=== PATIENT | male | born 1950 | race Caucasian/White ===

== ENCOUNTER 2020-07-03 09:40 | Outpatient (REF) | payer MEDICARE, OTHER, SELFPAY ==
--- NOTE | 2020-07-03 | US_ITS ---
EXAMINATION: COLOR-FLOW DUPLEX IMAGING OF THE BILATERAL LOWER EXTREMITY ARTERIAL SYSTEM. VELOCITY MEASUREMENTS TO THE POPLITEAL ARTERIES CATRACHO CLINICAL INFORMATION: PVD. Left superficial femoral artery stent. FINDINGS: Collateral arteries are seen throughout both lower extremities. RIGHT LOWER EXTREMITY: Brachial artery pressure is 124 mmHg with posterior tibial pressure of 98 mmHg and dorsalis pedis artery 106 mmHg for a CATRACHO of 0.76. This corresponds to moderate obstructive disease. There is calcified plaque seen throughout the vessels. There are numerous greater than 50% stenoses seen within the common femoral artery and superficial femoral artery. There appears to be segmental occlusion of the mid superficial femoral artery with collaterals reconstituting the vessel distally. The right common femoral artery has a biphasic waveform with peak systolic velocity of 180 cm/s. The right profunda femoral artery has a biphasic waveform with peak systolic velocity of 131 cm/s. The proximal superficial femoral artery has a biphasic waveform with peak systolic velocity of 47 cm/s. Mid superficial femoral artery has a monophasic waveform with peak systolic velocity 107 cm/s. There are numerous greater than 50% stenoses identified. The distal superficial femoral artery has a monophasic waveform with peak systolic velocity of 48 cm/s. Popliteal artery has a monophasic waveform with peak systolic velocity 51 cm/s. The posterior tibial artery has a monophasic waveform with peak systolic velocity of 23 cm/s. Peroneal artery has a monophasic waveform with peak systolic velocity of 23 cm/s. LEFT LOWER EXTREMITY: The left ankle CATRACHO is 0.6. This corresponds with moderate peripheral vascular disease. Left common femoral artery has a biphasic waveform with peak systolic velocity of 100 cm/s. The left profunda femoral artery has a biphasic waveform with peak systolic velocity of 167 cm/s. Proximal superficial femoral artery proximal to stent demonstrates a monophasic waveform with peak systolic velocity of 64 cm/s. Within the proximal segment of the left superficial femoral artery stent, there is a monophasic waveform with peak systolic velocity of 57 cm/s. Within the proximal and mid segment, there is a monophasic waveform with spectral broadening and peak soft velocity of 152 cm/s. Intimal hyperplasia is seen within the stent. Within the mid and in the superficial femoral artery, there is a monophasic waveform with spectral broadening and peak systolic velocity of 76 cm/s. Within the [id number] stent, there is diminished flow with monophasic waveform and spectral broadening and peak soft velocity of 58 cm/s. Patent collateral is seen adjacent to the level of the mid stent. Within the distal stent, there is a monophasic waveform with spectral broadening and peak systolic velocity of 253 cm/s. Just distal to the stent, within the distal superficial femoral artery, there is a monophasic waveform with peak systolic velocity of 109 cm/s. The left popliteal artery has a monophasic waveform with peak systolic velocity of 37 cm/s with numerous collateral vessels. Posterior tibial artery has a monophasic waveform with peak systolic velocity of 32 cm/s. The peroneal artery has a monophasic waveform with peak systolic velocity of 17 cm/s. US/US arterial duplex LE BI IMPRESSION: RIGHT CATRACHO: 0.76 moderate disease. LEFT CATRACHO: 0.60. Moderate disease. Diffuse atherosclerotic disease within the right common femoral artery and superficial femoral artery with segmental occlusion of the superficial femoral artery within the mid vessel with reconstitution via collaterals. Biphasic waveform to the level of the proximal superficial femoral artery with monophasic waveform distal to that. Diffuse atherosclerotic disease of the left lower extremity with stent in place and biphasic waveform within the common femoral artery and monophasic waveforms with spectral broadening distal to this. Large amount of intimal hyperplasia within the stent with hemodynamically significant stenoses.
== END 2020-07-03 09:41 | disposition home or self-care (01) ==
LOC: HO.US 09:40
PROVIDERS: Visit Provider Surgery Vascular Surgery
DX: I73.9 Peripheral vascular disease, unspecified (principal); Z95.820 Peripheral vascular angioplasty status with implants and grafts
CPT/HCPCS: 93923; 93925

== ENCOUNTER → 2020-08-07 12:50 | Outpatient (BNVA) | payer MEDICARE, OTHER, SELFPAY | PROVIDERS: PCP Nurse Practitioner Family; Visit Provider Surgery Vascular Surgery | DX: I73.9 Peripheral vascular disease, unspecified (principal); E11.621 Type 2 diabetes mellitus with foot ulcer; L97.529 Non-pressure chronic ulcer of other part of left foot with unspecified severity | CPT/HCPCS: 99212 ==

== ENCOUNTER 2020-08-13 07:00 | Day surgery (SDC) | payer MEDICARE, OTHER, SELFPAY ==
[2020-08-13] VITALS (7 sets, daily range): BP systolic 120–134; BP diastolic 56–67; PULSE 57–78; RESP 16–18; TEMP 36.1–36.4; O2SAT 97–99; BMI 19.8
[2020-08-13 07:48] LABS: MANUAL DIFF FLAG NO
[2020-08-13 07:58] LABS: Basophils Absolute Auto 0.1 X10*3/uL (0.0-0.2); Basophils Percent Auto 0.5 % (0-2); Eosinophils Absolute Auto 0.2 X10*3/uL (0.0-0.4); Eosinophils Percent Auto 1.4 % (0-4); Hematocrit 35.3 % (42-52); Hemoglobin 11.7 g/dl (14.0-18.0); Imm Gran Abs Auto 0.04 X10*3/uL (0.00-0.03); Imm Gran Pct Auto 0.4 % (0.0-0.4); Lymphocytes Absolute Auto 1.7 X10*3/uL (1.2-4.9); Lymphocytes Percent Auto 15.3 % (20-40); Mean Corpuscular HGB Conc 33.1 g/dl (31.0-36.0); Mean Corpuscular Hemoglobin 28.5 pg (27.0-33.0); Mean Corpuscular Volume 86.1 fL (80-98); Mean Platelet Volume 10.3 fL (9.4-12.4); Monocytes Percent Auto 8.9 % (2-11); Neutrophils Absolute Auto 8.1 X10*3/uL (2.0-8.3); Neutrophils Percent Auto 73.5 % (45-73); Platelet Count 351 X10*3/uL (160-400); Red Cell Distribution Width 11.9 % (11.0-16.0); White Blood Count 11.1 X10*3/uL (4.8-10.8)
[2020-08-13 08:00] LABS: INTERNATIONAL NORM RATIO 1.1 (0.9-1.1); Prothrombin Time 13.4 SEC (10.8-13.0)
[2020-08-13 08:02] LABS: Partial Thromboplastin Time 35.9 SEC (24.1-38.0)
[2020-08-13 08:07] LABS: Glucose, Whole Blood 158 mg/dL (60-115)
[2020-08-13 08:19] LABS: Anion Gap 12 (12-20); Blood Urea Nitrogen 18 mg/dL (9-16); Carbon Dioxide 27 mmol/L (22-29); Chloride 101 mmol/L (96-108); Creatinine Clr Calc Pharmacy 61.2; Estimated Glomerular Filt Rate > 60; Glucose Random 169 mg/dL (60-115); Potassium 4.4 mmol/L (3.3-5.1); Sodium 136 mmol/L (135-145)
[2020-08-13] MEDS: Lidocaine HCl 1 % MPF 5 ML VIAL 10 ML SUBCUT (11:19)
[2020-08-13] MEDS: iohexoL 300 MG/ML 100 ML INFUS..BTL 150 ML IV (11:19)
--- NOTE | 2020-08-13 11:47 | P.OP_ITS ---
Operative Note Operative Note Date of Service: 08/13/20 Narrative: Angiogram report from [facility] Preoperative diagnosis: Peripheral arterial disease of left lower extremity, nonhealing ulcer Postoperative diagnosis: Same Procedure: 1. Ultrasound-guided right common femoral access 2. Aortogram with left lower extremity runoff 3. Angioplasty of left SFA Surgeon:Sanford Almaguer M.D. Flexible Machining System Machinist:None Anesthesia: Local with moderate conscious sedation for a total of 63 minutes, performed by ok Specimens:none Drains:none Estimated blood loss:minimal Indications: 69-year-old gentleman with nonhealing left 5th toe ulceration. Has had prior endovascular intervention about a year ago. Surveillance testing demonstrated nonhealing 5th toe ulcer with in stent restenosis. He now presents for endovascular intervention. Risks benefits complications were discussed in detail with the patient. He understood and consented. Procedure in detail: Patient was brought to the angiography suite prior to which a time-out was called for patient identification and site verification. Bilateral groins were prepped and draped in the standard surgical fashion. Under ultrasound guidance right common femoral was punctured with micro puncture needle and wire. Subsequently a precision 4 [place] sheath was then placed. Errund wire was advanced to the level of the aorta. 4 [place] Flush catheter was brought up and parked at the level of the renal arteries. Aortogram was then undertaken. Catheter was brought down to the level of the iliac bifurcation. Iliacs were subsequently imaged. Catheter was then brought in up and over to the left side SFA. Runoff study was then undertaken. At this 0.4 1000 units of systemic heparin was administered. An up and over 6 [place] sheath was placed. We used a Glidewire Advantage to traverse the lesion throughout the SFA. Once we were able to get down to the below-knee vessels. True lumen was confirmed with catheter and contrast. We then plasty 8 and the entire length of the prior SFA stent. This was 1st done with a 6 x 150 regular balloon. Next we plasty the area out with drug coated balloons. These were deployed in sequen tial order. DCB 6 x 150, 6 x 150, and 6 x 80. These were all brought into position in under 3 minutes and then deployed for 3 minutes. Once this was accomplished completion angiogram was then undertaken. Demonstrated excellent results. StarClose closure device was deployed. At the end of the case sponge nose may counts were correct. Interpretation of films: 1. Ultrasound demonstrates appropriate femoral puncture. Image of which was saved. 2. Aortogram demonstrates appropriate caliber aorta. Minimal disease. Appropriate take-off of the renals. 3. Iliac images demonstrate no significant stenosis highly tortuous 4. Left lower extremity demonstrated normal common femoral and profunda femoral S SFA throughout its entire length had stents which demonstrated significant InStent restenoses. He had a good above knee popliteal that went below knee. He had good 3 vessel runoff anterior tibial and posterior tibial being most dominant giving a completion foot arch. Conclusion: 1. Successful plasty of left SFA with drug coated balloon. Patient will require long-term aspirin and Plavix as he has developed rapid InStent restenoses. He will be scheduled for toe amputation soon. This note is constructed using voice recognition software. While every effort has been made to ensure accuracy, line assembler errors may have been included. Thank you for allowing me to participate in the care of your patient. Yours sincerely, Sanford Almaguer MD, FACS, R.P.V.I.
== END 2020-08-13 14:45 | disposition home or self-care (01) ==
PROVIDERS: PCP Nurse Practitioner Family; Visit Provider Surgery Vascular Surgery
DX: I73.9 Peripheral vascular disease, unspecified (principal); E11.621 Type 2 diabetes mellitus with foot ulcer; Z79.4 Long term (current) use of insulin; L97.529 Non-pressure chronic ulcer of other part of left foot with unspecified severity; E78.00 Pure hypercholesterolemia, unspecified
CPT/HCPCS: 36415; 37224; 75625; 75710; 76937; 76942; 80048; 82947; 85025; 85610; 85730; 99152; 99153; C1725; C1760; C1769; C1887; J0461; J2250; J3010; Q9967

== ENCOUNTER → 2020-08-14 10:07 | Outpatient (BNVA) | payer MEDICARE, OTHER, SELFPAY | PROVIDERS: PCP Nurse Practitioner Family; Visit Provider Surgery Vascular Surgery | CPT/HCPCS: Q3014 ==

== ENCOUNTER 2020-08-17 15:36 | Emergency (ER) | payer MEDICARE, OTHER, SELFPAY ==
--- NOTE | ~2020-08-17 | CT_ITS ---
EXAMINATION: CT ABDOMEN AND PELVIS WITH CONTRAST CLINICAL INFORMATION: Pain, recent angioplasty recess or retroperitoneal bleed COMPARISON: None TECHNIQUE: Multidetector volumetric images were obtained from the superior aspect of the liver through the pubic symphysis following administration 85 mL of Omnipaque 350 intravenous contrast. Sagittal and coronal reformatted images were obtained on the technologist's workstation. Oral contrast: No Motion degradation limits assessment. This CT examination was performed using dose optimization techniques as appropriate, variously including the following: *Automated exposure control *Adjustment of mA and/or kV according to patient size (this includes techniques or standardized protocols for targeted exams where dose is matched to indication/reason for exam; i.e. extremities or head) *Use of iterative reconstruction technique DLP: 151 mGy-cm FINDINGS: LUNG BASES: The visualized lung bases are unremarkable. LIVER, GALLBLADDER, AND BILIARY TREE: The liver is normal in size, shape, and attenuation. No focal hepatic lesion or biliary ductal dilatation is present. The gallbladder is unremarkable with no evidence of radiopaque gallstones, gallbladder wall thickening, or obvious pericholecystic inflammatory changes. PANCREAS: Unremarkable. SPLEEN: Unremarkable. ADRENAL GLANDS: Unremarkable. KIDNEYS AND URETERS: There is dilatation of the left renal collecting system of moderate severity to the level the proximal ureter. 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 Relative symmetrical nephrograms noted. No obstructing source demonstrated. The right-sided abnormality. BLADDER: Unremarkable. GASTROINTESTINAL TRACT: The small and large bowel are unremarkable. The appendix is unremarkable. ABDOMINAL WALL: There is extensive infiltration of the right inguinal region extending into the right spermatic cord where there is a hematoma. Hematoma is relatively small measuring approximately 7.7 cm craniocaudal 4 cm AP and 5.5 cm transverse. Small amounts extend into the right pelvis. No retroperitoneal extension. No free fluid. LYMPH NODES: Normal. VASCULAR: No gross extravasation of contrast. PELVIC VISCERA: Moderate prostate enlargement. OSSEOUS STRUCTURES: Unremarkable. CT/CT abdomen pelvis w con IMPRESSION: No retroperitoneal hemorrhage. Findings of acute hematoma in the right inguinal region extending to the right pelvis and right spermatic cord as above. Dilatation of the left proximal urinary collecting system as above. Correlate with renal function and consider CT urogram to exclude an occult source if further assessment indicates obstruction as opposed to a congenital findings.
[2020-08-17 15:42] VITALS: BP 128/66; PULSE 70; RESP 20; TEMP 36.7; O2SAT 99
--- NOTE | 2020-08-17 18:23 | ECG_ITS ---
Test Reason : ABDOMINAL PAIN Blood Pressure : / mmHG Vent. Rate : 056 BPM Atrial Rate : 056 BPM P-R Int : 146 ms QRS Dur : 088 ms QT Int : 424 ms P-R-T Axes : 069 029 040 degrees QTc Int : 409 ms Sinus bradycardia Otherwise normal ECG When compared with ECG of 20-FEB-2003 12:28, No significant change was found Referred By: Hollie Walsh Electronically Signed By:Zachariah Waite
--- NOTE | 2020-08-17 18:24 | ED_ITS ---
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 He is followed by vascular dr alamo and had an angio at the right groin 5 days ago with successful plasty of the left SFA. He is scheduled for an amputation of the toe tomorrow. He tells me 3 days ago he had steak and since then he has had LUQ abdominal pain and nausea with constipation. Normally moves his bowels every day. Not currently on a bowel regimen. Denies narcotics. No vomiting, fevers, chills. He notes some swelling at the right groin angio site with some mild discomfort. MD elicited complaint: abdominal pain Related Data Home Medications Medication Instructions Recorded Confirmed insulin aspart U-100 100 unit/mL 0 - 10 unit SUBCUT TID 08/07/20 (3 mL) subcutaneous pen Previous Rx's Medication Instructions Recorded metformin 500 mg tablet 500 mg PO DAILY 90 Days #90 tab 04/29/20 atorvastatin 20 mg tablet 20 mg PO DAILY 90 Days #90 tab 05/05/20 lancets 28 gauge #100 ea 06/20/20 clopidogrel 75 mg tablet 75 mg PO DAILY #90 tab 07/14/20 blood sugar diagnostic See Rx Instructions .ROUTE QID 08/07/20 #100 strip cephalexin 500 mg capsule 500 mg PO BID #20 cap 08/07/20 docusate sodium [Colace] 100 mg PO BID #20 cap 08/17/20 polyethylene glycol 3350 [Miralax] 17 g PO DAILY #119 g 08/17/20 Allergies Allergy/AdvReac Type Severity Reaction Status Date / Time No Known Allergies Allergy Verified 08/14/20 10:07 [No Known Allergies*] Review of Systems Review of Systems Yes all other systems are reviewed and are negative Constitutional: Reports no additional constitutional complaints, Denies body a mayelin(s), Denies chills, Denies fever(s), Denies headache(s) and Denies weakness Eyes: Reports no additional eye complaints and Denies change in vision Reports system reviewed and no additional complaints, except as documented, Denies dizziness, Denies headache(s), Denies nasal congestion, Denies nasal discharge and Denies neck pain Cardiovascular: Reports no additional cardiovascular complaints, Denies chest pain, Denies leg edema and Denies dyspnea Respiratory: Reports no additional respiratory complaints, Denies cough and Denies dyspnea Gastrointestinal: Reports no additional gastrointestinal complaints, Reports abdominal pain, Reports constipation, Denies diarrhea, Reports nausea and Denies vomiting Genitourinary: Denies urinary incontinence Musculoskeletal: Reports no additional musculoskeletal complaints, Denies back pain, Denies arthralgias, Denies joint swelling, Denies neck pain, Denies numbness and Denies tingling Skin/Breast: Reports system reviewed and no additional complaints, except as doc u and Denies rash Reports system reviewed and no additional complaints, except as documented, Denies Abnormal speech present, Denies dizziness, Denies headache(s), Denies numbness, Denies tingling and Denies weakness Physical Exam Vital Signs: Vital Signs: Last Vital Signs Temp 98 F 08/17/20 18:26 Pulse 99 08/17/20 18:26 Resp 18 08/17/20 18:26 BP 136/63 08/17/20 18:26 Pulse Ox 99 08/17/20 18:26 Body Mass Index 20.0 Const: General: cooperative, healthy appearing, comfortable and no acute distress Orientation/consciousness: patient oriented x3 Limitations: no limitations HENMT: Head: Yes normal to inspection Ears: hearing grossly normal bilaterally General nose exam: Normal external nose present Face and sinus: Yes normal facial exam Mouth: Normal oral and palatal mucosa present Throat: Yes posterior oropharynx normal Eyes: General: appearance normal, both eyes and all related structures Pupils: Equal, round and reactive pupils present Neck: Neck: Yes normal visual inspection Chest: Chest palpation & inspection: normal inspection of the chest Resp: Effort & Inspection: normal respiratory effort Auscultation: clear to auscultation bilaterally Cardio: Rate: regular rate Rhythm: regular rhythm Peripheral pulses: Peripheral pulses 2+ throughout GI: Other: R groin site there is ecchymosis with a mod hematoma which is soft with swelling but no tenderness on exam. +femoral pulse noted. Extremity distal is warm/pink Inspection: Yes normal to inspection Palpation (GI): Soft to palpation and Tenderness to palpation present (GI) (mild LUQ pain, no rebound or guarding ) Auscultation: normal bowel sounds Back/Spine/Pelvis: Thoracic/Lumbar Spine: thoracic and lumbar spine normal to inspection Skin: General skin exam: no rashes or lesions noted Neuro: General: patient oriented x3, no focal motor deficits and normal sensation to monofilament Cranial nerves: Yes Equal, round and reactive pupils present Cognition (Neuro): normal cognition Speech: No Abnormal speech present Gait exam (Neuro): Normal gait present Motor exam (neuro): 5/5 motor strength present throughout Extrem: General: Yes normal to inspection Course Course Course Narrative: 69 yo male here with complaints of LUQ abdominal pain, nausea and constipation x 3 days. On exam has some mild tenderness to LUQ with no rebound or guarding. Has ecchymosis, swelling over the right groin angio site which is soft and non tender. Will need labs, UA, EKG, Ct A/P. 2220-hemoglobin 9.2. Hematocrit 27.5 which is a slight decrease from his CBC on August 13 (11.7/27.5) athough angio site is soft, non tender. CT shows No retroperitoneal hemorrhage. Findings of acute hematoma in the right inguinal region extending to the right pelvis and right spermatic cord as above. Dilatation of the left proximal urinary collecting system as above. Correlate with renal function and consider CT urogram to exclude an occult source if further assessment indicates obstruction as opposed to a congenital findings. No previous CT to compare to. No flank pain on exam. Pain is mild in LUQ and likely non-related. Normal lipase with no evidence of pancreatitis. ?gastritis from antibiotic use. Discussed taking with food. Normal renal function. Normal voiding. Discussed findings with Dr Rowan (attending) and patient. Patient can f/u outpatient with urology for pyelogram/urogram and possible stenting. Given a copy of CT report. Reviewed worrisome signs symptoms would return to the emergency department. Comfortable discharge home. MDM - Abdominal Pain MDM Narrative Medical decision making narrative: RP bleed, constipation, pancreatitis, gastritis, gerd, SBO Medical Records Attestation: I reviewed the patient's medical records. Lab Data Attestation: I reviewed the patient's lab results. Result diagrams: 08/17/20 18:46 08/17/20 18:46 Labs: Lab Results 03/07/21 03/07/21 03/07/21 Range/Units 18:46 18:46 18:46 WBC 12.1 H (4.8-10.8) X10*3/uL RBC 3.23 L D (4.60-5.80) X10*6/uL Hgb 9.2 L D (14.0-18.0) g/dl Hct 27.5 L D (42-52) % MCV 85.1 (80-98) fL MCH 28.5 (27.0-33.0) pg MCHC 33.5 (31.0-36.0) g/dl RDW 11.9 (11.0-16.0) % Plt Count 332 (160-400) X10*3/uL MPV 10.3 (9.4-12.4) fL Immature Gran % (Auto) 0.4 (0.0-0.4) % Neut % (Auto) 75.4 H (45-73) % Lymph % (Auto) 12.0 L (20-40) % [place] % (Auto) 10.4 (2-11) % Eos % (Auto) 1.5 (0-4) % Baso % (Auto) 0.3 (0-2) % Lymph # (Auto) 1.5 (1.2-4.9) X10*3/uL [place] # (Auto) 1.3 H (0.1-1.2) X10*3/uL Eos # (Auto) 0.2 (0.0-0.4) X10*3/uL Baso # (Auto) 0.0 (0.0-0.2) X10*3/uL Abs Immat Gran (auto) 0.05 H (0.00-0.03) X10*3/uL Absolute Neuts (auto) 9.1 H (2.0-8.3) X10*3/uL Absolute Nucleated RBC 0.000 (0.0-0.012) X10*3/uL Nucleated RBC % (auto) 0.0 (0.0-0.2) /100WBC PT 13.5 H (10.8-13.0) SEC INR 1.1 (0.9-1.1) Sodium 137 (135-145) mmol/L Potassium 5.1 (3.3-5.1) mmol/L Chloride 99 (96-108) mmol/L Carbon Dioxide 28 (22-29) mmol/L Anion Gap 15 (12-20) BUN 20 H (9-16) mg/dL Creatinine 1.22 (0.5-1.4) mg/dL Estim Creat Clear Calc 48.3 Estimated GFR 59 Random Glucose 172 H (60-115) mg/dL Calcium 8.9 (8.4-10.2) mg/dL Total Bilirubin 0.6 (0.0-1.0) mg/dL Direct Bilirubin 0.3 (0.0-0.5) mg/dL AST 10 (5-37) U/L ALT 6 (0-40) U/L Alkaline Phosphatase 71 (39-117) U/L Troponin I High Sens (<3.5-35.0) ng/L Total Protein 6.2 L (6.5-8.0) g/dL Albumin 3.4 L (3.5-5.0) g/dL Lipase 5 L (8-78) U/L Urine Color Urine Appearance Urine pH (5.0-8.0) Ur Specific [place] (1.005-1.025) Urine Protein (NEG-TRACE) MG/DL Urine Glucose (UA) (NEG) MG/DL Urine Ketones (NEG) MG/DL Urine Blood (NEG) Urine Nitrite (NEG) Ur Leukocyte Esterase (NEG) Urine RBC (0) /HPF Urine WBC (0-4) /HPF Ur Squamous Epith Cells /LPF Urine Bacteria /LPF 08/17/20 08/17/20 Range/Units 18:46 21:29 WBC (4.8-10.8) X10*3/uL RBC (4.60-5.80) X10*6/uL Hgb (14.0-18.0) g/dl Hct (42-52) % MCV (80-98) fL MCH (27.0-33.0) pg MCHC (31.0-36.0) g/dl RDW (11.0-16.0) % Plt Count (160-400) X10*3/uL MPV (9.4-12.4) fL Immature Gran % (Auto) (0.0-0.4) % Neut % (Auto) (45-73) % Lymph % (Auto) (20-40) % [place] % (Auto) (2-11) % Eos % (Auto) (0-4) % Baso % (Auto) (0-2) % Lymph # (Auto) (1.2-4.9) X10*3/uL [place] # (Auto) (0.1-1.2) X10*3/uL Eos # (Auto) (0.0-0.4) X10*3/uL Baso # (Auto) (0.0-0.2) X10*3/uL Abs Immat Gran (auto) (0.00-0.03) X10*3/uL Absolute Neuts (auto) (2.0-8.3) X10*3/uL Absolute Nucleated RBC (0.0-0.012) X10*3/uL Nucleated RBC % (auto) (0.0-0.2) /100WBC PT (10.8-13.0) SEC INR (0.9-1.1) Sodium (135-145) mmol/L Potassium (3.3-5.1) mmol/L Chloride (96-108) mmol/L Carbon Dioxide (22-29) mmol/L Anion Gap (12-20) BUN (9-16) mg/dL Creatinine (0.5-1.4) mg/dL Estim Creat Clear Calc Estimated GFR Random Glucose (60-115) mg/dL Calcium (8.4-10.2) mg/dL Total Bilirubin (0.0-1.0) mg/dL Direct Bilirubin (0.0-0.5) mg/dL AST (5-37) U/L ALT (0-40) U/L Alkaline Phosphatase (39-117) U/L Troponin I High Sens 4.3 (<3.5-35.0) ng/L Total Protein (6.5-8.0) g/dL Albumin (3.5-5.0) g/dL Lipase (8-78) U/L Urine Color YELLOW Urine Appearance CLEAR Urine pH 8.0 (5.0-8.0) Ur Specific [place] 1.010 (1.005-1.025) Urine Protein NEG (NEG-TRACE) MG/DL Urine Glucose (UA) NEG (NEG) MG/DL Urine Ketones 15 (NEG) MG/DL Urine Blood 1+ H (NEG) Urine Nitrite NEG (NEG) Ur Leukocyte Esterase NEG (NEG) Urine RBC 15-29 H (0) /HPF Urine WBC 1-4 (0-4) /HPF Ur Squamous Epith Cells 1+ /LPF Urine Bacteria 1+ /LPF Imaging Data CT scan - abdomen: Attestation: I personally reviewed and interpreted this imaging study as follows: Radiologist's impression: EXAMINATION: CT ABDOMEN AND PELVIS WITH CONTRAST CLINICAL INFORMATION: Pain, recent angioplasty recess or retroperitoneal bleed COMPARISON: None TECHNIQUE: Multidetector volumetric images were obtained from the superior aspect of the liver through the pubic symphysis following administration 85 mL of Omnipaque 350 intravenous contrast. Sagittal and coronal reformatted images were obtained on the technologist's workstation. Oral contrast: No Motion degradation limits assessment. This CT examination was performed using dose optimization techniques as appropriate, variously including the following: *Automated exposure control *Adjustment of mA and/or kV according to patient size (this includes techniques or standardized protocols for targeted exams where dose is matched to indication/reason for exam; i.e. extremities or head) *Use of iterative reconstruction technique DLP: 151 mGy-cm FINDINGS: LUNG BASES: The visualized lung bases are unremarkable. LIVER, GALLBLADDER, AND BILIARY TREE: The liver is normal in size, shape, and attenuation. No focal hepatic lesion or biliary ductal dilatation is present. The gallbladder is unremarkable with no evidence of radiopaque gallstones, gallbladder wall thickening, or obvious pericholecystic inflammatory changes. PANCREAS: Unremarkable. SPLEEN: Unremarkable. ADRENAL GLANDS: Unremarkable. KIDNEYS AND URETERS: There is dilatation of the left renal collecting system of moderate severity to the level the proximal ureter. 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 Relative symmetrical nephrograms noted. No obstructing source demonstrated. The right-sided abnormality. BLADDER: Unremarkable. GASTROINTESTINAL TRACT: The small and large bowel are unremarkable. The appendix is unremarkable. ABDOMINAL WALL: There is extensive infiltration of the right inguinal region extending into the right spermatic cord where there is a hematoma. Hematoma is relatively small measuring approximately 7.7 cm craniocaudal 4 cm AP and 5.5 cm transverse. Small amounts extend into the right pelvis. No retroperitoneal extension. No free fluid. LYMPH NODES: Normal. VASCULAR: No gross extravasation of contrast. PELVIC VISCERA: Moderate prostate enlargement. OSSEOUS STRUCTURES: Unremarkable. CT/CT abdomen pelvis w con IMPRESSION: No retroperitoneal hemorrhage. Findings of acute hematoma in the right inguinal region extending to the right pelvis and right spermatic cord as above. Dilatation of the left proximal urinary collecting system as above. Correlate with renal function and consider CT urogram to exclude an occult source if further assessment indicates obstruction as opposed to a congenital findings. Discharge Plan Discharge Clinical Impression: Abnormal CT scan, Anemia, Hematoma, Abdominal pain, Constipation Patient Disposition: Home, Self-Care Instructions: Constipation (ED), Abdominal Pain (ED), Anemia (ED), Hematoma (ED) Additional Instructions: Your CT scan shows that your left ureter is dilated and blocked. This is causing some swelling of your left kidney. Your right kidney is working good. Your kidney function is very good. You need to follow-up with a urologist to have more testing done and a possible stent placed to open this up. Call them tomorrow to make an appointment this week. You were given a copy of your report. Increase fluids and fiber in diet. We are starting you on miralax and colace to keep your bowels moving. Your CT scan also shows a hematoma which is bruise under the skin on the right groin. This will improve with time. Your blood cell counts dropped a little but they will improve with time. Prescriptions: New polyethylene glycol 3350 [Miralax] 17 gram/dose powder 17 g PO DAILY Qty: 119 RF: 0 docusate sodium [Colace] 100 mg capsule 100 mg PO BID Qty: 20 RF: 0 No Action metformin 500 mg tablet 500 mg PO DAILY 90 Days Qty: 90 RF: 1 atorvastatin 20 mg tablet 20 mg PO DAILY 90 Days Qty: 90 RF: 1 (DME) lancets [FreeStyle Lancets] 28 gauge misc See Rx Instructions .ROUTE .MEDSUPPLY Qty: 100 RF: 2 clopidogrel 75 mg tablet 75 mg PO DAILY Qty: 90 RF: 0 FreeStyle Lite Strips Strip See Rx Instructions .ROUTE QID Qty: 100 RF: 3 cephalexin 500 mg capsule 500 mg PO BID Qty: 20 RF: 0 Referrals: Reynaldo Olivas MD [Physician] - 2 days Interventions: ED Discharge Assessment Last Done: 08/17/20 22:22 Discharge Date/Time: 08/17/20 22:23 [facility] Past Medical History Attestation statement: The following information was validated with the patient. Source: old records reviewed Medical History Hypercholesteremia PVD (peripheral vascular disease) Surgical History S/P angiogram of extremity (~2019) S/P PICC central line placement Social History Social History Smoking Status: Current every day smoker Cigarettes Per Day: 7 Years Smoked: 39 Advance Directives: No Advance Directives Information Provided: Yes
[2020-08-17 18:26] VITALS: BP 136/63; PULSE 99; RESP 18; TEMP 36.6; O2SAT 99
[2020-08-17 18:55] LABS: MANUAL DIFF FLAG NO
[2020-08-17 18:57] LABS: Basophils Percent Auto 0.3 % (0-2); Eosinophils Absolute Auto 0.2 X10*3/uL (0.0-0.4); Eosinophils Percent Auto 1.5 % (0-4); Hematocrit 27.5 % (42-52); Hemoglobin 9.2 g/dl (14.0-18.0); Imm Gran Abs Auto 0.05 X10*3/uL (0.00-0.03); Imm Gran Pct Auto 0.4 % (0.0-0.4); Lymphocytes Absolute Auto 1.5 X10*3/uL (1.2-4.9); Mean Corpuscular HGB Conc 33.5 g/dl (31.0-36.0); Mean Corpuscular Hemoglobin 28.5 pg (27.0-33.0); Mean Corpuscular Volume 85.1 fL (80-98); Mean Platelet Volume 10.3 fL (9.4-12.4); Monocytes Absolute Auto 1.3 X10*3/uL (0.1-1.2); Monocytes Percent Auto 10.4 % (2-11); Neutrophils Absolute Auto 9.1 X10*3/uL (2.0-8.3); Neutrophils Percent Auto 75.4 % (45-73); Platelet Count 332 X10*3/uL (160-400); Red Blood Count 3.23 X10*6/uL (4.60-5.80); Red Cell Distribution Width 11.9 % (11.0-16.0); White Blood Count 12.1 X10*3/uL (4.8-10.8)
[2020-08-17 19:03] LABS: INTERNATIONAL NORM RATIO 1.1 (0.9-1.1); Prothrombin Time 13.5 SEC (10.8-13.0)
[2020-08-17 19:24] LABS: Alanine Aminotransferase 6 U/L (0-40); Albumin Level 3.4 g/dL (3.5-5.0); Alkaline Phosphatase 71 U/L (39-117); Anion Gap 15 (12-20); Aspartate Amino Transferase 10 U/L (5-37); Bilirubin Direct 0.3 mg/dL (0.0-0.5); Bilirubin Total 0.6 mg/dL (0.0-1.0); Blood Urea Nitrogen 20 mg/dL (9-16); Calcium 8.9 mg/dL (8.4-10.2); Carbon Dioxide 28 mmol/L (22-29); Chloride 99 mmol/L (96-108); Creatinine Clr Calc Pharmacy 48.3; Estimated Glomerular Filt Rate 59; Glucose Random 172 mg/dL (60-115); Lipase 5 U/L (8-78); Potassium 5.1 mmol/L (3.3-5.1); Sodium 137 mmol/L (135-145); Total Protein 6.2 g/dL (6.5-8.0)
[2020-08-17 19:26] LABS: Troponin-I High Sensitivity 4.3 ng/L (<3.5-35.0)
[2020-08-17] MEDS: iohexoL 350 MG/ML 75 ML INFUS..BTL IV (20:12)
--- NOTE | 2020-08-17 20:24 | PC.NURSE ---
update at this time. Pt alert, respirations easy, n/ll awaiting for pending ct.
--- NOTE | 2020-08-17 21:30 | PC.NURSE ---
pt up to restroom with steady gait for urine sample to lab.
[2020-08-17 21:37] LABS: Glucose Urine UA NEG (NEG); Leukocyte Esterase Urine NEG (NEG); Nitrite Urine NEG (NEG); Urine Blood 1+ (NEG); Urine Ketones 15 MG/DL (NEG); Urine Protein NEG (NEG-TRACE)
[2020-08-17 21:47] LABS: Appearance Urine CLEAR; Color Urine YELLOW
[2020-08-17 21:48] LABS: Bacteria Urine 1+ /LPF; Squamous Epithelial Cell Urine 1+ /LPF
== END 2020-08-17 22:23 | disposition home or self-care (01) ==
PROVIDERS: Nurse Practitioner Family; Emergency Provider Internal Medicine; PCP Nurse Practitioner Family
DX: R10.12 Left upper quadrant pain (principal); K59.00 Constipation, unspecified; D64.9 Anemia, unspecified; N50.1 Vascular disorders of male genital organs; F17.210 Nicotine dependence, cigarettes, uncomplicated; R93.5 Abnormal findings on diagnostic imaging of other abdominal regions, including retroperitoneum; N13.5 Crossing vessel and stricture of ureter without hydronephrosis
CPT/HCPCS: 36415; 74177; 80048; 80076; 81001; 83690; 84484; 85025; 85610; 93005; 99283; 99284; Q9967

== ENCOUNTER 2020-08-18 06:37 | Day surgery (SDC) | payer MEDICARE, OTHER, SELFPAY ==
[2020-08-18] VITALS (8 sets, daily range): BP systolic 114–153; BP diastolic 54–74; PULSE 56–80; RESP 7–17; TEMP 36.3–37; O2SAT 95–100; BMI 19.8
--- NOTE | 2020-08-18 08:00 | P.CONAN_ITS ---
[facility] Active Problems Active Problems: All Active Problems (Updated 08/18/20 @ 00:00 by Myra Che) Ulcer of left foot due to type 2 diabetes mellitus (Acute) Type 2 diabetes mellitus without complications (Acute) Past Medical History Medical History Hypercholesteremia PVD (peripheral vascular disease) Surgical History Surgical History S/P angiogram of extremity (~2019) S/P PICC central line placement Social History Social History Smoking Status: Current every day smoker Cigarettes Per Day: 7 Years Smoked: 39 Advance Directives: No Meds Allergies Allergy/AdvReac Type Severity Reaction Status Date / Time No Known Allergies Allergy Verified 08/14/20 10:07 [No Known Allergies*] Active Medications: Current Medications Generic Name Dose Route Start Last Admin Trade Name Janq PRN Reason Stop Dose Admin Cefazolin Sodium/Dextrose 2 gm in 50 mls @ 100 mls/hr 08/18/20 07:44 Ancef IV 08/18/20 08:13 PREOP ONE Home Medications Medication Instructions Recorded Confirmed Last Taken Type insulin aspart U-100 100 unit/mL 0 - 10 unit SUBCUT TID 08/07/20 Unknown History (3 mL) subcutaneous pen Exam Exam Date and Time: August 18, 2020 0800 Airway Mallampati Class: II TM Dist: >3cm Neck ROM: Full Denture: Upper and Lower
[2020-08-18 08:30] LABS: Glucose, Whole Blood 163 mg/dL (60-115)
[2020-08-18] MEDS: Lactated Ringers 1,000 ML 100 ML IVCONT (08:46)
--- NOTE | 2020-08-18 09:00 | MHC.SHP ---
Pre-Procedural Eval Section B Chief Complaint: Peripheral Vascular Disease Allergies: Allergies Allergy/AdvReac Type Severity Reaction Status Date / Time No Known Allergies Allergy Verified 08/14/20 10:07 [No Known Allergies*] Plan I have reviewed the history and physical and performed a pertinent physical examination on my patient. No changes have occurred unless specified.
--- NOTE | 2020-08-18 10:16 | P.OP_ITS ---
Operative Note Operative Note Date of Service: 08/18/20 Narrative: Operative note by [facility] Preoperative diagnosis: Nonhealing left foot ulcer Postoperative diagnosis: Same Procedure: Left 5th toe amputation Surgeon:Sanford Almaguer M.D. Clothing Worker: None Anesthesia: General Specimens: 1 Drains: Estimated blood loss: Minimal Indications: 69-year-old gentleman with significant peripheral vascular disease and diabetes developed left 5th toe gangrene. He had actually undergone endovascular intervention last week. We were able to revascularize the SFA. He now presents for toe amputation. The patient has signed the informed consent after reviewing risks, complications, benefits, and alternatives previously discussed with the patient in my office. The patient was given the opportunity to ask any additional questions or voice any concerns. All questions were answered to the patient's satisfaction. Procedure in detail: Patient was taken to the operating room prior to which a time-out was called for patient identification and site verification. Left foot was prepped and draped in the standard surgical fashion. A curvilinear fishmouth incision was made over the 5th toe. This was taken down to the metatarsal head. The wound was thoroughly irrigated. Adequate hemostasis was achieved with electrocautery. At this point in the base we placed a piece of AmnioFix 2 x 3. This was hydrated and placed into position. Deep layer was reapproximated using 2 0 poly sore. Superficial layer with 3-0 poly for Sorb some. Finally skin with nylon. At the end the case sponge instrument counts were correct. Patient tolerated the procedure well. Returned to recovery with stable vitals. This note is constructed using voice recognition software. While every effort has been made to ensure accuracy, benefits consulting analyst errors may have been included. Thank you for allowing me to participate in the care of your patient. Yours sincerely, Sanford Almaguer MD, FACS, R.P.V.I.
== END 2020-08-18 11:51 | disposition home or self-care (01) ==
PROVIDERS: PCP Nurse Practitioner Family; Visit Provider Surgery Vascular Surgery
PROC: (CPT 28810; principal; 2020-08-18 08:30)
DX: E11.621 Type 2 diabetes mellitus with foot ulcer (principal); E11.52 Type 2 diabetes mellitus with diabetic peripheral angiopathy with gangrene; L97.529 Non-pressure chronic ulcer of other part of left foot with unspecified severity; Z79.4 Long term (current) use of insulin
CPT/HCPCS: 28810; 82947; 88305; 88311; J0690; J1100; J2250; J2370; J2405; J3010; J3590

== ENCOUNTER → 2020-09-02 08:50 | Outpatient (BNVA) | payer MEDICARE, OTHER, SELFPAY | PROVIDERS: PCP Nurse Practitioner Family; Visit Provider Surgery Vascular Surgery | DX: I73.9 Peripheral vascular disease, unspecified (principal) | CPT/HCPCS: 99212 ==

== ENCOUNTER 2020-09-11 09:02 | Outpatient (REF) | payer MEDICARE, OTHER, SELFPAY ==
[2020-09-11 11:54] LABS: Estimated Average Glucose 166 mg/dL; Hemoglobin A1c % 7.4 %
[2020-09-11 12:08] LABS: Alanine Aminotransferase 11 U/L (0-40); Albumin Level 3.7 g/dL (3.5-5.0); Alkaline Phosphatase 74 U/L (39-117); Anion Gap 12 (12-20); Aspartate Amino Transferase 11 U/L (5-37); Bilirubin Total 0.3 mg/dL (0.0-1.0); Blood Urea Nitrogen 23 mg/dL (9-16); Calcium 8.5 mg/dL (8.4-10.2); Carbon Dioxide 23 mmol/L (22-29); Chloride 106 mmol/L (96-108); Cholesterol 135 mg/dL; Estimated Glomerular Filt Rate > 60; Glucose Fasting 164 mg/dL (60-99); HDL Cholesterol 48 mg/dL; LDL Cholesterol Calculated 75 mg/dl; Potassium 5.1 mmol/L (3.3-5.1); Sodium 136 mmol/L (135-145); Total Protein 6.6 g/dL (6.5-8.0); Triglycerides 64 mg/dL
[2020-09-11 12:14] LABS: Prostate Specific Antigen Scr 1.57 ng/mL (<0.05-4.0); TSH reflex Free T4 1.37 uIU/mL (0.32-4.0)
[2020-09-11 14:34] LABS: Creatinine Urine 74.25 mg/dL; Microalbum/Creatinine Ratio Ur 9.4 ug/mg cr
== END 2020-09-11 09:03 | disposition home or self-care (01) ==
LOC: HO.HMGCLNP 09:02
PROVIDERS: PCP Nurse Practitioner Family; Visit Provider Nurse Practitioner Family
DX: E11.9 Type 2 diabetes mellitus without complications (principal); Z12.5 Encounter for screening for malignant neoplasm of prostate
CPT/HCPCS: 80053; 80061; 82043; 83036; 84153; 84443

== ENCOUNTER → 2020-09-18 08:58 | Outpatient (BNVA) | payer MEDICARE, OTHER, SELFPAY | PROVIDERS: PCP Nurse Practitioner Family; Visit Provider Surgery Vascular Surgery | DX: I73.9 Peripheral vascular disease, unspecified (principal) | CPT/HCPCS: 99212 ==

== ENCOUNTER → 2020-10-09 08:59 | Outpatient (BNVA) | payer MEDICARE, OTHER, SELFPAY | PROVIDERS: PCP Nurse Practitioner Family; Visit Provider Surgery Vascular Surgery | DX: I73.9 Peripheral vascular disease, unspecified (principal) | CPT/HCPCS: 99212 ==

== ENCOUNTER → 2020-10-30 11:31 | Outpatient (BNVA) | payer MEDICARE, OTHER, SELFPAY | PROVIDERS: PCP Nurse Practitioner Family; Visit Provider Surgery Vascular Surgery | DX: I73.9 Peripheral vascular disease, unspecified (principal); F17.200 Nicotine dependence, unspecified, uncomplicated; Z79.899 Other long term (current) drug therapy; Z71.6 Tobacco abuse counseling | CPT/HCPCS: 99212 ==

== ENCOUNTER 2020-11-03 06:09 | Day surgery (SDC) | payer MEDICARE, OTHER, SELFPAY ==
--- NOTE | 2020-10-31 10:30 | P.CONAN_ITS ---
Documented by User: Ahslee Penn 10/31/20 10:33 HPI - Anesthesia Eval Consult details Narrative: 70yo M for Left Debridement Skin great toe s/p Toe Amp 08/2020 with GA-LMA Plavix for PVD PMFSH Active Problems Active Problems: All Active Problems (Updated 09/08/20 @ 15:44 by Clint Vivar, [facility]) Screening PSA (prostate specific antigen) (Acute) Screening for colon cancer (Acute) Irregular heart rhythm (Acute) Diabetes (Acute) PVD (peripheral vascular disease) (Acute) Ulcer of left foot due to type 2 diabetes mellitus (Acute) Type 2 diabetes mellitus without complications (Acute) Past Medical History Medical History Diabetes Hypercholesteremia PVD (peripheral vascular disease) Surgical History Surgical History Amputated toe of left foot (08/18/20) S/P angiogram of extremity (10/08/19) S/P angiogram of extremity (08/13/20) S/P PICC central line placement Social History Social History Smoking Status: Current every day smoker Cigarettes Per Day: 5 Years Smoked: 39 Use of substances other than those prescribed or required for medical reasons: No Have you been hit, kicked, punched, or otherwise hurt by someone within the past year? If so, by whom?: No Are you DNR?: No Advance Directives: No Advance Directives Information Provided: Yes Meds Allergies Allergy/AdvReac Type Severity Reaction Status Date / Time No Known Allergies Allergy Verified 10/30/20 11:37 [No Known Allergies*] Home Medications Medication Instructions Recorded Confirmed Last Taken Type insulin aspart U-100 100 unit/mL 0 - 10 unit SUBCUT TID 08/07/20 09/08/20 Unknown History (3 mL) subcutaneous pen aspirin 81 mg tablet,delayed 81 mg PO DAILY 09/02/20 09/08/20 Unknown History release pen needle, diabetic 31 gauge x #50 ea 09/02/20 09/08/20 Unknown History 08/26 insulin glargine 100 unit/mL (3 20 unit SUBCUT DAILY 10/09/20 Unknown History mL) subcutaneous pen Exam Exam Date and Time: October 31, 2020 1030 Pertinent Lab Results Pertinent Lab Results: Laboratory Tests 08/17/20 09/11/20 18:46 09:10 WBC 12.1 H Hgb 9.2 L D Hct 27.5 L D Plt Count 332 Sodium 136 Potassium 5.1 Chloride 106 Carbon Dioxide 23 BUN 23 H Creatinine 0.83 Narrative Narrative: EKG 08/2020 NSR @ 64 Assessment and Plan Assessment Anesthesia Assessment: Chart Reviewed Documented by User: Kaylee Lozano 11/03/20 07:08 [facility] Past Medical History Medical History Diabetes Hypercholesteremia PVD (peripheral vascular disease) Surgical History Surgical History Amputated toe of left foot (08/18/20) S/P angiogram of extremity (10/08/19) S/P angiogram of extremity (08/13/20) S/P PICC central line placement Social History Social History Smoking Status: Current every day smoker Cigarettes Per Day: 5 Years Smoked: 39 Use of substances other than those prescribed or required for medical reasons: No Have you been hit, kicked, punched, or otherwise hurt by someone within the past year? If so, by whom?: No Are you DNR?: No Advance Directives: No Advance Directives Information Provided: Yes Meds Allergies Allergy/AdvReac Type Severity Reaction Status Date / Time No Known Allergies Allergy Verified 10/30/20 11:37 [No Known Allergies*] Home Medications Medication Instructions Recorded Confirmed Last Taken Type insulin aspart U-100 100 unit/mL 0 - 10 unit SUBCUT TID 08/07/20 09/08/20 Unknown History (3 mL) subcutaneous pen aspirin 81 mg tablet,delayed 81 mg PO DAILY 09/02/20 09/08/20 Unknown History release pen needle, diabetic 31 gauge x #50 ea 09/02/20 09/08/20 Unknown History / insulin glargine 100 unit/mL (3 20 unit SUBCUT DAILY 10/09/20 Unknown History mL) subcutaneous pen Exam Airway Mallampati Class: II TM Dist: >3cm Neck ROM: Full Assessment and Plan Assessment Anesthesia Assessment: Anesthesia Plan Discussed and Chart Reviewed Final Anesthetic Review NPO: Yes ASA Class: III Final Preanesthetic Review: No Changes in Pt Med Stat, Meds/Allgs Chart Reviewed, Consent Obtained/Reviewed and Anes Risks/Benef Reviewed Patient Risk: Intermediate Procedure Risk: Low Assessment/Block/Sedation in SS: Assess/Block/Sedation-SS Anesthetic Plan Anesthetic Plan: MAC: Disposition: Standard PACU
[2020-11-03] VITALS (8 sets, daily range): BP systolic 105–132; BP diastolic 37–64; PULSE 52–60; RESP 16–18; TEMP 36.1–36.3; O2SAT 87–97; BMI 19.8
[2020-11-03 06:26] LABS: Glucose, Whole Blood 129 mg/dL (60-115)
[2020-11-03] MEDS: Lactated Ringers 1,000 ML 100 ML IVCONT (06:55)
--- NOTE | 2020-11-03 07:29 | MHC.SHP ---
Pre-Procedural Eval Section B Chief Complaint: peripheral vascular disease Allergies: Allergies Allergy/AdvReac Type Severity Reaction Status Date / Time No Known Allergies Allergy Verified 10/30/20 11:37 [No Known Allergies*] Plan I have reviewed the history and physical and performed a pertinent physical examination on my patient. No changes have occurred unless specified.
--- NOTE | 2020-11-03 08:47 | P.OP_ITS ---
Operative Note Operative Note Date of Service: 11/03/20 Narrative: Operative note by [facility] Preoperative diagnosis: Nonhealing left great toe ulcer Postoperative diagnosis: Same Procedure:1. Excisional debridement in to muscle 2. Placement of epi Fix Surgeon:Sanford Almaguer M.D. Storeroom Attendant: Angelina Anesthesia: Local with sedation Specimens: 1 Drains: None Estimated blood loss: Minimal Indications: 70-year-old gentleman with prior left 5th toe amputation has a nonhealing great toe ulcer. It has been conservatively managed for some time with no improvement. He now presents for operative debridement The patient has signed the informed consent after reviewing risks, complications, benefits, and alternatives previously discussed with the patient in my office. The patient was given the opportunity to ask any additional questions or voice any concerns. All questions were answered to the patient's satisfaction. Procedure in detail: Patient was brought to the operating room prior to which a time-out was called for patient identification and site verification. Left foot was prepped and draped in the standard surgical fashion. Using a 15 blade excisional debridement was taken of this great toe ulceration. We debrided into muscle. Preprocedure measurement was 1.4 x 1.2 x .1cm postprocedure measurement was 1.5 x 1.5 x 0.3 cm. Adequate hemostasis was achieved with electrocautery. This was irrigated clean an epi Fix was placed within the wound. Sterile dressing was applied. At the end the case sponge, needle, and instrument counts were correct. Patient was returned to recovery with stable vitals. This note is constructed using voice recognition software. While every effort has been made to ensure accuracy, trimmer press clippings errors may have been included. Thank you for allowing me to participate in the care of your patient. Yours sincerely, Sanford Almaguer MD, FACS, R.P.V.I.
== END 2020-11-03 10:30 | disposition home or self-care (01) ==
PROVIDERS: PCP Nurse Practitioner Family; Visit Provider Surgery Vascular Surgery
PROC: (CPT 11043; principal; 2020-11-03 07:30)
DX: E11.51 Type 2 diabetes mellitus with diabetic peripheral angiopathy without gangrene (principal); L97.529 Non-pressure chronic ulcer of other part of left foot with unspecified severity; I73.9 Peripheral vascular disease, unspecified; Z79.4 Long term (current) use of insulin; L84 Corns and callosities; Z89.422 Acquired absence of other left toe(s); E78.00 Pure hypercholesterolemia, unspecified
CPT/HCPCS: 11043; 82947; 88304; J0690; J3010; Q4186

== ENCOUNTER → 2020-11-20 09:54 | Outpatient (BNVA) | payer MEDICARE, OTHER, SELFPAY | PROVIDERS: PCP Nurse Practitioner Family; Visit Provider Surgery Vascular Surgery | DX: I73.9 Peripheral vascular disease, unspecified (principal); Z79.899 Other long term (current) drug therapy | CPT/HCPCS: 99212 ==

== ENCOUNTER → 2020-12-11 09:30 | Outpatient (BNVA) | payer MEDICARE, OTHER, SELFPAY | PROVIDERS: PCP Nurse Practitioner Family; Visit Provider Surgery Vascular Surgery | DX: I73.9 Peripheral vascular disease, unspecified (principal) | CPT/HCPCS: 99212 ==

== ENCOUNTER 2020-12-19 06:48 | Outpatient (REF) | payer MEDICARE, OTHER, SELFPAY ==
[2020-12-19 11:44] LABS: Estimated Average Glucose 163 mg/dL; Hemoglobin A1c % 7.3 %
[2020-12-19 11:45] LABS: Alanine Aminotransferase 15 U/L (0-40); Albumin Level 3.8 g/dL (3.5-5.0); Alkaline Phosphatase 84 U/L (39-117); Anion Gap 13 (12-20); Aspartate Amino Transferase 18 U/L (5-37); Bilirubin Total 0.2 mg/dL (0.0-1.0); Blood Urea Nitrogen 29 mg/dL (9-16); Carbon Dioxide 22 mmol/L (22-29); Chloride 110 mmol/L (96-108); Cholesterol 135 mg/dL; Estimated Glomerular Filt Rate > 60; Glucose Fasting 135 mg/dL (60-99); HDL Cholesterol 40 mg/dL; LDL Cholesterol Calculated 81 mg/dl; Potassium 4.9 mmol/L (3.3-5.1); Sodium 140 mmol/L (135-145); Total Protein 6.5 g/dL (6.5-8.0); Triglycerides 74 mg/dL
== END 2020-12-19 06:49 | disposition home or self-care (01) ==
LOC: HO.HMGCLDS 06:48
PROVIDERS: PCP Nurse Practitioner Family; Visit Provider Nurse Practitioner Family
DX: E11.9 Type 2 diabetes mellitus without complications (principal)
CPT/HCPCS: 36415; 80053; 80061; 83036

== ENCOUNTER → 2021-01-01 08:39 | Outpatient (BNVA) | payer MEDICARE, OTHER, SELFPAY | PROVIDERS: PCP Nurse Practitioner Family; Visit Provider Surgery Vascular Surgery | DX: I73.9 Peripheral vascular disease, unspecified (principal) | CPT/HCPCS: 99212 ==

== ENCOUNTER → 2021-01-29 11:21 | Outpatient (BNVA) | payer MEDICARE, OTHER, SELFPAY | PROVIDERS: PCP Nurse Practitioner Family; Visit Provider Surgery Vascular Surgery | DX: I73.9 Peripheral vascular disease, unspecified (principal) | CPT/HCPCS: 99212 ==

== ENCOUNTER → 2021-02-19 11:44 | Outpatient (BNVA) | payer MEDICARE, OTHER, SELFPAY | PROVIDERS: PCP Nurse Practitioner Family; Visit Provider Surgery Vascular Surgery | DX: I73.9 Peripheral vascular disease, unspecified (principal) | CPT/HCPCS: 99212 ==

== ENCOUNTER → 2021-03-12 11:19 | Outpatient (BNVA) | payer MEDICARE, OTHER, SELFPAY | PROVIDERS: PCP Nurse Practitioner Family; Visit Provider Surgery Vascular Surgery | DX: L97.529 Non-pressure chronic ulcer of other part of left foot with unspecified severity (principal); I73.9 Peripheral vascular disease, unspecified | CPT/HCPCS: 99212 ==

== ENCOUNTER → 2021-04-02 11:27 | Outpatient (BNVA) | payer MEDICARE, OTHER, SELFPAY | PROVIDERS: PCP Nurse Practitioner Family; Visit Provider Surgery Vascular Surgery | DX: I73.9 Peripheral vascular disease, unspecified (principal); L84 Corns and callosities; L97.529 Non-pressure chronic ulcer of other part of left foot with unspecified severity; Z89.422 Acquired absence of other left toe(s) | CPT/HCPCS: 99212 ==

== ENCOUNTER → 2021-04-23 11:37 | Outpatient (BNVA) | payer MEDICARE, OTHER, SELFPAY | PROVIDERS: PCP Nurse Practitioner Family; Visit Provider Surgery Vascular Surgery | DX: I73.9 Peripheral vascular disease, unspecified (principal) | CPT/HCPCS: 99212 ==

== ENCOUNTER → 2021-05-14 10:04 | Outpatient (BNVA) | payer MEDICARE, OTHER, SELFPAY | PROVIDERS: PCP Nurse Practitioner Family; Visit Provider Surgery Vascular Surgery | DX: I73.9 Peripheral vascular disease, unspecified (principal) | CPT/HCPCS: 99212 ==

== ENCOUNTER → 2021-06-08 10:25 | Outpatient (BNVA) | payer MEDICARE, OTHER, SELFPAY | PROVIDERS: PCP Nurse Practitioner Family; Visit Provider Surgery Vascular Surgery | DX: E11.621 Type 2 diabetes mellitus with foot ulcer (principal); L97.529 Non-pressure chronic ulcer of other part of left foot with unspecified severity | CPT/HCPCS: 99212 ==

== ENCOUNTER 2021-06-18 10:56 | Outpatient (REF) | payer MEDICARE, OTHER, SELFPAY ==
--- NOTE | ~2021-06-18 | XR_ITS ---
EXAMINATION: PRE-MRI ORBITS. CLINICAL INFORMATION: Rule out foreign body. COMPARISON: None TECHNIQUE: 2 views. FINDINGS: There is no radiopaque foreign body seen in the orbits. Visualized paranasal sinuses and mastoid air cells are well-aerated. No maxillofacial or nasal bone abnormality seen. XR/XR pre mri screening IMPRESSION: No radiopaque foreign body seen in the orbits.
--- NOTE | ~2021-06-18 | MR_ITS ---
EXAMINATION: MR FOOT WITHOUT AND WITH CONTRAST, LEFT CLINICAL INFORMATION: Plantar great toe ulcer. Diabetes with foot ulcer. COMPARISON: Left foot radiographs dated 10/03/2019. TECHNIQUE: Multisequence MR imaging of the left foot was obtained before and after the IV administration of 6.5 mL Gadavist contrast on a high-field strength scanner. FINDINGS: BONE: There has been interval amputation of the fourth and fifth phalanges. There is minimal peripheral increased T2 signal and decreased T1 signal along the medial plantar aspect of the first distal phalanx with mild postcontrast enhancement, concerning for very early osteomyelitis. No stress reaction or fracture. Articular cartilage thinning with small marginal osteophytes at the first metatarsophalangeal joint and hallux sesamoids. MUSCLES/TENDONS: The visualized flexor and extensor tendons are intact. Edema within the intrinsic musculature of the foot, which can be seen in diabetic patients. LIGAMENTS: The Lisfranc ligament is intact. SOFT TISSUES: Soft tissue ulceration with associated subcutaneous stranding, skin thickening, and postcontrast enhancement along the plantar/medial aspect of the first toe. This extends from the level of the interphalangeal joint distally. No organized fluid collection/abscess formation. MR/MR foot LT wo/w con IMPRESSION: Soft tissue ulceration and associated cellulitis along the plantar/medial aspect of the distal great toe. No abscess formation. Minimal underlying marrow edema and postcontrast enhancement within the first distal phalanx, consistent with very early osteomyelitis. Edema within the intrinsic musculature of the foot, which can be seen in diabetic patients.
[2021-06-18 11:37] LABS: Blood Urea Nitrogen 23 mg/dL (9-16); Estimated Glomerular Filt Rate > 60
== END 2021-06-18 10:57 | disposition home or self-care (01) ==
LOC: HO.MRI 10:56
PROVIDERS: PCP Nurse Practitioner Family; Visit Provider Surgery Vascular Surgery
DX: E11.621 Type 2 diabetes mellitus with foot ulcer (principal); L97.521 Non-pressure chronic ulcer of other part of left foot limited to breakdown of skin; M86.9 Osteomyelitis, unspecified
CPT/HCPCS: 36415; 73720; 82565; 84520; A9585

== ENCOUNTER 2021-06-26 07:21 | Outpatient (REF) | payer MEDICARE, OTHER, SELFPAY ==
[2021-06-26 11:38] LABS: Appearance Urine CLEAR; Color Urine YELLOW; Glucose Urine UA NEG (NEG); Leukocyte Esterase Urine NEG (NEG); Nitrite Urine NEG (NEG); PH 5.5 (5.0-8.0); Specific Gravity - Urine 1.025 (1.005-1.025); Urine Blood NEG (NEG); Urine Ketones NEG (NEG); Urine Protein NEG (NEG-TRACE)
[2021-06-26 12:18] LABS: Alanine Aminotransferase 20 U/L (0-40); Alkaline Phosphatase 80 U/L (39-117); Anion Gap 12 (12-20); Aspartate Amino Transferase 14 U/L (5-37); Bilirubin Total 0.3 mg/dL (0.0-1.0); Blood Urea Nitrogen 31 mg/dL (9-16); Calcium 9.8 mg/dL (8.4-10.2); Carbon Dioxide 22 mmol/L (22-29); Chloride 109 mmol/L (96-108); Cholesterol 119 mg/dL; Estimated Glomerular Filt Rate > 60; Glucose Fasting 160 mg/dL (60-99); HDL Cholesterol 45 mg/dL; LDL Cholesterol Calculated 62 mg/dl; Potassium 4.9 mmol/L (3.3-5.1); Sodium 138 mmol/L (135-145); Triglycerides 62 mg/dL
[2021-06-26 12:26] LABS: TSH reflex Free T4 1.12 uIU/mL (0.32-4.0)
== END 2021-06-26 07:22 | disposition home or self-care (01) ==
LOC: HO.HMGCLDS 07:21
PROVIDERS: PCP Nurse Practitioner Family; Visit Provider Nurse Practitioner Family
DX: E11.621 Type 2 diabetes mellitus with foot ulcer (principal); L97.509 Non-pressure chronic ulcer of other part of unspecified foot with unspecified severity
CPT/HCPCS: 36415; 80053; 80061; 81003; 84443

== ENCOUNTER → 2021-07-02 08:53 | Outpatient (BNVA) | payer MEDICARE, OTHER, SELFPAY | PROVIDERS: PCP Nurse Practitioner Family; Visit Provider Surgery Vascular Surgery | DX: E11.621 Type 2 diabetes mellitus with foot ulcer (principal); L97.529 Non-pressure chronic ulcer of other part of left foot with unspecified severity; E11.51 Type 2 diabetes mellitus with diabetic peripheral angiopathy without gangrene; Z89.422 Acquired absence of other left toe(s); L84 Corns and callosities | CPT/HCPCS: 99212 ==

== ENCOUNTER → 2021-07-10 14:18 | Outpatient (BNVA) | payer MEDICARE, OTHER, SELFPAY | PROVIDERS: Visit Provider Internal Medicine | DX: M86.9 Osteomyelitis, unspecified (principal) | CPT/HCPCS: 99202 ==

== ENCOUNTER → 2021-07-17 07:26 | Outpatient (REF) | payer MEDICARE, OTHER, SELFPAY ==
--- NOTE | 2021-07-17 07:30 | CA_ITS ---
Transthoracic Echocardiogram Patient (Last, First, Middle): Talon Manzano R Gender: Male Date of : 1950 Age: 70 Procedure Date: 07/17/2021 Procedure Type: Transthoracic Echocardiogram Location: OP Height: 172.72 cm Weight: 63.5 kg BSA: 1.76 m2 Heart Rate: bpm BP: 130 / 70 mmHg Orchestra Director: ALEJANDRO Referring MD: Clint Vivar [facility] Symptoms: R01.1 - Cardiac murmur, unspecified Study Quality: Fair ECG Rhythm: Sinus Conclusions: - The left ventricular systolic function is normal. The calculated ejection fraction is 68% by biplane method. - No obvious valvular pathology seen on this study. Findings Left Ventricle Normal left ventricular cavity size. There is mildly increased left ventricular wall thickness. The left ventricular systolic function is normal. The calculated ejection fraction is 68% by biplane method. There is no evidence of regional wall motion abnormalities. Diastolic function is normal for age. Right Ventricle Normal right ventricular cavity size and systolic function. Atria Both atria are normal in size. Aortic Valve There is a normal trileaflet aortic valve. There is no aortic valve stenosis. There is trace (trivial) aortic valve regurgitation. Mitral Valve The mitral valve appears normal. There is trace mitral valve regurgitation. There is no mitral valve stenosis. Pulmonic Valve The pulmonic valve was not well visualized. Tricuspid Valve Normal tricuspid valve structure. There is no tricuspid valve regurgitation. The right ventricular systolic pressure is 11 mmHg. There is no evidence of pulmonary hypertension. Great Vessels The asc aorta is normal in size. Venous The inferior vena cava is normal in size and collapses greater than 50% with inspiration. Pericardium/Pleural There is no evidence of pericardial effusion. Prior Study Comparison No prior study available for comparison. Recommendations, Care & Conclusions No obvious valvular pathology seen on this study. Measurements 2D Linear Measurements IVSd: 1.14 0.6-0.9/0.6-1.0 cm LVIDd: 4.16 3.9-5.3/4.2-5.9 cm LVIDd Index: 2.36 2.4-3.2/2.2-3.1 cm/m2 LVIDs: 2.71 2.0-3.6 cm LVPWd: 1.03 0.7-1.1 cm Ao Root: 3.80 2.1-3.5 cm LA Diam: 3.80 2.7-3.8/3.0-4.0 cm LAIDs Index: 2.16 1.5-2.3 cm/m2 LV Mass: 188.91 67-162/88-224 g LV Mass Index: 107.34 43-95/49-115 g/m2 LVOT Diam: 2.10 3.0+(-)1.3 cm 2D Systolic Function EF 4C: 62.50 >55% EF 2C: 71.20 >55% EF BiP: 68.30 >55% Mitral Valve MV Pk E: 0.80 MV PK A: 0.83 MV Decel Time: 197.00 E/A: 1.00 E'Lateral: 9.03 E'Medial: 6.85 E/E' Med: 11.60 E/E' Lat: 8.80 PHT: 58.00 MVA PHT: 3.79 Decel [place]: 4.04 Aortic Valve AoV Pk Saud: 1.54 AoV Mn Saud: 1.04 AoV VTI: 0.40 AoV Pk Grad: 9.00 Aov Mn Grad: 5.00 TYSON Cont.VTI: 2.47 AI Pk Saud: 3.68 AI [place]: 2.39 LVOT LVOT Pk Saud: 1.10 LVOT Mn Saud: 0.75 LVOT VTI: 0.29 LVOT Pk Grad: 5.00 LVOT Mn Grad: 3.00 LVOT Diam: 2.10 LVOT Area: 3.46 Diastolic Function MV Pk E: 0.80 MV Pk A: 0.83 E/A: 1.00 E'Medial: 6.85 E/E' Med: 11.60 E' Laterial: 9.03 E/E' Lat: 8.80 Right Ventricle TAPSE (mm): 25.40 TVS' Saud: 13.80 Tricuspid Valve TR Pk Saud: 1.39 TR Pk Grad: 8.00 RA Press: 3.00 RVSP: 11.00 Great Vessels Aorta Ao Root-2D: 3.80 2.0-3.7 cm Ao Asc: 3.30 2.1-3.4 cm Ao Arch: 3.40 Updated in Other Vendor System with Status of Final Reinaldo Vazquez MD electronically signed on 07/18/2021 12:47:10 PM with status of Final
== END ==
LOC: HO.CARD 07:26
PROVIDERS: PCP Nurse Practitioner Family; Visit Provider Nurse Practitioner Family
DX: R01.1 Cardiac murmur, unspecified (principal)
CPT/HCPCS: 93306

== ENCOUNTER → 2021-07-28 09:31 | Outpatient (BNVA) | payer MEDICARE, OTHER, SELFPAY | PROVIDERS: PCP Nurse Practitioner Family; Visit Provider Surgery Vascular Surgery | DX: I73.9 Peripheral vascular disease, unspecified (principal) | CPT/HCPCS: 99212 ==

== ENCOUNTER → 2021-08-05 14:02 | Outpatient (BNVA) | payer MEDICARE, OTHER, SELFPAY | PROVIDERS: PCP Nurse Practitioner Family; Visit Provider Internal Medicine | DX: M86.9 Osteomyelitis, unspecified (principal) | CPT/HCPCS: 99212 ==

== ENCOUNTER → 2021-09-17 08:50 | Outpatient (BNVA) | payer MEDICARE, OTHER, SELFPAY | PROVIDERS: PCP Nurse Practitioner Family; Visit Provider Surgery Vascular Surgery | DX: I73.9 Peripheral vascular disease, unspecified (principal); L97.529 Non-pressure chronic ulcer of other part of left foot with unspecified severity; E11.9 Type 2 diabetes mellitus without complications; E78.00 Pure hypercholesterolemia, unspecified; E11.69 Type 2 diabetes mellitus with other specified complication; E11.65 Type 2 diabetes mellitus with hyperglycemia; M86.9 Osteomyelitis, unspecified; F17.200 Nicotine dependence, unspecified, uncomplicated; Z89.422 Acquired absence of other left toe(s); Z09 Encounter for follow-up examination after completed treatment for conditions other than malignant neoplasm; Z79.4 Long term (current) use of insulin | CPT/HCPCS: 99212 ==

== ENCOUNTER 2021-10-07 07:49 | Outpatient (REF) | payer MEDICARE, OTHER, SELFPAY ==
--- NOTE | ~2021-10-07 | US_ITS ---
EXAMINATION: COLOR-FLOW DUPLEX IMAGING OF THE BILATERAL LOWER EXTREMITY ARTERIAL SYSTEM. VELOCITY MEASUREMENTS TO THE POPLITEAL ARTERIES CATRACHO CLINICAL INFORMATION: PVD. Left superficial femoral artery stent. COMPARISON: Comparison is made to a previous study dated 07/03/2020. FINDINGS: Collateral arteries are seen throughout both lower extremities. RIGHT LOWER EXTREMITY: Brachial artery pressure is 146 mmHg with posterior tibial pressure of 105 mmHg for a CATRACHO of 0.72. Previously, 0.76. This corresponds to moderate obstructive disease. There is calcified plaque seen throughout the vessels. The right common femoral artery has a triphasic waveform with a velocity of 154 cm/s. Previously, Biphasic waveform with peak systolic velocity of 180 cm/s. The right profunda femoral artery has a monophasic waveform with a velocity of 166 cm/s. Previously, biphasic waveform with peak systolic velocity of 131 cm/s. The proximal superficial femoral artery has a monophasic waveform with a velocity of 170 cm/s. Previously, biphasic waveform with peak systolic velocity of 47 cm/s. Mid superficial femoral artery appears occluded. Previously this vessel had a monophasic waveform with peak systolic velocity 107 cm/s. The distal superficial femoral artery monophasic waveform with a velocity of 72 cm/s. Previously, has a monophasic waveform with peak systolic velocity of 48 cm/s. Popliteal artery monophasic waveforms with a velocity of 72 cm/s. Previously, has a monophasic waveform with peak systolic velocity 51 cm/s. The posterior tibial artery monophasic with a velocity of 67 cm/s. Previously, has a monophasic waveform with peak systolic velocity of 23 cm/s. LEFT LOWER EXTREMITY: The left ankle CATRACHO is 0.98. Previously, 0.6. This corresponds with moderate peripheral vascular disease. Left common femoral artery has a biphasic waveform with peak systolic velocity of 141 cm/s. Previously, 100 cm/s. The left profunda femoral artery has a biphasic waveform with peak systolic velocity of 190 cm/s. Previously, 167 cm/s. Proximal superficial femoral artery proximal to stent demonstrates a monophasic waveform with peak systolic velocity of 162 cm/s. Previously, 64 cm/s. Within the mid superficial femoral artery, there is a biphasic waveform with a velocity of 98 cm/s. Previously, monophasic waveform with spectral broadening and peak systolic velocity of 76 cm/s. The left popliteal artery has a biphasic waveform with peak systolic velocity of 104 cm/s. Previously, 37 cm/s with numerous collateral vessels. Posterior tibial artery has a biphasic waveform with peak systolic velocity of 93 cm/s. Previously, 32 cm/s. STENT VELOCITIES FROM THE LEFT SUPERFICIAL FEMORAL ARTERY: [place] artery proximal to the stent: 1 75 cm/s and biphasic. Proximal stent: 1 58 cm/s and biphasic. Mid stent: 95 cm/s and biphasic. Distal stent: 56 cm/s and biphasic. [place] artery distal to stent: 89 cm/s and biphasic. US/US CATRACHO complete IMPRESSION: 1. RIGHT CATRACHO: 0.72. Previously, 0.76 moderate disease. There is now a suspicion for a new occlusion in the mid right superficial femoral artery. 2. LEFT CATRACHO: 0.98. Previously, 0.60. This represents an improvement. Furthermore, the waveforms and velocities appear improved in the left superficial femoral artery and popliteal artery, respectively.
--- NOTE | ~2021-10-07 | US_ITS ---
EXAMINATION: COLOR-FLOW DUPLEX IMAGING OF THE BILATERAL LOWER EXTREMITY ARTERIAL SYSTEM. VELOCITY MEASUREMENTS TO THE POPLITEAL ARTERIES CATRACHO CLINICAL INFORMATION: PVD. Left superficial femoral artery stent. COMPARISON: Comparison is made to a previous study dated 07/03/2020. FINDINGS: Collateral arteries are seen throughout both lower extremities. RIGHT LOWER EXTREMITY: Brachial artery pressure is 146 mmHg with posterior tibial pressure of 105 mmHg for a CATRACHO of 0.72. Previously, 0.76. This corresponds to moderate obstructive disease. There is calcified plaque seen throughout the vessels. The right common femoral artery has a triphasic waveform with a velocity of 154 cm/s. Previously, Biphasic waveform with peak systolic velocity of 180 cm/s. The right profunda femoral artery has a monophasic waveform with a velocity of 166 cm/s. Previously, biphasic waveform with peak systolic velocity of 131 cm/s. The proximal superficial femoral artery has a monophasic waveform with a velocity of 170 cm/s. Previously, biphasic waveform with peak systolic velocity of 47 cm/s. Mid superficial femoral artery appears occluded. Previously this vessel had a monophasic waveform with peak systolic velocity 107 cm/s. The distal superficial femoral artery monophasic waveform with a velocity of 72 cm/s. Previously, has a monophasic waveform with peak systolic velocity of 48 cm/s. Popliteal artery monophasic waveforms with a velocity of 72 cm/s. Previously, has a monophasic waveform with peak systolic velocity 51 cm/s. The posterior tibial artery monophasic with a velocity of 67 cm/s. Previously, has a monophasic waveform with peak systolic velocity of 23 cm/s. LEFT LOWER EXTREMITY: The left ankle CATRACHO is 0.98. Previously, 0.6. This corresponds with moderate peripheral vascular disease. Left common femoral artery has a biphasic waveform with peak systolic velocity of 141 cm/s. Previously, 100 cm/s. The left profunda femoral artery has a biphasic waveform with peak systolic velocity of 190 cm/s. Previously, 167 cm/s. Proximal superficial femoral artery proximal to stent demonstrates a monophasic waveform with peak systolic velocity of 162 cm/s. Previously, 64 cm/s. Within the mid superficial femoral artery, there is a biphasic waveform with a velocity of 98 cm/s. Previously, monophasic waveform with spectral broadening and peak systolic velocity of 76 cm/s. The left popliteal artery has a biphasic waveform with peak systolic velocity of 104 cm/s. Previously, 37 cm/s with numerous collateral vessels. Posterior tibial artery has a biphasic waveform with peak systolic velocity of 93 cm/s. Previously, 32 cm/s. STENT VELOCITIES FROM THE LEFT SUPERFICIAL FEMORAL ARTERY: [place] artery proximal to the stent: 1 75 cm/s and biphasic. Proximal stent: 1 58 cm/s and biphasic. Mid stent: 95 cm/s and biphasic. Distal stent: 56 cm/s and biphasic. [place] artery distal to stent: 89 cm/s and biphasic. US/US arterial duplex LE BI IMPRESSION: 1. RIGHT CATRACHO: 0.72. Previously, 0.76 moderate disease. There is now a suspicion for a new occlusion in the mid right superficial femoral artery. 2. LEFT CATRACHO: 0.98. Previously, 0.60. This represents an improvement. Furthermore, the waveforms and velocities appear improved in the left superficial femoral artery and popliteal artery, respectively.
== END 2021-10-07 07:50 | disposition home or self-care (01) ==
LOC: HO.US 07:49
PROVIDERS: Visit Provider Surgery Vascular Surgery
DX: I73.9 Peripheral vascular disease, unspecified (principal)
CPT/HCPCS: 93923; 93925

== ENCOUNTER → 2021-10-13 08:58 | Outpatient (BNVA) | payer MEDICARE, OTHER, SELFPAY | PROVIDERS: PCP Nurse Practitioner Family; Visit Provider Surgery Vascular Surgery | DX: I73.9 Peripheral vascular disease, unspecified (principal); L84 Corns and callosities | CPT/HCPCS: 99212 ==

== ENCOUNTER → 2021-11-05 14:35 | Outpatient (BNVA) | payer MEDICARE, OTHER, SELFPAY | PROVIDERS: PCP Nurse Practitioner Family; Visit Provider Surgery Vascular Surgery | DX: L03.115 Cellulitis of right lower limb (principal); I73.9 Peripheral vascular disease, unspecified; Z95.820 Peripheral vascular angioplasty status with implants and grafts; Z89.422 Acquired absence of other left toe(s) | CPT/HCPCS: 99212 ==

== ENCOUNTER → 2021-11-10 08:19 | Outpatient (BNVA) | payer MEDICARE, OTHER, SELFPAY | PROVIDERS: PCP Nurse Practitioner Family; Visit Provider Surgery Vascular Surgery | DX: I73.9 Peripheral vascular disease, unspecified (principal) | CPT/HCPCS: 99212 ==

== ENCOUNTER → 2021-11-24 08:16 | Outpatient (BNVA) | payer MEDICARE, OTHER, SELFPAY | PROVIDERS: PCP Nurse Practitioner Family; Visit Provider Surgery Vascular Surgery | DX: I73.9 Peripheral vascular disease, unspecified (principal); L97.519 Non-pressure chronic ulcer of other part of right foot with unspecified severity; L84 Corns and callosities; Z95.820 Peripheral vascular angioplasty status with implants and grafts; Z89.422 Acquired absence of other left toe(s) | CPT/HCPCS: 99212 ==

== ENCOUNTER 2021-12-07 08:04 | Outpatient (REF) | payer MEDICARE, OTHER, SELFPAY ==
[2021-12-07 11:55] LABS: Appearance Urine CLEAR; Color Urine YELLOW; Glucose Urine UA NEG (NEG); Leukocyte Esterase Urine NEG (NEG); Nitrite Urine NEG (NEG); Specific Gravity - Urine 1.025 (1.005-1.025); Urine Blood NEG (NEG); Urine Ketones NEG (NEG); Urine Protein NEG (NEG-TRACE)
[2021-12-07 12:13] LABS: Alanine Aminotransferase 14 U/L (0-40); Albumin Level 3.9 g/dL (3.5-5.0); Alkaline Phosphatase 76 U/L (39-117); Anion Gap 12 (12-20); Aspartate Amino Transferase 16 U/L (5-37); Bilirubin Total 0.3 mg/dL (0.0-1.0); Blood Urea Nitrogen 40 mg/dL (9-16); Carbon Dioxide 21 mmol/L (22-29); Chloride 109 mmol/L (96-108); Cholesterol 153 mg/dL; Estimated Glomerular Filt Rate > 60; Glucose Fasting 152 mg/dL (60-99); HDL Cholesterol 47 mg/dL; LDL Cholesterol Calculated 86 mg/dl; Potassium 4.8 mmol/L (3.3-5.1); Sodium 137 mmol/L (135-145); Triglycerides 102 mg/dL
[2021-12-07 12:17] LABS: Prostate Specific Antigen Scr 0.89 ng/mL (<0.05-4.0); TSH reflex Free T4 0.65 uIU/mL (0.32-4.0)
[2021-12-07 12:48] LABS: Creatinine Urine 119.69 mg/dL; Microalbum/Creatinine Ratio Ur 59.3 ug/mg cr
[2021-12-07 20:18] LABS: Estimated Average Glucose 160 mg/dL; Hemoglobin A1c % 7.2 %
== END 2021-12-07 08:05 | disposition home or self-care (01) ==
LOC: HO.HMGCLDS 08:04
PROVIDERS: PCP Nurse Practitioner Family; Visit Provider Nurse Practitioner Family
DX: Z12.5 Encounter for screening for malignant neoplasm of prostate (principal); E11.9 Type 2 diabetes mellitus without complications
CPT/HCPCS: 36415; 80053; 80061; 81003; 82043; 83036; 84153; 84443

== ENCOUNTER → 2021-12-31 08:32 | Outpatient (BNVA) | payer MEDICARE, OTHER, SELFPAY | PROVIDERS: PCP Nurse Practitioner Family; Visit Provider Surgery Vascular Surgery | DX: E11.621 Type 2 diabetes mellitus with foot ulcer (principal); L97.519 Non-pressure chronic ulcer of other part of right foot with unspecified severity | CPT/HCPCS: 99212 ==

== ENCOUNTER → 2022-02-04 08:55 | Outpatient (BNVA) | payer MEDICARE, OTHER, SELFPAY | PROVIDERS: PCP Nurse Practitioner Family; Visit Provider Surgery Vascular Surgery | DX: I73.9 Peripheral vascular disease, unspecified (principal); E11.9 Type 2 diabetes mellitus without complications; S90.931A Unspecified superficial injury of right great toe, initial encounter; Y93.53 Activity, golf; Y93.69 Activity, other involving other sports and athletics played as a team or group; Y92.9 Unspecified place or not applicable; Y99.8 Other external cause status; Z89.412 Acquired absence of left great toe | CPT/HCPCS: 99212 ==

== ENCOUNTER 2022-02-24 08:19 | Outpatient (REF) | payer MEDICARE, OTHER, SELFPAY ==
[2022-02-24 12:30] LABS: Influenza A PCR NEGATIVE (Negative); Influenza B PCR NEGATIVE (Negative); Resp Syncy Virus RNA Qual PCR NEGATIVE (Negative); SARS COV2 PCR INHOUSE NEGATIVE (Negative)
== END 2022-02-24 08:20 | disposition home or self-care (01) ==
LOC: HO.LNP 08:19
PROVIDERS: Visit Provider Nurse Practitioner Family
DX: Z20.822 Contact with and (suspected) exposure to COVID-19 (principal)
CPT/HCPCS: 0241U

== ENCOUNTER 2022-02-25 08:40 | Outpatient (REF) | payer MEDICARE, OTHER, SELFPAY ==
--- NOTE | ~2022-02-25 | XR_ITS ---
EXAMINATION: XR FOOT, RIGHT CLINICAL INFORMATION: Diabetes mellitus type 2 with foot ulcer COMPARISON: None TECHNIQUE: AP, lateral, and oblique views of the right foot. FINDINGS: The bones and soft tissues are normal. No fracture. Alignment is anatomic. Joint spaces are there is a mild loss of first metatarsophalangeal joint space with periarticular spurring and mild hallux deformity. There are subchondral cystic changes along the first metatarsal head. No visible acute fracture, dislocation or subluxation seen. The ankle mortise and subtalar joints are normal. The minimal soft tissue swelling PIP joint first digit but no bony erosive changes.. Small calcaneal heel enthesophyte is seen. XR/XR foot RT min 3V IMPRESSION: Degenerative arthritic changes first MTP joint. Small calcaneal heel enthesophyte. No visible acute fracture or dislocation seen. Minimal soft tissue swelling medially PIP joint first digit but no bony erosive changes or fracture.
== END 2022-02-25 08:41 | disposition home or self-care (01) ==
LOC: HO.XRAY 08:40
PROVIDERS: PCP Nurse Practitioner Family; Visit Provider Surgery Vascular Surgery
DX: E11.621 Type 2 diabetes mellitus with foot ulcer (principal); L97.529 Non-pressure chronic ulcer of other part of left foot with unspecified severity; I73.9 Peripheral vascular disease, unspecified; L97.519 Non-pressure chronic ulcer of other part of right foot with unspecified severity
CPT/HCPCS: 73630; 99212

== ENCOUNTER → 2022-03-18 12:48 | Outpatient (BNVA) | payer MEDICARE, OTHER, SELFPAY | PROVIDERS: PCP Nurse Practitioner Family; Visit Provider Surgery Vascular Surgery | DX: E11.621 Type 2 diabetes mellitus with foot ulcer (principal); L97.519 Non-pressure chronic ulcer of other part of right foot with unspecified severity | CPT/HCPCS: 99212 ==

== ENCOUNTER → 2022-04-08 09:42 | Outpatient (BNVA) | payer MEDICARE, OTHER, SELFPAY | PROVIDERS: PCP Nurse Practitioner Family; Referring Provider Nurse Practitioner Family; Visit Provider Physician Assistant | DX: Z01.818 Encounter for other preprocedural examination (principal); R63.4 Abnormal weight loss; F17.200 Nicotine dependence, unspecified, uncomplicated | CPT/HCPCS: 99202 ==

== ENCOUNTER → 2022-04-15 08:48 | Outpatient (BNVA) | payer MEDICARE, OTHER, SELFPAY | PROVIDERS: PCP Nurse Practitioner Family; Visit Provider Surgery Vascular Surgery | DX: I73.9 Peripheral vascular disease, unspecified (principal) | CPT/HCPCS: 99212 ==

== ENCOUNTER → 2022-05-20 09:31 | Outpatient (BNVA) | payer MEDICARE, OTHER, SELFPAY | PROVIDERS: PCP Nurse Practitioner Family; Visit Provider Surgery Vascular Surgery | DX: L84 Corns and callosities (principal); I73.9 Peripheral vascular disease, unspecified | CPT/HCPCS: 99212 ==

== ENCOUNTER 2022-06-10 07:40 | Outpatient (REF) | payer MEDICARE, OTHER, SELFPAY ==
[2022-06-10 11:11] LABS: MANUAL DIFF FLAG NO
[2022-06-10 11:16] LABS: Basophils Percent Auto 0.6 % (0-2); Eosinophils Absolute Auto 0.5 X10*3/uL (0.0-0.4); Eosinophils Percent Auto 7.5 % (0-4); Hematocrit 38.7 % (42.0-52.0); Hemoglobin 12.7 g/dl (14.0-18.0); Imm Gran Abs Auto 0.02 X10*3/uL (0.00-0.03); Imm Gran Pct Auto 0.3 % (0.0-0.4); Lymphocytes Percent Auto 28.3 % (20-40); Mean Corpuscular HGB Conc 32.8 g/dl (31.0-36.0); Mean Corpuscular Hemoglobin 29.5 pg (27.0-33.0); Mean Platelet Volume 11.8 fL (9.4-12.4); Monocytes Absolute Auto 0.7 X10*3/uL (0.1-1.2); Neutrophils Absolute Auto 3.8 x10*3/uL (2.0-8.3); Neutrophils Percent Auto 53.3 % (45-73); Platelet Count 190 X10*3/uL (160-400); Red Cell Distribution Width 13.5 % (11.0-16.0); White Blood Count 7.2 X10*3/uL (4.8-10.8)
[2022-06-10 11:16] LABS: Appearance Urine Clear; Color Urine Yellow; Glucose Urine UA Negative (Negative); Leukocyte Esterase Urine Negative (Negative); Nitrite Urine Negative (Negative); PH 5.5 (5.0-9.0); Specific Gravity - Urine 1.015 (1.005-1.025); UMIC TRIGGER UACC YES; Urine Blood Trace (Negative); Urine Ketones Negative (Negative); Urine Protein 100 (2+) mg/dL (Neg-Trace)
[2022-06-10 11:19] LABS: Bacteria Urine None Seen (None Seen); Hyaline Casts Urine 0-2 /LPF (0-2); Squamous Epithelial Cell Urine 0-2 /HPF (0-2); WBC Urine 0-5 /HPF (0-5)
[2022-06-10 11:50] LABS: Estimated Average Glucose 140 mg/dL; Hemoglobin A1c % 6.5 %
[2022-06-10 11:59] LABS: Alanine Aminotransferase 18 U/L (0-40); Albumin Level 3.8 g/dL (3.5-5.0); Alkaline Phosphatase 63 U/L (39-117); Anion Gap 12 (12-20); Aspartate Amino Transferase 18 U/L (5-37); Bilirubin Total 0.4 mg/dL (0.0-1.0); Blood Urea Nitrogen 25 mg/dL (9-16); Calcium 9.2 mg/dL (8.4-10.2); Carbon Dioxide 25 mmol/L (22-29); Chloride 109 mmol/L (96-108); Cholesterol 168 mg/dL; Estimated Glomerular Filt Rate > 60; Glucose Fasting 135 mg/dL (60-99); HDL Cholesterol 50 mg/dL; LDL Cholesterol Calculated 98 mg/dl; Potassium 4.8 mmol/L (3.3-5.1); Sodium 141 mmol/L (135-145); TSH reflex Free T4 1.25 uIU/mL (0.32-4.0); Total Protein 6.4 g/dL (6.5-8.0); Triglycerides 104 mg/dL
== END 2022-06-10 07:41 | disposition home or self-care (01) ==
LOC: HO.HMGCLDS 07:40
PROVIDERS: PCP Nurse Practitioner Family; Visit Provider Nurse Practitioner Family
DX: E11.9 Type 2 diabetes mellitus without complications (principal)
CPT/HCPCS: 36415; 80053; 80061; 81001; 83036; 84443; 85025

== ENCOUNTER 2022-06-16 12:41 | Outpatient (REF) | payer MEDICARE, OTHER, SELFPAY ==
[2022-06-16 16:31] LABS: Urine Cytology See Pathology rpt
[2022-06-16 16:38] LABS: Appearance Urine Clear; Color Urine Yellow; Glucose Urine UA Negative (Negative); Leukocyte Esterase Urine Negative (Negative); Nitrite Urine Negative (Negative); PH 5.5 (5.0-9.0); UMIC TRIGGER UA YES; UMIC TRIGGER UACC YES; Urine Blood Negative (Negative); Urine Ketones Negative (Negative); Urine Protein 100 (2+) mg/dL (Neg-Trace)
[2022-06-16 16:43] LABS: Bacteria Urine None Seen (None Seen); Hyaline Casts Urine 0-2 /LPF (0-2); RBC Urine 0-2 /HPF (0-2); Squamous Epithelial Cell Urine 0-2 /HPF (0-2); WBC Urine 0-5 /HPF (0-5)
== END 2022-06-16 12:42 | disposition home or self-care (01) ==
LOC: HO.HMGCLDS 12:41
PROVIDERS: PCP Nurse Practitioner Family; Visit Provider Nurse Practitioner Family
DX: R31.29 Other microscopic hematuria (principal)
CPT/HCPCS: 81001; 87086; 88112

== ENCOUNTER 2022-06-17 15:09 | Outpatient (REF) | payer MEDICARE, OTHER, SELFPAY ==
[2022-06-17 16:45] LABS: Appearance Urine Clear; Color Urine Yellow; Glucose Urine UA Negative (Negative); Leukocyte Esterase Urine Negative (Negative); Nitrite Urine Negative (Negative); PH 5.5 (5.0-9.0); Specific Gravity - Urine 1.025 (1.005-1.025); UMIC TRIGGER UACC YES; Urine Blood Negative (Negative); Urine Ketones Negative (Negative); Urine Protein 300 (3+) mg/dL (Neg-Trace)
[2022-06-17 17:15] LABS: Bacteria Urine None Seen (None Seen); Hyaline Casts Urine 0-2 /LPF (0-2); Squamous Epithelial Cell Urine 0-2 /HPF (0-2); WBC Urine 0-5 /HPF (0-5)
== END 2022-06-17 15:10 | disposition home or self-care (01) ==
LOC: HO.HMGCLDS 15:09
PROVIDERS: PCP Nurse Practitioner Family; Visit Provider Nurse Practitioner Family
DX: R31.29 Other microscopic hematuria (principal)
CPT/HCPCS: 81001; 81003

== ENCOUNTER → 2022-07-08 10:46 | Outpatient (BNVA) | payer MEDICARE, OTHER, SELFPAY | PROVIDERS: PCP Nurse Practitioner Family; Visit Provider Surgery Vascular Surgery | DX: E11.621 Type 2 diabetes mellitus with foot ulcer (principal); L97.529 Non-pressure chronic ulcer of other part of left foot with unspecified severity | CPT/HCPCS: 99212 ==

== ENCOUNTER 2022-07-23 09:34 | Outpatient (REF) | payer MEDICARE, OTHER, SELFPAY ==
[2022-07-23 16:54] LABS: Urine Cytology See Pathology rpt
== END 2022-07-23 09:35 | disposition home or self-care (01) ==
LOC: HO.LAB 09:34
PROVIDERS: PCP Nurse Practitioner Family; Visit Provider Urology
DX: Z12.5 Encounter for screening for malignant neoplasm of prostate (principal); R31.29 Other microscopic hematuria; N40.0 Benign prostatic hyperplasia without lower urinary tract symptoms; F17.200 Nicotine dependence, unspecified, uncomplicated; Z71.6 Tobacco abuse counseling
CPT/HCPCS: 51798; 87086; 88112; 99202

== ENCOUNTER 2022-07-29 06:29 | Outpatient (REF) | payer MEDICARE, OTHER, SELFPAY ==
[2022-07-29 08:34] LABS: PSA,Total (Free>4and<10) 1.08 ng/mL (0.00-4.00)
== END 2022-07-29 06:30 | disposition home or self-care (01) ==
LOC: HO.LAB 06:29
PROVIDERS: PCP Nurse Practitioner Family; Visit Provider Urology
DX: E11.621 Type 2 diabetes mellitus with foot ulcer (principal); L97.529 Non-pressure chronic ulcer of other part of left foot with unspecified severity; L97.519 Non-pressure chronic ulcer of other part of right foot with unspecified severity; L84 Corns and callosities; N40.0 Benign prostatic hyperplasia without lower urinary tract symptoms; Z12.5 Encounter for screening for malignant neoplasm of prostate
CPT/HCPCS: 36415; 84153; 99212

== ENCOUNTER 2022-08-11 08:30 | Outpatient (REF) | payer MEDICARE, OTHER, SELFPAY ==
--- NOTE | ~2022-08-11 | CT_ITS ---
EXAMINATION: CT UROGRAM - CT ABDOMEN AND PELVIS WITHOUT AND WITH CONTRAST CLINICAL INFORMATION: Hematuria COMPARISON: CT abdomen and pelvis 08/17/2020. TECHNIQUE: Multidetector volumetric imaging was performed through the abdomen prior to IV contrast. The abdomen and pelvis were then reexamined after the administration of 85 mL Omnipaque 350 intravenous contrast. Additional 2-D coronal and sagittal reformatted images and axial 3-D maximum intensity projection MIP images are generated on the CT workstation. This CT examination was performed using dose optimization techniques as appropriate, variously including the following: *Automated exposure control *Adjustment of mA and/or kV according to patient size (this includes techniques or standardized protocols for targeted exams where dose is matched to indication/reason for exam; i.e. extremities or head) *Use of iterative reconstruction technique DLP: 497 mGy-cm FINDINGS: UROGRAPHIC FINDINGS: Noncontrast imaging through the kidneys ureters and bladder show no urinary tract calculi. After the injection of contrast, there was prompt excretion bilaterally with symmetric CT nephrograms.The right kidney measures 10.6 cm and the left kidney measures 10.8 cm in maximal length. No renal masses are seen. No pelvocaliectasis. NON-UROGRAPHIC FINDINGS: Lung Bases: The visualized lung bases are unremarkable. Liver, Gallbladder and Biliary Tree: The liver is normal in size, shape, and attenuation. No focal hepatic lesion or biliary ductal dilatation is present. The gallbladder is unremarkable with no evidence of radiopaque gallstones, gallbladder wall thickening, or obvious pericholecystic inflammatory changes. Pancreas: Unremarkable. Spleen: Unremarkable. Adrenal Glands: Unremarkable. Gastrointestinal Tract: The small and large bowel are unremarkable aside from a right groin hernia described below. The appendix is unremarkable. Abdominal Wall: There is a right inguinal hernia seen containing nonobstructed small-bowel loops. There is a small left inguinal hernia seen containing only fat. Lymph Nodes: No retroperitoneal lymphadenopathy. Vascular: Moderate calcific atherosclerotic change present in the aorta and iliofemoral vessels with mildly irregular calcified and noncalcified plaque. No aneurysm or dissection. Pelvic Viscera: Moderate BPH. Seminal vesicles normal. Osseous Structures: Unremarkable. CT/CT urogram IMPRESSION: 1. A cause for the patient's hematuria has not been found. 2. Incidental note made of a right inguinal hernia containing nonobstructed small-bowel loops, small left inguinal hernia containing only fat and BPH.
[2022-08-11] MEDS: iohexoL 350 MG/ML 100 ML INFUS..BTL IV (09:20)
[2022-08-12 08:11] LABS: Creatinine POC 0.8 mg/dL (0.5-1.4); GFR POC 60
== END 2022-08-11 08:31 | disposition home or self-care (01) ==
LOC: HO.CT 08:30
PROVIDERS: PCP Nurse Practitioner Family; Visit Provider Urology
DX: R31.29 Other microscopic hematuria (principal); F17.200 Nicotine dependence, unspecified, uncomplicated
CPT/HCPCS: 74178; 82565; Q9967

== ENCOUNTER → 2022-08-16 13:46 | Outpatient (BNVA) | payer MEDICARE, OTHER, SELFPAY | PROVIDERS: PCP Nurse Practitioner Family; Visit Provider Internal Medicine | DX: E11.621 Type 2 diabetes mellitus with foot ulcer (principal); L97.519 Non-pressure chronic ulcer of other part of right foot with unspecified severity | CPT/HCPCS: 99212 ==

== ENCOUNTER → 2022-08-19 08:41 | Outpatient (BNVA) | payer MEDICARE, OTHER, SELFPAY | PROVIDERS: PCP Nurse Practitioner Family; Visit Provider Surgery Vascular Surgery | DX: I73.9 Peripheral vascular disease, unspecified (principal) | CPT/HCPCS: 99212 ==

== ENCOUNTER → 2022-08-27 10:10 | Outpatient (BNVA) | payer MEDICARE, OTHER, SELFPAY | PROVIDERS: PCP Nurse Practitioner Family; Visit Provider Urology | DX: Z12.5 Encounter for screening for malignant neoplasm of prostate (principal); N40.0 Benign prostatic hyperplasia without lower urinary tract symptoms; R31.29 Other microscopic hematuria; F17.210 Nicotine dependence, cigarettes, uncomplicated | CPT/HCPCS: 51798; 99212 ==

== ENCOUNTER → 2022-09-09 11:35 | Outpatient (BNVA) | payer MEDICARE, OTHER, SELFPAY | PROVIDERS: PCP Nurse Practitioner Family; Visit Provider Surgery Vascular Surgery | DX: E11.69 Type 2 diabetes mellitus with other specified complication (principal); M86.8X7 Other osteomyelitis, ankle and foot; I73.9 Peripheral vascular disease, unspecified; Z89.422 Acquired absence of other left toe(s) | CPT/HCPCS: 99212 ==

== ENCOUNTER 2022-09-29 13:15 | Outpatient (REF) | payer MEDICARE, OTHER, SELFPAY ==
--- NOTE | ~2022-09-29 | US_ITS ---
EXAMINATION: NONINVASIVE ASSESSMENT OF THE ARTERIES OF BOTH LOWER EXTREMITIES WITH PVR EXAM AND BILATERAL LOWER EXTREMITY DUPLEX April Padron MD CLINICAL INFORMATION: Peripheral vascular disease TECHNIQUE: Ankle pulse volume recordings, ankle pressure measurements and ankle brachial indices were obtained of the lower extremity arterial system bilaterally in addition to duplex Doppler techniques with wave form analysis and measurement of velocities in the common femoral, profunda femoral, superficial femoral, popliteal and tibial arteries. The study was performed only at rest. COMPARISON: Lower extremity arterial duplex on 10/07/2021 FINDINGS: a) AT REST: RIGHT LE. The right ankle-brachial index is: 0.77 * >0.97-1.25 = normal - no significant arterial disease * 0.75-0.96 = mild peripheral arterial disease * 0.5-0.74 = moderate peripheral arterial disease * <0.50 = severe peripheral arterial disease 2. Right ankle pressure: Abnormal 3. Right ankle PVR waveform: Abnormal 4. Right direct duplex Doppler findings: Common femoral artery: 192 cm/s, Multiphasic Profunda femoris artery: 156 cm/s, Multiphasic Superficial femoral artery (proximal): 210 cm/s, Multiphasic Superficial femoral artery (mid): Occluded Superficial femoral artery (distal): 69 cm/s, monophasic Proximal Popliteal artery: 60 cm/s, monophasic Mid posterior tibial artery: 71 cm/s, monophasic LEFT LE. The left ankle-brachial index is: 1.08 * >0.97-1.25 = normal - no significant arterial disease * 0.75-0.96 = mild peripheral arterial disease * 0.5-0.74 = moderate peripheral arterial disease * <0.50 = severe peripheral arterial disease 2. Left ankle pressure: normal. 3. Left ankle PVR waveform: normal. 4. Left direct duplex Doppler findings: Common femoral artery: 138 cm/s, Multiphasic Profunda femoris artery: 238 cm/s, Multiphasic Superficial femoral artery (proximal): 161 cm/s, Multiphasic within the stent Superficial femoral artery (mid): 117 cm/s, Multiphasic within the stent Superficial femoral artery (distal): 138 cm/s, Multiphasic within the stent Proximal Popliteal artery: 71 cm/s, Multiphasic Mid posterior tibial artery: 112 cm/s, Multiphasic US/US arterial duplex LE BI IMPRESSION: RIGHT LEG: Mild peripheral arterial disease by CATRACHO and monophasic flow. Short segment occlusion of the mid superficial femoral artery, unchanged. LEFT LEG: Patent left superficial femoral artery stent.
== END 2022-09-29 13:16 | disposition home or self-care (01) ==
LOC: HO.US 13:15
PROVIDERS: Visit Provider Surgery Vascular Surgery
DX: I70.213 Atherosclerosis of native arteries of extremities with intermittent claudication, bilateral legs (principal)
CPT/HCPCS: 93923; 93925

== ENCOUNTER → 2022-10-14 09:43 | Outpatient (BNVA) | payer MEDICARE, OTHER, SELFPAY | PROVIDERS: PCP Nurse Practitioner Family; Visit Provider Surgery Vascular Surgery | DX: I73.9 Peripheral vascular disease, unspecified (principal) | CPT/HCPCS: 99212 ==

== ENCOUNTER → 2022-10-20 10:14 | Outpatient (BNVA) | payer MEDICARE, OTHER, SELFPAY | PROVIDERS: PCP Nurse Practitioner Family; Visit Provider Internal Medicine | DX: M86.9 Osteomyelitis, unspecified (principal) | CPT/HCPCS: 99212 ==

== ENCOUNTER 2022-12-21 06:22 | Outpatient (REF) | payer MEDICARE, OTHER, SELFPAY ==
[2022-12-21 11:20] LABS: MANUAL DIFF FLAG NO
[2022-12-21 11:24] LABS: Appearance Urine Clear; Color Urine Yellow; Glucose Urine UA Negative (Negative); Leukocyte Esterase Urine Negative (Negative); Nitrite Urine Negative (Negative); PH 5.5 (5.0-9.0); UMIC TRIGGER UACC YES; Urine Blood Negative (Negative); Urine Ketones Negative (Negative); Urine Protein 100 (2+) mg/dL (Neg-Trace)
[2022-12-21 11:28] LABS: Bacteria Urine None Seen (None Seen); Hyaline Casts Urine 0-2 /LPF (0-2); RBC Urine 0-2 /HPF (0-2); Squamous Epithelial Cell Urine 0-2 /HPF (0-2); WBC Urine 0-5 /HPF (0-5)
[2022-12-21 11:30] LABS: Basophils Absolute Auto 0.1 X10*3/uL (0.0-0.2); Basophils Percent Auto 0.8 % (0-2); Eosinophils Absolute Auto 0.5 X10*3/uL (0.0-0.4); Hematocrit 36.2 % (42.0-52.0); Hemoglobin 11.7 g/dl (14.0-18.0); Imm Gran Abs Auto 0.02 X10*3/uL (0.00-0.03); Imm Gran Pct Auto 0.3 % (0.0-0.4); Lymphocytes Absolute Auto 2.2 X10*3/uL (1.2-4.9); Lymphocytes Percent Auto 30.8 % (20-40); Mean Corpuscular HGB Conc 32.3 g/dl (31.0-36.0); Mean Corpuscular Hemoglobin 29.5 pg (27.0-33.0); Mean Corpuscular Volume 91.2 fL (80.0-98.0); Mean Platelet Volume 11.6 fL (9.4-12.4); Monocytes Absolute Auto 0.8 X10*3/uL (0.1-1.2); Monocytes Percent Auto 10.6 % (2-11); Neutrophils Absolute Auto 3.7 x10*3/uL (2.0-8.3); Neutrophils Percent Auto 50.5 % (45-73); Platelet Count 203 X10*3/uL (160-400); Red Blood Count 3.97 X10*6/uL (4.60-5.80); Red Cell Distribution Width 13.1 % (11.0-16.0); White Blood Count 7.2 X10*3/uL (4.8-10.8)
[2022-12-21 11:42] LABS: Estimated Average Glucose 128 mg/dL; Hemoglobin A1c % 6.1 %
[2022-12-21 12:07] LABS: Alanine Aminotransferase 13 U/L (0-40); Albumin Level 3.5 g/dL (3.5-5.0); Alkaline Phosphatase 66 U/L (39-117); Anion Gap 12 (12-20); Aspartate Amino Transferase 15 U/L (5-37); Bilirubin Total 0.3 mg/dL (0.0-1.0); Blood Urea Nitrogen 34 mg/dL (9-16); Calcium 9.3 mg/dL (8.4-10.2); Carbon Dioxide 22 mmol/L (22-29); Chloride 109 mmol/L (96-108); Cholesterol 149 mg/dL; Estimated Glomerular Filt Rate > 60; Glucose Fasting 118 mg/dL (60-99); HDL Cholesterol 48 mg/dL; LDL Cholesterol Calculated 84 mg/dl; Potassium 4.5 mmol/L (3.3-5.1); Sodium 138 mmol/L (135-145); TSH reflex Free T4 1.28 uIU/mL (0.32-4.0); Total Protein 6.3 g/dL (6.5-8.0); Triglycerides 89 mg/dL
[2022-12-21 12:30] LABS: Creatinine Urine 77.81 mg/dL; Microalbum/Creatinine Ratio Ur 911.1 ug/mg cr
== END 2022-12-21 06:23 | disposition home or self-care (01) ==
LOC: HO.HMGCLDS 06:22
PROVIDERS: PCP Nurse Practitioner Family; Visit Provider Nurse Practitioner Family
DX: E11.621 Type 2 diabetes mellitus with foot ulcer (principal); L97.509 Non-pressure chronic ulcer of other part of unspecified foot with unspecified severity
CPT/HCPCS: 36415; 80053; 80061; 81001; 82043; 83036; 84443; 85025

== ENCOUNTER 2023-01-20 08:39 | Outpatient (AMB) | payer MEDICARE, OTHER, SELFPAY ==
--- NOTE | 2023-01-20 08:42 | A.OFFPC_ITS ---
Vital Signs 01/20/23 08:43 01/20/23 09:03 Height 5 ft 8 in Weight 140 lb 6 oz BMI 21.3 BP 140/68 H 134/82 Blood Pressure Location Rt brachial Pulse 64 Pulse Source Pulse Oximeter Pulse Oximetry (%) 96 Oxygen Delivery Method Room Air Intake Visit Reasons: Annual PE/DM Allergies No Known Allergies [No Known Allergies*] Allergy (Verified 01/20/23 08:45) Tobacco use date assessed: 01/20/23 Fall risk assessment: No Falls in past year Last assessed Fall Risk: 01/20/23 Dental Screening Dental Screen Date: 01/20/23 Did you have a dental visit in the last 12 months?: No Did you have a dental problem in the last 6 months where you did not have access to dental care?: No Was dental information given to patient?: No HPI Annual PE/DM HPI Details Pt is here for a PE. Labs were already performed. Colon screen was scheduled but pt refused, he had a bad experience with his first one. He is thinking about a cologuard. PSA is up to date, sees urology. Pt is a diabetic, on an STANLEY and a statin. Last A1c was 6.1, microalbumin is up to date. Denies polyuria, polydipsia, and neuropathy. Pt denies any signs and symptoms of hypoglycemia and does know how to correct it. Pt also follows up with vascular. Pt is considering a low-dose lung CT. He currently smokes 1-2 cigarettes a day. Pt has multiple papular lesions to his left sikhism, refuses to see derm. 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 PVD (peripheral vascular disease) Surgical History Amputated toe of left foot (08/18/20) S/P angiogram of extremity (10/08/19) S/P angiogram of extremity (08/13/20) S/P PICC central line placement Social History Housing: Apartment Alcohol intake: current Alcohol intake frequency: does not drink Patient Tobacco Use Status: Former Tobacco user Years Smoked: 39 e-Cigarette/Vaping Use: Never Used Second Hand Smoke Exposure: No service: No Current occupational status: retired Cognitive needs: No Hearing needs: No Vision needs: No Questionnaire PHQ-9 Over the last 2 weeks, how often have you been bothered by any of the following problems? 1. Little interest or pleasure in doing things: not at all 2. Feeling down, depressed, or hopeless: not at all 3. Trouble falling or staying asleep, or sleeping too much: not at all 4. Feeling tired or having little energy: not at all 5. Poor appetite or overeating: not at all 6. Feeling bad about yourself - or that you are a failure or have let yourself or your family down: not at all 7. Trouble concentrating on things, such as reading the newspaper or watching television: not at all 8. Moving or speaking so slowly that other people could have noticed. Or the opposite - being so fidgety or restless that you have been moving around a lot more than usual: not at all 9. Thoughts that you would be better off or of hurting yourself in some way: not at all Total score: 0 Source: Developed by Drs. Nasir Gilmore, Ana Laura Harley, José Miguel Garvin and colleagues, with an educational arnaud from [employer]. Thrive Questionnaire Date Thrive assessed: 01/20/23 I am a: Patient What is your living situation today?: I have a steady place to live Within the past 12 months, did the food you bought not last and you didn't have the money to get more?: Never true Within the past 12 months, did you worry whether your food would run out before you got money to buy more?: Never true Do you have trouble paying for medicines?: No Do you have trouble getting transportation to medical appointments?: Yes Do you have trouble paying your heating and electricity bill?: No Do you have trouble taking care of your child, family member or friend?: No Do you have trouble with day-to-day activities such as bathing, preparing meals, shopping, managing finances, etc.?: No Are you currently unemployed and looking for a job?: No Are you interested in more education?: No AUDIT C Alcohol Use Questionnaire (AUDIT-C) 1. How often do you have a drink containing alcohol?: Never Total Score: 0 Score Reviewed/Action Taken: Yes KIYA-7 AMB Questionnaire KIYA-7 Date KIYA - 7 assessed: 01/20/23 Feeling nervous, anxious, or on edge: 0 = Not at all Not being able to stop or control worryin = Not at all Worrying too much about different things: 0 = Not at all Trouble relaxin = Not at all Being so restless that it is hard to sit still: 0 = Not at all Becoming easily annoyed or irritable: 0 = Not at all Feeling afraid as if something awful might happen: 0 = Not at all Total KIYA-7 score (0-4 normal; 5-9 mild; 10-14 moderate; 15-21 severe): 0 Source: Developed by Drs. Nasir Gilmore, Ana Laura Harley, José Miguel Garvin and colleagues, with an educational arnaud from [employer]. KIYA-7 Assessment Billing KIYA-7 Assessment Tool: KIYA-7 Assessment 92061 Review of Systems Const Denies chills and Denies fever(s) Eyes Denies blurry vision ENT Denies vertigo, Denies dizziness and Denies sore throat Card Denies chest pain at rest, Denies chest pain with activity, Denies diaphoresis, Denies dyspnea and Denies dyspnea on exertion Resp Denies cough, Denies dyspnea, Denies dyspnea on exertion and Denies wheezing GI Denies abdominal pain, Denies melena, Denies hematochezia, Denies constipation, Denies diarrhea and Denies loose stools Denies hematuria Musc Denies numbness and Denies tingling Skin/Breast Denies lesions Neuro Denies vertigo, Denies dizziness, Denies numbness and Denies tingling Psych Denies anxiety, Denies depression, Denies homicidal ideation, Denies suicidal ideation and Denies other (substance abuse) Aller/Immun Denies wheezing Physical exam (Primary Care) Vital Signs: Last Vital Signs Pulse 64 01/20/23 08:43 BP 134/82 01/20/23 09:03 Pulse Ox 96 01/20/23 08:43 Oxygen Delivery Method Room Air 01/20/23 08:43 BMI result Body Mass Index 21.3 Tobacco/Smoking Status: Tobacco use Status Tobacco use date assessed 01/20/23 01/20/23 08:49 Patient Tobacco Use Status Former Tobacco user 01/20/23 08:49 e-Cigarette/Vaping Use Never Used 01/20/23 08:49 PHQ-9: PHQ-9 Score PHQ-9: Total score 0 01/20/23 08:58 Thrive Assessment: Date of Thrive Assessment Date Thrive assessed 01/20/23 01/20/23 08:58 Const General: cooperative Nutritional Appearance: well nourished Orientation/consciousness: patient oriented x3 HENMT Head: Yes normal to inspection, Yes normocephalic and Yes atraumatic Ears: TM's normal bilaterally Eyes General: appearance normal, both eyes and all related structures Alignment and Position: alignment normal and position normal Neck Neck: Yes normal visual inspection and Yes no lymphadenopathy Thyroid: Thyroid normal Resp Effort & Inspection: normal respiratory effort Auscultation: clear to auscultation bilaterally and diminished lung sounds Cardio Rate: regular rate Rhythm: regular rhythm Heart sounds: S1 normal heart sound present, S2 normal heart sound present and Murmur heart sound present systolic (faint) GI Palpation (GI): Soft to palpation and nontender Auscultation: normal bowel sounds Skin Other: left sikhism region with skin-colored raised papular lesions Rashes: no rashes Neuro General: patient oriented x3, moves all extremities, no focal motor deficits and deep tendon reflexes 2+ bilaterally Romberg Test: Negative Extrem Other: bilat feet: + sensation with use of monofilament, right foot plantar aspect just inferior to 4th toe with large callous, also noted to left foot lateral-plantar aspect of 1st toe, left foot 5th toe amputated Psych Appearance: grossly normal Mental Status: mental status grossly normal Speech and movement: Normal speech and movement present Affect: normal affect Attitude: cooperative Thought process: Normal thought process present Thought content: Normal thought content present Insight: Good insight present (Psych) Judgement: Good judgement present (Psych) Assessment and Plan Assessment & Plan (1) Smoker: Code(s): F17.200 - Nicotine dependence, unspecified, uncomplicated (2) Diabetes: Comment: IDDM Code(s): E11.9 - Type 2 diabetes mellitus without complications (3) Physical exam: Code(s): Z00.00 - Encounter for general adult medical examination without abnormal findings Plan The patient agreed to the use of a medical collections specialist for this encounter. Scribed for SARI Rasheed- by Michelle Ambrosio medical collections specialist, on 01/20/2023 at 08:55 EST. Coding Level of Care Code Est Pt Prev Care >65y(92949) Diagnoses Smoker F17.200 Diabetes E11.9 Physical exam Z00.00 Additional Codes KIYA-7 Assessment Billing - KIYA-7 Assessment Tool: KIYA-7 Assessment [id number] ([id number])
[2023-01-20 08:43] VITALS: BP 140/68; PULSE 64; O2SAT 96; BMI 21.3
[2023-01-20 09:03] VITALS: BP 134/82
== END 2023-01-20 09:26 | disposition home or self-care (01) ==
PROVIDERS: PCP Nurse Practitioner Family; Visit Provider Nurse Practitioner Family
DX: Z00.00 Encounter for general adult medical examination without abnormal findings (principal); F17.210 Nicotine dependence, cigarettes, uncomplicated; E11.9 Type 2 diabetes mellitus without complications
CPT/HCPCS: 99397

== ENCOUNTER 2023-02-03 12:40 | Outpatient (AMB) | payer MEDICARE, OTHER, SELFPAY ==
--- NOTE | 2023-02-03 12:49 | MHC.OFFVIS ---
Intake Vital Signs 02/03/23 12:55 Height 5 ft 8 in Weight 140 lb BMI 21.3 Intake Visit Reasons: Add-On new issues on feet Intake Note: pt states that he has bilateral callouses that are starting to become painful, they are where his wounds were before. Accompanied by: Self / Same As Patient Allergies No Known Allergies [No Known Allergies*] Allergy (Verified 02/03/23 13:04) HPI Add-On new issues on feet HPI Details Very pleasant 72-year-old gentleman presents for follow-up regarding his lower extremities. He had actually been doing extremely well with his nonhealing ulcers that have gone on to heal. He did have a significant callus on the right lower extremity on the plantar aspect. It had been a source of discomfort for him. He came back early for re-evaluation regarding this. In terms of the wounds they remain healed. He now presents for a routine leg check. [facility] Medical History Diabetes Hypercholesteremia Osteomyelitis of great toe of left foot PVD (peripheral vascular disease) Surgical History Amputated toe of left foot (08/18/20) S/P angiogram of extremity (10/08/19) S/P angiogram of extremity (08/13/20) S/P PICC central line placement Social History Housing: Apartment Alcohol intake: current Alcohol intake frequency: does not drink Patient Tobacco Use Status: Former Tobacco user Years Smoked: 39 e-Cigarette/Vaping Use: Never Used Second Hand Smoke Exposure: No service: No Current occupational status: retired Cognitive needs: No Hearing needs: No Vision needs: No Review of Systems Const All systems reviewed & are unremarkable except as noted in HPI and below Reports no additional complaints ENT Reports Normal hearing present Card Denies chest pain, Denies chest pain at rest, Denies chest pain with activity and Denies pedal edema Resp Denies cough GI Denies abdominal pain Musc Denies abnormal gait, Denies muscle cramps and Denies radiating pain into limb Skin/Breast Denies skin ulcer and Denies wounds Neuro Reports Normal hearing present and Denies abnormal gait Psych Reports no additional complaints Physical Exam Vital Signs: BMI result Body Mass Index 21.3 Const General: cooperative, healthy appearing and comfortable Orientation/consciousness: oriented to person, oriented to place and oriented to time HEENT Head: Yes normal to inspection Neck Neck: Yes normal visual inspection Carotids: no bruits Chest Chest palpation & inspection: normal inspection of the chest Resp Effort & Inspection: normal respiratory effort and able to speak in complete sentences Auscultation: clear to auscultation bilaterally, no crackles, no rales, no rhonchi and no wheezes Cardio Rate: regular rate Rhythm: regular rhythm Heart sounds: S1 normal heart sound present and S2 normal heart sound present Bruits: no carotid bruits Peripheral pulses: Peripheral pulses 2+ throughout GI Inspection: Yes normal to inspection Skin Other: Right plantar aspect approximately 3 cm dry callus Wounds: no wounds Hair: normal Neuro General: oriented to person, oriented to place and oriented to time Cranial nerves: Yes CN's II-XII intact bilaterally and Yes Normal hearing present Cognition (Neuro): normal cognition Motor exam (neuro): 5/5 motor strength present throughout Extrem Other: venous exam: No significant superficial varicosities or spider telangiectasias, minimal edema General: No clubbing, No cyanosis and No edema Psych Appearance: grossly normal Mental Status: mental status grossly normal Speech and movement: Normal speech and movement present Assessment & Plan Assessment & Plan (1) Ulcer of right foot due to type 2 diabetes mellitus: Code(s): E11.621 - Type 2 diabetes mellitus with foot ulcer; L97.519 - Non-pressure chronic ulcer of other part of right foot with unspecified severity Plan: In short patient had a dried callus which was which was checked. No intervention required. Patient was reassured regarding this. At the current time all wounds continue to stay healed. He is scheduled for routine arterial surveillance follow-up in April with us. Should there be any interval issues happy to see him back sooner. Thank you for allowing us to assist in his care. If there are any questions or concerns please do not hesitate to contact us. The patient had an opportunity to ask questions regarding the treatment plan. All questions were answered. Imaging studies, laboratory studies and physical exam results were discussed and reviewed in detail. No major barriers to understanding were identified. The patient expressed understanding and agreement with the above treatment plan. The patient is aware they should contact our office by phone for worsening of the current condition or the appearance of new symptoms. Thank you for allowing me to participate in the vascular care of this patient. If you have any questions or concerns regarding the treatment for the above condition please do not hesitate to contact me. The office telephone contact is [phone]. This note is constructed using voice recognition software. While every effort has been made to ensure accuracy, demolition engineer errors may have been included. Thank you for allowing me to participate in the care of your patient. Yours sincerely, Sanford Almaguer MD, FACS, R.P.V.I. Coding Level of Care Code Est Pt Level 3 (74425) Diagnoses Ulcer of right foot due to type 2 diabetes mellitus E11.621; L97.519
[2023-02-03 12:55] VITALS: BMI 21.3
== END 2023-02-03 13:32 | disposition home or self-care (01) ==
PROVIDERS: PCP Nurse Practitioner Family; Visit Provider Surgery Vascular Surgery
DX: E11.621 Type 2 diabetes mellitus with foot ulcer (principal); L97.519 Non-pressure chronic ulcer of other part of right foot with unspecified severity
CPT/HCPCS: 99213

== ENCOUNTER → 2023-02-03 12:40 | Outpatient (BNVA) | payer MEDICARE, OTHER, SELFPAY | PROVIDERS: PCP Nurse Practitioner Family; Visit Provider Surgery Vascular Surgery | DX: E11.621 Type 2 diabetes mellitus with foot ulcer (principal); L97.519 Non-pressure chronic ulcer of other part of right foot with unspecified severity | CPT/HCPCS: 99212 ==

== ENCOUNTER 2023-04-18 08:56 | Outpatient (REF) | payer MEDICARE, OTHER, SELFPAY ==
--- NOTE | ~2023-04-18 | US_ITS ---
EXAMINATION: NONINVASIVE ASSESSMENT OF THE ARTERIES OF BOTH LOWER EXTREMITIES INCLUDING BILATERAL LOWER EXTREMITY DUPLEX. CLINICAL INFORMATION: Peripheral vascular disease COMPARISON: Noninvasive arterial exam on 09/29/2022 TECHNIQUE: duplex Doppler techniques with wave form analysis and measurement of velocities in the common femoral, profunda femoral, superficial femoral, popliteal, tibial and peroneal arteries. The study was performed only at rest. FINDINGS: There is diffuse bilateral atherosclerotic calcification. RIGHT LEG Common femoral artery: 98 cm/s, Multiphasic Profunda femoris artery: 97 cm/s, Multiphasic Superficial femoral artery (proximal): 90 cm/s, Multiphasic, moderate atherosclerotic calcification Superficial femoral artery (mid): 130 cm/s, Multiphasic Superficial femoral artery (distal): 52 cm/s, Multiphasic Proximal Popliteal artery: 44 cm/s, monophasic Mid posterior tibial artery: 42 cm/s, monophasic LEFT LEG: Common femoral artery: 91 cm/s, Multiphasic Profunda femoris artery: 80 cm/s, Multiphasic Superficial femoral artery (proximal): 138 cm/s, Multiphasic, within stent Superficial femoral artery (mid): 80 cm/s, Multiphasic, within stent Superficial femoral artery (distal): 94 cm/s, Multiphasic, just distal to stent Proximal Popliteal artery: 77 cm/s, Multiphasic Mid posterior tibial artery: 80 cm/s, Multiphasic US/US arterial duplex LE BI IMPRESSION: 1. Diffuse atherosclerotic disease of the right lower extremity with monophasic flow in the popliteal and posterior tibial arteries. 2. Patent left superficial femoral artery stent with multiphasic flow.
== END 2023-04-18 08:57 | disposition home or self-care (01) ==
LOC: HO.US 08:56
PROVIDERS: PCP Nurse Practitioner Family; Visit Provider Surgery Vascular Surgery
DX: I73.9 Peripheral vascular disease, unspecified (principal)
CPT/HCPCS: 93925

== ENCOUNTER 2023-04-28 08:33 | Outpatient (AMB) | payer MEDICARE, OTHER, SELFPAY ==
--- NOTE | 2023-04-28 08:35 | MHC.OFFVIS ---
Intake Vital Signs 04/28/23 08:47 Height 5 ft 8 in Weight 140 lb BMI 21.3 Intake Visit Reasons: Follow up 04/16 Arterial US Intake Note: Pt here for FU arterial US on 04/16/23 Hx of bilateral callouses.Pt says that he is doing well and has no concerns today Allergies No Known Allergies [No Known Allergies*] Allergy (Verified 04/28/23 08:47) HPI Follow up 04/16 Arterial US HPI Details Very pleasant 72-year-old gentleman presents for follow-up regarding arterial surveillance. He had prior history of ulcers and a left toe amp. This is all gone on to heal. His only complaint is a right plantar surface callus. He now presents for follow-up with noninvasive testing. 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 Diabetes PVD (peripheral vascular disease) Hypercholesteremia Surgical History S/P angiogram of extremity (08/13/20) Amputated toe of left foot (08/18/20) S/P angiogram of extremity (10/08/19) S/P PICC central line placement Social History Housing: Apartment Alcohol intake: current Alcohol intake frequency: does not drink Patient Tobacco Use Status: Former Tobacco user Years Smoked: 39 e-Cigarette/Vaping Use: Never Used Second Hand Smoke Exposure: No service: No Current occupational status: retired Cognitive needs: No Hearing needs: No Vision needs: No Review of Systems Const All systems reviewed & are unremarkable except as noted in HPI and below Reports no additional complaints ENT Reports Normal hearing present Card Denies chest pain, Denies chest pain at rest, Denies chest pain with activity and Denies pedal edema Resp Denies cough GI Denies abdominal pain Musc Denies abnormal gait, Denies muscle cramps and Denies radiating pain into limb Skin/Breast Denies skin ulcer and Denies wounds Neuro Reports Normal hearing present and Denies abnormal gait Psych Reports no additional complaints Physical Exam Vital Signs: BMI result Body Mass Index 21.3 Const General: cooperative, healthy appearing and comfortable Orientation/consciousness: oriented to person, oriented to place and oriented to time HEENT Head: Yes normal to inspection Neck Neck: Yes normal visual inspection Carotids: no bruits Chest Chest palpation & inspection: normal inspection of the chest Resp Effort & Inspection: normal respiratory effort and able to speak in complete sentences Auscultation: clear to auscultation bilaterally, no crackles, no rales, no rhonchi and no wheezes Cardio Rate: regular rate Rhythm: regular rhythm Heart sounds: S1 normal heart sound present and S2 normal heart sound present Bruits: no carotid bruits Peripheral pulses: Peripheral pulses 2+ throughout GI Inspection: Yes normal to inspection Skin Other: Right plantar surface hardened callus Wounds: no wounds Hair: normal Neuro General: oriented to person, oriented to place and oriented to time Cranial nerves: Yes CN's II-XII intact bilaterally and Yes Normal hearing present Cognition (Neuro): normal cognition Motor exam (neuro): 5/5 motor strength present throughout Extrem Other: venous exam: No significant superficial varicosities or spider telangiectasias, minimal edema General: No clubbing, No cyanosis and No edema Psych Appearance: grossly normal Mental Status: mental status grossly normal Speech and movement: Normal speech and movement present Results Reviewed Results Reviewed: Arterial ultrasound dated 04/18/2023 demonstrates no significant stenosis with a patent left SFA stent. Written report and images were reviewed. Assessment & Plan Assessment & Plan (1) PVD (peripheral vascular disease): Comment: 10/08/2019 - left SFA stent and popliteal plasty with DCB 08/13/2020 - angioplasty left SFA with DCB 08/18/2020 - left 5th toe amputation Code(s): I73.9 - Peripheral vascular disease, unspecified Plan: In short patient has stable claudication. In addition right foot has a callus and may benefit from a podiatry evaluation. I did review the pathophysiology of peripheral vascular disease with the patient. In addition we did discuss routine conservative measures including a healthy diet and the importance of exercise and ambulation. We did discuss risk factor modification. The patient will continue to to follow-up with surveillance follow-up in approximately 1 year. Thank you for allowing us to participate in this patient's care. If there are any questions or concerns please do not hesitate to contact us. Orders: Orders US arterial duplex LE BI 364 Days I73.9 - Peripheral vascular disease, unspecified Coding Level of Care Code Est Pt Level 4 (84888) Diagnoses PVD (peripheral vascular disease) I73.9
[2023-04-28 08:47] VITALS: BMI 21.3
== END 2023-04-28 09:11 | disposition home or self-care (01) ==
PROVIDERS: PCP Nurse Practitioner Family; Visit Provider Surgery Vascular Surgery
DX: I73.9 Peripheral vascular disease, unspecified (principal)
CPT/HCPCS: 99213

== ENCOUNTER → 2023-04-28 08:33 | Outpatient (BNVA) | payer MEDICARE, OTHER, SELFPAY | PROVIDERS: PCP Nurse Practitioner Family; Visit Provider Surgery Vascular Surgery | DX: I73.9 Peripheral vascular disease, unspecified (principal) | CPT/HCPCS: 99212 ==

== ENCOUNTER 2023-05-23 12:45 | Outpatient (AMB) | payer MEDICARE, OTHER, SELFPAY ==
--- NOTE | 2023-05-23 13:03 | A.OFFPC_ITS ---
Vital Signs 05/23/23 13:06 Height 5 ft 8 in Weight 140 lb BMI 21.3 BP 112/70 Blood Pressure Location Rt brachial Position Sitting Pulse 58 Pulse Source Pulse Oximeter Pulse Oximetry (%) 98 Oxygen Delivery Method Room Air Intake Visit Reasons: 4 month fu Allergies No Known Allergies [No Known Allergies*] Allergy (Verified 05/23/23 13:06) Medication List - Last Reconciled 05/23/23 by FABIO Ruiz aspirin (Adult Low Dose Aspirin) 81 mg PO DAILY atorvastatin 20 mg PO DAILY 90 days blood sugar diagnostic (FreeStyle Lite Strips) use 1 strip four times a day to test blood sugar blood-glucose meter (FreeStyle Lite Meter kit) test 4 times QD clopidogrel 75 mg PO DAILY insulin aspart U-100 10 units (0.1 mL) subcut TID 30 days lancets (FreeStyle Lancets) 28 gauge topical QID lisinopril 2.5 mg PO DAILY 90 days metformin 500 mg PO DAILY 90 days pen needle, diabetic tid Tobacco use date assessed: 01/20/23 HPI 4 month fu HPI Details Pt is a diabetic, on an STANLEY and a statin. A1C in office today is 6.7. Microalbumin is up to date. Denies polyuria, polydipsia, and neuropathy. Pt denies any signs and symptoms of hypoglycemia and does know how to correct it. Pt reports that his blood sugar has been ranging from 150s-180s. Pt is following up with vascular for foot ulcerations/callouses. Refuses low-dose lung CTs. Informed pt that he can get his flu vaccine from his pharmacy. [facility] Medical History Osteomyelitis of great toe of left foot Diabetes PVD (peripheral vascular disease) Hypercholesteremia Surgical History S/P angiogram of extremity (08/13/20) Amputated toe of left foot (08/18/20) S/P angiogram of extremity (10/08/19) S/P PICC central line placement Social History Housing: Apartment Alcohol intake: current Alcohol intake frequency: does not drink Patient Tobacco Use Status: Former Tobacco user Years Smoked: 39 e-Cigarette/Vaping Use: Never Used Second Hand Smoke Exposure: No service: No Current occupational status: retired Cognitive needs: No Hearing needs: No Vision needs: No Questionnaire Thrive Questionnaire Date Thrive assessed: 01/20/23 KIYA-7 AMB Questionnaire KIYA-7 Date KIYA - 7 assessed: 01/20/23 Source: Developed by Drs. Nasir Gilmore, Ana Laura Harley, José Miguel Garvin and colleagues, with an educational arnaud from [employer]. Review of Systems Const Reports as per HPI Physical exam (Primary Care) Vital Signs: Last Vital Signs Pulse 58 05/23/23 13:06 BP 112/70 05/23/23 13:06 Pulse Ox 98 05/23/23 13:06 Oxygen Delivery Method Room Air 05/23/23 13:06 BMI result Body Mass Index 21.3 Tobacco/Smoking Status: Tobacco use Status Tobacco use date assessed 01/20/23 05/23/23 13:05 Patient Tobacco Use Status Former Tobacco user 05/23/23 13:05 e-Cigarette/Vaping Use Never Used 05/23/23 13:05 Thrive Assessment: Date of Thrive Assessment Date Thrive assessed 01/20/23 05/23/23 13:05 Const General: cooperative Orientation/consciousness: patient oriented x3 Resp Effort & Inspection: normal respiratory effort Auscultation: clear to auscultation bilaterally and diminished lung sounds Cardio Rate: regular rate Rhythm: regular rhythm Heart sounds: S1 normal heart sound present, S2 normal heart sound present and Murmur heart sound present systolic Neuro General: patient oriented x3 Extrem Other: bilat feet: + sensation with use of monofilament, left foot 5th toe amputated, large callous to lateral plantar aspect of 1st toe, right foot large callous to plantar aspect of 5th MTP joint, toes 4 and 5 are crossed Psych Appearance: grossly normal Mental Status: mental status grossly normal Speech and movement: Normal speech and movement present Affect: normal affect Attitude: cooperative Thought process: Normal thought process present Thought content: Normal thought content present Insight: Good insight present (Psych) Judgement: Good judgement present (Psych) Results AMB Hemoglobin A1c AMB Hemoglobin A1c 6.7 % Last Edit by SUREKHA Cunningham on 05/23/23 13 :20 Immunizations pneumoc 20-manohar conj-dip cr(PF) 0.5 mL IM syringe Performing Provider: FABIO Ruiz Performing Location: [facility] Administered by: SUREKHA Cunningham on 05/23/23 13:28 Dose Route Admin Location Dispensed Lot Number Expiration Date NDC Pathology Transcriptionist 0.5 mL IM Right Deltoid 0.5 mL [id number] 02/10/24 2929-2608-96 [employer] VIS Given Date VIS Provided VIS Publication Date 05/23/23 Single Vaccine 21 Eligibility Eligibility Date Funding Source Not VFC Eligible 05/23/23 Private Results Reviewed Results Reviewed: Laboratory Last Values Hgb A1c (Clinic) 6.7 % (4.0-6.0) H 05/23/23 13:19 Assessment and Plan Assessment & Plan (1) Diabetes: Comment: IDDM Code(s): E11.9 - Type 2 diabetes mellitus without complications Plan: Labs ordered (2) Screening PSA (prostate specific antigen): Code(s): Z12.5 - Encounter for screening for malignant neoplasm of prostate Plan: PSA ordered Plan The patient agreed to the use of a medical insurance claims processor for this encounter. Scribed for FABIO Rasheed by Michelle Ambrosio medical insurance claims processor, on 05/23/2023 at 13:15 EST. Orders: Orders UA CC w/rflx Micro + Cult Today E11.9 - Type 2 diabetes mellitus without complications Lipid Panel Today E11.9 - Type 2 diabetes mellitus without complications Prostate Specific Antigen Scr Today Z12.5 - Encounter for screening for malignant neoplasm of prostate AMB Hemoglobin A1c Today E11.9 - Type 2 diabetes mellitus without complications Pneumococcal 20 Immunization Today Z23 - Encounter for immunization Complete Blood Count Auto Diff Today E11.9 - Type 2 diabetes mellitus without complications Comprehensive [place]. Panel Fast Today E11.9 - Type 2 diabetes mellitus without complications TSH reflex Free T4 Today E11.9 - Type 2 diabetes mellitus without complications Coding Level of Care Code Est Pt Level 3 (78446) Diagnoses Diabetes E11.9 Screening PSA (prostate specific antigen) Z12.5
[2023-05-23 13:06] VITALS: BP 112/70; PULSE 58; O2SAT 98; BMI 21.3
== END 2023-05-23 13:35 | disposition home or self-care (01) ==
PROVIDERS: PCP Nurse Practitioner Family; Visit Provider Nurse Practitioner Family
DX: E11.9 Type 2 diabetes mellitus without complications (principal); Z12.5 Encounter for screening for malignant neoplasm of prostate; Z23 Encounter for immunization
CPT/HCPCS: 83036; 90471; 90677; 99213

== ENCOUNTER 2023-08-04 10:24 | Outpatient (AMB) | payer MEDICARE, OTHER, SELFPAY ==
[2023-08-04 10:30] VITALS: BMI 21.3
--- NOTE | 2023-08-04 10:30 | MHC.OFFVIS ---
Intake Vital Signs 08/04/23 10:30 Height 5 ft 8 in Weight 140 lb BMI 21.3 Intake Visit Reasons: follow up foot ulcer add-on Intake Note: Patient presents today for follow up foot pain and question of ulcers. Has callus on right foot. States Dr Almaguer has cleaned it up in the past but that it has returned. Minimal pain when walking. Small callus on left big toe that is not as bad and has come off . Accompanied by: Self / Same As Patient Allergies No Known Allergies [No Known Allergies*] Allergy (Verified 08/04/23 10:35) HPI follow up foot ulcer add-on HPI Details Pleasant 72-year-old gentleman presents for routine follow-up regarding his lower extremities. He has been following us after left toe amp and normal arterial status. He continuously developed this right foot callus which has been a source of pain and discomfort for him. He now presents for routine follow-up [facility] Medical History Osteomyelitis of great toe of left foot Diabetes PVD (peripheral vascular disease) Hypercholesteremia Surgical History S/P angiogram of extremity (08/13/20) Amputated toe of left foot (08/18/20) S/P angiogram of extremity (10/08/19) S/P PICC central line placement Social History Housing: Apartment Alcohol intake: current Alcohol intake frequency: does not drink Patient Tobacco Use Status: Former Tobacco user Years Smoked: 39 e-Cigarette/Vaping Use: Never Used Second Hand Smoke Exposure: No service: No Current occupational status: retired Cognitive needs: No Hearing needs: No Vision needs: No Review of Systems Const All systems reviewed & are unremarkable except as noted in HPI and below Reports no additional complaints ENT Reports Normal hearing present Card Denies chest pain, Denies chest pain at rest, Denies chest pain with activity and Denies pedal edema Resp Denies cough GI Denies abdominal pain Musc Denies abnormal gait, Denies muscle cramps and Denies radiating pain into limb Skin/Breast Denies skin ulcer and Denies wounds Neuro Reports Normal hearing present and Denies abnormal gait Psych Reports no additional complaints Physical Exam Vital Signs: BMI result Body Mass Index 21.3 Const General: cooperative, healthy appearing and comfortable Orientation/consciousness: oriented to person, oriented to place and oriented to time HEENT Head: Yes normal to inspection Neck Neck: Yes normal visual inspection Carotids: no bruits Chest Chest palpation & inspection: normal inspection of the chest Resp Effort & Inspection: normal respiratory effort and able to speak in complete sentences Auscultation: clear to auscultation bilaterally, no crackles, no rales, no rhonchi and no wheezes Cardio Rate: regular rate Rhythm: regular rhythm Heart sounds: S1 normal heart sound present and S2 normal heart sound present Bruits: no carotid bruits Peripheral pulses: Peripheral pulses 2+ throughout GI Inspection: Yes normal to inspection Skin Other: Right foot callus on plantar aspect Hair: normal Neuro General: oriented to person, oriented to place and oriented to time Cranial nerves: Yes CN's II-XII intact bilaterally and Yes Normal hearing present Cognition (Neuro): normal cognition Motor exam (neuro): 5/5 motor strength present throughout Extrem Other: venous exam: No significant superficial varicosities or spider telangiectasias, minimal edema General: No clubbing, No cyanosis and No edema Psych Appearance: grossly normal Mental Status: mental status grossly normal Speech and movement: Normal speech and movement present Assessment & Plan Assessment & Plan (1) PVD (peripheral vascular disease): Comment: 10/08/2019 - left SFA stent and popliteal plasty with DCB 08/13/2020 - angioplasty left SFA with DCB 08/18/2020 - left 5th toe amputation Code(s): I73.9 - Peripheral vascular disease, unspecified Plan: In short doing relatively well. I did explain it was just a callus needs to be attended to. Will keep his routine scheduled arterial appointment. Thank you for allowing us to assist in his care. If there are any questions or concerns please do not hesitate to contact us Coding Level of Care Code Est Pt Level 3 (38199) Diagnoses PVD (peripheral vascular disease) I73.9
== END 2023-08-04 10:52 | disposition home or self-care (01) ==
LOC: HO.HVS 10:24
PROVIDERS: PCP Nurse Practitioner Family; Visit Provider Surgery Vascular Surgery
DX: I73.9 Peripheral vascular disease, unspecified (principal)
CPT/HCPCS: 99213

== ENCOUNTER → 2023-08-04 10:24 | Outpatient (BNVA) | payer MEDICARE, OTHER, SELFPAY | PROVIDERS: PCP Nurse Practitioner Family; Visit Provider Surgery Vascular Surgery | DX: I73.9 Peripheral vascular disease, unspecified (principal); L84 Corns and callosities | CPT/HCPCS: 99212 ==

== ENCOUNTER 2023-09-20 06:34 | Outpatient (REF) | payer MEDICARE, OTHER, SELFPAY ==
[2023-09-20 10:20] LABS: MANUAL DIFF FLAG NO
[2023-09-20 10:28] LABS: Appearance Urine Clear; Color Urine Yellow; Glucose Urine UA Negative (Negative); Leukocyte Esterase Urine Negative (Negative); Nitrite Urine Negative (Negative); PH 5.5 (5.0-9.0); UMIC TRIGGER UACC YES; Urine Blood Negative (Negative); Urine Ketones Negative (Negative); Urine Protein 300 (3+) mg/dL (Neg-Trace)
[2023-09-20 10:38] LABS: Basophils Absolute Auto 0.1 X10*3/uL (0.0-0.2); Basophils Percent Auto 0.7 % (0-2); Eosinophils Absolute Auto 0.5 X10*3/uL (0.0-0.4); Eosinophils Percent Auto 6.2 % (0-4); Hematocrit 34.5 % (42.0-52.0); Hemoglobin 11.4 g/dl (14.0-18.0); Imm Gran Abs Auto 0.03 X10*3/uL (0.00-0.03); Imm Gran Pct Auto 0.3 % (0.0-0.4); Lymphocytes Absolute Auto 2.1 X10*3/uL (1.2-4.9); Lymphocytes Percent Auto 24.3 % (20-40); Mean Corpuscular Hemoglobin 30.6 pg (27.0-33.0); Mean Corpuscular Volume 92.7 fL (80.0-98.0); Mean Platelet Volume 11.6 fL (9.4-12.4); Monocytes Absolute Auto 0.9 X10*3/uL (0.1-1.2); Monocytes Percent Auto 10.2 % (2-11); Neutrophils Absolute Auto 5.1 x10*3/uL (2.0-8.3); Neutrophils Percent Auto 58.3 % (45-73); Platelet Count 207 X10*3/uL (160-400); Red Blood Count 3.72 X10*6/uL (4.60-5.80); Red Cell Distribution Width 13.2 % (11.0-16.0); White Blood Count 8.7 X10*3/uL (4.8-10.8)
[2023-09-20 11:26] LABS: Alanine Aminotransferase 15 U/L (0-40); Albumin Level 3.4 g/dL (3.5-5.0); Alkaline Phosphatase 73 U/L (39-117); Anion Gap 11 (12-20); Aspartate Amino Transferase 19 U/L (5-37); Bilirubin Total 0.3 mg/dL (0.0-1.0); Blood Urea Nitrogen 41 mg/dL (9-16); Calcium 8.9 mg/dL (8.4-10.2); Carbon Dioxide 24 mmol/L (22-29); Chloride 111 mmol/L (96-108); Cholesterol 148 mg/dL (<200); Estimated Glomerular Filt Rate 55; Glucose Fasting 106 mg/dL (60-99); HDL Cholesterol 49 mg/dL (>40); LDL Cholesterol Calculated 84 mg/dL (<100); Potassium 4.8 mmol/L (3.3-5.1); Sodium 141 mmol/L (135-145); TSH reflex Free T4 1.02 uIU/mL (0.32-4.0); Total Protein 6.2 g/dL (6.5-8.0); Triglycerides 78 mg/dL (<150)
[2023-09-20 11:31] LABS: Prostate Specific Antigen Scr 1.08 ng/mL (<0.05-4.0)
[2023-09-20 12:41] LABS: Bacteria Urine None Seen (None Seen); Hyaline Casts Urine 0-2 /LPF (0-2); RBC Urine 0-2 /HPF (0-2); Squamous Epithelial Cell Urine 0-2 /HPF (0-2); WBC Urine 0-5 /HPF (0-5)
== END 2023-09-20 06:35 | disposition home or self-care (01) ==
LOC: HO.HMGCLDS 06:34
PROVIDERS: PCP Nurse Practitioner Family; Visit Provider Nurse Practitioner Family
DX: E11.9 Type 2 diabetes mellitus without complications (principal); Z12.5 Encounter for screening for malignant neoplasm of prostate
CPT/HCPCS: 36415; 80053; 80061; 81001; 84153; 84443; 85025

== ENCOUNTER 2023-09-28 08:17 | Outpatient (AMB) | payer MEDICARE, OTHER, SELFPAY ==
--- NOTE | 2023-09-28 08:20 | A.OFFPC_ITS ---
Vital Signs 09/28/23 08:24 Weight 142 lb BP 120/80 Blood Pressure Location Lt brachial Position Sitting Pulse 74 Pulse Source Pulse Oximeter Pulse Oximetry (%) 97 Oxygen Delivery Method Room Air Intake Visit Reasons: 4 month fu Intake Note: Patient here for diabetes f/u Allergies No Known Allergies [No Known Allergies*] Allergy (Verified 09/28/23 10:28) Medication List - Last Reconciled 09/28/23 by FABIO Ruiz aspirin (Adult Low Dose Aspirin) 81 mg PO DAILY atorvastatin 20 mg PO DAILY 90 days blood sugar diagnostic (FreeStyle Lite Strips) use 1 strip four times a day to test blood sugar blood-glucose meter (FreeStyle Lite Meter kit) test 4 times QD clopidogrel 75 mg PO DAILY insulin aspart U-100 10 units (0.1 mL) subcut TID 30 days lancets (FreeStyle Lancets) 28 gauge topical QID lisinopril 2.5 mg PO DAILY 90 days metformin 500 mg PO DAILY 90 days pen needle, diabetic tid Tobacco use date assessed: 09/28/23 Fall risk assessment: No Falls in past year Last assessed Fall Risk: 09/28/23 Dental Screening Dental Screen Date: 09/28/23 Did you have a dental visit in the last 12 months?: Yes Did you have a dental problem in the last 6 months where you did not have access to dental care?: No Was dental information given to patient?: Patient has dentist HPI 4 month fu HPI Details Pt is a diabetic, on an STANLEY and a statin. A1C in office today is 6.5. Microalbumin is up to date. Denies polyuria, polydipsia, and neuropathy. Pt is seeing vascular. Pt has a hx of proteinuria. Will refer to nephrology (was referred last year, do not know what happended). [facility] Medical History Osteomyelitis of great toe of left foot Diabetes PVD (peripheral vascular disease) Hypercholesteremia Surgical History S/P angiogram of extremity (08/13/20) Amputated toe of left foot (08/18/20) S/P angiogram of extremity (10/08/19) S/P PICC central line placement Social History Housing: Apartment Alcohol intake: current Alcohol intake frequency: does not drink Patient Tobacco Use Status: Former Tobacco user Years Smoked: 39 e-Cigarette/Vaping Use: Never Used Second Hand Smoke Exposure: No service: No Current occupational status: retired Cognitive needs: No Hearing needs: No Vision needs: No Questionnaire Thrive Questionnaire Date Thrive assessed: 01/20/23 AUDIT C Alcohol Use Questionnaire (AUDIT-C) 1. How often do you have a drink containing alcohol?: Never 3. How often do you have six or more drinks on one occasion?: Never Total Score: 0 Score Reviewed/Action Taken: No KIYA-7 AMB Questionnaire KIYA-7 Date KIYA - 7 assessed: 01/20/23 Source: Developed by Drs. Nasir Gilmore, Ana Laura Harley, José Miguel Garvin and colleagues, with an educational arnaud from [email or web address]. Review of Systems Const Reports as per HPI Physical exam (Primary Care) Vital Signs: Last Vital Signs Pulse 74 09/28/23 08:24 BP 120/80 09/28/23 08:24 Pulse Ox 97 09/28/23 08:24 Oxygen Delivery Method Room Air 09/28/23 08:24 Tobacco/Smoking Status: Tobacco use Status Tobacco use date assessed 09/28/23 09/28/23 08:31 Patient Tobacco Use Status Former Tobacco user 09/28/23 08:21 e-Cigarette/Vaping Use Never Used 09/28/23 08:21 Thrive Assessment: Date of Thrive Assessment Date Thrive assessed 01/20/23 09/28/23 08:21 Const General: cooperative Orientation/consciousness: patient oriented x3 Resp Other: coarse wheezes bilat, scattered rhonchi Effort & Inspection: normal respiratory effort Cardio Rate: regular rate Rhythm: regular rhythm Heart sounds: S1 normal heart sound present, S2 normal heart sound present and Murmur heart sound present systolic (faint) Neuro General: patient oriented x3 Extrem Other: bilat feet: + sensation with use of monofilamentlarge raised callus formation to right foot plantat aspect just inferior to toes 4 and 5 along MTP joint, callus to left plantar lateral aspect of 1st toe, missing toe 5 Psych Appearance: grossly normal Mental Status: mental status grossly normal Speech and movement: Normal speech and movement present Affect: normal affect Attitude: cooperative Thought process: Normal thought process present Thought content: Normal thought content present Insight: Good insight present (Psych) Judgement: Good judgement present (Psych) Results AMB Hemoglobin A1c AMB Hemoglobin A1c 6.5 % Last Edit by SUREKHA Cunningham on 09/28/23 08 :56 Results Reviewed Results Reviewed: Laboratory Last Values Hgb A1c (Clinic) 6.5 % (4.0-6.0) H 09/28/23 08:54 Assessment and Plan Assessment & Plan (1) Diabetes: Comment: IDDM Code(s): E11.9 - Type 2 diabetes mellitus without complications Plan: Continue current meds (2) Proteinuria: Code(s): R80.9 - Proteinuria, unspecified Plan: referred to nephro (3) Abnormal lung sounds: Code(s): R09.89 - Other specified symptoms and signs involving the circulatory and respiratory systems Plan: Chest XR ordered Plan The patient agreed to the use of a medical officer for this encounter. Scribed for PEREZ Rasheed by Michelle Ambrosio medical officer, on 09/28/2023 at 08:40 EST. Orders: Orders XR chest 2V Today R09.89 - Other specified symptoms and signs involving the circulatory and respiratory systems AMB Hemoglobin A1c Today E11.9 - Type 2 diabetes mellitus without complications Referrals Nephrology Referral E11.9 - Type 2 diabetes mellitus without complications, R80.9 - Proteinuria, unspecified Coding Level of Care Code Est Pt Level 3 (96928) Diagnoses Diabetes E11.9 Proteinuria R80.9 Abnormal lung sounds R09.89
[2023-09-28 08:24] VITALS: BP 120/80; PULSE 74; O2SAT 97
== END 2023-09-28 08:51 | disposition home or self-care (01) ==
PROVIDERS: PCP Nurse Practitioner Family; Visit Provider Nurse Practitioner Family
DX: E11.9 Type 2 diabetes mellitus without complications (principal); R80.9 Proteinuria, unspecified; R09.89 Other specified symptoms and signs involving the circulatory and respiratory systems
CPT/HCPCS: 83036; 99213

== ENCOUNTER 2023-09-28 08:58 | Outpatient (REF) | payer MEDICARE, OTHER, SELFPAY ==
--- NOTE | ~2023-09-28 | XR_ITS ---
EXAMINATION: XR CHEST CLINICAL INFORMATION: Other specified symptoms and signs involving the circulatory system. COMPARISON: None available. TECHNIQUE: 2 views of the chest were obtained. FINDINGS: Lungs are hyper aerated with mild biapical pleural thickening. No vascular congestion, consolidations or effusions. Heart and mediastinum within normal limits. Mild kyphosis. XR/XR chest 2V IMPRESSION: Hyperinflated lungs. No acute cardiopulmonary disease.
== END 2023-09-28 08:59 | disposition home or self-care (01) ==
LOC: HO.HMGCX 08:58
PROVIDERS: PCP Nurse Practitioner Family; Visit Provider Nurse Practitioner Family
DX: R09.89 Other specified symptoms and signs involving the circulatory and respiratory systems (principal)
CPT/HCPCS: 71046

== ENCOUNTER 2023-10-03 09:09 | Outpatient (AMB) | payer MEDICARE, OTHER, SELFPAY ==
[2023-10-03 09:17] VITALS: BP 146/64; PULSE 62; O2SAT 96; BMI 22.0
--- NOTE | 2023-10-03 09:17 | HO.NEPHOV ---
Vital Signs 10/03/23 09:17 Height 5 ft 8 in Weight 145 lb BMI 22.0 BP 146/64 H Blood Pressure Location Lt brachial Position Sitting Pulse 62 Pulse Source Pulse Oximeter Pulse Oximetry (%) 96 Oxygen Delivery Method Room Air Intake Visit Reasons: Proteinuria/ LVM Manager Credit Required: No Accompanied by: Self / Same As Patient Allergies No Known Allergies [No Known Allergies*] Allergy (Verified 10/03/23 09:18) HPI Comments Details: Talon is a pleasant 72-year-old man with a history of diabetes mellitus which was diagnosed in 2019. We are not sure how long he had diabetes prior to this. He had a foot infection and underwent amputation of the toe. He was also found to have significant peripheral disease and stents has been inserted by Dr. Almaguer. He had mild fullness on the renal collecting system back in 2021. However repeat CT scan in 2022 did not reveal any evidence of obstruction. He had microhematuria. He was seen by urologist. Was supposed to have a cystoscopy but he had refused. Recently the repeat urinalysis did not reveal any hematuria. He did have proteinuria in the recent urine protein creatinine ratio was 911 and hence this referral. He is currently on lisinopril 2.5 mg a day. Overall blood sugar seems to be well controlled with a recent hemoglobin A1c of 6.5%. Recent creatinine was 1.28 mg with EGFR of 55 mL/minute He is history of smoking. Currently smokes about 5 cigarettes a day. 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 Diabetes PVD (peripheral vascular disease) Hypercholesteremia Surgical History S/P angiogram of extremity (08/13/20) Amputated toe of left foot (08/18/20) S/P angiogram of extremity (10/08/19) S/P PICC central line placement Social History Housing: Apartment Alcohol intake: current Alcohol intake frequency: does not drink Patient Tobacco Use Status: Former Tobacco user Years Smoked: 39 e-Cigarette/Vaping Use: Never Used Second Hand Smoke Exposure: No service: No Current occupational status: retired Cognitive needs: No Hearing needs: No Vision needs: No Physical Exam Vital Signs: Last Vital Signs Pulse 62 10/03/23 09:17 BP 146/64 H 10/03/23 09:17 Pulse Ox 96 10/03/23 09:17 Oxygen Delivery Method Room Air 10/03/23 09:17 BMI result Body Mass Index 22.0 Const General: comfortable Nutritional Appearance: well nourished Orientation/consciousness: patient oriented x3 HEENT Head: No normal to inspection Mouth: moist mucous membranes Neck Neck: Yes supple and Yes no JVD Resp Auscultation: clear to auscultation bilaterally, no rales and rub present Cardio Jugular venous distension: no JVD Palpation: no palpable S3 and no palpable S4 Heart sounds: no rubs GI Palpation (GI): Soft to palpation and nontender Percussion: No Fluid wave present General: Yes no CVA tenderness Back/Spine/Pelvis Back: no CVA tenderness Skin General skin exam: no rashes or lesions noted Neuro General: patient oriented x3 Extrem General: Yes no pedal edema and No clubbing Results Reviewed Nephrology Results: Hgb 11.4 g/dl (14.0-18.0) L 09/20/23 WBC 8.7 X10*3/uL (4.8-10.8) 09/20/23 Plt Count 207 X10*3/uL (160-400) 09/20/23 Sodium 141 mmol/L (135-145) 09/20/23 Potassium 4.8 mmol/L (3.3-5.1) 09/20/23 Chloride 111 mmol/L (96-108) H 09/20/23 Carbon Dioxide 24 mmol/L (22-29) 09/20/23 BUN 41 mg/dL (9-16) H 09/20/23 Creatinine 1.28 mg/dL (0.5-1.4) 09/20/23 Calcium 8.9 mg/dL (8.4-10.2) 09/20/23 Urine Protein 300 (3+) mg/dL (Neg-Trace) H 09/20/23 Assessment & Plan Assessment & Plan (1) Diabetes: Comment: IDDM Code(s): E11.9 - Type 2 diabetes mellitus without complications Category: Medical (2) Microalbuminuria: Code(s): R80.9 - Proteinuria, unspecified Category: Medical (3) CKD (chronic kidney disease) stage 3, GFR 30-59 ml/min: Code(s): N18.30 - Chronic kidney disease, stage 3 unspecified Category: Medical Plan . 72-year-old man with diabetes mellitus and peripheral artery disease with mild CKD and proteinuria. Proteinuria is most likely due to underlying diabetic kidney disease. Nondiabetic causes seem less likely at this point. Goal is to slow the portion disease. He is currently on lisinopril 2.5 mg. Recommendation Maximize STANLEY inhibitors as tolerated for renal protection. I have increased lisinopril to 5 mg a day. We will monitor the serum creatinine potassium periodically. He would benefit from SGLT2 inhibitor. Continue to avoid nephrotoxic agents including NSAIDs and Hdz 2 inhibitors. Maintain blood pressure less than 130/80. Needs to stay on low-sodium diet. Discussed smoking cessation Orders: Orders Basic Metabolic Panel 4 Weeks E11.9 - Type 2 diabetes mellitus without complications, R80.9 - Proteinuria, unspecified Creatinine Urine 4 Weeks E11.9 - Type 2 diabetes mellitus without complications, N05.9 - Unspecified nephritic syndrome with unspecified morphologic changes, R80.9 - Proteinuria, unspecified UA and rflx microscopic 4 Weeks E11.9 - Type 2 diabetes mellitus without complications, R80.9 - Proteinuria, unspecified Total Protein Urine Random 4 Weeks E11.9 - Type 2 diabetes mellitus without complications, R80.9 - Proteinuria, unspecified Protein Electrophoresis, Serum 4 Weeks E11.9 - Type 2 diabetes mellitus without complications, R80.9 - Proteinuria, unspecified Medications: Changed From lisinopril 2.5 mg PO DAILY 90 days 90 tabs 1RF To lisinopril 5 mg PO DAILY 90 days 90 tabs 1RF
== END 2023-10-03 09:46 | disposition home or self-care (01) ==
PROVIDERS: PCP Nurse Practitioner Family; Visit Provider Internal Medicine Hypertension Specialist
DX: E11.9 Type 2 diabetes mellitus without complications (principal); R80.9 Proteinuria, unspecified; N18.30 Chronic kidney disease, stage 3 unspecified
CPT/HCPCS: 99204

== ENCOUNTER → 2023-10-03 09:09 | Outpatient (BNVA) | payer MEDICARE, OTHER, SELFPAY | PROVIDERS: PCP Nurse Practitioner Family; Visit Provider Internal Medicine Hypertension Specialist | DX: E11.9 Type 2 diabetes mellitus without complications (principal); N18.30 Chronic kidney disease, stage 3 unspecified; R80.9 Proteinuria, unspecified; N05.9 Unspecified nephritic syndrome with unspecified morphologic changes; I73.9 Peripheral vascular disease, unspecified | CPT/HCPCS: 99202 ==

== ENCOUNTER 2023-11-03 06:40 | Outpatient (REF) | payer MEDICARE, OTHER, SELFPAY ==
[2023-11-03 10:29] LABS: Appearance Urine Clear; Color Urine Yellow; Glucose Urine UA Negative (Negative); Leukocyte Esterase Urine Negative (Negative); Nitrite Urine Negative (Negative); PH 5.5 (5.0-9.0); Specific Gravity - Urine 1.015 (1.005-1.025); UMIC TRIGGER UA YES; Urine Blood Trace (Negative); Urine Ketones Negative (Negative); Urine Protein 100 (2+) mg/dL (Neg-Trace)
[2023-11-03 10:32] LABS: Bacteria Urine None Seen (None Seen); Hyaline Casts Urine 0-2 /LPF (0-2); Squamous Epithelial Cell Urine 0-2 /HPF (0-2); WBC Urine 0-5 /HPF (0-5)
[2023-11-03 10:52] LABS: Creatinine Urine 60.16 mg/dL; Total Protein Urine Random 159 mg/dL (<12)
[2023-11-03 11:08] LABS: Anion Gap 12 (12-20); Blood Urea Nitrogen 32 mg/dL (9-16); Calcium 9.2 mg/dL (8.4-10.2); Carbon Dioxide 21 mmol/L (22-29); Chloride 113 mmol/L (96-108); Estimated Glomerular Filt Rate > 60; Glucose Random 102 mg/dL (60-115); Potassium 4.8 mmol/L (3.3-5.1); Sodium 141 mmol/L (135-145)
[2023-11-04 22:28] LABS: Prot Elec - Albumin 3.1 g/dL (3.8-4.8); Prot Elec - Alpha1 0.3 g/dL (0.2-0.3); Prot Elec - Alpha2 0.7 g/dL (0.5-0.9); Prot Elec - Beta 1 0.5 g/dL (0.4-0.6); Prot Elec - Beta 2 0.4 g/dL (0.2-0.5); Prot Elec - Gamma 0.7 g/dL (0.8-1.7); Prot Elec - Total Protein 5.7 g/dL (6.1-8.1)
== END 2023-11-03 06:41 | disposition home or self-care (01) ==
LOC: HO.HMGCLDS 06:40
PROVIDERS: PCP Nurse Practitioner Family; Visit Provider Internal Medicine Hypertension Specialist
DX: N05.9 Unspecified nephritic syndrome with unspecified morphologic changes (principal); E11.9 Type 2 diabetes mellitus without complications; R80.9 Proteinuria, unspecified
CPT/HCPCS: 36415; 80048; 81001; 82570; 84156; 84165

== ENCOUNTER 2023-11-10 09:46 | Outpatient (AMB) | payer MEDICARE, OTHER, SELFPAY ==
--- NOTE | 2023-11-10 09:50 | HO.NEPHOV ---
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 Required: No Accompanied by: Self / Same As Patient Allergies No Known Allergies [No Known Allergies*] Allergy (Verified 11/10/23 09:52) Medication List - Last Reconciled 11/10/23 by Shane Garcia MD aspirin (Adult Low Dose Aspirin) 81 mg PO DAILY blood sugar diagnostic (FreeStyle Lite Strips) use 1 strip four times a day to test blood sugar blood-glucose meter (FreeStyle Lite Meter kit) test 4 times QD clopidogrel 75 mg PO DAILY insulin aspart U-100 10 units (0.1 mL) subcut TID 30 days lancets (FreeStyle Lancets) 28 gauge topical QID lisinopril 10 mg PO DAILY 90 days metformin 500 mg PO DAILY 90 days pen needle, diabetic tid HPI Comments Details: Talon is a pleasant 72-year-old man with a history of diabetes mellitus which was diagnosed in 2019. We are not sure how long he had diabetes prior to this. He had a foot infection and underwent amputation of the toe. He was also found to have significant peripheral disease and stents has been inserted by Dr. Almaguer. He had mild fullness on the renal collecting system back in 2021. However repeat CT scan in 2022 did not reveal any evidence of obstruction. He had microhematuria. He was seen by urologist. Was supposed to have a cystoscopy but he had refused. Recently the repeat urinalysis did not reveal any hematuria. He did have proteinuria in the recent urine protein creatinine ratio was 911 and hence this referral. He was on lisinopril 2.5 mg a day. Increased to 5 mg QD in October 2023 Overall blood sugar seems to be well controlled with a recent hemoglobin A1c of 6.5%. Recent creatinine was 1.28 mg with EGFR of 55 mL/minute He is history of smoking. Currently smokes about 5 cigarettes a day. [facility] Medical History Osteomyelitis of great toe of left foot Diabetes PVD (peripheral vascular disease) Hypercholesteremia Surgical History S/P angiogram of extremity (08/13/20) Amputated toe of left foot (08/18/20) S/P angiogram of extremity (10/08/19) S/P PICC central line placement Social History Housing: Apartment Alcohol intake: current Alcohol intake frequency: does not drink Patient Tobacco Use Status: Former Tobacco user Years Smoked: 39 e-Cigarette/Vaping Use: Never Used Second Hand Smoke Exposure: No service: No Current occupational status: retired Cognitive needs: No Hearing needs: No Vision needs: No Physical Exam Vital Signs: Last Vital Signs Pulse 63 11/10/23 09:51 BP 180/68 H 11/10/23 09:51 Pulse Ox 98 11/10/23 09:51 Oxygen Delivery Method Room Air 11/10/23 09:51 BMI result Body Mass Index 21.4 Const General: comfortable Nutritional Appearance: well nourished Orientation/consciousness: patient oriented x3 HEENT Head: No normal to inspection Mouth: moist mucous membranes Neck Neck: Yes supple and Yes no JVD Resp Auscultation: clear to auscultation bilaterally, no rales and rub present Cardio Jugular venous distension: no JVD Palpation: no palpable S3 and no palpable S4 Heart sounds: no rubs GI Palpation (GI): Soft to palpation and nontender Percussion: No Fluid wave present General: Yes no CVA tenderness Back/Spine/Pelvis Back: no CVA tenderness Skin General skin exam: no rashes or lesions noted Neuro General: patient oriented x3 Extrem General: Yes no pedal edema and No clubbing Results Reviewed Nephrology Results: Hgb 11.4 g/dl (14.0-18.0) L 09/20/23 WBC 8.7 X10*3/uL (4.8-10.8) 09/20/23 Plt Count 207 X10*3/uL (160-400) 09/20/23 Sodium 141 mmol/L (135-145) 11/03/23 Potassium 4.8 mmol/L (3.3-5.1) 11/03/23 Chloride 113 mmol/L (96-108) H 11/03/23 Carbon Dioxide 21 mmol/L (22-29) L 11/03/23 BUN 32 mg/dL (9-16) H 11/03/23 Creatinine 1.12 mg/dL (0.5-1.4) 11/03/23 Calcium 9.2 mg/dL (8.4-10.2) 11/03/23 Urine Protein 100 (2+) mg/dL (Neg-Trace) H 11/03/23 Urine Creatinine 60.16 mg/dL 11/03/23 Assessment & Plan Assessment & Plan (1) Diabetes: Comment: IDDM Code(s): E11.9 - Type 2 diabetes mellitus without complications Category: Medical (2) Microalbuminuria: Code(s): R80.9 - Proteinuria, unspecified Category: Medical (3) CKD (chronic kidney disease) stage 3, GFR 30-59 ml/min: Code(s): N18.30 - Chronic kidney disease, stage 3 unspecified Category: Medical (4) Proteinuria: Code(s): R80.9 - Proteinuria, unspecified Category: Medical Plan . 72-year-old man with diabetes mellitus and peripheral artery disease with mild CKD and proteinuria. Proteinuria is most likely due to underlying diabetic kidney disease. Urine Pro: Cr is 2.66! Nondiabetic causes should be considered likely at this point. Serum creatinine is marginally better Goal is to slow the portion disease. He is currently on lisinopril 5 mg. HTN_ BP is suboptimal. Initial blood pressure was 180/80. Repeat blood pressure was 150/60 mm Hg. Recommendation Serologies ordered for non diabetic causes Based on this, would consider a kidney biopsy. Maximize STANLEY inhibitors as tolerated for renal protection. I have increased lisinopril to 10 mg a day. We will monitor the serum creatinine potassium periodically. He would benefit from SGLT2 inhibitor. Continue to avoid nephrotoxic agents including NSAIDs and Hdz 2 inhibitors. Maintain blood pressure less than 130/80. Needs to stay on low-sodium diet. Discussed smoking cessation Orders: Orders Proteinase 3 PR3 Antibodies 6 Weeks N18.30 - Chronic kidney disease, stage 3 unspecified, R80.9 - Proteinuria, unspecified Protein Electrophoresis, Serum 6 Weeks N18.30 - Chronic kidney disease, stage 3 unspecified, R80.9 - Proteinuria, unspecified Complement C4 6 Weeks N18.30 - Chronic kidney disease, stage 3 unspecified, R80.9 - Proteinuria, unspecified Creatinine Urine 6 Weeks N18.30 - Chronic kidney disease, stage 3 unspecified, R80.9 - Proteinuria, unspecified Basic Metabolic Panel 6 Weeks N18.30 - Chronic kidney disease, stage 3 unspecified, R80.9 - Proteinuria, unspecified TOPHER Reflex Titer and Pattern 6 Weeks N18.30 - Chronic kidney disease, stage 3 unspecified, R80.9 - Proteinuria, unspecified Neutrophil Cytoplasma Ab 6 Weeks N18.30 - Chronic kidney disease, stage 3 unspecified, R80.9 - Proteinuria, unspecified Myeloperoxidase Antibody 6 Weeks N18.30 - Chronic kidney disease, stage 3 unspecified, R80.9 - Proteinuria, unspecified Anti Glomerular Basement Memb 6 Weeks N18.30 - Chronic kidney disease, stage 3 unspecified, R80.9 - Proteinuria, unspecified Complement C3 6 Weeks N18.30 - Chronic kidney disease, stage 3 unspecified, R80.9 - Proteinuria, unspecified Phospholipase A2 Receptor Pnl 6 Weeks N18.30 - Chronic kidney disease, stage 3 unspecified, R80.9 - Proteinuria, unspecified Total Protein Urine Random 6 Weeks N18.30 - Chronic kidney disease, stage 3 unspecified, R80.9 - Proteinuria, unspecified UA and rflx microscopic 6 Weeks N18.30 - Chronic kidney disease, stage 3 unspecified, R80.9 - Proteinuria, unspecified Prothrombin Time INR 6 Weeks N18.30 - Chronic kidney disease, stage 3 unspecified, R80.9 - Proteinuria, unspecified Medications: Changed From lisinopril 5 mg PO DAILY 90 days 90 tabs 1RF To lisinopril 10 mg PO DAILY 90 tabs 1RF 90 days Coding Level of Care Code Est Pt Level 4 (40233) Diagnoses Diabetes E11.9 Microalbuminuria R80.9 CKD (chronic kidney disease) stage 3, GFR 30-59 ml/min N18.30 Proteinuria R80.9
[2023-11-10 09:51] VITALS: BP 180/68; PULSE 63; O2SAT 98; BMI 21.4
[2023-11-10 10:16] VITALS: BP 150/60
== END 2023-11-10 10:17 | disposition home or self-care (01) ==
PROVIDERS: PCP Nurse Practitioner Family; Visit Provider Internal Medicine Hypertension Specialist
DX: E11.9 Type 2 diabetes mellitus without complications (principal); R80.9 Proteinuria, unspecified; N18.30 Chronic kidney disease, stage 3 unspecified
CPT/HCPCS: 99214

== ENCOUNTER → 2023-11-10 09:46 | Outpatient (BNVA) | payer MEDICARE, OTHER, SELFPAY | PROVIDERS: PCP Nurse Practitioner Family; Visit Provider Internal Medicine Hypertension Specialist | DX: E11.22 Type 2 diabetes mellitus with diabetic chronic kidney disease (principal); N18.30 Chronic kidney disease, stage 3 unspecified; R80.9 Proteinuria, unspecified | CPT/HCPCS: 99212 ==

== ENCOUNTER 2023-12-21 06:24 | Outpatient (REF) | payer MEDICARE, OTHER, SELFPAY ==
[2023-12-21 10:09] LABS: Appearance Urine Clear; Color Urine Yellow; Glucose Urine UA Negative (Negative); Leukocyte Esterase Urine Negative (Negative); Nitrite Urine Negative (Negative); PH 5.5 (5.0-9.0); UMIC TRIGGER UA YES; Urine Blood Negative (Negative); Urine Ketones Negative (Negative); Urine Protein 100 (2+) mg/dL (Neg-Trace)
[2023-12-21 10:20] LABS: INTERNATIONAL NORM RATIO 0.9 (0.9-1.1); Prothrombin Time 10.5 SEC (11.1-13.3)
[2023-12-21 10:34] LABS: Anion Gap 10 (12-20); Blood Urea Nitrogen 49 mg/dL (9-16); Calcium 8.8 mg/dL (8.4-10.2); Carbon Dioxide 21 mmol/L (22-29); Chloride 114 mmol/L (96-108); Estimated Glomerular Filt Rate 48; Glucose Random 123 mg/dL (60-115); Potassium 4.6 mmol/L (3.3-5.1); Sodium 140 mmol/L (135-145)
[2023-12-21 10:42] LABS: Bacteria Urine None Seen (None Seen); Hyaline Casts Urine 0-2 /LPF (0-2); RBC Urine 0-2 /HPF (0-2); Squamous Epithelial Cell Urine 0-2 /HPF (0-2); WBC Urine 0-5 /HPF (0-5)
[2023-12-21 11:21] LABS: Creatinine Urine 103.48 mg/dL; Total Protein Urine Random 90 mg/dL (<12)
[2023-12-22 11:38] LABS: Complement C3 69 mg/dL (82-185)
[2023-12-22 21:38] LABS: Anti Glomerular Basement Memb <1.0 AI; Myeloperoxidase Antibody <1.0 AI; Proteinase 3 PR3 Antibodies <1.0 AI
[2023-12-26 10:09] LABS: Neutrophil Cyto Ab Screen NEGATIVE (NEGATIVE)
[2023-12-26 23:34] LABS: Prot Elec - Albumin 3.1 g/dL (3.8-4.8); Prot Elec - Alpha1 0.3 g/dL (0.2-0.3); Prot Elec - Alpha2 0.7 g/dL (0.5-0.9); Prot Elec - Beta 1 0.4 g/dL (0.4-0.6); Prot Elec - Beta 2 0.4 g/dL (0.2-0.5); Prot Elec - Gamma 0.6 g/dL (0.8-1.7); Prot Elec - Total Protein 5.6 g/dL (6.1-8.1)
[2023-12-29 14:33] LABS: Anti Nuclear Antibody Screen NEGATIVE (NEGATIVE)
[2023-12-29 17:18] LABS: Phospholipase A2 IgG ELISA <4 RU/mL; Phospholipase A2 IgG IFA NEGATIVE (NEGATIVE)
== END 2023-12-21 06:25 | disposition home or self-care (01) ==
LOC: HO.HMGCLDS 06:24
PROVIDERS: PCP Nurse Practitioner Family; Visit Provider Internal Medicine Hypertension Specialist
DX: N18.30 Chronic kidney disease, stage 3 unspecified (principal); R80.9 Proteinuria, unspecified
CPT/HCPCS: 36415; 80048; 81001; 82570; 83520; 84156; 84165; 85610; 86021; 86036; 86038; 86160; 86255

== ENCOUNTER 2024-01-02 09:32 | Outpatient (AMB) | payer MEDICARE, OTHER, SELFPAY ==
[2024-01-02 09:39] VITALS: BP 144/62; PULSE 69; O2SAT 95; BMI 20.8
--- NOTE | 2024-01-02 09:39 | HO.NEPHOV ---
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 We are not sure how long he had diabetes prior to this. He had a foot infection and underwent amputation of the toe. He was also found to have significant peripheral disease and stents has been inserted by Dr. Almaguer. He had mild fullness on the renal collecting system back in 2021. However repeat CT scan in 2022 did not reveal any evidence of obstruction. He had microhematuria. He was seen by urologist. Was supposed to have a cystoscopy but he had refused. Recently the repeat urinalysis did not reveal any hematuria. He did have proteinuria in the recent urine protein creatinine ratio was 911 and hence this referral. He was on lisinopril 2.5 mg a day. Increased to 5 mg QD in October 2023 Overall blood sugar seems to be well controlled with a recent hemoglobin A1c of 6.5%. Recent creatinine was 1.28 mg with EGFR of 55 mL/minute He is history of smoking. Currently smokes about 5 cigarettes a day. 01/02/24 Feels better BP better Cr has bumped up [facility] Medical History Osteomyelitis of great toe of left foot Diabetes PVD (peripheral vascular disease) Hypercholesteremia Surgical History S/P angiogram of extremity (08/13/20) Amputated toe of left foot (08/18/20) S/P angiogram of extremity (10/08/19) S/P PICC central line placement Social History Housing: Apartment Alcohol intake: current Alcohol intake frequency: does not drink Patient Tobacco Use Status: Former Tobacco user Years Smoked: 39 e-Cigarette/Vaping Use: Never Used Second Hand Smoke Exposure: No service: No Current occupational status: retired Cognitive needs: No Hearing needs: No Vision needs: No Physical Exam Vital Signs: Last Vital Signs Pulse 69 01/02/24 09:39 BP 144/62 H 01/02/24 09:39 Pulse Ox 95 01/02/24 09:39 Oxygen Delivery Method Room Air 01/02/24 09:39 BMI result Body Mass Index 20.8 Const General: comfortable; No acute distress Orientation/consciousness: patient oriented x3 Eyes General: appearance normal, both eyes and all related structures Visual Sandoval: normal visual sandoval by confrontation Neck Neck: Yes supple and Yes no JVD Resp Effort & Inspection: normal respiratory effort and respiratory effort not decreased Auscultation: rhonchi Cardio Palpation: no palpable S3 and no palpable S4 Heart sounds: no rubs GI Inspection: Yes normal to inspection Palpation (GI): Soft to palpation Percussion: Yes normal to percussion Auscultation: normal bowel sounds General: Yes no CVA tenderness Back/Spine/Pelvis Back: no CVA tenderness Skin General skin exam: no petechiae and no purpura Neuro General: patient oriented x3 and no focal motor deficits Extrem General: No clubbing and No edema Results Reviewed Nephrology Results: Hgb 11.4 g/dl (14.0-18.0) L 09/20/23 WBC 8.7 X10*3/uL (4.8-10.8) 09/20/23 Plt Count 207 X10*3/uL (160-400) 09/20/23 Sodium 140 mmol/L (135-145) 12/21/23 Potassium 4.6 mmol/L (3.3-5.1) 12/21/23 Chloride 114 mmol/L (96-108) H 12/21/23 Carbon Dioxide 21 mmol/L (22-29) L 12/21/23 BUN 49 mg/dL (9-16) H 12/21/23 Creatinine 1.45 mg/dL (0.5-1.4) H 12/21/23 Calcium 8.8 mg/dL (8.4-10.2) 12/21/23 Urine Protein 100 (2+) mg/dL (Neg-Trace) H 12/21/23 Urine Creatinine 103.48 mg/dL 12/21/23 Assessment & Plan Assessment & Plan (1) Diabetes: Comment: IDDM Code(s): E11.9 - Type 2 diabetes mellitus without complications Category: Medical (2) Microalbuminuria: Code(s): R80.9 - Proteinuria, unspecified Category: Medical (3) CKD (chronic kidney disease) stage 3, GFR 30-59 ml/min: Code(s): N18.30 - Chronic kidney disease, stage 3 unspecified Category: Medical (4) Proteinuria: Code(s): R80.9 - Proteinuria, unspecified Category: Medical Plan . 73-year-old man with diabetes mellitus and peripheral artery disease with mild CKD and proteinuria. Proteinuria is most likely due to underlying diabetic kidney disease. Urine Pro: Cr is 2.66! Currently down to 870 ! Nondiabetic causes should be considered but unlikely at this point. Serum creatinine - mild bump to 1.4 Goal is to slow the portion disease. He is currently on lisinopril 10 mg. HTN_ BP is better controlled Serologies ordered for non diabetic causes - essentially normal Hold off on kidney biopsy. Maximize STANLEY inhibitors as tolerated for renal protection. Keep lisinopril to 10 mg a day. We will monitor the serum creatinine potassium periodically. He would benefit from SGLT2 inhibitor. Continue to avoid nephrotoxic agents including NSAIDs and Hdz 2 inhibitors. Maintain blood pressure less than 130/80. stay on low-sodium diet. Discussed smoking cessation Follow creatinine iver the next 4 - 6 weeks Orders: Orders Basic Metabolic Panel 5 Weeks N18.30 - Chronic kidney disease, stage 3 unspecified Coding Level of Care Code Est Pt Level 4 (85253) Diagnoses Diabetes E11.9 Microalbuminuria R80.9 CKD (chronic kidney disease) stage 3, GFR 30-59 ml/min N18.30 Proteinuria R80.9
== END 2024-01-02 09:57 | disposition home or self-care (01) ==
PROVIDERS: PCP Nurse Practitioner Family; Visit Provider Internal Medicine Hypertension Specialist
DX: E11.9 Type 2 diabetes mellitus without complications (principal); R80.9 Proteinuria, unspecified; N18.30 Chronic kidney disease, stage 3 unspecified
CPT/HCPCS: 99214

== ENCOUNTER → 2024-01-02 09:32 | Outpatient (BNVA) | payer MEDICARE, OTHER, SELFPAY | PROVIDERS: PCP Nurse Practitioner Family; Visit Provider Internal Medicine Hypertension Specialist | DX: E11.22 Type 2 diabetes mellitus with diabetic chronic kidney disease (principal); N18.30 Chronic kidney disease, stage 3 unspecified; R80.9 Proteinuria, unspecified | CPT/HCPCS: 99212 ==

== ENCOUNTER 2024-01-30 10:35 | Outpatient (AMB) | payer MEDICARE, OTHER, SELFPAY ==
[2024-01-30 10:50] VITALS: BP 140/66; PULSE 68; O2SAT 97; BMI 21.1
--- NOTE | 2024-01-30 10:50 | MHC.PC.OV ---
Vital Signs 01/30/24 10:50 01/30/24 11:31 Height 5 ft 8 in Weight 139 lb BMI 21.1 BP 140/66 H 138/85 Blood Pressure Location Rt brachial Position Sitting Pulse 68 Pulse Source Pulse Oximeter Pulse Oximetry (%) 97 Oxygen Delivery Method Room Air Intake Visit Reasons: PE Intake Note: pt is here for physical exam, A1c done in office today Consumer Banker Required: No Accompanied by: Self / Same As Patient Allergies No Known Allergies [No Known Allergies*] Allergy (Verified 01/30/24 10:51) Tobacco use date assessed: 09/28/23 Fall risk assessment: No Falls in past year Last assessed Fall Risk: 01/30/24 Dental Screening Dental Screen Date: 09/28/23 HPI PE HPI Details Pt is here for a PE. Will order labs. Refuses colon screen/cologuard. PSA is up to date. Denies dribbling with urination, weak stream, and frequent nocturia. Pt is a diabetic, on an STANLEY. A1C in office today is 6.6. Due for microalbumin. Denies polyuria, polydipsia, and neuropathy. Pt denies any signs and symptoms of hypoglycemia and does know how to correct it. Pt follows up with vascular and nephrology. refuses low dose CT scans for lung screening currently. Large right inguinal hernia, pt has had for years, has seen [facility] previously [facility] Medical History Osteomyelitis of great toe of left foot Diabetes PVD (peripheral vascular disease) Hypercholesteremia Surgical History S/P angiogram of extremity (08/13/20) Amputated toe of left foot (08/18/20) S/P angiogram of extremity (10/08/19) S/P PICC central line placement Social History Housing: Apartment Alcohol intake: current Alcohol intake frequency: does not drink Patient Tobacco Use Status: Former Tobacco user Years Smoked: 39 e-Cigarette/Vaping Use: Never Used Second Hand Smoke Exposure: No service: No Current occupational status: retired Cognitive needs: No Hearing needs: No Vision needs: No Questionnaire PHQ-9 Over the last 2 weeks, how often have you been bothered by any of the following problems? 1. Little interest or pleasure in doing things: not at all 2. Feeling down, depressed, or hopeless: not at all 3. Trouble falling or staying asleep, or sleeping too much: not at all 4. Feeling tired or having little energy: not at all 5. Poor appetite or overeating: not at all 6. Feeling bad about yourself - or that you are a failure or have let yourself or your family down: not at all 7. Trouble concentrating on things, such as reading the newspaper or watching television: not at all 8. Moving or speaking so slowly that other people could have noticed. Or the opposite - being so fidgety or restless that you have been moving around a lot more than usual: not at all 9. Thoughts that you would be better off or of hurting yourself in some way: not at all Total score: 0 Depression Screening Interpretation: Negative Depression Screening Done: Yes 36449 - PHQ-9 Billing: Yes Source: Developed by Drs. Nasir Gilmore, Ana Laura Harley, José Miguel Garvin and colleagues, with an educational arnaud from [employer]. Thrive Questionnaire Date Thrive assessed: 01/30/24 I am a: Patient What is your living situation today?: I have a steady place to live Within the past 12 months, did the food you bought not last and you didn't have the money to get more?: Never true Within the past 12 months, did you worry whether your food would run out before you got money to buy more?: Never true Do you have trouble paying for medicines?: No Do you have trouble getting transportation to medical appointments?: Yes Do you have trouble paying your heating and electricity bill?: No Do you have trouble taking care of your child, family member or friend?: No Do you have trouble with day-to-day activities such as bathing, preparing meals, shopping, managing finances, etc.?: No Are you currently unemployed and looking for a job?: No Are you interested in more education?: No Please select the resources that you would like help with: None Currently or been in a relationship where the following occur: No concerns reported THRIVE Score: 1 AUDIT C Alcohol Use Questionnaire (AUDIT-C) 1. How often do you have a drink containing alcohol?: Never 3. How often do you have six or more drinks on one occasion?: Never Total Score: 0 Score Reviewed/Action Taken: Yes KIYA-7 AMB Questionnaire KIYA-7 Date KIYA - 7 assessed: 01/30/24 Feeling nervous, anxious, or on edge: 0 = Not at all Not being able to stop or control worryin = Not at all Worrying too much about different things: 0 = Not at all Trouble relaxin = Not at all Being so restless that it is hard to sit still: 0 = Not at all Becoming easily annoyed or irritable: 0 = Not at all Feeling afraid as if something awful might happen: 0 = Not at all Total KIYA-7 score (0-4 normal; 5-9 mild; 10-14 moderate; 15-21 severe): 0 Source: Developed by Drs. Nasir Gilmore, Ana Laura Harley, José Miguel Garvin and colleagues, with an educational arnaud from [employer]. KIYA-7 Assessment Billing KIYA-7 Assessment Tool: KIYA-7 Assessment 02035 Review of Systems Const Denies chills and Denies fever(s) Eyes Denies blurry vision ENT Denies vertigo, Denies dizziness and Denies sore throat Card Denies chest pain at rest, Denies chest pain with activity, Denies diaphoresis, Denies dyspnea and Denies dyspnea on exertion Resp Denies cough, Denies dyspnea, Denies dyspnea on exertion and Denies wheezing GI Denies abdominal pain, Denies melena, Denies hematochezia, Denies constipation, Denies diarrhea and Denies loose stools Denies hematuria Musc Denies numbness and Denies tingling Skin/Breast Denies lesions Neuro Denies vertigo, Denies dizziness, Denies numbness and Denies tingling Psych Denies anxiety, Denies depression, Denies homicidal ideation, Denies suicidal ideation and Denies other (substance abuse) Aller/Immun Denies wheezing Physical exam (Primary Care) Vital Signs: Last Vital Signs Pulse 68 01/30/24 10:50 BP 140/66 H 01/30/24 10:50 Pulse Ox 97 01/30/24 10:50 Oxygen Delivery Method Room Air 01/30/24 10:50 BMI result Body Mass Index 21.1 Tobacco/Smoking Status: Tobacco use Status Tobacco use date assessed 09/28/23 01/30/24 10:52 Patient Tobacco Use Status Former Tobacco user 01/30/24 10:52 e-Cigarette/Vaping Use Never Used 01/30/24 10:52 PHQ-9: PHQ-9 Score PHQ-9: Total score 0 01/30/24 11:22 Depression Screening Interpretation: Negative Thrive Assessment: Date of Thrive Assessment Date Thrive assessed 01/30/24 01/30/24 10:52 Currently or been in a relationship where the following occur: No concerns reported Const General: cooperative Nutritional Appearance: well nourished Orientation/consciousness: patient oriented x3 HENMT Head: Yes normal to inspection, Yes normocephalic and Yes atraumatic Ears: TM's normal bilaterally Eyes General: appearance normal, both eyes and all related structures Alignment and Position: alignment normal and position normal Neck Neck: Yes normal visual inspection and Yes no lymphadenopathy Thyroid: Thyroid normal Resp Other: faint crackles to bases Effort & Inspection: normal respiratory effort Cardio Rate: regular rate Rhythm: regular rhythm Heart sounds: S1 normal heart sound present, S2 normal heart sound present and Murmur heart sound present systolic GI Palpation (GI): Soft to palpation and nontender Auscultation: normal bowel sounds Male General Exam: Yes normal external exam Penis: normal penis Scrotum: scrotum normal, testes descended bilaterally and inguinal hernia (large) on the right Testes: no testicular mass Skin Rashes: no rashes Neuro General: patient oriented x3, moves all extremities, no focal motor deficits and deep tendon reflexes 2+ bilaterally Romberg Test: Negative Extrem Other: bilat feet: no sensation with use of monofilament to toes, otherwise + sensation, large callus formation to left foot plantar aspect of 1st toe, right foot plantar aspect just inferior to toes 4 and 5 with large callus, some eschar, no signs of infection Psych Appearance: grossly normal Mental Status: mental status grossly normal Speech and movement: Normal speech and movement present Affect: normal affect Attitude: cooperative Thought process: Normal thought process present Thought content: Normal thought content present Insight: Good insight present (Psych) Judgement: Good judgement present (Psych) Assessment and Plan Assessment & Plan (1) Physical exam: Code(s): Z00.00 - Encounter for general adult medical examination without abnormal findings Plan: Labs ordered (2) Diabetes: Comment: IDDM Code(s): E11.9 - Type 2 diabetes mellitus without complications Plan: Labs ordered Plan The patient agreed to the use of a medical case manager for this encounter. Scribed for FABIO Rasheed by Michelle Ambrosio medical case manager, on 01/30/2024 at 11:30 EST. Orders: Orders UA CC w/rflx Micro + Cult Today E11.9 - Type 2 diabetes mellitus without complications, Z00.00 - Encounter for general adult medical examination without abnormal findings Lipid Panel Today E11.9 - Type 2 diabetes mellitus without complications, Z00.00 - Encounter for general adult medical examination without abnormal findings Complete Blood Count Auto Diff Today E11.9 - Type 2 diabetes mellitus without complications, Z00.00 - Encounter for general adult medical examination without abnormal findings Comprehensive Lotus. Panel Fast Today E11.9 - Type 2 diabetes mellitus without complications, Z00.00 - Encounter for general adult medical examination without abnormal findings TSH reflex Free T4 Today E11.9 - Type 2 diabetes mellitus without complications, Z00.00 - Encounter for general adult medical examination without abnormal findings Microalbumin, Random (w Creat) Today E11.9 - Type 2 diabetes mellitus without complications, Z00.00 - Encounter for general adult medical examination without abnormal findings Coding Level of Care Code Est Pt Prev Care >65y(33545) Diagnoses Physical exam Z00.00 Diabetes E11.9 Additional Codes KIYA-7 Assessment Billing - KIYA-7 Assessment Tool: KIYA-7 Assessment [id number] ([id number])
[2024-01-30 11:31] VITALS: BP 138/85
== END 2024-01-30 11:39 | disposition home or self-care (01) ==
PROVIDERS: PCP Nurse Practitioner Family; Visit Provider Nurse Practitioner Family
DX: Z00.00 Encounter for general adult medical examination without abnormal findings (principal); E11.9 Type 2 diabetes mellitus without complications
CPT/HCPCS: 83036; 99397

== ENCOUNTER 2024-02-02 13:39 | Outpatient (AMB) | payer MEDICARE, OTHER, SELFPAY ==
--- NOTE | 2024-02-02 13:39 | A.OFFVIS_ITS ---
Vital Signs 02/02/24 13:52 Height 5 ft 8 in Weight 140 lb BMI 21.3 Intake Visit Reasons: Follow up wound Intake Note: PRN follow up for bilateral LE wounds/callouses, just wanted to check it out. Accompanied by: Self / Same As Patient Allergies No Known Allergies [No Known Allergies*] Allergy (Verified 02/02/24 13:56) HPI HPI Follow up wound: Details: Very pleasant 73-year-old gentleman presents for routine follow-up regarding right foot callus. This has been a persistent problem for him. He has been stable from a peripheral vascular standpoint. He had actually seen us back in July. Appears to be doing relatively well otherwise. Left toe amp appears to be healed [facility] Medical History Osteomyelitis of great toe of left foot Diabetes PVD (peripheral vascular disease) Hypercholesteremia Surgical History S/P angiogram of extremity (08/13/20) Amputated toe of left foot (08/18/20) S/P angiogram of extremity (10/08/19) S/P PICC central line placement Social History Housing: Apartment Alcohol intake: current Alcohol intake frequency: does not drink Patient Tobacco Use Status: Former Tobacco user Years Smoked: 39 e-Cigarette/Vaping Use: Never Used Second Hand Smoke Exposure: No service: No Current occupational status: retired Cognitive needs: No Hearing needs: No Vision needs: No Review of Systems Const All systems reviewed & are unremarkable except as noted in HPI and below Reports no additional complaints ENT Reports Normal hearing present Card Denies chest pain, Denies chest pain at rest, Denies chest pain with activity and Denies pedal edema Resp Denies cough GI Denies abdominal pain Musc Denies abnormal gait, Denies muscle cramps and Denies radiating pain into limb Skin/Breast Denies skin ulcer and Denies wounds Neuro Reports Normal hearing present and Denies abnormal gait Psych Reports no additional complaints Physical Exam Vital Signs: BMI result Body Mass Index 21.3 Const General: cooperative, healthy appearing and comfortable Orientation/consciousness: oriented to person, oriented to place and oriented to time HEENT Head: Yes normal to inspection Neck Neck: Yes normal visual inspection Carotids: no bruits Chest Chest palpation & inspection: normal inspection of the chest Resp Effort & Inspection: normal respiratory effort and able to speak in complete sentences Auscultation: clear to auscultation bilaterally, no crackles, no rales, no rhonchi and no wheezes Cardio Rate: regular rate Rhythm: regular rhythm Heart sounds: S1 normal heart sound present and S2 normal heart sound present Bruits: no carotid bruits Peripheral pulses: Peripheral pulses 2+ throughout GI Inspection: Yes normal to inspection Skin Other: Right plantar ulcer dry callus Wounds: no wounds Hair: normal Neuro General: oriented to person, oriented to place and oriented to time Cranial nerves: Yes CN's II-XII intact bilaterally and Yes Normal hearing present Cognition (Neuro): normal cognition Motor exam (neuro): 5/5 motor strength present throughout Extrem Other: venous exam: No significant superficial varicosities or spider telangiectasias, minimal edema General: No clubbing, No cyanosis and No edema Psych Appearance: grossly normal Mental Status: mental status grossly normal Speech and movement: Normal speech and movement present Assessment & Plan Assessment & Plan (1) PVD (peripheral vascular disease): Comment: 10/08/2019 - left SFA stent and popliteal plasty with DCB 08/13/2020 - angioplasty left SFA with DCB 08/18/2020 - left 5th toe amputation Code(s): I73.9 - Peripheral vascular disease, unspecified Category: Medical Plan: In short patient appears to be doing relatively well. I do believe that the callus is nearly healed but it was relatively cleaned and a fresh dressing was placed. We did have an extensive discussion about Podiatry and getting appropriate shoe inserts that may prevent this in the future. Is scheduled for routine arterial surveillance follow-up with us. Thank you for allowing us to assist in his care. If there are any questions or concerns please do not hesitate to contact us. Please note a longitudinal relationship has been created with the patient and we have been following and surveillance this chronic condition. Coding Level of Care Code Est Pt Level 4 (34668) Complex EM visit Add On G2211 Diagnoses PVD (peripheral vascular disease) I73.9
[2024-02-02 13:52] VITALS: BMI 21.3
== END 2024-02-02 14:39 | disposition home or self-care (01) ==
PROVIDERS: PCP Nurse Practitioner Family; Visit Provider Surgery Vascular Surgery
DX: I73.9 Peripheral vascular disease, unspecified (principal)
CPT/HCPCS: 99214; G2211

== ENCOUNTER → 2024-02-02 13:39 | Outpatient (BNVA) | payer MEDICARE, OTHER, SELFPAY | PROVIDERS: PCP Nurse Practitioner Family; Visit Provider Surgery Vascular Surgery | DX: I73.9 Peripheral vascular disease, unspecified (principal); L84 Corns and callosities; Z89.422 Acquired absence of other left toe(s) | CPT/HCPCS: 99212 ==

== ENCOUNTER 2024-02-21 06:10 | Outpatient (REF) | payer MEDICARE, OTHER, SELFPAY ==
[2024-02-21 10:12] LABS: MANUAL DIFF FLAG NO
[2024-02-21 10:15] LABS: Basophils Absolute Auto 0.1 X10*3/uL (0.0-0.2); Basophils Percent Auto 0.7 % (0-2); Eosinophils Absolute Auto 0.6 X10*3/uL (0.0-0.4); Eosinophils Percent Auto 8.9 % (0-4); Hematocrit 32.2 % (42.0-52.0); Hemoglobin 10.3 g/dl (14.0-18.0); Imm Gran Abs Auto 0.02 X10*3/uL (0.00-0.03); Imm Gran Pct Auto 0.3 % (0.0-0.4); Lymphocytes Absolute Auto 1.8 X10*3/uL (1.2-4.9); Lymphocytes Percent Auto 26.3 % (20-40); Mean Corpuscular Hemoglobin 30.5 pg (27.0-33.0); Mean Corpuscular Volume 95.3 fL (80.0-98.0); Mean Platelet Volume 11.5 fL (9.4-12.4); Monocytes Absolute Auto 0.7 X10*3/uL (0.1-1.2); Neutrophils Absolute Auto 3.8 x10*3/uL (2.0-8.3); Neutrophils Percent Auto 53.8 % (45-73); Platelet Count 206 X10*3/uL (160-400); Red Blood Count 3.38 X10*6/uL (4.60-5.80); Red Cell Distribution Width 13.9 % (11.0-16.0)
[2024-02-21 10:53] LABS: TSH reflex Free T4 1.27 uIU/mL (0.32-4.0)
[2024-02-21 10:58] LABS: Appearance Urine Clear; Color Urine Yellow; Glucose Urine UA Negative (Negative); Leukocyte Esterase Urine Negative (Negative); Nitrite Urine Negative (Negative); PH 5.5 (5.0-9.0); Specific Gravity - Urine 1.015 (1.005-1.025); UMIC TRIGGER UACC YES; Urine Blood Negative (Negative); Urine Ketones Negative (Negative); Urine Protein 300 (3+) mg/dL (Neg-Trace)
[2024-02-21 11:12] LABS: Bacteria Urine None Seen (None Seen); Hyaline Casts Urine 0-2 /LPF (0-2); RBC Urine 0-2 /HPF (0-2); Squamous Epithelial Cell Urine 0-2 /HPF (0-2); WBC Urine 0-5 /HPF (0-5)
[2024-02-21 11:14] LABS: Alanine Aminotransferase 22 U/L (0-40); Albumin Level 3.3 g/dL (3.5-5.0); Alkaline Phosphatase 67 U/L (39-117); Anion Gap 11 (12-20); Aspartate Amino Transferase 20 U/L (5-37); Bilirubin Total 0.2 mg/dL (0.0-1.0); Blood Urea Nitrogen 42 mg/dL (9-16); Carbon Dioxide 23 mmol/L (22-29); Chloride 114 mmol/L (96-108); Cholesterol 139 mg/dL (<200); Estimated Glomerular Filt Rate > 60; Glucose Random 107 mg/dL (60-115); HDL Cholesterol 56 mg/dL (>40); LDL Cholesterol Calculated 75 mg/dL (<100); Potassium 5.3 mmol/L (3.3-5.1); Sodium 143 mmol/L (135-145); Total Protein 5.9 g/dL (6.5-8.0); Triglycerides 40 mg/dL (<150)
== END 2024-02-21 06:11 | disposition home or self-care (01) ==
LOC: HO.HMGCLDS 06:10
PROVIDERS: Internal Medicine Hypertension Specialist; PCP Nurse Practitioner Family; Visit Provider Nurse Practitioner Family
DX: Z00.00 Encounter for general adult medical examination without abnormal findings (principal); E11.9 Type 2 diabetes mellitus without complications
CPT/HCPCS: 36415; 80053; 80061; 81001; 82043; 82570; 84443; 85025

== ENCOUNTER 2024-03-01 09:10 | Outpatient (AMB) | payer MEDICARE, OTHER, SELFPAY ==
[2024-03-01 09:17] VITALS: BP 140/54; PULSE 70; O2SAT 93; BMI 20.7
--- NOTE | 2024-03-01 09:17 | HO.NEPHOV_ITS ---
Vital Signs 03/01/24 09:17 Height 5 ft 8 in Weight 136 lb BMI 20.7 BP 140/54 H Blood Pressure Location Lt brachial Position Sitting Pulse 70 Pulse Source Pulse Oximeter Pulse Oximetry (%) 93 Oxygen Delivery Method Room Air Intake Visit Reasons: CKD/ LVM Clicker Operator Required: No Accompanied by: Self / Same As Patient Allergies No Known Allergies [No Known Allergies*] Allergy (Verified 03/01/24 09:18) Medication List - Last Reconciled 03/01/24 by Shane Garcia MD aspirin (Adult Low Dose Aspirin) 81 mg PO DAILY blood sugar diagnostic (FreeStyle Lite Strips) use 1 strip four times a day to test blood sugar blood-glucose meter (FreeStyle Lite Meter kit) test 4 times QD clopidogrel 75 mg PO DAILY insulin aspart U-100 10 units (0.1 mL) subcut TID 30 days lancets (FreeStyle Lancets) 28 gauge topical QID lisinopril 10 mg PO DAILY metformin 500 mg PO DAILY 90 days pen needle, diabetic tid HPI Comments Details: Talon is a pleasant 72-year-old man with a history of diabetes mellitus which was diagnosed in 2019. We are not sure how long he had diabetes prior to this. He had a foot infection and underwent amputation of the toe. He was also found to have significant peripheral disease and stents has been inserted by Dr. Almaguer. He had mild fullness on the renal collecting system back in 2021. However repeat CT scan in 2022 did not reveal any evidence of obstruction. He had microhematuria. He was seen by urologist. Was supposed to have a cystoscopy but he had refused. Recently the repeat urinalysis did not reveal any hematuria. He did have proteinuria in the recent urine protein creatinine ratio was 911 and hence this referral. He was on lisinopril 2.5 mg a day. Increased to 5 mg QD in October 2023 Overall blood sugar seems to be well controlled with a recent hemoglobin A1c of 6.5%. Recent creatinine was 1.28 mg with EGFR of 55 mL/minute He is history of smoking. Currently smokes about 5 cigarettes a day. 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 Diabetes PVD (peripheral vascular disease) Hypercholesteremia Surgical History S/P angiogram of extremity (08/13/20) Amputated toe of left foot (08/18/20) S/P angiogram of extremity (10/08/19) S/P PICC central line placement Social History Housing: Apartment Alcohol intake: current Alcohol intake frequency: does not drink Patient Tobacco Use Status: Former Tobacco user Years Smoked: 39 e-Cigarette/Vaping Use: Never Used Second Hand Smoke Exposure: No service: No Current occupational status: retired Cognitive needs: No Hearing needs: No Vision needs: No Physical Exam Vital Signs: Last Vital Signs Pulse 70 03/01/24 09:17 BP 140/54 H 03/01/24 09:17 Pulse Ox 93 03/01/24 09:17 Oxygen Delivery Method Room Air 03/01/24 09:17 BMI result Body Mass Index 20.7 Const General: comfortable; No acute distress Orientation/consciousness: patient oriented x3 Eyes General: appearance normal, both eyes and all related structures Visual Sandoval: normal visual sandoval by confrontation Neck Neck: Yes supple and Yes no JVD Resp Effort & Inspection: normal respiratory effort and respiratory effort not decreased Auscultation: rhonchi Cardio Palpation: no palpable S3 and no palpable S4 Heart sounds: no rubs GI Inspection: Yes normal to inspection Palpation (GI): Soft to palpation Percussion: Yes normal to percussion Auscultation: normal bowel sounds General: Yes no CVA tenderness Back/Spine/Pelvis Back: no CVA tenderness Skin General skin exam: no petechiae and no purpura Neuro General: patient oriented x3 and no focal motor deficits Extrem General: No clubbing and No edema Results Reviewed Nephrology Results: Hgb 10.3 g/dl (14.0-18.0) L 02/21/24 WBC 7.0 X10*3/uL (4.8-10.8) 02/21/24 Plt Count 206 X10*3/uL (160-400) 02/21/24 Sodium 143 mmol/L (135-145) 02/21/24 Potassium 5.3 mmol/L (3.3-5.1) H 02/21/24 Chloride 114 mmol/L (96-108) H 02/21/24 Carbon Dioxide 23 mmol/L (22-29) 02/21/24 BUN 42 mg/dL (9-16) H 02/21/24 Creatinine 1.17 mg/dL (0.5-1.4) 02/21/24 Calcium 9.0 mg/dL (8.4-10.2) 02/21/24 Urine Protein 300 (3+) mg/dL (Neg-Trace) H 02/21/24 Urine Creatinine 61.00 mg/dL 02/21/24 Assessment & Plan Assessment & Plan (1) Diabetes: Comment: IDDM Code(s): E11.9 - Type 2 diabetes mellitus without complications Category: Medical (2) Microalbuminuria: Code(s): R80.9 - Proteinuria, unspecified Category: Medical (3) CKD (chronic kidney disease) stage 3, GFR 30-59 ml/min: Code(s): N18.30 - Chronic kidney disease, stage 3 unspecified Category: Medical (4) Proteinuria: Code(s): R80.9 - Proteinuria, unspecified Category: Medical Plan . 73-year-old man with diabetes mellitus and peripheral artery disease with mild CKD and proteinuria. Proteinuria is most likely due to underlying diabetic kidney disease. Urine Pro: Cr is 2.66! Currently down to 1176! Nondiabetic causes should be considered but unlikely at this point. Serum creatinine - mild bump to 1.4 and down to 1.17 Goal is to slow the portion disease. He is currently on lisinopril 10 mg. HTN_ BP is better controlled Serologies ordered for non diabetic causes - essentially normal Hold off on kidney biopsy. Maximize STANLEY inhibitors as tolerated for renal protection. Keep lisinopril to 10 mg a day. We will monitor the serum creatinine potassium periodically. He would benefit from SGLT2 inhibitor. Continue to avoid nephrotoxic agents including NSAIDs and Hdz 2 inhibitors. Maintain blood pressure less than 130/80. stay on low-sodium diet. Discussed smoking cessation Mild hyperkalemia Discussed low K diet Recheck in 1 week If elevated, will add lokelma vs lower Lisinopril Orders: Orders Basic Metabolic Panel 1 Week N18.30 - Chronic kidney disease, stage 3 unspecified Basic Metabolic Panel 3 Months N18.30 - Chronic kidney disease, stage 3 unspecified UA and rflx microscopic 3 Months N18.30 - Chronic kidney disease, stage 3 unspecified Total Protein Urine Random 3 Months N18.30 - Chronic kidney disease, stage 3 unspecified Creatinine Urine 3 Months N18.30 - Chronic kidney disease, stage 3 unspecified Coding Level of Care Code Est Pt Level 4 (54542) Diagnoses Diabetes E11.9 Microalbuminuria R80.9 CKD (chronic kidney disease) stage 3, GFR 30-59 ml/min N18.30 Proteinuria R80.9
== END 2024-03-01 09:30 | disposition home or self-care (01) ==
PROVIDERS: PCP Nurse Practitioner Family; Visit Provider Internal Medicine Hypertension Specialist
DX: E11.22 Type 2 diabetes mellitus with diabetic chronic kidney disease (principal); N18.30 Chronic kidney disease, stage 3 unspecified; R80.9 Proteinuria, unspecified
CPT/HCPCS: 99214

== ENCOUNTER → 2024-03-01 09:10 | Outpatient (BNVA) | payer MEDICARE, OTHER, SELFPAY | PROVIDERS: PCP Nurse Practitioner Family; Visit Provider Internal Medicine Hypertension Specialist | DX: E11.22 Type 2 diabetes mellitus with diabetic chronic kidney disease (principal); N18.30 Chronic kidney disease, stage 3 unspecified; R80.9 Proteinuria, unspecified | CPT/HCPCS: 99212 ==

== ENCOUNTER 2024-04-26 07:56 | Outpatient (REF) | payer MEDICARE, OTHER, SELFPAY ==
--- NOTE | ~2024-04-26 | US_ITS ---
EXAMINATION: Noninvasive assessment of the bilateral lower extremities with ARTERIAL DUPLEX, ANKLE BRACHIAL INDICES (ABIs), and PULSE VOLUME RECORDINGS (PVRs). CLINICAL INFORMATION: Status post left superficial femoral artery stent placed 10/01/2023 and toes on 09/01/2023 TECHNIQUE: Duplex Doppler techniques with waveform analysis and measurement of velocities in the bilateral common femoral, profunda femoris, superficial femoral, popliteal and tibial arteries were performed. Additionally, ankle pulse volume recordings, ankle pressure measurements and ankle brachial indices were obtained of the lower extremity arterial system bilaterally. The study was performed only at rest. COMPARISON: Arterial duplex of the bilateral lower extremities dated 04/18/2023 FINDINGS: DIRECT DUPLEX DOPPLER FINDINGS: RIGHT LEG: Common femoral artery: 173 cm/s, phasicity: Biphasic Profunda femoris artery: 165 cm/s, phasicity: Biphasic Superficial femoral artery (proximal): 77 cm/s, phasicity: Biphasic Superficial femoral artery (mid): Occluded. Multiple collateral vessels seen at the level of the occlusion, with reconstitution of the distal right superficial femoral artery via collaterals. Superficial femoral artery (distal): 55 cm/s, phasicity: Biphasic Popliteal artery: 35 cm/s, phasicity: Biphasic Posterior tibial artery: 60 cm/s, phasicity: Monophasic Peroneal artery: 44 cm/s, phasicity: Monophasic Anterior tibial artery: 18 cm/s, phasicity: Monophasic Dorsalis pedis artery: 49 cm/s, phasicity:Monophasic LEFT LEG: Common femoral artery: 136 cm/s, phasicity: Biphasic Profunda femoris artery: 249 cm/s, phasicity: Biphasic There is a stent that extends from the proximal to distal left superficial femoral artery, which is patent. [place] superficial femoral artery, proximal to stent: 147 cm/s, phasicity: Biphasic Proximal stent: 167 cm/s, phasicity: Biphasic Mid stent: 144 cm/s, phasicity: Biphasic Distal stent: 1 64 cm/s, phasicity: Biphasic [place] artery distal to stent: 92 cm/s, phasicity: Biphasic Popliteal artery: 101 cm/s, phasicity: Biphasic Posterior tibial artery: 114 cm/s, phasicity: Biphasic Peroneal artery: 66 cm/s, phasicity: Biphasic Anterior tibial artery: 15 cm/s, phasicity: Biphasic Dorsalis pedis artery: 2.8 cm/s, phasicity: Monophasic BRACHIAL PRESSURES: Right: 206 Left: 198 ANKLE PRESSURES: Right: PT 149, DP 141 Left: PT 204, DP 205 ANKLE-BRACHIAL INDEX: Right: 0.72 Left: 1.0 ANKLE PVR WAVEFORMS: Right: Abnormal Left: Abnormal US/US arterial duplex BI w/ CATRACHO IMPRESSION: Right leg: Occlusion of the mid right superficial femoral artery with reconstitution of the distal right superficial femoral artery via collaterals. Monophasic waveforms of the below-knee arteries of the right lower extremity. Abnormal ankle-brachial index of 0.72 on the right, suggestive of moderate arterial insufficiency. Left leg: Patent stent extending from the proximal to distal left superficial femoral artery. Elevated peak systolic velocity in the left profunda femoris artery, suggestive of a hemodynamically significant moderate stenosis by velocity criteria. Normal ankle-brachial index on the left. CATRACHO Reference: - >1.4 = calcified vessels - 0.9 - 1.4 = normal - no significant arterial disease - 0.7 - 0.89 = mild peripheral arterial disease - 0.51 - 0.69 = moderate peripheral arterial disease - d 0.50 = severe peripheral arterial disease - < .30 = critical arterial disease Electronically signed by: Gabriela Stout MD 05/24/2024 02:56 PM [facility] [place]
== END 2024-04-26 07:57 | disposition home or self-care (01) ==
LOC: HO.US 07:56
PROVIDERS: PCP Nurse Practitioner Family; Visit Provider Surgery Vascular Surgery
DX: I73.9 Peripheral vascular disease, unspecified (principal)
CPT/HCPCS: 93922; 93925

== ENCOUNTER 2024-05-21 07:16 | Outpatient (REF) | payer MEDICARE, OTHER, SELFPAY ==
[2024-05-21 10:08] LABS: Appearance Urine Clear; Color Urine Yellow; Glucose Urine UA Negative (Negative); Leukocyte Esterase Urine Negative (Negative); Nitrite Urine Negative (Negative); PH 5.5 (5.0-9.0); Specific Gravity - Urine 1.015 (1.005-1.025); UMIC TRIGGER UA YES; Urine Blood Trace (Negative); Urine Ketones Negative (Negative); Urine Protein 300 (3+) mg/dL (Neg-Trace)
[2024-05-21 10:12] LABS: Bacteria Urine None Seen (None Seen); Hyaline Casts Urine 0-2 /LPF (0-2); RBC Urine 0-2 /HPF (0-2); Squamous Epithelial Cell Urine 0-2 /HPF (0-2); WBC Urine 0-5 /HPF (0-5)
[2024-05-21 10:44] LABS: Anion Gap 10 (12-20); Blood Urea Nitrogen 37 mg/dL (9-16); Carbon Dioxide 23 mmol/L (22-29); Chloride 112 mmol/L (96-108); Estimated Glomerular Filt Rate 52; Glucose Random 116 mg/dL (60-115); Potassium 5.3 mmol/L (3.3-5.1); Sodium 140 mmol/L (135-145)
[2024-05-21 10:49] LABS: Creatinine Urine 71.56 mg/dL; Total Protein Urine Random 165 mg/dL (<12)
== END 2024-05-21 07:17 | disposition home or self-care (01) ==
LOC: HO.HMGCLDS 07:16
PROVIDERS: PCP Nurse Practitioner Family; Visit Provider Internal Medicine Hypertension Specialist
DX: N18.30 Chronic kidney disease, stage 3 unspecified (principal)
CPT/HCPCS: 36415; 80048; 81001; 82570; 84156

== ENCOUNTER 2024-05-28 11:02 | Outpatient (AMB) | payer MEDICARE, OTHER, SELFPAY ==
--- NOTE | 2024-05-28 11:35 | HO.NEPHOV ---
Vital Signs 05/28/24 11:36 Height 5 ft 8 in Weight 138 lb BMI 21.0 BP 160/62 H Blood Pressure Location Rt brachial Position Sitting Pulse 67 Pulse Source Pulse Oximeter Pulse Oximetry (%) 96 Oxygen Delivery Method Room Air Intake Visit Reasons: CKD/ Conf Conservation Planner Required: No Accompanied by: Self / Same As Patient Allergies No Known Allergies [No Known Allergies*] Allergy (Verified 05/28/24 11:38) Medication List - Last Reconciled 05/28/24 by Shane Garcia MD aspirin (Adult Low Dose Aspirin) 81 mg PO DAILY blood sugar diagnostic (FreeStyle Lite Strips) use 1 strip four times a day to test blood sugar blood-glucose meter (FreeStyle Lite Meter kit) test 4 times QD clopidogrel 75 mg PO DAILY Fiasp FlexTouch U-100 Insulin 100 unit/mL (3 mL) (insulin aspart (niacinamide)) 10 units subcut TID NS insulin aspart U-100 10 units (0.1 mL) subcut TID 30 days lancets (FreeStyle Lancets) 28 gauge topical QID lisinopril 10 mg PO DAILY metformin 500 mg PO DAILY 90 days pen needle, diabetic tid HPI Comments Details: Talon is a pleasant 72-year-old man with a history of diabetes mellitus which was diagnosed in 2019. We are not sure how long he had diabetes prior to this. He had a foot infection and underwent amputation of the toe. He was also found to have significant peripheral disease and stents has been inserted by Dr. Almaguer. He had mild fullness on the renal collecting system back in 2021. However repeat CT scan in 2022 did not reveal any evidence of obstruction. He had microhematuria. He was seen by urologist. Was supposed to have a cystoscopy but he had refused. Recently the repeat urinalysis did not reveal any hematuria. He did have proteinuria in the recent urine protein creatinine ratio was 911 and hence this referral. He was on lisinopril 2.5 mg a day. Increased to 5 mg QD in October 2023 Overall blood sugar seems to be well controlled with a recent hemoglobin A1c of 6.5%. Recent creatinine was 1.28 mg with EGFR of 55 mL/minute He is history of smoking. Currently smokes about 5 cigarettes a day. 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 Diabetes PVD (peripheral vascular disease) Hypercholesteremia Surgical History S/P angiogram of extremity (08/13/20) Amputated toe of left foot (08/18/20) S/P angiogram of extremity (10/08/19) S/P PICC central line placement Social History Housing: Apartment Alcohol intake: current Alcohol intake frequency: does not drink Patient Tobacco Use Status: Former Tobacco user Years Smoked: 39 e-Cigarette/Vaping Use: Never Used Second Hand Smoke Exposure: No service: No Current occupational status: retired Cognitive needs: No Hearing needs: No Vision needs: No Physical Exam Vital Signs: Last Vital Signs Pulse 67 05/28/24 11:36 BP 160/62 H 05/28/24 11:36 Pulse Ox 96 05/28/24 11:36 Oxygen Delivery Method Room Air 05/28/24 11:36 BMI result Body Mass Index 21.0 Comfortable Neck supple no JVD. Lungs entry equal no rales. Heart S1-S2 heard no gallop or rub. Abdomen soft nontender. Neuro alert awake oriented. No asterixis. Extremities no edema. Results Reviewed Nephrology Results: Hgb 10.3 g/dl (14.0-18.0) L 02/21/24 WBC 7.0 X10*3/uL (4.8-10.8) 02/21/24 Plt Count 206 X10*3/uL (160-400) 02/21/24 Sodium 140 mmol/L (135-145) 05/21/24 Potassium 5.3 mmol/L (3.3-5.1) H 05/21/24 Chloride 112 mmol/L (96-108) H 05/21/24 Carbon Dioxide 23 mmol/L (22-29) 05/21/24 BUN 37 mg/dL (9-16) H 05/21/24 Creatinine 1.35 mg/dL (0.5-1.4) 05/21/24 Calcium 9.0 mg/dL (8.4-10.2) 05/21/24 Urine Protein 300 (3+) mg/dL (Neg-Trace) H 05/21/24 Urine Creatinine 71.56 mg/dL 05/21/24 Assessment & Plan Assessment & Plan (1) Diabetes: Comment: IDDM Code(s): E11.9 - Type 2 diabetes mellitus without complications Category: Medical (2) Microalbuminuria: Code(s): R80.9 - Proteinuria, unspecified Category: Medical (3) CKD (chronic kidney disease) stage 3, GFR 30-59 ml/min: Code(s): N18.30 - Chronic kidney disease, stage 3 unspecified Category: Medical (4) Proteinuria: Code(s): R80.9 - Proteinuria, unspecified Category: Medical Plan . 73-year-old man with diabetes mellitus and peripheral artery disease with mild CKD and proteinuria. Proteinuria is most likely due to underlying diabetic kidney disease. Urine Pro: Cr is 2.66! Currently down to 1176! Nondiabetic causes should be considered but unlikely at this point. Serum creatinine - mild bump to 1.4 and down to 1.17 Goal is to slow the portion disease. He is currently on lisinopril 10 mg. HTN_ BP is better controlled Serologies ordered for non diabetic causes - essentially normal Hold off on kidney biopsy. Maximize STANLEY inhibitors as tolerated for renal protection. Keep lisinopril to 10 mg a day. We will monitor the serum creatinine potassium periodically. He would benefit from SGLT2 inhibitor. Continue to avoid nephrotoxic agents including NSAIDs and Hdz 2 inhibitors. Maintain blood pressure less than 130/80. stay on low-sodium diet. Discussed smoking cessation Mild hyperkalemia Discussed low K diet Add Lasix 20 mg QD to optimize BP and for kaliuresis Orders: Orders Basic Metabolic Panel 2 Months N18.30 - Chronic kidney disease, stage 3 unspecified Medications: New furosemide (Lasix) 20 mg PO DAILY 30 tabs 2RF Coding Level of Care Code Est Pt Level 4 (61298) Diagnoses Diabetes E11.9 Microalbuminuria R80.9 CKD (chronic kidney disease) stage 3, GFR 30-59 ml/min N18.30 Proteinuria R80.9
[2024-05-28 11:36] VITALS: BP 160/62; PULSE 67; O2SAT 96; BMI 21.0
== END 2024-05-28 11:51 | disposition home or self-care (01) ==
PROVIDERS: PCP Nurse Practitioner Family; Visit Provider Internal Medicine Hypertension Specialist
DX: E11.22 Type 2 diabetes mellitus with diabetic chronic kidney disease (principal); N18.30 Chronic kidney disease, stage 3 unspecified; R80.9 Proteinuria, unspecified
CPT/HCPCS: 99214

== ENCOUNTER → 2024-05-28 11:02 | Outpatient (BNVA) | payer MEDICARE, OTHER, SELFPAY | PROVIDERS: PCP Nurse Practitioner Family; Visit Provider Internal Medicine Hypertension Specialist | DX: E11.22 Type 2 diabetes mellitus with diabetic chronic kidney disease (principal); N18.30 Chronic kidney disease, stage 3 unspecified; R80.9 Proteinuria, unspecified | CPT/HCPCS: 99212 ==

== ENCOUNTER 2024-05-29 10:26 | Outpatient (AMB) | payer MEDICARE, OTHER, SELFPAY ==
--- NOTE | 2024-05-29 10:36 | A.OFFVIS_ITS ---
Intake Visit Reasons: follow up s/p Arterial US 04/26/24 Intake Note: Patient presents for arterial us follow up. No complaints. Accompanied by: Self / Same As Patient Allergies No Known Allergies [No Known Allergies*] Allergy (Verified 05/29/24 10:38) [facility] HPI follow up s/p Arterial US 04/26/24: Details: Very pleasant 73-year-old gentleman presents for routine arterial surveillance follow-up. He had originally undergone procedures with us back in 2020 and has been doing fairly well. The concern is his right lower extremity. He has occasional cramping and discomfort upon ambulation of significant distances. Left leg remains healed. [facility] Medical History Osteomyelitis of great toe of left foot Diabetes PVD (peripheral vascular disease) Hypercholesteremia Surgical History S/P angiogram of extremity (08/13/20) Amputated toe of left foot (08/18/20) S/P angiogram of extremity (10/08/19) S/P PICC central line placement Social History Housing: Apartment Alcohol intake: current Alcohol intake frequency: does not drink Patient Tobacco Use Status: Former Tobacco user Years Smoked: 39 e-Cigarette/Vaping Use: Never Used Second Hand Smoke Exposure: No service: No Current occupational status: retired Cognitive needs: No Hearing needs: No Vision needs: No Review of Systems Const All systems reviewed & are unremarkable except as noted in HPI and below Reports no additional complaints ENT Reports Normal hearing present Card Denies chest pain, Denies chest pain at rest, Denies chest pain with activity and Denies pedal edema Resp Denies cough GI Denies abdominal pain Musc Denies abnormal gait, Denies muscle cramps and Denies radiating pain into limb Skin/Breast Denies skin ulcer and Denies wounds Neuro Reports Normal hearing present and Denies abnormal gait Psych Reports no additional complaints Physical Exam Const General: cooperative, healthy appearing and comfortable Orientation/consciousness: oriented to person, oriented to place and oriented to time HEENT Head: Yes normal to inspection Neck Neck: Yes normal visual inspection Carotids: no bruits Chest Chest palpation & inspection: normal inspection of the chest Resp Effort & Inspection: normal respiratory effort and able to speak in complete sentences Auscultation: clear to auscultation bilaterally, no crackles, no rales, no rhonchi and no wheezes Cardio Other: Right DP signals Rate: regular rate Rhythm: regular rhythm Heart sounds: S1 normal heart sound present and S2 normal heart sound present Bruits: no carotid bruits Peripheral pulses: Peripheral pulses 2+ throughout GI Inspection: Yes normal to inspection Skin Wounds: no wounds Hair: normal Neuro General: oriented to person, oriented to place and oriented to time Cranial nerves: Yes CN's II-XII intact bilaterally and Yes Normal hearing present Cognition (Neuro): normal cognition Motor exam (neuro): 5/5 motor strength present throughout Extrem Other: venous exam: No significant superficial varicosities or spider telangiectasias, minimal edema General: No clubbing, No cyanosis and No edema Psych Appearance: grossly normal Mental Status: mental status grossly normal Speech and movement: Normal speech and movement present Results Reviewed Results Reviewed: Noninvasive arterial testing dated 04/23/2024 demonstrates right SFA occlusion with multiple collaterals. Left-sided stent is patent. Written report and images were reviewed. Assessment & Plan Assessment & Plan (1) PVD (peripheral vascular disease): Comment: 10/08/2019 - left SFA stent and popliteal plasty with DCB 08/13/2020 - angioplasty left SFA with DCB 08/18/2020 - left 5th toe amputation Code(s): I73.9 - Peripheral vascular disease, unspecified Category: Medical Plan: Patient notes leg pain when walking distances. I have discussed the pathophysiology of peripheral vascular disease with the patient. I have also discussed risk factor modification. I have reviewed the patient's arterial testing which reveals right SFA occlusion. the patient would benefit from a right leg endovascular peripheral angiogram with possible angioplasty, stent, and/or atherectomy. This has been discussed in detail with the patient along with risks, benefits, and complications. This includes but is not limited to bleeding, infection, heart attack, need for emergent surgical repair, limb ischemia, blood vessel damage, bleeding, puncture, kidney injury, bruising, allergic reaction, and skin reaction. The patient demonstrates a clear understanding. We will schedule for the next appropriate time. Thank you for allowing us to assist in this patient's care. Coding Level of Care Code Est Pt Level 4 (54850) Diagnoses PVD (peripheral vascular disease) I73.9
== END 2024-05-29 11:16 | disposition home or self-care (01) ==
PROVIDERS: PCP Nurse Practitioner Family; Visit Provider Surgery Vascular Surgery
DX: I73.9 Peripheral vascular disease, unspecified (principal)
CPT/HCPCS: 99214

== ENCOUNTER → 2024-05-29 10:26 | Outpatient (BNVA) | payer MEDICARE, OTHER, SELFPAY | PROVIDERS: PCP Nurse Practitioner Family; Visit Provider Surgery Vascular Surgery | DX: I73.9 Peripheral vascular disease, unspecified (principal) | CPT/HCPCS: 99212 ==

== ENCOUNTER 2024-05-30 05:34 | Day surgery (SDC) | payer MEDICARE, OTHER, SELFPAY ==
[2024-05-30] VITALS (34 sets, daily range): BP systolic 105–202; BP diastolic 50–82; PULSE 54–70; RESP 11–27; TEMP 36.3–36.7; O2SAT 97–100; BMI 20.7
[2024-05-30] MEDS: 0.9 % Sodium Chloride 1,000 ML 100 ML IVCONT (06:41)
[2024-05-30 06:55] LABS: Glucose, Whole Blood 116 mg/dL (60-115)
[2024-05-30 07:08] LABS: MANUAL DIFF FLAG NO
[2024-05-30 07:19] LABS: Basophils Percent Auto 0.6 % (0-2); Eosinophils Absolute Auto 0.5 X10*3/uL (0.0-0.4); Eosinophils Percent Auto 7.8 % (0-4); Hematocrit 29.9 % (42.0-52.0); Hemoglobin 9.7 g/dl (14.0-18.0); Imm Gran Abs Auto 0.03 X10*3/uL (0.00-0.03); Imm Gran Pct Auto 0.5 % (0.0-0.4); Lymphocytes Absolute Auto 1.3 X10*3/uL (1.2-4.9); Lymphocytes Percent Auto 20.2 % (20-40); Mean Corpuscular HGB Conc 32.4 g/dl (31.0-36.0); Mean Corpuscular Hemoglobin 30.1 pg (27.0-33.0); Mean Corpuscular Volume 92.9 fL (80.0-98.0); Mean Platelet Volume 11.1 fL (9.4-12.4); Monocytes Absolute Auto 0.6 X10*3/uL (0.1-1.2); Monocytes Percent Auto 9.2 % (2-11); Neutrophils Absolute Auto 4.1 x10*3/uL (2.0-8.3); Neutrophils Percent Auto 61.7 % (45-73); Platelet Count 206 X10*3/uL (160-400); Red Blood Count 3.22 X10*6/uL (4.60-5.80); Red Cell Distribution Width 14.2 % (11.0-16.0); White Blood Count 6.6 X10*3/uL (4.8-10.8)
[2024-05-30 07:23] LABS: Blood Urea Nitrogen 40 mg/dL (9-16); Estimated Glomerular Filt Rate 50
[2024-05-30] MEDS: Midazolam HCl/PF 2 MG/2 ML VIAL 0.5 MG IVPUSH (08:18)
[2024-05-30] MEDS: fentaNYL citrate/PF 100 MCG/2 ML VIAL 25 MCG EPIDURAL (08:19)
[2024-05-30] MEDS: hydrALAZINE HCl 20 MG/ML VIAL 10 MG IM (08:22)
[2024-05-30] MEDS: Heparin Sodium,Porcine 10,000 UNIT/10 ML VIAL 5000 UNIT IVPUSH ×2 (08:54→09:03)
--- NOTE | 2024-05-30 08:57 | PC.NURSE ---
fentanyl 25MCG that was documented as given via epidural was given IVP.
--- NOTE | 2024-05-30 10:37 | W.PM.OPN ---
Operative Note Operative Note Date of Service: 05/30/24 Narrative: Angiogram report from [facility] Preoperative diagnosis: Atherosclerosis of right lower extremity with activity limiting claudication Postoperative diagnosis: Same Procedure: 1. Ultrasound-guided left common femoral access 2. Aortogram with bilateral lower extremity runoff Surgeon:Sanford Almaguer M.D., FACS, RPVI [employer]oles[employer] Broker:None Anesthesia: Local with moderate conscious sedation. Total intraservice moderate sedation time was 105 minutes. I monitored the patient's level of consciousness and physiologic status continuously throughout the procedure. Specimens:none Drains:none Estimated blood loss: Less than 10 ml Implant: None Indications: Very pleasant 73-year-old gentleman who presents for routine arterial surveillance. He actually had endovascular intervention by me in 2020 for his left lower extremity. He had a subsequent toe amp which went on to heal. Upon routine surveillance he was noted to right-sided stenosis. He now presents for endovascular intervention The patient has signed the informed consent after reviewing risks, complications, benefits, and alternatives previously discussed with the patient. The patient was given the opportunity to ask any additional questions or voice any concerns. All questions were answered to the patient's satisfaction. Procedure in detail: Patient was brought to the angiography suite prior to which a time-out was called for patient identification and site verification. Bilateral groins were prepped and draped in the standard surgical fashion. Under ultrasound guidance left common femoral was punctured with micro puncture needle and wire. Subsequently a precision 5 [place] sheath was then placed. Bentson wire was advanced to the level of the aorta. 5 [place] Flush catheter was brought up and parked at the level of the renal arteries. Aortogram was then undertaken. Catheter was brought down to the level of the iliac bifurcation. Iliacs were subsequently imaged. Catheter was then brought in up and over to the right side SFA. Runoff study was then undertaken. We noticed that there was a near total occlusion at the [place]vin[place] canal. At this time 5000 units of heparin and a subsequent 2000 units of heparin bolus was given. After 5 minutes of circulation time up and over 5 [place] sheath was then placed. We used an 035 glidewire Advantage to try to traverse this lesion. We used Navicross catheters. Once we were into the occluded area we tried multiple wires including a stiff angled glide any when went down to an 014 advantage. We also brought in multiple catheters. Multiple orthogonal views were undertaken. We were unable to get through into the true lumen. We even encountered a subintimal plane and there was some extravasation of contrast. At this time we withdrew we did completion angiogram in the lower extremity did appear to be stable and had good runoff at that point. We then turned our attention to the left side. We placed a short 5 [place] sheath. Through this a runoff study was then undertaken. A CELT closure device was then placed. Patient tolerated the procedure well. Returned to recovery with stable vitals. Interpretation of films: 1. Ultrasound demonstrates appropriate femoral access site. Vessel was patent with minimal stenosis. Needle entry was visualized. Image of ultrasound was saved. 2. Aortogram demonstrates appropriate caliber aorta. Minimal disease. Appropriate take-off of the renals. 3. Iliac images demonstrate no significant disease 4. Right Leg Common femoral artery: No significant disease Profundus Femoris: No significant disease Superficial femoral artery: Patent all the way through areas a small stenosis mild mild to moderate throughout the proximal total occlusion at Melvin's canal. Reconstitutes at the above knee popliteal Popliteal artery (p1,p2,p3): P1 2 3 segments were all patent Anterior tibial artery: Patent more dominant runoff Peroneal artery: Patent but diminutive Posterior tibial artery: Patent and did have reasonable runoff Dorsalis pedis/plantar arch: Incomplete 5. Left Leg Common femoral artery: No significant disease Profundus Femoris: No significant disease Superficial femoral artery: Patent but with stents all the way through the SFA there was mild to moderate stenosis throughout the entire length of the stents. Popliteal artery (p1,p2,p3): P1 2 3 segments were all patent Anterior tibial artery: Patent more dominant runoff Peroneal artery: Patent but diminutive Posterior tibial artery: Patent and did have reasonable runoff Dorsalis pedis/plantar arch: Incomplete Conclusion: 1. Successful diagnostic angiogram. If clinically indicated right side would require right femoral to above knee popliteal bypass. Left side does require reintervention to ensure that the stents remain patent. This was discussed with the patient. 2. Anticoagulation status: No change This note is constructed using voice recognition software. While every effort has been made to ensure accuracy, director of residence life errors may have been included. Thank you for allowing me to participate in the care of your patient. Yours sincerely, Sanford Almaguer MD, FACS, R.P.V.I.
[2024-05-30 15:00] LABS: ACT 164 Celite s (79-173)
[2024-05-30 15:00] LABS: ACT 170 Celite s (79-173)
== END 2024-05-30 12:50 | disposition home or self-care (01) ==
PROVIDERS: PCP Nurse Practitioner Family; Visit Provider Surgery Vascular Surgery
DX: E11.51 Type 2 diabetes mellitus with diabetic peripheral angiopathy without gangrene (principal); I70.211 Atherosclerosis of native arteries of extremities with intermittent claudication, right leg; R25.2 Cramp and spasm; M86.8X7 Other osteomyelitis, ankle and foot; Z95.820 Peripheral vascular angioplasty status with implants and grafts; Z89.422 Acquired absence of other left toe(s); E78.00 Pure hypercholesterolemia, unspecified; Z79.4 Long term (current) use of insulin; Z79.84 Long term (current) use of oral hypoglycemic drugs; Z87.891 Personal history of nicotine dependence
CPT/HCPCS: 36247; 36415; 75630; 76937; 82565; 82947; 84520; 85025; 85347; 99152; 99153; C1769; C1887; C1894; J0360; J1644; J1920; J2250; J2310; J3010; Q9967

== ENCOUNTER → 2024-05-30 05:34 | Outpatient (BNV) | payer MEDICARE, OTHER, SELFPAY | PROVIDERS: PCP Nurse Practitioner Family; Visit Provider Surgery Vascular Surgery | DX: I70.211 Atherosclerosis of native arteries of extremities with intermittent claudication, right leg (principal) | CPT/HCPCS: 36247; 75625; 75716; 76937; 99152 ==

== ENCOUNTER 2024-06-14 08:35 | Outpatient (AMB) | payer MEDICARE, OTHER, SELFPAY ==
--- NOTE | 2024-06-14 08:54 | MHC.OFFVIS ---
Intake Visit Reasons: 2 week follow up s/p R leg Angiogram- 05/30/24 Intake Note: Patient presents for angio follow up. No complaints. Accompanied by: Self / Same As Patient Allergies No Known Allergies [No Known Allergies*] Allergy (Verified 06/14/24 08:55) [facility] 2 week follow up s/p R leg Angiogram- 05/30/24: Details: Very pleasant 73-year-old gentleman presents for follow-up regarding right lower extremity angiogram. He has had no postprocedure issues. Reports that he is doing fairly well. Now presents for routine follow-up. Patient has developed continued callusing of the left lower extremity along with a new blister. He now presents for routine follow-up. [facility] Medical History Osteomyelitis of great toe of left foot Diabetes PVD (peripheral vascular disease) Hypercholesteremia Surgical History S/P angiogram of extremity (08/13/20) Amputated toe of left foot (08/18/20) S/P angiogram of extremity (10/08/19) S/P PICC central line placement Social History Household Members Other:: lives alone Housing: Apartment Alcohol intake: current Alcohol intake frequency: does not drink Patient Tobacco Use Status: Former Tobacco user Years Smoked: 39 e-Cigarette/Vaping Use: Never Used Second Hand Smoke Exposure: No service: No Current occupational status: retired Cognitive needs: No Hearing needs: No Vision needs: No Review of Systems Const All systems reviewed & are unremarkable except as noted in HPI and below Reports no additional complaints ENT Reports Normal hearing present Card Denies chest pain, Denies chest pain at rest, Denies chest pain with activity and Denies pedal edema Resp Denies cough GI Denies abdominal pain Musc Denies abnormal gait, Denies muscle cramps and Denies radiating pain into limb Skin/Breast Denies skin ulcer and Denies wounds Neuro Reports Normal hearing present and Denies abnormal gait Psych Reports no additional complaints Physical Exam Const General: cooperative, healthy appearing and comfortable Orientation/consciousness: oriented to person, oriented to place and oriented to time HEENT Head: Yes normal to inspection Neck Neck: Yes normal visual inspection Carotids: no bruits Chest Chest palpation & inspection: normal inspection of the chest Resp Effort & Inspection: normal respiratory effort and able to speak in complete sentences Auscultation: clear to auscultation bilaterally, no crackles, no rales, no rhonchi and no wheezes Cardio Other: Bilateral DP signals Rate: regular rate Rhythm: regular rhythm Heart sounds: S1 normal heart sound present and S2 normal heart sound present Bruits: no carotid bruits Peripheral pulses: Peripheral pulses 2+ throughout GI Inspection: Yes normal to inspection Skin Wounds: no wounds Hair: normal Neuro General: oriented to person, oriented to place and oriented to time Cranial nerves: Yes CN's II-XII intact bilaterally and Yes Normal hearing present Cognition (Neuro): normal cognition Motor exam (neuro): 5/5 motor strength present throughout Extrem Other: venous exam: No significant superficial varicosities or spider telangiectasias, minimal edema General: No clubbing, No cyanosis and No edema Psych Appearance: grossly normal Mental Status: mental status grossly normal Speech and movement: Normal speech and movement present Results Reviewed Results Reviewed: 05/30/2024- diagnostic angiogram demonstrates right-sided occlusion left side InStent restenosis. Assessment & Plan Assessment & Plan (1) PVD (peripheral vascular disease): Comment: 10/08/2019 - left SFA stent and popliteal plasty with DCB 08/13/2020 - angioplasty left SFA with DCB 08/18/2020 - left 5th toe amputation 05/30/2024 - diagnostic angiogram Code(s): I73.9 - Peripheral vascular disease, unspecified Category: Medical Plan: Patient notes leg pain when walking distances. I have discussed the pathophysiology of peripheral vascular disease with the patient. I have also discussed risk factor modification. I have reviewed the patient's prior arterial angiogram which demonstrates right-sided SFA occlusion and left side in stent stenosis. the patient would benefit from a left leg endovascular peripheral angiogram with possible angioplasty, stent, and/or atherectomy. This has been discussed in detail with the patient along with risks, benefits, and complications. This includes but is not limited to bleeding, infection, heart attack, need for emergent surgical repair, limb ischemia, blood vessel damage, bleeding, puncture, kidney injury, bruising, allergic reaction, and skin reaction. The patient demonstrates a clear understanding. We will schedule for the next appropriate time. Thank you for allowing us to assist in this patient's care. Coding Level of Care Code Est Pt Level 4 (61309) Complex EM visit Add On G2211 Diagnoses PVD (peripheral vascular disease) I73.9
== END 2024-06-14 09:33 | disposition home or self-care (01) ==
PROVIDERS: PCP Nurse Practitioner Family; Visit Provider Surgery Vascular Surgery
DX: I73.9 Peripheral vascular disease, unspecified (principal)
CPT/HCPCS: 99214; G2211

== ENCOUNTER → 2024-06-14 08:35 | Outpatient (BNVA) | payer MEDICARE, OTHER, SELFPAY | PROVIDERS: PCP Nurse Practitioner Family; Visit Provider Surgery Vascular Surgery | DX: I73.9 Peripheral vascular disease, unspecified (principal) | CPT/HCPCS: 99212 ==

== ENCOUNTER 2024-06-27 05:57 | Day surgery (SDC) | payer MEDICARE, OTHER, SELFPAY ==
[2024-06-27] VITALS (25 sets, daily range): BP systolic 135–169; BP diastolic 38–68; PULSE 50–60; RESP 11–24; TEMP 36.1–36.7; O2SAT 96–100; BMI 21.1
[2024-06-27 06:41] LABS: MANUAL DIFF FLAG NO
[2024-06-27 06:51] LABS: Basophils Absolute Auto 0.1 X10*3/uL (0.0-0.2); Basophils Percent Auto 0.7 % (0-2); Eosinophils Absolute Auto 0.7 X10*3/uL (0.0-0.4); Hemoglobin 9.8 g/dl (14.0-18.0); Imm Gran Abs Auto 0.04 X10*3/uL (0.00-0.03); Imm Gran Pct Auto 0.5 % (0.0-0.4); Lymphocytes Absolute Auto 1.5 X10*3/uL (1.2-4.9); Lymphocytes Percent Auto 18.7 % (20-40); Mean Corpuscular HGB Conc 33.8 g/dl (31.0-36.0); Mean Corpuscular Hemoglobin 31.1 pg (27.0-33.0); Mean Corpuscular Volume 92.1 fL (80.0-98.0); Mean Platelet Volume 11.1 fL (9.4-12.4); Monocytes Absolute Auto 0.8 X10*3/uL (0.1-1.2); Monocytes Percent Auto 9.2 % (2-11); Neutrophils Absolute Auto 5.1 x10*3/uL (2.0-8.3); Neutrophils Percent Auto 61.9 % (45-73); Platelet Count 180 X10*3/uL (160-400); Red Blood Count 3.15 X10*6/uL (4.60-5.80); Red Cell Distribution Width 14.4 % (11.0-16.0); White Blood Count 8.2 X10*3/uL (4.8-10.8)
[2024-06-27 06:59] LABS: Blood Urea Nitrogen 49 mg/dL (9-16); Creatinine Clr Calc Pharmacy 41.4; Estimated Glomerular Filt Rate 49
[2024-06-27] MEDS: 0.9 % Sodium Chloride 1,000 ML 100 ML IVCONT (07:10)
[2024-06-27 07:24] LABS: Glucose, Whole Blood 130 mg/dL (60-115)
[2024-06-27] MEDS: fentaNYL citrate/PF 100 MCG/2 ML VIAL 25 MCG IVPUSH (08:03)
[2024-06-27] MEDS: Midazolam HCl 2 MG/2 ML VIAL 0.5 MG IVPUSH (08:04)
[2024-06-27] MEDS: Heparin Sodium,Porcine 10,000 UNIT/10 ML VIAL 5000 UNIT IVPUSH ×2 (08:23→08:40)
--- NOTE | 2024-06-27 09:29 | W.PM.OPN ---
Operative Note Operative Note Date of Service: 06/27/24 Narrative: Angiogram report from [facility] Preoperative diagnosis: Atherosclerosis of left lower extremity with activity limiting claudication Postoperative diagnosis: Same Procedure: 1. Ultrasound-guided right common femoral access 2. Aortogram with left lower extremity runoff 3. Left SFA plasty Surgeon:Sanford Almaguer M.D., FACS, RPVI Valve And Regulator Repairer:None Anesthesia: Local with moderate conscious sedation. Total intraservice moderate sedation time was 60 minutes. I monitored the patient's level of consciousness and physiologic status continuously throughout the procedure. Specimens:none Drains:none Estimated blood loss: Less than 10 ml Implant: [employer]tronic Impact DCB 6 x 200, 6 x 200 Indications: Very pleasant 73-year-old gentleman with a prior history of peripheral vascular disease and toe amputations of the left lower extremity. He had prior left SFA stenting. Upon surveillance ultrasound noted to have InStent restenosis. Now presents for endovascular intervention. The patient has signed the informed consent after reviewing risks, complications, benefits, and alternatives previously discussed with the patient. The patient was given the opportunity to ask any additional questions or voice any concerns. All questions were answered to the patient's satisfaction. Procedure in detail: Patient was brought to the angiography suite prior to which a time-out was called for patient identification and site verification. Bilateral groins were prepped and draped in the standard surgical fashion. Under ultrasound guidance right common femoral was punctured with micro puncture needle and wire. Subsequently a precision 5 Andorran sheath was then placed. Bentson wire was advanced to the level of the aorta. 5 Andorran Flush catheter was brought up and parked at the level of the renal arteries. Aortogram was then undertaken. Catheter was brought down to the level of the iliac bifurcation. Iliacs were subsequently imaged. Catheter was then brought in up and over to the left side SFA. Runoff study was then undertaken. At this time InStent restenosis was noted. 5000 units of systemic heparin was administered and a subtherapeutic ACT was noted. An additional 1000 units of heparin was then administered. We exchanged out for a Glidewire advantage and a 6 Andorran up and over sheath. Once in appropriate position we did a more focused runoff study. We then noted in stent restenosis. We 1st plasty this entire length with a 6 x 200 regular balloon. We then focused a now on the more distal stent and we plasty this with a 6 x 200 drug coated balloon. This was brought into position in under 3 minutes and insufflated for a total of 3 minutes in duration. We then followed this up in a similar fashion more proximally and a 2nd drug coated balloon was brought into position in a similar fashion it was brought in under 3 minutes and insufflated for a total of 3 minutes in duration. Completion angiogram demonstrated excellent result. Catheter wire sheath was brought back to the ipsilateral side. We exchanged out for short 6 Andorran sheath. And a CELT closure device was deployed. Adequate hemostasis was achieved. Patient returned to recovery with stable vitals. Interpretation of films: 1. Ultrasound demonstrates appropriate femoral access site. Vessel was patent with minimal stenosis. Needle entry was visualized. Image of ultrasound was saved. 2. Aortogram demonstrates appropriate caliber aorta. Minimal disease. Appropriate take-off of the renals. 3. Iliac images demonstrate no significant disease 4. Left Leg Common femoral artery: No significant disease Profundus Femoris: No significant disease Superficial femoral artery: InStent restenosis throughout its entire length Popliteal artery (p1,p2,p3): Mild stenosis at the P1 segment but no flow-limiting disease. Anterior tibial artery: Has a takeoff but occludes immediately Peroneal artery: Runoff all the way down to the level of the ankle Posterior tibial artery: Dominant runoff and supplies the arch Dorsalis pedis/plantar arch: Partial fill through the posterior tibial artery. Conclusion: 1. Successful plasty of left SFA. 2. Anticoagulation status: 6 months of aspirin and Plavix This note is constructed using voice recognition software. While every effort has been made to ensure accuracy, carpenters supervisor errors may have been included. Thank you for allowing me to participate in the care of your patient. Yours sincerely, Sanford Almaguer MD, FACS, R.P.V.I.
[2024-06-28 09:26] LABS: ACT 184 Celite s (79-173)
== END 2024-06-27 14:08 | disposition home or self-care (01) ==
PROVIDERS: PCP Nurse Practitioner Family; Visit Provider Surgery Vascular Surgery
DX: T82.856A Stenosis of peripheral vascular stent, initial encounter (principal); Y82.8 Other medical devices associated with adverse incidents; Y92.9 Unspecified place or not applicable; E11.51 Type 2 diabetes mellitus with diabetic peripheral angiopathy without gangrene; I70.212 Atherosclerosis of native arteries of extremities with intermittent claudication, left leg; Z89.422 Acquired absence of other left toe(s); M86.672 Other chronic osteomyelitis, left ankle and foot; Z79.84 Long term (current) use of oral hypoglycemic drugs; Z79.4 Long term (current) use of insulin; Z87.891 Personal history of nicotine dependence
CPT/HCPCS: 36415; 37224; 76937; 82565; 82947; 84520; 85025; 85347; 99152; 99153; C1725; C1760; C1769; C1887; C1894; C2623; J1100; J1644; J2003; J2250; J2310; J2405; J2704; J3010; Q9967

== ENCOUNTER → 2024-06-27 05:57 | Outpatient (BNV) | payer MEDICARE, OTHER, SELFPAY | PROVIDERS: PCP Nurse Practitioner Family; Visit Provider Surgery Vascular Surgery | DX: I70.202 Unspecified atherosclerosis of native arteries of extremities, left leg (principal) | CPT/HCPCS: 37224; 75625; 75710; 76937; 99152 ==

== ENCOUNTER 2024-07-12 08:56 | Outpatient (AMB) | payer MEDICARE, OTHER, SELFPAY ==
--- NOTE | 2024-07-12 09:00 | MHC.OFFVIS ---
Intake Visit Reasons: 2 week follow up s/p L leg angio 06/27/24 Intake Note: Patient presents for 2 week follow up angio. States his right foot was swollen and throbbing but it is not anymore. Accompanied by: Self / Same As Patient Allergies No Known Allergies [No Known Allergies*] Allergy (Verified 07/12/24 09:01) HPI HPI 2 week follow up s/p L leg angio 06/27/24: Details: Very pleasant 73-year-old gentleman presents for follow-up status post left lower extremity angiogram. He underwent left SFA plasty. Reports he is doing fairly well. Lower extremity foot wounds are healed. He does continue to have calluses. Now for routine follow-up. He is being maintained on aspirin and Plavix. 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 Diabetes PVD (peripheral vascular disease) Hypercholesteremia Surgical History S/P angiogram of extremity (08/13/20) Amputated toe of left foot (08/18/20) S/P angiogram of extremity (10/08/19) S/P PICC central line placement Social History Household Members Other:: lives alone Housing: Apartment Alcohol intake: current Alcohol intake frequency: does not drink Patient Tobacco Use Status: Current someday Tobacco user Years Smoked: 39 e-Cigarette/Vaping Use: Never Used Second Hand Smoke Exposure: No service: No Current occupational status: retired Cognitive needs: No Hearing needs: No Vision needs: No Review of Systems Const All systems reviewed & are unremarkable except as noted in HPI and below Reports no additional complaints ENT Reports Normal hearing present Card Denies chest pain, Denies chest pain at rest, Denies chest pain with activity and Denies pedal edema Resp Denies cough GI Denies abdominal pain Musc Denies abnormal gait, Denies muscle cramps and Denies radiating pain into limb Skin/Breast Denies skin ulcer and Denies wounds Neuro Reports Normal hearing present and Denies abnormal gait Psych Reports no additional complaints Physical Exam Const General: cooperative, healthy appearing and comfortable Orientation/consciousness: oriented to person, oriented to place and oriented to time HEENT Head: Yes normal to inspection Neck Neck: Yes normal visual inspection Carotids: no bruits Chest Chest palpation & inspection: normal inspection of the chest Resp Effort & Inspection: normal respiratory effort and able to speak in complete sentences Auscultation: clear to auscultation bilaterally, no crackles, no rales, no rhonchi and no wheezes Cardio Other: Bilateral DP signals Rate: regular rate Rhythm: regular rhythm Heart sounds: S1 normal heart sound present and S2 normal heart sound present Bruits: no carotid bruits Peripheral pulses: Peripheral pulses 2+ throughout GI Inspection: Yes normal to inspection Skin Wounds: no wounds Hair: normal Neuro General: oriented to person, oriented to place and oriented to time Cranial nerves: Yes CN's II-XII intact bilaterally and Yes Normal hearing present Cognition (Neuro): normal cognition Motor exam (neuro): 5/5 motor strength present throughout Extrem Other: venous exam: No significant superficial varicosities or spider telangiectasias, minimal edema General: No clubbing, No cyanosis and No edema Psych Appearance: grossly normal Mental Status: mental status grossly normal Speech and movement: Normal speech and movement present Assessment & Plan Assessment & Plan (1) PVD (peripheral vascular disease): Comment: 10/08/2019 - left SFA stent and popliteal plasty with DCB 08/13/2020 - angioplasty left SFA with DCB 08/18/2020 - left 5th toe amputation 05/30/2024 - diagnostic angiogram 06/27/2024 - left SFA plasty Code(s): I73.9 - Peripheral vascular disease, unspecified Category: Medical Plan: In short patient has stable claudication. I did review the pathophysiology of peripheral vascular disease with the patient. In addition we did discuss routine conservative measures including a healthy diet and the importance of exercise and ambulation. We did discuss risk factor modification. The patient will continue to to follow-up with surveillance follow-up in approximately 3 months. Thank you for allowing us to participate in this patient's care. If there are any questions or concerns please do not hesitate to contact us. Orders: Orders US arterial duplex LE BI 3 Months I73.9 - Peripheral vascular disease, unspecified Coding Level of Care Code Est Pt Level 4 (07736) Complex EM visit Add On G2211 Diagnoses PVD (peripheral vascular disease) I73.9
== END 2024-07-12 09:13 | disposition home or self-care (01) ==
LOC: HO.HVS 08:56
PROVIDERS: PCP Nurse Practitioner Family; Visit Provider Surgery Vascular Surgery
DX: I73.9 Peripheral vascular disease, unspecified (principal)
CPT/HCPCS: 99214; G2211

== ENCOUNTER → 2024-07-12 08:56 | Outpatient (BNVA) | payer MEDICARE, OTHER, SELFPAY | PROVIDERS: PCP Nurse Practitioner Family; Visit Provider Surgery Vascular Surgery | DX: I73.9 Peripheral vascular disease, unspecified (principal) | CPT/HCPCS: 99212 ==

== ENCOUNTER 2024-07-23 06:46 | Outpatient (REF) | payer MEDICARE, OTHER, SELFPAY ==
--- OUTSIDE RECORDS SUMMARY | 2024-07-23 06:48 | XMS_ITS | Clinical Summary ---
Author Organization [facility] Facility Address [address] [place] [address] Care Team Providers Care Shredder Picker Name Role Phone Clint Vivra NP Primary Care Provider Social History Tobacco Use Types Packs/Day Years Used Date Smoking Tobacco: Never Assessed Sex and Gender Information Value Date Recorded Sex Assigned at Not on file Legal Sex Male 12:26 PM EST Gender Identity Not on file Sexual Orientation Not on file Plan of Treatment Health Maintenance Due Date Last Done Comments Colorectal Cancer Screening: Annual FOBT 10/04/1999 Colorectal Cancer Screening: Colonoscopy 10/04/1999 Colorectal Cancer Screening: Sigmoidoscopy 10/04/1999 Pneumococcal Vaccine: 65+ Ye ars (1 of 1 - PCV) 10/04/2015 Influenza Vaccine (#1) 2024 Hepatitis B Vaccine Aged Out No longe r eligible based on patient's age to complete [place] [id number] MEDICARE [facility] MEDICARE [facility] Care Teams Shredder Picker Relationship Specialty Start Date End Date Clint Vivar NP 1961 [facility] [place] [address] PCP - General Nurse Practitioner 07/21/22
[2024-07-23 10:18] LABS: Anion Gap 8 (12-20); Blood Urea Nitrogen 44 mg/dL (9-16); Calcium 8.8 mg/dL (8.4-10.2); Carbon Dioxide 24 mmol/L (22-29); Chloride 114 mmol/L (96-108); Estimated Glomerular Filt Rate 54; Glucose Random 115 mg/dL (60-115); Potassium 4.3 mmol/L (3.3-5.1); Sodium 142 mmol/L (135-145)
== END 2024-07-23 06:47 | disposition home or self-care (01) ==
LOC: HO.HMGCLDS 06:46
PROVIDERS: PCP Nurse Practitioner Family; Visit Provider Internal Medicine Hypertension Specialist
DX: N18.30 Chronic kidney disease, stage 3 unspecified (principal)
CPT/HCPCS: 36415; 80048

== ENCOUNTER 2024-07-30 09:02 | Outpatient (AMB) | payer MEDICARE, OTHER, SELFPAY ==
--- OUTSIDE RECORDS SUMMARY | 2024-07-30 09:05 | XMS_ITS | Clinical Summary ---
Author Organization [facility] Facility Address [address] [address] Care Team Providers Care Drop Wire Aliner Name Role Phone Clint Vivar NP Primary Care Provider [phone] Social History Tobacco Use Types Packs/Day Years [...] complete [place] [id number] MEDICARE [facility] MEDICARE [facility] Care Teams Drop Wire Aliner Relationship Specialty Start Date End Date Clint Vivar NP 1961 [facility] [place] [address] PCP - General Nurse Practitioner 07/21/22
[2024-07-30 09:10] VITALS: BP 132/66; PULSE 56; TEMP 36.5; O2SAT 97; BMI 21.4
--- NOTE | 2024-07-30 09:10 | MHC.PC.OV ---
Vital Signs 07/30/24 09:10 Height 5 ft 8 in Weight 141 lb BMI 21.4 BP 132/66 Blood Pressure Location Rt brachial Position Sitting Pulse 56 Pulse Source Pulse Oximeter Temp 97.7 F Temp Source Oral Pulse Oximetry (%) 97 Intake Visit Reasons: 6 MONTH Intake Note: pt is here for 6 mon f/up Chick Grader Required: No Accompanied by: Self / Same As Patient Allergies No Known Allergies [No Known Allergies*] Allergy (Verified 07/30/24 09:10) Medication List - Last Reconciled 07/30/24 by Clint Vivar CUTTER AND PRESSER- aspirin (Adult Low Dose Aspirin) 81 mg PO DAILY blood sugar diagnostic (FreeStyle Lite Strips) use 1 strip four times a day to test blood sugar blood-glucose meter (FreeStyle Lite Meter kit) test 4 times QD clopidogrel 75 mg PO DAILY empagliflozin (Jardiance) 10 mg PO DAILY Fiasp FlexTouch U-100 Insulin 100 unit/mL (3 mL) (insulin aspart (niacinamide)) 10 units subcut TID NS furosemide (Lasix) 20 mg PO DAILY insulin aspart U-100 10 units (0.1 mL) subcut TID 30 days lancets (FreeStyle Lancets) 28 gauge topical QID lisinopril 10 mg PO DAILY metformin 500 mg PO DAILY 90 days pen needle, diabetic tid Tobacco use date assessed: 07/30/24 Fall risk assessment: No Falls in past year Last assessed Fall Risk: 07/30/24 Dental Screening Dental Screen Date: 07/30/24 Did you have a dental visit in the last 12 months?: Yes Did you have a dental problem in the last 6 months where you did not have access to dental care?: No Was dental information given to patient?: Patient has dentist HPI 6 MONTH HPI Details Chief Complaint Follow-up evaluation for diabetes management. History of Present Illness The patient is a 73-year-old male presenting with a follow-up for diabetes management. His most recent Hemoglobin A1c level was at 6.6%, although this may not be accurate due to noted anemia. The history of diabetes management includes ongoing treatment, with nephrology follow-ups. The patient requires close monitoring due to concomitant medical issues including PAD and PVD, which are managed by a vascular specialist. The patient has a history of a healing plantar ulceration on the left big toe, noted on prior evaluations. This is of particular concern given his peripheral vascular issues. He also has a history of amputation of the left fifth toe. There is no report of recent complications or changes in sensation, though ongoing management of his vascular condition is essential. Social History Health Maintenance - Screening measures such as colonoscopy and low-dose CAT scan are not performed as they were declined by the patient. Review of Systems - Cardiovascular: Reports peripheral arterial and vascular disease. - Gastrointestinal: Denies colonoscopy. - Respiratory: Denies completion of low-dose CAT scan. Physical Exam General: Cooperative, healthy appearing, comfortable, no acute distress and well developed Orientation: Patient oriented x3 Limitations: No limitations Head: Normal to inspection Ears: Hearing grossly normal bilaterally Nose: Normal external nose present Face and sinus: Normal facial exam Eyes: Appearance normal, both eyes and all related structures Neck: Normal visual inspection and Yes full ROM Respiratory: Lungs were clear, faintly diminished. Normal respiratory effort and able to speak in complete sentences. Clear to auscultation bilaterally Cardiovascular: Regular rate and rhythm. Normal S1 and S2, faint systolic murmur GI: Normal to inspection. Soft to palpation and nontender Skin: No rashes or lesions noted Neuro: Patient oriented x3 Extremities: Normal to inspection, except for the left foot where there is a healing ulceration on the big toe plantar aspect and the left fifth toe is amputated. No edema. Good sensation noted. Results - Labs: Hemoglobin A1c level noted at 6.6%. Plan - Add SGLT2 inhibitor, specifically Jardiance, to diabetes treatment regimen. - Monitor and address anemia, considering its potential impact on glucose management. - Continue follow-up with nephrology for renal function and diabetes management integration. - Continue consulting with vascular specialist for management of PAD and PVD. - Close monitoring of the healing plantar ulceration on the left great toe. - No addition of colonoscopy or low-dose CAT scan at this time, respecting patient?s current preferences. Patient was informed and verbally consented to the use of an ambient scribe for clinic note documentation during this visit. Discussion Notes I discussed with the patient the plan to enhance diabetes management through the addition of the SGLT2 inhibitor, Jardiance, which may improve glycemic control. I highlighted the importance of regular monitoring due to the associated anemia, which may affect A1c accuracy. We discussed ongoing management with nephrology and straightening machine operator to ensure comprehensive care coordination for diabetes and peripheral vascular conditions. The option for future colonoscopy or low-dose CAT scan was declined and noted for later discussions if necessary. Patient Instructions - Begin taking Jardiance as prescribed for diabetes management. - Continue regular follow-ups with nephrology and straightening machine operator. - Monitor the healing ulceration on the left great toe and report any changes. - Maintain glycemic control and be attentive to any symptoms suggesting worsening anemia. - Alert us to any new symptoms or concerns related to diabetes or vascular issues. [facility] Medical History Osteomyelitis of great toe of left foot Diabetes PVD (peripheral vascular disease) Hypercholesteremia Surgical History S/P angiogram of extremity (08/13/20) Amputated toe of left foot (08/18/20) S/P angiogram of extremity (10/08/19) S/P PICC central line placement Social History Household Members Other:: lives alone Housing: Apartment Alcohol intake: current Alcohol intake frequency: does not drink Patient Tobacco Use Status: Current someday Tobacco user Years Smoked: 39 e-Cigarette/Vaping Use: Never Used Second Hand Smoke Exposure: No service: No Current occupational status: retired Cognitive needs: No Hearing needs: No Vision needs: No Questionnaire PHQ-9 Over the last 2 weeks, how often have you been bothered by any of the following problems? 1. Little interest or pleasure in doing things: not at all 2. Feeling down, depressed, or hopeless: not at all 3. Trouble falling or staying asleep, or sleeping too much: not at all 4. Feeling tired or having little energy: not at all 5. Poor appetite or overeating: not at all 6. Feeling bad about yourself - or that you are a failure or have let yourself or your family down: not at all 7. Trouble concentrating on things, such as reading the newspaper or watching television: not at all 8. Moving or speaking so slowly that other people could have noticed. Or the opposite - being so fidgety or restless that you have been moving around a lot more than usual: not at all 9. Thoughts that you would be better off or of hurting yourself in some way: not at all Total score: 0 Depression Screening Interpretation: Negative Depression Screening Done: Yes 91037 - PHQ-9 Billing: Yes Source: Developed by Drs. Nasir Gilmore, Ana Laura Harley, José Miguel Garvin and colleagues, with an educational arnaud from [employer]. Thrive Questionnaire Date Thrive assessed: 07/30/24 I am a: Patient What is your living situation today?: I have a steady place to live Within the past 12 months, did the food you bought not last and you didn't have the money to get more?: Never true Within the past 12 months, did you worry whether your food would run out before you got money to buy more?: Never true Do you have trouble paying for medicines?: No Do you have trouble getting transportation to medical appointments?: Yes Do you have trouble paying your heating and electricity bill?: No Do you have trouble taking care of your child, family member or friend?: No Do you have trouble with day-to-day activities such as bathing, preparing meals, shopping, managing finances, etc.?: No Are you currently unemployed and looking for a job?: No Are you interested in more education?: No Please select the resources that you would like help with: None Currently or been in a relationship where the following occur: No concerns reported THRIVE Score: 1 AUDIT C Alcohol Use Questionnaire (AUDIT-C) 1. How often do you have a drink containing alcohol?: Never 3. How often do you have six or more drinks on one occasion?: Never Total Score: 0 Score Reviewed/Action Taken: Yes KIYA-7 AMB Questionnaire KIYA-7 Date KIYA - 7 assessed: 07/30/24 Feeling nervous, anxious, or on edge: 0 = Not at all Not being able to stop or control worryin = Not at all Worrying too much about different things: 0 = Not at all Trouble relaxin = Not at all Being so restless that it is hard to sit still: 0 = Not at all Becoming easily annoyed or irritable: 0 = Not at all Feeling afraid as if something awful might happen: 0 = Not at all Total KIYA-7 score (0-4 normal; 5-9 mild; 10-14 moderate; 15-21 severe): 0 Source: Developed by Drs. Nasir Gilmore, Ana Laura Harley, José Miguel Garvin and colleagues, with an educational arnaud from [employer]. KIYA-7 Assessment Billing KIYA-7 Assessment Tool: KIYA-7 Assessment 08253 Physical exam (Primary Care) Vital Signs: Last Vital Signs Temp 97.7 F 07/30/24 09:10 Pulse 56 07/30/24 09:10 BP 132/66 07/30/24 09:10 Pulse Ox 97 07/30/24 09:10 BMI result Body Mass Index 21.4 Tobacco/Smoking Status: Tobacco use Status Tobacco use date assessed 07/30/24 07/30/24 09:11 Patient Tobacco Use Status Current someday Tobacco 07/30/24 09:11 e-Cigarette/Vaping Use Never Used 07/30/24 09:11 PHQ-9: PHQ-9 Score PHQ-9: Total score 0 07/30/24 09:13 Depression Screening Interpretation: Negative Thrive Assessment: Date of Thrive Assessment Date Thrive assessed 07/30/24 07/30/24 09:11 Currently or been in a relationship where the following occur: No concerns reported Results AMB Hemoglobin A1c AMB Hemoglobin A1c 6.6 % Last Edit by Joshua Capps CMA on 07/30/24 09:42 Results Reviewed Results Reviewed: Laboratory Last Values Hgb A1c (Clinic) 6.6 % (4.0-6.0) H 07/30/24 09:41 Coding Level of Care Code Est Pt Level 3 (47827) Diagnoses Diabetes E11.9 Additional Codes KIYA-7 Assessment Billing - KIYA-7 Assessment Tool: KIYA-7 Assessment 29108 ([id number]) PHQ-9 - 58605 - PHQ-9 Billing: Yes ([id number]) Assessment & Plan Assessment & Plan (1) Diabetes: Comment: IDDM Code(s): E11.9 - Type 2 diabetes mellitus without complications Category: Medical Plan . Orders: Orders AMB Hemoglobin A1c Today Z13.9 - Encounter for screening, unspecified Complete Blood Count Auto Diff Today E11.9 - Type 2 diabetes mellitus without complications Comprehensive Met. Panel Today E11.9 - Type 2 diabetes mellitus without complications Comprehensive [place]. Panel Fast Today E11.9 - Type 2 diabetes mellitus without complications UA CC w/rflx Micro + Cult Today E11.9 - Type 2 diabetes mellitus without complications Lipid Panel Today E11.9 - Type 2 diabetes mellitus without complications TSH reflex Free T4 Today E11.9 - Type 2 diabetes mellitus without complications Medications: New empagliflozin (Jardiance) 10 mg PO DAILY 30 tabs 4RF
== END 2024-07-30 10:06 | disposition home or self-care (01) ==
PROVIDERS: PCP Nurse Practitioner Family; Visit Provider Nurse Practitioner Family
DX: E11.9 Type 2 diabetes mellitus without complications (principal); Z13.9 Encounter for screening, unspecified

== ENCOUNTER → 2024-07-30 09:02 | Outpatient (BNVA) | payer MEDICARE, OTHER, SELFPAY | PROVIDERS: PCP Nurse Practitioner Family; Visit Provider Nurse Practitioner Family | DX: E11.9 Type 2 diabetes mellitus without complications (principal) | CPT/HCPCS: 83036; 96127; 99212 ==

== ENCOUNTER 2024-08-02 11:31 | Outpatient (AMB) | payer MEDICARE, OTHER, SELFPAY ==
[2024-08-02 11:40] VITALS: BP 150/58; PULSE 66; O2SAT 96; BMI 21.1
--- NOTE | 2024-08-02 11:40 | HO.NEPHOV ---
Vital Signs 08/02/24 11:40 Height 5 ft 8 in Weight 139 lb BMI 21.1 BP 150/58 H Blood Pressure Location Rt brachial Position Sitting Pulse 66 Pulse Source Pulse Oximeter Pulse Oximetry (%) 96 Oxygen Delivery Method Room Air Intake Visit Reasons: CKD/LVM Obiee Consultant Required: No Accompanied by: Self / Same As Patient Allergies No Known Allergies [No Known Allergies*] Allergy (Verified 08/02/24 11:42) Medication List - Last Reconciled 08/02/24 by Shane Garcia MD aspirin (Adult Low Dose Aspirin) 81 mg PO DAILY blood sugar diagnostic (FreeStyle Lite Strips) use 1 strip four times a day to test blood sugar blood-glucose meter (FreeStyle Lite Meter kit) test 4 times QD clopidogrel 75 mg PO DAILY empagliflozin (Jardiance) 10 mg PO DAILY Fiasp FlexTouch U-100 Insulin 100 unit/mL (3 mL) (insulin aspart (niacinamide)) 10 units subcut TID NS furosemide (Lasix) 20 mg PO DAILY insulin aspart U-100 10 units (0.1 mL) subcut TID 30 days lancets (FreeStyle Lancets) 28 gauge topical QID lisinopril 10 mg PO DAILY metformin 500 mg PO DAILY 90 days pen needle, diabetic tid HPI Comments Details: Talon is a pleasant 72-year-old man with a history of diabetes mellitus which was diagnosed in 2019. We are not sure how long he had diabetes prior to this. He had a foot infection and underwent amputation of the toe. He was also found to have significant peripheral disease and stents has been inserted by Dr. Almaguer. He had mild fullness on the renal collecting system back in 2021. However repeat CT scan in 2022 did not reveal any evidence of obstruction. He had microhematuria. He was seen by urologist. Was supposed to have a cystoscopy but he had refused. Recently the repeat urinalysis did not reveal any hematuria. He did have proteinuria in the recent urine protein creatinine ratio was 911 and hence this referral. He was on lisinopril 2.5 mg a day. Increased to 5 mg QD in October 2023 Overall blood sugar seems to be well controlled with a recent hemoglobin A1c of 6.5%. Recent creatinine was 1.28 mg with EGFR of 55 mL/minute He is history of smoking. Currently smokes about 5 cigarettes a day. 01/02/24 Feels better;BP better;Cr has bumped up 03/01/24 No new complinats ; Tolerating Lisinopril ; No urinary symptoms 08/02/24 Overall doing OK Jardiance has been added since 07/30/24 Tolerating well so far [facility] Medical History Osteomyelitis of great toe of left foot Diabetes PVD (peripheral vascular disease) Hypercholesteremia Surgical History S/P angiogram of extremity (08/13/20) Amputated toe of left foot (08/18/20) S/P angiogram of extremity (10/08/19) S/P PICC central line placement Social History Household Members Other:: lives alone Housing: Apartment Alcohol intake: current Alcohol intake frequency: does not drink Patient Tobacco Use Status: Current someday Tobacco user Years Smoked: 39 e-Cigarette/Vaping Use: Never Used Second Hand Smoke Exposure: No service: No Current occupational status: retired Cognitive needs: No Hearing needs: No Vision needs: No Physical Exam Vital Signs: Last Vital Signs Pulse 66 08/02/24 11:40 BP 150/58 H 08/02/24 11:40 Pulse Ox 96 08/02/24 11:40 Oxygen Delivery Method Room Air 08/02/24 11:40 BMI result Body Mass Index 21.1 Comfortable Neck supple no JVD. Lungs entry equal no rales. Heart S1-S2 heard no gallop or rub. Abdomen soft nontender. Neuro alert awake oriented. No asterixis. Extremities no edema. Results Reviewed Nephrology Results: Hgb 9.8 g/dl (14.0-18.0) L 06/27/24 WBC 8.2 X10*3/uL (4.8-10.8) 06/27/24 Plt Count 180 X10*3/uL (160-400) 06/27/24 Sodium 142 mmol/L (135-145) 07/23/24 Potassium 4.3 mmol/L (3.3-5.1) 07/23/24 Chloride 114 mmol/L (96-108) H 07/23/24 Carbon Dioxide 24 mmol/L (22-29) 07/23/24 BUN 44 mg/dL (9-16) H 07/23/24 Creatinine 1.30 mg/dL (0.5-1.4) 07/23/24 Calcium 8.8 mg/dL (8.4-10.2) 07/23/24 Assessment & Plan Assessment & Plan (1) Diabetes: Comment: IDDM Code(s): E11.9 - Type 2 diabetes mellitus without complications Category: Medical (2) Microalbuminuria: Code(s): R80.9 - Proteinuria, unspecified Category: Medical (3) CKD (chronic kidney disease) stage 3, GFR 30-59 ml/min: Code(s): N18.30 - Chronic kidney disease, stage 3 unspecified Category: Medical (4) Proteinuria: Code(s): R80.9 - Proteinuria, unspecified Category: Medical Plan . 73-year-old man with diabetes mellitus and peripheral artery disease with mild CKD and proteinuria. Proteinuria is most likely due to underlying diabetic kidney disease. Urine Pro: Cr is 2.66! Currently down to 1176! Nondiabetic causes should be considered but unlikely at this point. Serum creatinine - mild bump to 1.4 and down to 1.17 Currently stable at 1.3 Goal is to slow the progression of kidney disease. He is currently on lisinopril 10 mg. HTN_ BP is better controlled Serologies ordered for non diabetic causes - essentially normal Hold off on kidney biopsy. Maximize STANLEY inhibitors as tolerated for renal protection. Keep lisinopril to 10 mg a day. We will monitor the serum creatinine potassium periodically. He would benefit from SGLT2 inhibitor. - started on 07/30/24 !! Continue to avoid nephrotoxic agents including NSAIDs and Hdz 2 inhibitors. Maintain blood pressure less than 130/80. stay on low-sodium diet. Discussed smoking cessation h/o Mild hyperkalemia Discussed low K diet Added Lasix 20 mg QD to optimize BP and for kaliuresis and current K is normal at 4.3 Orders: Orders UA and rflx microscopic 3 Months N18.30 - Chronic kidney disease, stage 3 unspecified Basic Metabolic Panel 3 Months N18.30 - Chronic kidney disease, stage 3 unspecified Creatinine Urine 3 Months N18.30 - Chronic kidney disease, stage 3 unspecified Total Protein Urine Random 3 Months N18.30 - Chronic kidney disease, stage 3 unspecified Coding Level of Care Code Est Pt Level 4 (59928) Diagnoses Diabetes E11.9 Microalbuminuria R80.9 CKD (chronic kidney disease) stage 3, GFR 30-59 ml/min N18.30 Proteinuria R80.9
--- OUTSIDE RECORDS SUMMARY | 2024-08-02 12:52 | XMS_ITS | Clinical Summary ---
Author Organization [facility] Facility Address [address] [place] [id number] Care Team Providers Care Gypsum Block Setter Name Role Phone Clint Vivar NP Primary Care Provider [phone] Social History Tobacco Use Types Packs/Day Years [...] complete [place] [id number] MEDICARE [facility] MEDICARE [facility] Care Teams Gypsum Block Setter Relationship Specialty Start Date End Date Clint Vivar NP [address] [place] [address] PCP - General Nurse Practitioner 07/21/22
== END 2024-08-02 11:54 | disposition home or self-care (01) ==
PROVIDERS: PCP Nurse Practitioner Family; Visit Provider Internal Medicine Hypertension Specialist
DX: E11.9 Type 2 diabetes mellitus without complications (principal); R80.9 Proteinuria, unspecified; N18.30 Chronic kidney disease, stage 3 unspecified
CPT/HCPCS: 99214

== ENCOUNTER → 2024-08-02 11:31 | Outpatient (BNVA) | payer MEDICARE, OTHER, SELFPAY | PROVIDERS: PCP Nurse Practitioner Family; Visit Provider Internal Medicine Hypertension Specialist | DX: E11.22 Type 2 diabetes mellitus with diabetic chronic kidney disease (principal); N18.30 Chronic kidney disease, stage 3 unspecified; R80.9 Proteinuria, unspecified | CPT/HCPCS: 99212 ==

== ENCOUNTER 2024-09-14 08:30 | Outpatient (AMB) | payer MEDICARE, OTHER, SELFPAY ==
[2024-09-14 08:38] VITALS: BP 118/60; PULSE 68; TEMP 37; O2SAT 98
--- NOTE | 2024-09-14 08:38 | MHC.OFFWIV ---
Intake Vital Signs 09/14/24 08:38 Height 5 ft 8 in BP 118/60 Blood Pressure Location Lt brachial Position Sitting Pulse 68 Pulse Source Pulse Oximeter Temp 98.6 F Temp Source Oral Pulse Oximetry (%) 98 Intake Visit Reasons: EP-rt foot pain & swollen Patient Tobacco Use Status: Current someday Tobacco user Allergies No Known Allergies [No Known Allergies*] Allergy (Verified 09/14/24 08:38) Do you need a note to return to daycare/school/sports/work: No HPI EP-rt foot pain & swollen HPI Details This is a 73 year old male patient who presents to the [place] clinic today with report of a 4 day history of red, warm, and tender right foot. Denies any injury to area. Has DM and callus on the bottom of his right foot which has been followed up on with Dr. Almaguer ([facility]). Patient denies any recent illnesses. Denies fever or chills. [facility] Medical History Osteomyelitis of great toe of left foot Diabetes PVD (peripheral vascular disease) Hypercholesteremia Surgical History S/P angiogram of extremity (08/13/20) Amputated toe of left foot (08/18/20) S/P angiogram of extremity (10/08/19) S/P PICC central line placement Social History Household Members Other:: lives alone Housing: Apartment Alcohol intake: current Alcohol intake frequency: does not drink Patient Tobacco Use Status: Current someday Tobacco user Years Smoked: 39 e-Cigarette/Vaping Use: Never Used Second Hand Smoke Exposure: No service: No Current occupational status: retired Cognitive needs: No Hearing needs: No Vision needs: No Review of Systems Const All systems reviewed & are unremarkable except as noted in HPI and below Physical Exam Vital Signs: Last Vital Signs Temp 98.6 F 09/14/24 08:38 Pulse 68 09/14/24 08:38 BP 118/60 09/14/24 08:38 Pulse Ox 98 09/14/24 08:38 Const General: cooperative, healthy appearing, comfortable and no acute distress HEENT Head: Yes normal to inspection Resp Effort & Inspection: normal respiratory effort Auscultation: clear to auscultation bilaterally Cardio Rate: regular rate Rhythm: regular rhythm Skin General skin exam: no rashes or lesions noted Extrem Other: dorsal aspect of distal right foot - Erythematous, tender and warm to touch. No open areas. Large callus on plantar aspect of foot noted - patient states this is baseline. General: Yes capillary refill normal and Yes normal exam except as noted Right lower extremity: full ROM, normal capillary refill and no joint enlargement Ankle/foot/toe images: 1. gout Psych Appearance: grossly normal Mental Status: mental status grossly normal Speech and movement: Normal speech and movement present Assessment & Plan Assessment & Plan (1) Gout of right foot: Code(s): M10.9 - Gout, unspecified Qualifiers: Gout etiology: unspecified cause Chronicity: acute Qualified Code(s): M10.9 - Gout, unspecified Plan: Presentation consistent with gout of right foot. Started on prednisone taper. We reviewed indications, use, possible side effects of this medication. I encouraged icing area as tolerated and elevation of extremity. Patient will return to the clinic if he does not improve with treatment, or if symptoms worsen/new symptoms develop. All questions were answered and patient verbalizes understanding and agrees to plan. Medications: New prednisone Take 4 tabs for two days, then take 3 tabs for two days, then take 2 tabs for two days, then take 1 tab for 2 days. 10 mg PO DAILY 20 tabs 0RF M10.9 - Gout, unspecified Coding Level of Care Code Est Pt Level 4 (94353) Diagnoses Acute gout of right foot, unspecified cause M10.9 Gout etiology: unspecified cause Chronicity: acute
--- OUTSIDE RECORDS SUMMARY | 2024-09-14 08:55 | XMS_ITS | Clinical Summary ---
Author Organization [facility] Facility Address [address] [place] [id number] Care Team Providers Care Surgical Asst Name Role Phone Clint Vivar NP Primary Care Provider [phone] Social History Tobacco Use Types Packs/Day Years [...] Pneumococcal Vaccine: 65+ Ye ars (1 of - PCV) 10/04/2015 Influenza Vaccine (Season Ended) 2025 Hepatitis B Vaccine Aged Out No longe r eligible based on patient's age to complete [place] [id number] MEDICARE [facility] MEDICARE [facility] Care Teams Surgical Asst Relationship Specialty Start Date End Date Clint Vivar NP [address] [facility] [place] [address] PCP - General Nurse Practitioner 07/21/22
== END 2024-09-14 08:55 | disposition home or self-care (01) ==
PROVIDERS: PCP Nurse Practitioner Family; Visit Provider Nurse Practitioner Family
DX: M10.9 Gout, unspecified (principal)

== ENCOUNTER → 2024-09-14 08:30 | Outpatient (BNVA) | payer MEDICARE, OTHER, SELFPAY | PROVIDERS: PCP Nurse Practitioner Family; Visit Provider Nurse Practitioner Family | DX: M10.9 Gout, unspecified (principal) | CPT/HCPCS: 99212 ==

== ENCOUNTER 2024-09-18 12:26 | Outpatient (AMB) | payer MEDICARE, OTHER, SELFPAY ==
[2024-09-18 12:38] VITALS: BP 122/80; PULSE 62; O2SAT 96
--- NOTE | 2024-09-18 12:38 | MHC.OFFWIV ---
Intake Vital Signs 09/18/24 12:38 Weight 138 lb BP 122/80 Blood Pressure Location Rt brachial Position Sitting Pulse 62 Pulse Source Pulse Oximeter Pulse Oximetry (%) 96 Oxygen Delivery Method Room Air Intake Visit Reasons: EP-rt foot swollen & pain Intake Note: Patient here for right foot pain and swelling. pt has not been able to finish prednisone due to it elevated sugars into almost 400's Patient Tobacco Use Status: Current someday Tobacco user Allergies No Known Allergies [No Known Allergies*] Allergy (Verified 09/18/24 12:39) Do you need a note to return to daycare/school/sports/work: No HPI HPI Comments History of Present Illness Details This is a 73-year-old male with past medical history of insulin-dependent diabetes, peripheral vascular disease, hyperlipidemia and left foot osteomyelitis presenting for evaluation of increased pain and increased redness on the top of his right foot that 1st started approximately 1 week ago. Patient was seen on September 14 and prescribed a tapering dose of prednisone which unfortunately did not resolve the patient's pain and caused him to have blood glucose values over 400 mg/dL. Patient reports subjective fevers, chills an increased pain on the top of his right foot. Patient states he has had a chronic callus on the bottom of his right foot that has become more painful as well. Patient does not currently have a ointment mill tender of record. [facility] Medical History Osteomyelitis of great toe of left foot Diabetes PVD (peripheral vascular disease) Hypercholesteremia Surgical History S/P angiogram of extremity (08/13/20) Amputated toe of left foot (08/18/20) S/P angiogram of extremity (10/08/19) S/P PICC central line placement Social History Household Members Other:: lives alone Housing: Apartment Alcohol intake: current Alcohol intake frequency: does not drink Patient Tobacco Use Status: Current someday Tobacco user Years Smoked: 39 e-Cigarette/Vaping Use: Never Used Second Hand Smoke Exposure: No service: No Current occupational status: retired Cognitive needs: No Hearing needs: No Vision needs: No Review of Systems Const All systems reviewed & are unremarkable except as noted in HPI and below Reports chills, Reports fever(s) (subjective) and Reports other (hyperglycemia >400mg/dL) Eyes Reports no additional complaints ENT Reports no additional complaints Card Reports no additional complaints Resp Reports no additional complaints GI Reports no additional complaints Reports no additional complaints Musc Details: pain right foot Skin/Breast Reports system reviewed and no additional complaints, except as documented, Reports change in pigmentation, Denies new lesions, Reports erythema, Denies skin ulcer and Denies sores Neuro Reports no additional complaints Psych Reports no additional complaints Endo Reports no additional complaints Sergo/Lymph Reports no additional complaints Aller/Immun Reports no additional complaints Physical Exam Vital Signs: Last Vital Signs Pulse 62 09/18/24 12:38 BP 122/80 09/18/24 12:38 Pulse Ox 96 09/18/24 12:38 Oxygen Delivery Method Room Air 09/18/24 12:38 Const General: cooperative, healthy appearing, comfortable, no acute distress, well developed, alert, awake and Physically active Nutritional Appearance: average body habitus Orientation/consciousness: patient oriented x3 Limitations: no limitations Skin Other: Bright macular erythema extending on the dorsal surface of the right foot from the toes to approximately 2 cm distal of the right ankle extending more laterally than medially; no open sores, fissures, discharge noted right foot, there is a 2 cm x 0.75 cm callus that is tender to touch on the plantar surface of the right foot that is additionally tender to touch, no erythema surrounding the lesion. Neuro General: patient oriented x3 Extrem Other: pain and warmth to palpation of the dorsal surface of the right foot, mild discomfort overlying the callus that is present on the plantar surface of the right foot overlying the distal 2nd metatarsal Psych Appearance: grossly normal Mental Status: mental status grossly normal Insight: Good insight present (Psych) Judgement: Good judgement present (Psych) Assessment & Plan Assessment & Plan (1) Cellulitis of right foot: Comment: Patient's history coupled with his examination is consistent with a cellulitis of the right foot. Erythema is marked with a surgical marker and the patient will be discharged home with antibiotic therapy as well as indomethacin. Patient is instructed to discontinue taking prednisone. Code(s): L03.115 - Cellulitis of right lower limb Plan: Doxycycline b.i.d. times 10 days, indomethacin t.i.d. p.r.n. severe pain with food only. Medications: New doxycycline hyclate 100 mg PO BID 20 tabs 0RF indomethacin administer with food or milk 50 mg PO TID PRN 10 caps 0RF severe pain, take ALWAYS with food Coding Level of Care Code Est Pt Level 4 (73358) Diagnoses Cellulitis of right foot L03.115 Time Spent (min) 25
--- OUTSIDE RECORDS SUMMARY | 2024-09-18 15:02 | XMS_ITS | Clinical Summary ---
Author Organization [facility] Facility Address [address] [place] [address] Care Team Providers Care Metal Crafts Teacher Name Role Phone Clint Vivar NP Primary Care Provider [phone] Social History Tobacco Use Types Packs/Day Years [...] complete [place] [id number] MEDICARE [facility] MEDICARE [facility] Care Teams Metal Crafts Teacher Relationship Specialty Start Date End Date Clint Vivar NP 1961 [facility] [place] [address] PCP - General Nurse Practitioner 07/21/22
== END 2024-09-18 13:01 | disposition home or self-care (01) ==
PROVIDERS: PCP Nurse Practitioner Family; Visit Provider Physician Assistant
DX: L03.115 Cellulitis of right lower limb (principal)

== ENCOUNTER → 2024-09-18 12:26 | Outpatient (BNVA) | payer MEDICARE, OTHER, SELFPAY | PROVIDERS: PCP Nurse Practitioner Family; Visit Provider Physician Assistant | DX: L03.115 Cellulitis of right lower limb (principal) | CPT/HCPCS: 99212 ==

== ENCOUNTER 2024-09-20 10:51 | Inpatient (IN) | payer MEDICARE, OTHER, SELFPAY ==
[2024-09-20] VITALS (9 sets, daily range): BP systolic 106–176; BP diastolic 48–67; PULSE 52–89; RESP 16–19; TEMP 36.5–36.7; O2SAT 96–100; BMI 20.7
--- NOTE | ~2024-09-20 | XR_ITS ---
EXAMINATION: XR FOOT, RIGHT CLINICAL INFORMATION: diabetic wound, leaking, concern for osteo COMPARISON: 02/25/2022 TECHNIQUE: AP, lateral, and oblique views of the right foot. FINDINGS: Soft tissue swelling with gas seen overlying the dorsal fourth digit and MCP region. Resorptive changes seen involving the fourth metatarsal head and proximal aspect of the proximal phalanx consistent with chronic osteomyelitis. Mild hallux valgus. Arthritic changes at the first MTP joint with characteristic erosions of gouty arthropathy. Normal plantar arch. The midfoot and hindfoot appear normal aside from a small plantar calcaneal spur. XR/XR foot RT min 3V IMPRESSION: 1.Resorptive changes seen involving the fourth metatarsal head and proximal aspect of the proximal phalanx consistent with chronic osteomyelitis. 2. Soft tissue swelling with gas seen overlying the dorsal fourth digit and MCP. 3. Mild hallux valgus. Arthritic changes at the first MTP joint with characteristic erosions of gouty arthropathy. Electronically signed by: Marino Carrillo MD 09/20/2024 12:55 PM EDT
--- NOTE | ~2024-09-20 | US_ITS ---
EXAMINATION: Noninvasive assessment of the bilateral lower extremities with ARTERIAL DUPLEX, ANKLE BRACHIAL INDICES (ABIs), and PULSE VOLUME RECORDINGS (PVRs). CLINICAL INFORMATION: Nonhealing, right lower extremity. TECHNIQUE: Duplex Doppler techniques with waveform analysis and measurement of velocities in the bilateral common femoral, profunda femoris, superficial femoral, popliteal and tibial arteries were performed. Additionally, ankle pulse volume recordings, ankle pressure measurements and ankle brachial indices were obtained of the lower extremity arterial system bilaterally. The study was performed only at rest. COMPARISON: None FINDINGS: DIRECT DUPLEX DOPPLER FINDINGS: RIGHT LEG: Common femoral artery: 173 cm/s, phasicity: Biphasic. Profunda femoris artery: 189 cm/s, phasicity: Biphasic. Superficial femoral artery (proximal): 44 cm/s, phasicity: Monophasic. Superficial femoral artery (mid): No flow. Collateral vessels. Superficial femoral artery (distal): 153 cm/s, phasicity: Monophasic. Popliteal artery: 52 cm/s, phasicity: Monophasic. Posterior tibial artery: 57 cm/s, phasicity: Monophasic. Peroneal artery: 23 cm/s, phasicity: Monophasic. Anterior tibial artery: 41 cm/s, phasicity: Monophasic. Dorsalis pedis artery: 56 cm/s, phasicity:Monophasic. LEFT LEG: Common femoral artery: 137 cm/s, phasicity: Triphasic. Spectral broadening. Profunda femoris artery: 195 cm/s, phasicity: Monophasic. Superficial femoral artery (proximal): 148 cm/s, phasicity: Biphasic. Stent, patent. Superficial femoral artery (mid): 109 cm/s, phasicity: Biphasic. Stent. Superficial femoral artery (distal): 78 cm/s, phasicity: Biphasic. Stent. Popliteal artery: 87 cm/s, phasicity: Biphasic. Posterior tibial artery: 84 cm/s, phasicity: Biphasic. Peroneal artery: 68 cm/s, phasicity: Biphasic. Anterior tibial artery: 45 cm/s, phasicity: Biphasic. Dorsalis pedis artery: 18 cm/s, phasicity: Monophasic. Reversal. BRACHIAL PRESSURES: Right: 152 Left: 131 ANKLE PRESSURES: Right: PT 111, DP 95 Left: PT 150, DP 153 ANKLE-BRACHIAL INDEX: Right: 0.7 Left: 1.01. US/US arterial duplex BI w/ CATRACHO IMPRESSION: Right leg: Occluded mid segment of the superficial femoral artery. Severe inflow disease in the interrogated arteries from the distal superficial femoral artery to the dorsal pedis artery. Left leg: Moderate to severe inflow disease involving mostly the left dorsalis pedis artery and the profunda femoral artery. CATRACHO Reference: - >1.4 = calcified vessels - 0.9 - 1.4 = normal - no significant arterial disease - 0.7 - 0.89 = mild peripheral arterial disease - 0.51 - 0.69 = moderate peripheral arterial disease - d 0.50 = severe peripheral arterial disease - < .30 = critical arterial disease Electronically signed by: Cordell Butler MD 09/25/2024 11:06 AM EDT
--- NOTE | 2024-09-20 11:36 | ED_ITS ---
HPI - General Adult General Chief complaint: Wound/Laceration Stated complaint: foot infected Time Seen by Provider: 09/20/24 11:35 Source: patient Mode of arrival: ambulatory Limitations: no limitations History of Present Illness ED Provider: Thais Nielsen PA-C HPI narrative: Patient is a 73 year old assigned male at with a history of diabetes, CKD stage 3, and PVD presenting to the emergency department today with a right foot infection. Patient states that he has had this lesion on his right foot over the last 2 weeks. Patient states that he was initially told it was gout and started on steroids but it didn't get better. Patient states that he was then seen and started on antibiotics but it continues to get worse and is now leaking. Patient denies any dizziness, lightheadedness, abdominal pain, nausea, vomiting, fever, chills, blurry vision, double vision, loss of vision, chest pain, difficulty breathing, shortness of breath, back pain, night sweats, pain with urination, increased urinary frequency, increased urinary urgency, blood in his urine or stool, syncope or a near syncopal episode, recent trauma or falls, bowel incontinence, bladder incontinence, or any other complaints at this time. Onset (ago): week(s) (2) Location: right and lower extremity Relieving factors: none Exacerbating factors: none Associated symptoms: denies other symptoms Treatments prior to arrival: other (oral steroids and antibiotics) Related Data Home Medications ?Medication ?Instructions ?Recorded ?Confirmed aspirin 81 mg tablet,delayed 81 mg PO DAILY 09/02/20 09/20/24 release (Adult Low Dose Aspirin) insulin aspart See Protocol subcut TID PRN high 09/20/24 09/20/24 (niacinamide)(U-100) 100 unit/mL(3 sugar mL) subcutaneous pen (Fiasp FlexTouch U-100 Insulin) Previous Rx's ?Medication ?Instructions ?Recorded blood-glucose meter (FreeStyle #1 ea 02/17/21 Lite Meter kit) pen needle, diabetic 31 gauge x #50 ea 11/03/2308/26 lisinopril 10 mg tablet 10 mg PO DAILY #90 tabs 01/30/24 clopidogrel 75 mg tablet 75 mg PO DAILY #90 tabs 04/06/24 metformin 500 mg tablet 500 mg PO DAILY 90 days #90 tabs 05/13/24 empagliflozin 10 mg tablet 10 mg PO DAILY #30 tabs 07/30/24 (Jardiance) furosemide 20 mg tablet 20 mg PO DAILY #30 tabs 08/26/24 Allergies Allergy/AdvReac Type Severity Reaction Status Date / Time No Known Allergies Allergy Verified 09/20/24 11:03 [No Known Allergies*] Review of Systems 2 Constitutional: Constitutional: Reports no additional constitutional complaints, Denies chills, Denies fever(s) and Denies night sweats Eyes: Eyes: Reports no additional eye complaints, Denies blurry vision, Denies change in vision, Denies diplopia, Denies eye discharge, Denies loss of vision and Denies eye pain ENT: Denies dizziness Cardiovascular: Cardiovascular: Reports no additional cardiovascular complaints, Denies chest pain, Denies lightheadedness, Denies Loss of Consciousness and Denies dyspnea Respiratory: Respiratory: Reports no additional respiratory complaints and Denies dyspnea Gastrointestinal: Gastrointestinal: Reports no additional gastrointestinal complaints, Denies abdominal pain, Denies melena, Denies hematochezia, Denies change in bowel habits and Denies change in stool character Genitourinary: Genitourinary: Reports no additional male genitourinary complaints, Denies hematuria, Denies oliguria, Denies difficulty urinating, Denies dysuria, Denies urinary frequency, Denies urinary hesitancy, Denies urinary incontinence and Denies urinary urgency Musculoskeletal: Musculoskeletal: Reports no additional musculoskeletal complaints, Denies numbness and Denies tingling Integumentary/Breasts: Comments: right foot wound Neurologic: Denies dizziness, Denies loss of vision, Denies numbness and Denies tingling Psychiatric: Psychiatric: Reports no additional psychiatric complaints Endocrine: Endocrine: Reports no additional endocrine complaints Hematologic/Lymphatic: Hematologic/Lymphatic: Reports no additional hematologic/lymphatic complaints Allergic/Immunologic: Allergic/Immunologic: Reports no additional allergic/immunologic complaints [facility] Past Medical History Attestation statement: The following information was validated with the patient. Source: old records reviewed and nursing notes reviewed Medical History Osteomyelitis of great toe of left foot Diabetes PVD (peripheral vascular disease) Hypercholesteremia Surgical History S/P angiogram of extremity (08/13/20) Amputated toe of left foot (08/18/20) S/P angiogram of extremity (10/08/19) S/P PICC central line placement Social History Social History Household Members Other:: lives alone Housing: Apartment Alcohol intake: current Alcohol intake frequency: does not drink Patient Tobacco Use Status: Current someday Tobacco user Years Smoked: 39 Smoked in Last 30 Days: Yes e-Cigarette/Vaping Use: Never Used Second Hand Smoke Exposure: No Use of substances other than those prescribed or required for medical reasons: No Advance Directives: No Advance Directives Information Provided: No service: No Current occupational status: retired Cognitive needs: No Hearing needs: No Vision needs: No Physical Exam ED Vital Signs: Vital Signs - 24 hr 09/20/24 10:59 09/20/24 12:04 09/20/24 12:52 Temperature 98.1 F 97.9 F 97.8 F Pulse Rate 77 68 89 Respiratory Rate 18 18 17 Blood Pressure 134/51 L 125/59 L 106/48 L Pulse Oximetry 99 99 99 Oxygen Delivery Method Room Air Room Air Room Air 09/20/24 13:51 09/20/24 14:46 Temperature 97.7 F Pulse Rate 57 52 Respiratory Rate 17 17 Blood Pressure 124/56 L 130/54 L Pulse Oximetry 99 100 Oxygen Delivery Method Room Air Room Air BMI result Body Mass Index 20.7 Const General: cooperative, no acute distress, alert and awake Nutritional Appearance: well nourished Orientation/consciousness: patient oriented x3 Limitations: no limitations [facility] Head: Yes normal to inspection and Yes atraumatic Ears: hearing grossly normal bilaterally and external ears normal General nose exam: Normal external nose present, no nasal discharge noted and no epistaxis Face and sinus: Yes normal facial exam, No abrasion and No laceration Mouth: Normal oral and palatal mucosa present, no drooling and no muffled voice Eyes General: appearance normal, both eyes and all related structures Periorbital: periorbital findings normal Eyelids: Yes eyelids normal Conjunctivae: conjunctivae normal Pupils: Equal, round and reactive pupils present EOM: EOMs intact bilaterally Neck Neck: Yes normal visual inspection, Yes full ROM and Yes no lymphadenopathy Chest Chest palpation & inspection: normal inspection of the chest Resp Effort & Inspection: normal respiratory effort and able to speak in complete sentences GI Inspection: Yes normal to inspection Neuro General: patient oriented x3, moves all extremities and CN's II-XI intact bilaterally Cranial nerves: Yes Equal, round and reactive pupils present Cognition (Neuro): normal cognition Extrem Other: General: Yes full ROM and Yes capillary refill normal Psych Appearance: grossly normal Mental Status: mental status grossly normal Affect: normal affect Attitude: cooperative Thought process: Normal thought process present Thought content: Normal thought content present Insight: Good insight present (Psych) Medications Administered Generic Name Dose Route Start Last Admin Trade Name Freq PRN Reason Stop Dose Admin Lactated Ringer's 1,000 mls @ 150 mls/hr 09/20/24 12:15 09/20/24 12:49 Lr IV 09/20/24 18:54 150 mls/hr .[id number] AMAIRANI Administration Discontinued Medications Generic Name Dose Route Start Last Admin Trade Name Freq PRN Reason Stop Dose Admin Piperacillin Sod/Tazobactam 50 mls @ 100 mls/hr 09/20/24 11:54 09/20/24 12:46 Sod 3.375 gm/ Sodium Chloride IV 09/20/24 12:23 Infused ONCE ONE Infusion Vancomycin HCl 1,500 mg/ 500 mls @ 333.333 mls/hr 09/20/24 12:00 09/20/24 14:17 Sodium Chloride IV 09/20/24 13:29 Infused ONCE ONE Infusion Medical Decision Making Medical Decision Making MDM Narrative: Patient is a 73 year old assigned male at with a history of diabetes, CKD stage 3, and PVD presenting to the emergency department today with a right foot infection. Patient's physical exam was as noted in the physical exam portion of this note. Patient's blood work showed a WBC count of 18.8, CRP of 16.06, ESR of 90. Patient's CR was 2.2 with a BUN of 96 consistent with an acute kidney injury in the setting of chronic kidney disease. Patient's right foot x-ray showed evidence of osteomyelitis and soft tissue gas. Patient's clinical presentation is most consistent with a right foot cellulitis, right foot osteomyelitis, and an ROSHNI in the settling of chronic kidney disease. Patient's clinical presentation is not consistent with sepsis (@1430). I spoke to the hospitalist team who agreed to admission. I explained my physical exam findings as well as all test results to the patient. I answered all questions asked by the patient. Patient verbalized agreement and understanding with this treatment plan and admission. Differential Diagnosis Differential Diagnoses: The differential diagnosis associated with the presentation includes Osteomyelitis Cellulitis ROSHNI Admission/Observation Consideration of admission/observation: Escalation of care including admission/observation considered Patient admitted as noted in the MDM Rationale portion of this note. Consult Healthcare Provider Management of the patient was discussed with: Hospitalist (agreed to admission as noted in the MDM Rationale portion of this note. ) Lab Data [facility] Lab Attestation statement: I reviewed the patient's lab results. My interpretation of these results are in the MDM Rationale portion of this note. 09/20/24 11:32 09/20/24 07:31 Labs: Lab Results 09/20/24 09/20/24 09/20/24 Range/Units 07:31 11:32 12:13 WBC 18.8 H (4.8-10.8) X10*3/uL RBC 3.41 L (4.60-5.80) X10*6/uL Hgb 10.2 L (14.0-18.0) g/dl Hct 30.4 L (42.0-52.0) % MCV 89.1 (80.0-98.0) fL MCH 29.9 (27.0-33.0) pg MCHC 33.6 (31.0-36.0) g/dl RDW 12.5 (11.0-16.0) % Plt Count 268 D (160-400) X10*3/uL MPV 11.1 (9.4-12.4) fL Immature Gran % (Auto) 0.7 H (0.0-0.4) % Neut % (Auto) 86.2 H (45-73) % Lymph % (Auto) 4.7 L (20-40) % Rosebud % (Auto) 6.0 (2-11) % Eos % (Auto) 2.1 (0-4) % Baso % (Auto) 0.3 (0-2) % Lymph # (Auto) 0.9 L (1.2-4.9) X10*3/uL Rosebud # (Auto) 1.1 (0.1-1.2) X10*3/uL Eos # (Auto) 0.4 (0.0-0.4) X10*3/uL Baso # (Auto) 0.1 (0.0-0.2) X10*3/uL Abs Immat Gran (auto) 0.14 H (0.00-0.03) X10*3/uL Absolute Neuts (auto) 16.2 H (2.0-8.3) x10*3/uL Absolute Nucleated RBC 0.000 (0.0-0.012) X10*3/uL Nucleated RBC % (auto) 0.0 (0.0-0.2) /100WBC ESR 90 H (0-15) MM/HR PT 12.0 (10.9-12.4) SEC INR 1.0 (0.9-1.1) APTT 29.3 (26.0-36.8) SEC Sodium 142 (135-145) mmol/L Potassium 4.7 (3.3-5.1) mmol/L Chloride 112 H (96-108) mmol/L Carbon Dioxide 18 L (22-29) mmol/L Anion Gap 17 (12-20) BUN 96 H (9-16) mg/dL Creatinine 2.20 H (0.5-1.4) mg/dL Estim Creat Clear Calc 26.0 Estimated GFR 29 Random Glucose 302 H (60-115) mg/dL Lactic Acid 1.1 (0.5-2.0) mmol/L Calcium 9.3 (8.4-10.2) mg/dL Total Bilirubin 0.2 (0.0-1.0) mg/dL C-Reactive Protein 16.06 H (< or = 0.50) mg/dL Independent Interpretation I performed an independent interpretation of an: Plain X-Ray Interpretation: My interpretation is in agreement with the radiologist's impression of this imaging study. L EXAMINATION: XR FOOT, RIGHT CLINICAL INFORMATION: diabetic wound, leaking, concern for osteo COMPARISON: 02/25/2022 TECHNIQUE: AP, lateral, and oblique views of the right foot. FINDINGS: Soft tissue swelling with gas seen overlying the dorsal fourth digit and MCP region. Resorptive changes seen involving the fourth metatarsal head and proximal aspect of the proximal phalanx consistent with chronic osteomyelitis. Mild hallux valgus. Arthritic changes at the first MTP joint with characteristic erosions of gouty arthropathy. Normal plantar arch. The midfoot and hindfoot appear normal aside from a small plantar calcaneal spur. XR/XR foot RT min 3V IMPRESSION: 1.Resorptive changes seen involving the fourth metatarsal head and proximal aspect of the proximal phalanx consistent with chronic osteomyelitis. 2. Soft tissue swelling with gas seen overlying the dorsal fourth digit and MCP. 3. Mild hallux valgus. Arthritic changes at the first MTP joint with characteristic erosions of gouty arthropathy. Electronically signed by: Marino Carrillo MD 09/20/2024 12:55 PM EDT RP Dictated By: Marino Carrillo MD Signed By: Electronically signed by Marino Carrillo MD 09/20/24 1253 Radiology Impression Discussion of test interpretation with radiology: I have reviewed the radiologist's reading. Chronic Conditions Patient?s care impacted by: Diabetes Critical Care Time Critical Care Time Critical Care Time: Yes Total Critical Care Time: 47 Attestation: I spent 47 minutes of Critical Care Time with this patient. This does not include time spent on separately reported billable procedures. Discharge Plan Discharge Clinical Impression: Osteomyelitis, Cellulitis, Acute kidney injury Patient Disposition: Admitted As Inpatient Prescriptions: No Action (DME) blood-glucose meter [FreeStyle Lite Meter] Kit See Rx Instructions .Route Qty: 1 0RF Rx Instructions: test 4 times QD (DME) pen needle, diabetic 31 gauge x 3/16 needle See Rx Instructions subcut TID Qty: 50 1RF Rx Instructions: tid lisinopril 10 mg tablet 10 mg PO DAILY Qty: 90 1RF clopidogrel 75 mg tablet 75 mg PO DAILY Qty: 90 1RF metformin 500 mg tablet 500 mg PO DAILY 90 Days Qty: 90 1RF furosemide 20 mg tablet 20 mg PO DAILY Qty: 30 0RF Fiasp FlexTouch U-100 Insulin 100 unit/mL (3 mL) insulin pen See Protocol subcut TID PRN (Reason: high sugar ) Protocol: Insulin Correction Scale Less than or equal to 110 ---- Give (units): 0 111 to 150 Give (units): 0 151 to 200 Give (units): 2 201 to 250 Give (units): 4 251 to 300 Give (units): 6 301 to 350 Give (units): 8 Greater than 350 Give (units): 10 Call MD if Blood Glucose > : 350 aspirin [Adult Low Dose Aspirin] 81 mg tablet,delayed release (DR/EC) 81 mg PO DAILY Jardiance 10 mg tablet 10 mg PO DAILY Qty: 30 4RF Print Language: Hungarian
[2024-09-20 11:45] LABS: Basophils Absolute Auto 0.1 X10*3/uL (0.0-0.2); Basophils Percent Auto 0.3 % (0-2); Eosinophils Absolute Auto 0.4 X10*3/uL (0.0-0.4); Eosinophils Percent Auto 2.1 % (0-4); Hematocrit 30.4 % (42.0-52.0); Hemoglobin 10.2 g/dl (14.0-18.0); Imm Gran Abs Auto 0.14 X10*3/uL (0.00-0.03); Imm Gran Pct Auto 0.7 % (0.0-0.4); Lymphocytes Absolute Auto 0.9 X10*3/uL (1.2-4.9); Lymphocytes Percent Auto 4.7 % (20-40); MANUAL DIFF FLAG NO; Mean Corpuscular HGB Conc 33.6 g/dl (31.0-36.0); Mean Corpuscular Hemoglobin 29.9 pg (27.0-33.0); Mean Corpuscular Volume 89.1 fL (80.0-98.0); Mean Platelet Volume 11.1 fL (9.4-12.4); Monocytes Absolute Auto 1.1 X10*3/uL (0.1-1.2); Neutrophils Absolute Auto 16.2 x10*3/uL (2.0-8.3); Neutrophils Percent Auto 86.2 % (45-73); Platelet Count 268 X10*3/uL (160-400); Red Blood Count 3.41 X10*6/uL (4.60-5.80); Red Cell Distribution Width 12.5 % (11.0-16.0); White Blood Count 18.8 X10*3/uL (4.8-10.8)
[2024-09-20 11:55] LABS: Partial Thromboplastin Time 29.3 SEC (26.0-36.8)
[2024-09-20 11:59] LABS: Anion Gap 17 (12-20); Bilirubin Total 0.2 mg/dL (0.0-1.0); Blood Urea Nitrogen 96 mg/dL (9-16); Calcium 9.3 mg/dL (8.4-10.2); Carbon Dioxide 18 mmol/L (22-29); Chloride 112 mmol/L (96-108); Estimated Glomerular Filt Rate 29; Glucose Random 302 mg/dL (60-115); Potassium 4.7 mmol/L (3.3-5.1); Sodium 142 mmol/L (135-145)
[2024-09-20 12:01] LABS: Lactic Acid 1.1 mmol/L (0.5-2.0)
[2024-09-20] MEDS: Piperacillin Sodium/Tazobactam 3.375 GM in 0.9 % Sodium Chloride 50 ML IV (12:16)
[2024-09-20 12:34] LABS: C Reactive Protein 16.06 mg/dL (< or = 0.50)
[2024-09-20] MEDS: vancomycin HCL 1,500 MG in 0.9 % Sodium Chloride 500 ML 333.33 MG IV (12:46)
[2024-09-20] MEDS: Lactated Ringers 1,000 ML 150 ML IV (12:49)
--- OUTSIDE RECORDS SUMMARY | 2024-09-20 14:18 | XMS_ITS | Clinical Summary ---
Author Organization [facility] Facility Address [address] [place] [address] Care Team Providers Care Willower Name Role Phone Clint Vivar NP Primary Care Provider [phone] Social History Tobacco Use Types Packs/Day Years [...] Colorectal Cancer Screening: Sigmoidoscopy 10/04/1999 Pneumococcal Vaccine: 50+ Ye ars (1 of - PCV) 10/04/2015 Influenza Vaccine (Season Ended) 2025 Hepatitis B Vaccine Aged Out No longe r eligible based on patient's age to complete [place] [id number] Medicare [facility] Medicare [facility] Care Teams Willower Relationship Specialty Start Date End Date Clint Vivar NP 1961 [place] [address] PCP - General Nurse Practitioner 07/21/22
[2024-09-20 14:19] LABS: Erythrocyte Sedimentation Rate 90 MM/HR (0-15)
--- NOTE | 2024-09-20 14:29 | P.HPHOSP_ITS ---
History of Present Illness Date of Service: 09/20/24 Attending physician on admission: [facility] Chief Complaint: Right foot wound Pt is a 73-year-old female with a PMH significant for?insulin-dependent type 2 diabetes, PVD, HTN, and hx of osteo s/p left fifth toe amputation who presents to the ED with?worsening right foot wound. Pt reports symptoms began 2 weeks ago when the area of a chronic callus on the bottom of his right foot became sore and then turned red. Pt initially went to walk-in clinic and was diagnosed with gout and prescribed prednisone. Over the next week pt's symptoms did not resolve and erythema began to spread. Four days later went back to walk-in clinic where he was diagnosed with cellulitis and started on doxycycline 100 mg b.i.d. times 10 days. Symptoms again did not improve, and earlier this morning bottom of patient's foot opened up and had purulent, foul-smelling discharge. Reports some subjective fever and chills earlier in the week, but none recently. No nausea, vomiting, diarrhea. Has been eating and drinking normally. Denies abdominal pain. No chest pain/pressure, palpitations. Denies shortness or breath or difficulty breathing. Of note, pt reports recently started on furosemide 20 mg p.o. by Nephrology around to 2024. In the ED pt was soft BP as low as 134/51, vitals otherwise stable and WNL. Labs were significant for leukocytosis 18.8, ESR 90, creatinine 2.20 (elevated from 1.30 on 07/23/2024), and CRP 16.06. Stable normocytic anemia. No significant electrolyte abnormalities. Right foot x-ray found soft tissue swelling with gas over dorsal 4th digit and MCP, as well as changes consistent with chronic osteomyelitis. Also found mild hallux valgus with characteristic erosions of gouty arthropathy. Pt was treated with IVF, vancomycin, and Zosyn. Pt will be admitted to the hospital for treatment and further evaluation of right foot cellulitis concerning for acute osteomyelitis. Review of Systems 2 Review of Systems: Negative except for that which is stated in the HPI. [facility] Medical History Osteomyelitis of great toe of left foot Diabetes PVD (peripheral vascular disease) Hypercholesteremia Surgical History S/P angiogram of extremity (08/13/20) Amputated toe of left foot (08/18/20) S/P angiogram of extremity (10/08/19) S/P PICC central line placement Social History Household Members Other:: lives alone Housing: Apartment Alcohol intake: current Alcohol intake frequency: does not drink Patient Tobacco Use Status: Never used Tobacco Years Smoked: 39 Smoked in Last 30 Days: Yes e-Cigarette/Vaping Use: Never Used Second Hand Smoke Exposure: No Use of substances other than those prescribed or required for medical reasons: No Advance Directives: No Advance Directives Information Provided: No Nutrition Risks: No Nutritional Risk service: No Current occupational status: retired Cognitive needs: No Hearing needs: No Vision needs: No Meds Allergies Allergy/AdvReac Type Severity Reaction Status Date / Time No Known Allergies Allergy Verified 09/20/24 11:03 [No Known Allergies*] Active Medications: Current Medications Lactated Ringer's (Lr) 1,000 mls @ 150 mls/hr IV .Q6H40M AMAIRANI Stop: 09/20/24 18:54 Last Admin: 09/20/24 12:49 Dose: 150 mls/hr Home Medications ?Medication ?Instructions ?Recorded ?Confirmed ?Last Taken ?Type aspirin 81 mg tablet,delayed 81 mg PO DAILY 09/02/20 09/20/24 09/20/24 History release (Adult Low Dose Aspirin) insulin aspart See Protocol subcut TID PRN high 09/20/24 09/20/24 Unknown History (niacinamide)(U-100) 100 unit/mL(3 sugar mL) subcutaneous pen (Fiasp FlexTouch U-100 Insulin) Physical Exam 2 Vital Signs and Narrative: Vital Signs: Last Vital Signs Temp 97.7 F 09/20/24 13:51 Pulse 57 09/20/24 13:51 Resp 17 09/20/24 13:51 BP 124/56 L 09/20/24 13:51 Pulse Ox 99 09/20/24 13:51 O2 Del Method Room Air 09/20/24 13:51 BMI result Body Mass Index 20.7 General: AOx3, no acute distress Resp: CTA bilaterally CVS: S1, S2, RRR GI: +BS, NT, no distention Skin: Warm, dry Neuro: Cranial nerves II-XII grossly intact bilaterally. Motor grossly intact bilaterally Extremities: Left foot s/p fifth digit amputation. Right foot with erythema and warmth on dorsal aspect, as well as wound with foul-smelling discharge on plantar surface at 4th digit MCP. As pictured below. Psych: Appropriate affect Results Labs 09/20/24 11:32 09/20/24 07:31 Labs: Laboratory Results - last 24 hr 09/20/24 09/20/24 09/20/24 07:31 11:32 12:13 MCV 89.1 MCH 29.9 MCHC 33.6 RDW 12.5 Plt Count 268 D MPV 11.1 Immature Gran % (Auto) 0.7 H Neut % (Auto) 86.2 H Lymph % (Auto) 4.7 L [place] % (Auto) 6.0 Eos % (Auto) 2.1 Baso % (Auto) 0.3 Lymph # (Auto) 0.9 L [place] # (Auto) 1.1 Eos # (Auto) 0.4 Baso # (Auto) 0.1 Abs Immat Gran (auto) 0.14 H Absolute Neuts (auto) 16.2 H Absolute Nucleated RBC 0.000 Nucleated RBC % (auto) 0.0 ESR 90 H PT 12.0 INR 1.0 APTT 29.3 Anion Gap 17 Estim Creat Clear Calc 26.0 Estimated GFR 29 Random Glucose 302 H Lactic Acid 1.1 Calcium 9.3 Total Bilirubin 0.2 C-Reactive Protein 16.06 H Imaging Radiologist's Impressions: Impressions Foot X-Ray 09/20/24 12:30 IMPRESSION: 1.Resorptive changes seen involving the fourth metatarsal head and proximal aspect of the proximal phalanx consistent with chronic osteomyelitis. 2. Soft tissue swelling with gas seen overlying the dorsal fourth digit and MCP. 3. Mild hallux valgus. Arthritic changes at the first MTP joint with characteristic erosions of gouty arthropathy. Electronically signed by: Marino Carrillo MD 09/20/2024 12:55 PM EDT Assessment and Plan (1) Cellulitis of right foot: Status: Acute Plan Pt is a 73-year-old female with a PMH significant for?insulin-dependent type 2 diabetes, PVD, HTN, and hx of osteo s/p left fifth toe amputation who presents to the ED with?worsening right foot wound. Pt will be admitted to the hospital for treatment and further evaluation of right foot cellulitis concerning for acute osteomyelitis. Right foot cellulitis Worsening x2 weeks CXR showing likely chronic osteomyelitis, ESR and CRP significantly elevated Concerning for acute osteomyelitis in the setting of DM and PVD No sepsis: Leukocytosis, but no fever, tachycardia, or tachypnea; lactic acid WNL Will treat with vanc and Zosyn, started 09/20/2024 Vascular surgery consult Infectious disease consult Will defer MRI for now pending specialist consultation ROSHNI on CKD Denies N/V/D or reduced p.o. intake Likely iatrogenic: pt recently started on furosemide 20mg in July Pt received IVF in the ED Hold lisinopirl, metformin, and furosemide Low-salt diet Likely D/C Lasix on discharge Follow up outpatient with Nephrology Follow creatinine PVD S/P SFA plasty bilaterally Continue aspirin and Plavix Insulin-dependent type 2 diabetes Has been hyperglycemic since being on prednisone taper [address] on sliding scale insulin Hold metformin Diabetic diet Full Code Attending:?Dr. Reese DVT Prophylaxis: Heparin Pt will require a hospitalization of at least two nights for treatment of?right foot cellulitis concerning for acute osteomyelitis in the setting of DM2 and PVD. pt will require hospital level care for administration of IV antibiotics and specialist consultation with vascular surgery and Infectious Disease. Quality Stroke Does the patient have a stroke diagnosis?: No VTE Prior VTE?: No VTE Risk Level:: Medical - moderate - high VTE Device Contraindication: Treatment Not Indicated VTE Drug Contraindication: N/A - Med Ordered
--- NOTE | 2024-09-20 14:54 | PC.NURSE ---
patient a&ox3, pt had labs drawn in triage, upon pt arriving to the room a sepsis protocol was initiated [id number] as pts white count was18.8, pt difficult stick- only able to get 1 IV site, zosyn was administered which is not compatible with the LR, upon its completion the LR was hung with the Vanco. There was no bolus given to the patient as his lactic came back as 1.1- he has LR running continuing at 150ml/hr- his vitals have been stable throughout. pt denies pain/discomfort, rt foot wound currently open to air and draining blood tinged fluid. call knutson within reach, plan of careongoing
--- NOTE | 2024-09-20 15:08 | PHA.MEDREC ---
Addendum entered by Christopher Gardner 09/20/24 15:13: reviewed Original Note: Pharmacy Consult ? Medication Reconciliation Pharmacy has completed the medication reconciliation. Spoke to patient to confirm med list. Patient had his Rx Bottles with him. Patient confirmed Fiasp Flex Touch U-100 is per sliding scale only PRN. Patient states he stopped taking Doxycycline Hyc 100 mg, Indomethacin 50 mg, and Prednisone 10 mg. Patient last took his medications was this morning.
--- NOTE | 2024-09-20 16:10 | PHA.PROG ---
Admission Date/Time: September 20, 2024 15:46 Indication: SSSI Weight in k.7 kg Serum Creatinine - Last 168 Hours 09/20/24 07:31 Creatinine 2.20 H Estimated CrCl and GFR - Last 168 Hours 09/20/24 07:31 Estim Creat Clear Calc 26.0 Estimated GFR 29 Vancomycin Loading Dose: 1500 MG Current Vancomycin Dosing Regimen: 750 q24h Vancomycin Monitoring using AUC goal of 400 - 600 range with trough as surrogate marker: 548, predicted trough 18.6 Date and Time for next Vancomycin Level to be drawn: 09/22 @ 1100 Pharmacist Comments on Vancomycin Plan: Vancomycin dosing will take advantage of [employer] as a clinical decision support tool that uses Bayesian modeling to calculate individual patient's pharmacokinetic parameters and forecast the patient's drug concentration time course with the target goal AUC 24 range of 400 - 600 mg/L/hr.
[2024-09-20] MEDS: Insulin Lispro 100 UNIT/ML 3 ML VIAL SUBCUT (18:05)
[2024-09-20] MEDS: Piperacillin Sodium/Tazobactam 2.25 GM in 0.9 % Sodium Chloride 50 ML IV ×2 (18:05→22:42)
[2024-09-20] MEDS: Heparin Sodium,Porcine 5,000 UNIT/ML VIAL 5000 UNIT SUBCUT (18:05)
--- NOTE | 2024-09-20 18:12 | PC.NURSE ---
patient a&ox3, vss, pt medicated per order, eating dinner, call knutson within reach, plan of care ongoing
[2024-09-20 18:28] LABS: Glucose, Whole Blood 159 mg/dL (60-115)
[2024-09-20 21:02] LABS: Glucose, Whole Blood 140 mg/dL (60-115)
[2024-09-20] MEDS: 0.9 % Sodium Chloride Flush 3 ML SYRINGE IVFLUSH (22:42)
[2024-09-21 03:56] VITALS: BP 129/62; PULSE 51; RESP 19; TEMP 37.1; O2SAT 95
[2024-09-21] MEDS: Piperacillin Sodium/Tazobactam 2.25 GM in 0.9 % Sodium Chloride 50 ML IV ×4 (06:08→23:56)
[2024-09-21] MEDS: Heparin Sodium,Porcine 5,000 UNIT/ML VIAL 5000 UNIT SUBCUT ×2 (06:09→16:34)
[2024-09-21 06:51] VITALS: BP 129/62; PULSE 54; RESP 18; TEMP 36.7; O2SAT 97
[2024-09-21 07:08] LABS: Glucose, Whole Blood 145 mg/dL (60-115)
--- NOTE | 2024-09-21 07:11 | P.PNIM_ITS ---
Subjective Subjective Date of Service: 09/21/24 Interval History: f/u on diabetic foot ulcer, cellulitis, oseomylitis and Rsohni Physical Exam 2 Vital Signs: Vital Signs: Last Vital Signs Temp 98.1 F 09/21/24 06:51 Pulse 54 09/21/24 06:51 Resp 18 09/21/24 06:51 BP 129/62 09/21/24 06:51 Pulse Ox 97 09/21/24 06:51 O2 Del Method Room Air 09/21/24 06:51 BMI result Body Mass Index 20.7 Const: Other: General: AO X 3, no acute distress Resp: CTA bilateral CVS: S1,S2,RRR GI: +BS, NT, no distention Skin: see pic in h and p from 09/20 Neuro: motor grossly intact Psych: appropriate affect Objective Data Active Medications Acetaminophen (Acetaminophen 325 Mg Tablet) 650 mg PO Q6H PRN PRN Reason: Pain, Mild 1-3,fever,headache Aspirin (Aspirin Enteric Coated 81 Mg Tablet.Dr) 81 mg PO DAILY [facility] Calcium Carbonate (Calcium Carbonate 750 Mg Tab.Chew) 750 mg PO Q4H PRN PRN Reason: Heartburn Clopidogrel Bisulfate (Clopidogrel Bisulfate 75 Mg Tablet) 75 mg PO DAILY [facility] Dextrose (Dextrose 50 % 25 Gm/50 Ml Syringe) 25 gm IVPUSH Q15M PRN; Protocol PRN Reason: per Hypoglycemia Standing Ord. Empagliflozin (Empagliflozin 10 Mg Tablet) 10 mg PO DAILY [facility] Glucose (Glucose Gel 15 Gm Gel..Gram.) 15 gm PO Q15M PRN; Protocol PRN Reason: per Hypoglycemia Standing Ord. Heparin Sodium (Porcine) (Heparin Sodium,Porcine 5,000 Unit/Ml Vial) 5,000 unit SUBCUT Q12H [facility] Last Admin: 09/21/24 06:09 Dose: 5,000 unit Documented By: LEWIS Piperacillin Sod/Tazobactam (Sod 2.25 gm/ Sodium Chloride) 50 mls @ 100 mls/hr IV Q6H [facility] Last Admin: 09/21/24 06:08 Dose: 100 mls/hr Documented By: LEWIS Vancomycin HCl 750 mg/ Sodium (Chloride) 265 mls @ 265 mls/hr IV Q24H [facility] Insulin Human Lispro (Insulin Lispro 100 Unit/Ml 3 Ml Vial) 0 unit SUBCUT QIDACHS [facility]; Protocol Last Admin: 09/20/24 21:11 Dose: Not Given Documented By: LEWIS Non-Admin Reason: No Insulin Coverage Magnesium Hydroxide (Milk Of Magnesia 30 Ml Oral.Susp) 30 ml PO DAILY PRN PRN Reason: Constipation Melatonin (Melatonin 3 Mg Tablet) 6 mg PO BEDTIME PRN PRN Reason: Insomnia Ondansetron HCl (Ondansetron Hcl 4 Mg/2 Ml Vial) 4 mg IVPUSH Q8H PRN PRN Reason: Nausea and Vomiting Pharmacy Consult (Consult Rx Vancomycin Dosing) 1 each MISCELLANE DAILY PRN PRN Reason: Consult order Sodium Chloride (0.9 % Sodium Chloride Flush 3 Ml Syringe) 3 ml IVFLUSH [facility] Last Admin: 09/20/24 22:42 Dose: 3 ml Documented By: LEWIS Labs 09/21/24 07:09 09/21/24 07:09 Labs: Laboratory Results - last 24 hr 09/20/24 09/20/24 09/20/24 07:31 11:32 12:13 MCV 89.1 MCH 29.9 MCHC 33.6 RDW 12.5 Plt Count 268 D MPV 11.1 Immature Gran % (Auto) 0.7 H Neut % (Auto) 86.2 H Lymph % (Auto) 4.7 L [place] % (Auto) 6.0 Eos % (Auto) 2.1 Baso % (Auto) 0.3 Lymph # (Auto) 0.9 L [place] # (Auto) 1.1 Eos # (Auto) 0.4 Baso # (Auto) 0.1 Abs Immat Gran (auto) 0.14 H Absolute Neuts (auto) 16.2 H Absolute Nucleated RBC 0.000 Nucleated RBC % (auto) 0.0 ESR 90 H PT 12.0 INR 1.0 APTT 29.3 Anion Gap 17 Estim Creat Clear Calc 26.0 Estimated GFR 29 POC Glucose Random Glucose 302 H Lactic Acid 1.1 Calcium 9.3 Total Bilirubin 0.2 C-Reactive Protein 16.06 H 09/20/24 09/20/24 09/21/24 17:50 20:55 06:51 MCV MCH MCHC RDW Plt Count MPV Immature Gran % (Auto) Neut % (Auto) Lymph % (Auto) [place] % (Auto) Eos % (Auto) Baso % (Auto) Lymph # (Auto) [place] # (Auto) Eos # (Auto) Baso # (Auto) Abs Immat Gran (auto) Absolute Neuts (auto) Absolute Nucleated RBC Nucleated RBC % (auto) ESR PT INR APTT Anion Gap Estim Creat Clear Calc Estimated GFR POC Glucose 159 H 140 H 145 H Random Glucose Lactic Acid Calcium Total Bilirubin C-Reactive Protein Assessment and Plan (1) Diabetes: Status: Acute (2) Osteomyelitis of great toe of left foot: Status: Acute (3) Type 2 diabetes mellitus without complications: Status: Acute Plan Pt is a 73-year-old female with a PMH significant for?insulin-dependent type 2 diabetes, PVD, HTN, and hx of osteo s/p left fifth toe amputation who presents to the ED with?worsening right foot wound. Admitted for further evaluation of right foot cellulitis and suspected acute osteomyelitis. Right foot cellulitis, and acute osteomylitis (OM) as evident on xray, elevate ESR and CRP vanc and Zosyn, started 09/20/2024 Vascular surgery consult Infectious disease consult Will defer MRI for now pending specialist consultation ROSHNI on CKD, liekly from lasix started recent, lisinopril and metformin hold lasix and lisinopril ivf Nephrology consult if not improving matabolic acidosis from renal failure, ivf and monitor, stop jardiance PVD S/P SFA plasty bilaterally Continue aspirin and Plavix Insulin-dependent type 2 diabetes Has been hyperglycemic since being on prednisone taper 1 week ago for gout Will place on sliding scale insulin lantus if BS high Hold metformin and jardiacce Diabetic diet Full Code DVT Prophylaxis: Heparin hospitalization for iv Abx for acute osteomylitis Quality Stroke Does the patient have a stroke diagnosis?: No VTE Prior VTE?: No VTE Risk Level:: Medical - moderate - high VTE Device Contraindication: Treatment Not Indicated VTE Drug Contraindication: N/A - Med Ordered
[2024-09-21 07:58] LABS: Hematocrit 26.8 % (42.0-52.0); Mean Corpuscular HGB Conc 33.6 g/dl (31.0-36.0); Mean Corpuscular Hemoglobin 30.3 pg (27.0-33.0); Mean Corpuscular Volume 90.2 fL (80.0-98.0); Mean Platelet Volume 10.9 fL (9.4-12.4); Platelet Count 259 X10*3/uL (160-400); Red Blood Count 2.97 X10*6/uL (4.60-5.80); Red Cell Distribution Width 12.7 % (11.0-16.0)
[2024-09-21 08:06] LABS: Anion Gap 14 (12-20); Blood Urea Nitrogen 92 mg/dL (9-16); Calcium 8.7 mg/dL (8.4-10.2); Carbon Dioxide 16 mmol/L (22-29); Chloride 118 mmol/L (96-108); Creatinine Clr Calc Pharmacy 25.5; Estimated Glomerular Filt Rate 29; Glucose Random 138 mg/dL (60-115); Potassium 5.2 mmol/L (3.3-5.1); Sodium 143 mmol/L (135-145)
[2024-09-21] MEDS: Aspirin Enteric Coated 81 MG TABLET.DR PO (09:12)
[2024-09-21] MEDS: Clopidogrel Bisulfate 75 MG TABLET PO (09:12)
[2024-09-21] MEDS: 0.9 % Sodium Chloride Flush 3 ML SYRINGE IVFLUSH ×2 (09:12→20:56)
--- NOTE | 2024-09-21 10:43 | MHC.CM.PN ---
CM met with Patient at bedside and addressed IMM with him, providing Patient with the original and a copy has been placed on the chart. Patient lives alone in an apartment, is functionally independent and had no services [employer]. Patient's goal is home (? new VNA & [place] R/T Osteo); CM has initiated and will follow for dc planning. PCP is Dr. Clint Vivar and HCP is Ex-/She. Patient's car is here for transport to home at time of dc.
[2024-09-21] MEDS: Lactated Ringers 1,000 ML 125 ML IVCONT ×3 (10:50→23:56)
[2024-09-21 11:29] VITALS: BP 137/50; PULSE 51; RESP 16; TEMP 36.5; O2SAT 99
[2024-09-21 11:32] LABS: Glucose, Whole Blood 185 mg/dL (60-115)
[2024-09-21] MEDS: Insulin Lispro 100 UNIT/ML 3 ML VIAL SUBCUT ×3 (11:45→20:55)
--- NOTE | 2024-09-21 12:46 | P.CONGS_ITS ---
<Statement entered by Sanford Almaguer MD - 09/24/24 09:29> Patient notes leg pain when walking distances. I have discussed the pathophysiology of peripheral vascular disease with the patient. I have also discussed risk factor modification. I have reviewed the patient's arterial testing which reveals right SFA occlusion. the patient would benefit from a right leg endovascular peripheral angiogram with possible angioplasty, stent, and/or atherectomy. This has been discussed in detail with the patient along with risks, benefits, and complications. This includes but is not limited to bleeding, infection, heart attack, need for emergent surgical repair, limb ischemia, blood vessel damage, bleeding, puncture, kidney injury, bruising, allergic reaction, and skin reaction. The patient demonstrates a clear understanding. We will schedule for the next appropriate time. Thank you for allowing us to assist in this patient's care. History of Present Illness Consult details Consult date: 09/21/24 Narrative: We were consulted for Talon, for concerns of right foot infection/wound. He presented to the ER yesterday with a diabetic foot ulcer/foot infection. He stated that the wound started appx 2w prior and he has been seen twice for it, one time given steroids for possible gout and the next time abx due to surrounding erythema. He states neither tx worked/helped. He has a medical hx pertinent for DM, CKD III, PVD, and hypercholesteremia. He is known to our office and underwent a left angio on 06/27/24 and had a successful plasty of the left SFA. He was admitted for IV abx and further workup. He was noted to have an ROSHNI on CKD. He was found on foot XR to have chronic osteo of the 4th metatarsal head and soft tissue swelling with gas overlying the dorsal 4th digit and MTP. He denies any injuries or wounds to the foot. He denies any pain in the foot. Review of Systems 2 Constitutional: Constitutional: Reports as per HPI and Denies weakness ENT: Reports Normal hearing present and Denies dizziness Cardiovascular: Cardiovascular: Reports as per HPI, Denies chest pain, Denies chest pain at rest, Denies chest pain with activity, Denies dyspnea and Denies dyspnea on exertion Respiratory: Respiratory: Reports as per HPI, Denies cough, Denies dyspnea and Denies dyspnea on exertion Gastrointestinal: Gastrointestinal: Reports as per HPI, Denies abdominal pain, Denies nausea and Denies vomiting Musculoskeletal: Musculoskeletal: Denies numbness Integumentary/Breasts: Skin/Breast: Reports as per HPI, Denies erythema and Denies wounds Neurologic: Reports Normal hearing present, Denies dizziness, Denies numbness, Denies Sensory deficit (Neuro) and Denies weakness Psychiatric: Psychiatric: Reports no additional psychiatric complaints Endocrine: Endocrine: Reports no additional endocrine complaints [facility] Past Medical History Medical History Osteomyelitis of great toe of left foot Diabetes PVD (peripheral vascular disease) Hypercholesteremia Surgical History Surgical History S/P angiogram of extremity (08/13/20) Amputated toe of left foot (08/18/20) S/P angiogram of extremity (10/08/19) S/P PICC central line placement Social History Social History Household Members Other:: lives alone Housing: Apartment Alcohol intake: current Alcohol intake frequency: does not drink Patient Tobacco Use Status: Never used Tobacco Years Smoked: 39 Smoked in Last 30 Days: Yes e-Cigarette/Vaping Use: Never Used Second Hand Smoke Exposure: No Use of substances other than those prescribed or required for medical reasons: No Advance Directives: No Advance Directives Information Provided: No Nutrition Risks: No Nutritional Risk service: No Current occupational status: retired Cognitive needs: No Hearing needs: No Vision needs: No Meds Allergies Allergy/AdvReac Type Severity Reaction Status Date / Time No Known Allergies Allergy Verified 09/20/24 11:03 [No Known Allergies*] Active Medications: Current Medications Acetaminophen (Acetaminophen 325 Mg Tablet) 650 mg PO Q6H PRN PRN Reason: Pain, Mild 1-3,fever,headache Aspirin (Aspirin Enteric Coated 81 Mg Tablet.Dr) 81 mg PO DAILY [facility] Last Admin: 09/21/24 09:12 Dose: 81 mg Calcium Carbonate (Calcium Carbonate 750 Mg Tab.Chew) 750 mg PO Q4H PRN PRN Reason: Heartburn Clopidogrel Bisulfate (Clopidogrel Bisulfate 75 Mg Tablet) 75 mg PO DAILY [facility] Last Admin: 09/21/24 09:12 Dose: 75 mg Dextrose (Dextrose 50 % 25 Gm/50 Ml Syringe) 25 gm IVPUSH Q15M PRN; Protocol PRN Reason: per Hypoglycemia Standing Ord. Glucose (Glucose Gel 15 Gm Gel..Gram.) 15 gm PO Q15M PRN; Protocol PRN Reason: per Hypoglycemia Standing Ord. Heparin Sodium (Porcine) (Heparin Sodium,Porcine 5,000 Unit/Ml Vial) 5,000 unit SUBCUT Q12H [facility] Last Admin: 09/21/24 06:09 Dose: 5,000 unit Piperacillin Sod/Tazobactam (Sod 2.25 gm/ Sodium Chloride) 50 mls @ 100 mls/hr IV Q6H [facility] Last Infusion: 09/21/24 12:29 Dose: Infused Vancomycin HCl 750 mg/ Sodium (Chloride) 265 mls @ 265 mls/hr IV Q24H [facility] Lactated Ringer's (Lr) 1,000 mls @ 125 mls/hr IVCONT .Q8H [facility] Last Admin: 09/21/24 10:50 Dose: 125 mls/hr Insulin Human Lispro (Insulin Lispro 100 Unit/Ml 3 Ml Vial) 0 unit SUBCUT QIDACHS [facility]; Protocol Last Admin: 09/21/24 11:45 Dose: 2 unit Magnesium Hydroxide (Milk Of Magnesia 30 Ml Oral.Susp) 30 ml PO DAILY PRN PRN Reason: Constipation Melatonin (Melatonin 3 Mg Tablet) 6 mg PO BEDTIME PRN PRN Reason: Insomnia Ondansetron HCl (Ondansetron Hcl 4 Mg/2 Ml Vial) 4 mg IVPUSH Q8H PRN PRN Reason: Nausea and Vomiting Pharmacy Consult (Consult Rx Vancomycin Dosing) 1 each MISCELLANE DAILY PRN PRN Reason: Consult order Sodium Chloride (0.9 % Sodium Chloride Flush 3 Ml Syringe) 3 ml IVFLUSH QSHIFT [facility] Last Admin: 09/21/24 09:12 Dose: 3 ml Home Medications ?Medication ?Instructions ?Recorded ?Confirmed ?Last Taken ?Type aspirin 81 mg tablet,delayed 81 mg PO DAILY 09/02/20 09/20/24 09/20/24 History release (Adult Low Dose Aspirin) insulin aspart See Protocol subcut TID PRN high 09/20/24 09/20/24 Unknown History (niacinamide)(U-100) 100 unit/mL(3 sugar mL) subcutaneous pen (Fiasp FlexTouch U-100 Insulin) Physical Exam 2 Vital Signs: Vital Signs: Last Vital Signs Temp 97.7 F 09/21/24 11:29 Pulse 51 09/21/24 11:29 Resp 16 09/21/24 11:29 BP 137/50 L 09/21/24 11:29 Pulse Ox 99 09/21/24 11:29 O2 Del Method Room Air 09/21/24 11:29 BMI result Body Mass Index 20.7 Const: General: comfortable and no acute distress O rientation/consciousness: patient oriented x3 HEENT: Ears: hearing grossly normal bilaterally Resp: Effort & Inspection: normal respiratory effort and able to speak in complete sentences Auscultation: clear to auscultation bilaterally Cardio: Rate: regular rate Rhythm: regular rhythm Heart sounds: S1 normal heart sound present and S2 normal heart sound present Bruits: no abdominal aortic bruits, no carotid bruits, no femoral bruits and no renal bruits GI: Palpation (GI): No Abdominal aortic bruit present Neuro: General: patient oriented x3 Cranial nerves: Yes Normal hearing present Sensory Exam: No Sensory deficit (Neuro) Extrem: Other: Right plantar foot below the 4th and 5th toes: serosanginous drainage noted. Yellow slough, easily removed with scissors and forceps. Tunneling noted on the most proximal aspect of the wound laterally to the 5th toe, appx 1.8cm long. Slight erythema noted around the wound bed but not warm to the touch. Results Labs 09/21/24 07:09 09/21/24 07:09 Labs: Abnormal lab results 09/20/24 09/20/24 09/20/24 Range/Units 12:13 17:50 20:55 WBC (4.8-10.8) X10*3/uL RBC (4.60-5.80) X10*6/uL Hgb (14.0-18.0) g/dl Hct (42.0-52.0) % ESR 90 H (0-15) MM/HR Potassium (3.3-5.1) mmol/L Chloride (96-108) mmol/L Carbon Dioxide (22-29) mmol/L BUN (9-16) mg/dL Creatinine (0.5-1.4) mg/dL POC Glucose 159 H 140 H (60-115) mg/dL Random Glucose (60-115) mg/dL 09/21/24 09/21/24 09/21/24 Range/Units 06:51 07:09 11:28 WBC 15.0 H (4.8-10.8) X10*3/uL RBC 2.97 L (4.60-5.80) X10*6/uL Hgb 9.0 L (14.0-18.0) g/dl Hct 26.8 L (42.0-52.0) % ESR (0-15) MM/HR Potassium 5.2 H (3.3-5.1) mmol/L Chloride 118 H (96-108) mmol/L Carbon Dioxide 16 L (22-29) mmol/L BUN 92 H (9-16) mg/dL Creatinine 2.25 H (0.5-1.4) mg/dL POC Glucose 145 H 185 H (60-115) mg/dL Random Glucose 138 H (60-115) mg/dL Short CBC 09/21/24 Range/Units 07:09 WBC 15.0 H (4.8-10.8) X10*3/uL Hgb 9.0 L (14.0-18.0) g/dl Hct 26.8 L (42.0-52.0) % Plt Count 259 (160-400) X10*3/uL BMP 09/21/24 07:09 Sodium 143 Potassium 5.2 H Chloride 118 H Carbon Dioxide 16 L BUN 92 H Creatinine 2.25 H Calcium 8.7 D All other labs normal. Imaging Additional studies: Reviewed arterial duplex US. Right mid SFA occluded, not new. Assessment and Plan (1) Ulcer of right foot due to type 2 diabetes mellitus: Status: Acute Plan We were consulted on Talon, for concerns of a diabetic foot ulcer. He states that he noticed it appx 2w ago. He denies any injuries/wounds to the area. The wound care nurse will dress the wound; we recommend Iodoform for the packing but can use Alginate if there is no Iodoform; then 4x4 and Kerlix wrap, to be changed daily. We recommend continuing on IV Abx. We have reviewed the Arterial duplex US, which revealed an occlusion in the right mid SFA, which is known. We will be performing an angio on Tuesday. We will continue to follow. If there are any questions or concerns, please do not hesitate to reach out to us. Procedures Date of Service Date of Service: 09/21/24
[2024-09-21] MEDS: vancomycin HCL 750 MG in 0.9 % Sodium Chloride 250 ML 265 MG IV (12:53)
[2024-09-21 15:03] VITALS: BP 133/56; PULSE 52; RESP 16; TEMP 36.8; O2SAT 96
--- NOTE | 2024-09-21 15:42 | HO.WOUND ---
Wound Consult: Initial 73yr old Male admitted to [facility] on 09/21/24- See progress notes and H&P for detailed history.? Wound consult placed for right Foot wound.? Patient agreeable to assessment and photo documentation.? Patient seen by Vascular Surgery team - recommending topical dressing of Durafiber AG and angio on Tuesday. Wounds not assessed by this proposal manager writer will defer to vascular surgery at this time. Right Foot Etiology: ?Diabetic Wound ?Present on Admission Wound Bed: Probes to bone per Vascular PA Goals of Treatment: ? Packing with durafiber and follow up for angio on Tuesday with vascular surgery team. Recommendations: Provide adequate and supplemental nutrition.? When applicable maintain blood glucose levels per Providers order. Right Foot - Cleanse and Irrigate with NS, pat dry. Apply skin prep to periwound, lightly pack wound bed with Durafiber AG be sure to leave wick for easy removal. Cover with dry gauze, ABD pad and wrap. Change daily. Re-consult wound care Nurse for wound deterioration or wound changes.
--- NOTE | 2024-09-21 15:48 | HO.WOUND ---
Wound Consult: Initial 73yr old Male admitted to [facility] [place] on 09/21/24- See progress notes and H&P for detailed history.? Wound consult placed for right Foot wound.? Patient agreeable to assessment and photo documentation.? Patient seen by Vascular Surgery team - recommending topical dressing of Packing Strip and angio on Tuesday. Right Foot Etiology: ?Diabetic Wound ?Present on Admission Wound Bed: Probes to bone circumferential undermining noted max depth of 3cm noted , +pp noted Goals of Treatment: ? Packing with Packing strip and follow up for angio on Tuesday with vascular surgery team. Recommendations: Provide adequate and supplemental nutrition.? When applicable maintain blood glucose levels per Providers order. Right Foot - Elevate lower Leg - Limit walking and standing on right foot. Cleanse and Irrigate with NS, pat dry. Apply skin prep to periwound, lightly pack wound bed with Plain packing strip be sure to leave wick for easy removal. Cover with dry gauze, ABD pad and wrap. Change daily.
[2024-09-21 16:17] LABS: Glucose, Whole Blood 153 mg/dL (60-115)
[2024-09-21 19:11] VITALS: BP 114/53; PULSE 62; RESP 18; TEMP 36.4; O2SAT 97
--- NOTE | 2024-09-21 19:21 | PM.CNNEP ---
History of Present Illness Reason for Consult Consult date: 09/21/24 Reason for consult: ROSHNI Chief Complaint Chief complaint: Right foot osteo History of Present Illness Narrative: 73-year-old female with insulin-dependent type 2 diabetes, PVD, HTN, and hx of osteo s/p left fifth toe amputation who presented to the ED with?worsening right foot wound. Pt reports symptoms began 2 weeks ago when the area of a chronic callus on the bottom of his right foot became sore and then turned red. Pt initially went to walk-in clinic and was diagnosed with gout and prescribed prednisone. Over the next week pt's symptoms did not resolve and erythema began to spread. Four days later went back to walk-in clinic where he was diagnosed with cellulitis and started on doxycycline 100 mg b.i.d. times 10 days. Symptoms again did not improve, and earlier this morning bottom of patient's foot opened up and had purulent, foul-smelling discharge. Reports some subjective fever and chills earlier in the week, but none recently. No nausea, vomiting, diarrhea. Has been eating and drinking normally. Denies abdominal pain. No chest pain/pressure, palpitations. Denies shortness or breath or difficulty breathing. In the ED pt was soft BP as low as 134/51, vitals otherwise stable and WNL. Labs were significant for leukocytosis 18.8, ESR 90, creatinine 2.20 (elevated from 1.30 on 07/23/2024), and CRP 16.06. Stable normocytic anemia. No significant electrolyte abnormalities. Right foot x-ray found soft tissue swelling with gas over dorsal 4th digit and MCP, as well as changes consistent with chronic osteomyelitis. Pt was treated with IVF, vancomycin, and Zosyn. Pt was admitted to the hospital for treatment and further evaluation of right foot cellulitis concerning for acute osteomyelitis. Nephrology has been consulted to assist in his clinical management during his current hospital stay Review of Systems Review of Systems Yes all other systems are reviewed and are negative PMFSH Past Medical History Medical History Osteomyelitis of great toe of left foot Diabetes PVD (peripheral vascular disease) Hypercholesteremia Surgical History Surgical History S/P angiogram of extremity (08/13/20) Amputated toe of left foot (08/18/20) S/P angiogram of extremity (10/08/19) S/P PICC central line placement Social History Social History Household Members Other:: lives alone Housing: Apartment Alcohol intake: current Alcohol intake frequency: does not drink Patient Tobacco Use Status: Never used Tobacco Years Smoked: 39 Smoked in Last 30 Days: Yes e-Cigarette/Vaping Use: Never Used Second Hand Smoke Exposure: No Use of substances other than those prescribed or required for medical reasons: No Currently Displaying Signs/Symptoms of Drug Intoxication Withdrawal: No Advance Directives: No Advance Directives Information Provided: No Nutrition Risks: No Nutritional Risk service: No Current occupational status: retired Cognitive needs: No Hearing needs: No Vision needs: No Meds Allergies Allergy/AdvReac Type Severity Reaction Status Date / Time No Known Allergies Allergy Verified 09/20/24 11:03 [No Known Allergies*] Active Medications: Current Medications Acetaminophen (Acetaminophen 325 Mg Tablet) 650 mg PO Q6H PRN PRN Reason: Pain, Mild 1-3,fever,headache Aspirin (Aspirin Enteric Coated 81 Mg Tablet.Dr) 81 mg PO DAILY [facility] Last Admin: 09/21/24 09:12 Dose: 81 mg Calcium Carbonate (Calcium Carbonate 750 Mg Tab.Chew) 750 mg PO Q4H PRN PRN Reason: Heartburn Clopidogrel Bisulfate (Clopidogrel Bisulfate 75 Mg Tablet) 75 mg PO DAILY [facility] Last Admin: 09/21/24 09:12 Dose: 75 mg Dextrose (Dextrose 50 % 25 Gm/50 Ml Syringe) 25 gm IVPUSH Q15M PRN; Protocol PRN Reason: per Hypoglycemia Standing Ord. Glucose (Glucose Gel 15 Gm Gel..Gram.) 15 gm PO Q15M PRN; Protocol PRN Reason: per Hypoglycemia Standing Ord. Heparin Sodium (Porcine) (Heparin Sodium,Porcine 5,000 Unit/Ml Vial) 5,000 unit SUBCUT Q12H [facility] Last Admin: 09/21/24 16:34 Dose: 5,000 unit Piperacillin Sod/Tazobactam (Sod 2.25 gm/ Sodium Chloride) 50 mls @ 100 mls/hr IV Q6H [facility] Last Infusion: 09/21/24 18:09 Dose: Infused Vancomycin HCl 750 mg/ Sodium (Chloride) 265 mls @ 265 mls/hr IV Q24H [facility] Last Infusion: 09/21/24 14:08 Dose: Infused Lactated Ringer's (Lr) 1,000 mls @ 125 mls/hr IVCONT .Q8H [facility] Last Admin: 09/21/24 18:19 Dose: 125 mls/hr Insulin Human Lispro (Insulin Lispro 100 Unit/Ml 3 Ml Vial) 0 unit SUBCUT QIDACHS [facility]; Protocol Last Admin: 09/21/24 16:33 Dose: 2 unit Magnesium Hydroxide (Milk Of Magnesia 30 Ml Oral.Susp) 30 ml PO DAILY PRN PRN Reason: Constipation Melatonin (Melatonin 3 Mg Tablet) 6 mg PO BEDTIME PRN PRN Reason: Insomnia Ondansetron HCl (Ondansetron Hcl 4 Mg/2 Ml Vial) 4 mg IVPUSH Q8H PRN PRN Reason: Nausea and Vomiting Pharmacy Consult (Consult Rx Vancomycin Dosing) 1 each MISCELLANE DAILY PRN PRN Reason: Consult order Sodium Chloride (0.9 % Sodium Chloride Flush 3 Ml Syringe) 3 ml IVFLUSH QSHIFT [facility] Last Admin: 09/21/24 16:10 Dose: Not Given Home Medications ?Medication ?Instructions ?Recorded ?Confirmed ?Last Taken ?Type aspirin 81 mg tablet,delayed 81 mg PO DAILY 09/02/20 09/20/24 09/20/24 History release (Adult Low Dose Aspirin) insulin aspart See Protocol subcut TID PRN high 09/20/24 09/20/24 Unknown History (niacinamide)(U-100) 100 unit/mL(3 sugar mL) subcutaneous pen (Fiasp FlexTouch U-100 Insulin) Physical Exam Vital Signs: Last Vital Signs Temp 97.6 F 09/21/24 19:11 Pulse 62 09/21/24 19:11 Resp 18 09/21/24 19:11 BP 114/53 L 09/21/24 19:11 Pulse Ox 97 09/21/24 19:11 O2 Del Method Room Air 09/21/24 19:11 BMI result Body Mass Index 20.7 Const General: no acute distress Orientation/consciousness: patient oriented x3 Neck Neck: Yes supple Resp Auscultation: diminished lung sounds Cardio Rate: regular rate GI Palpation (GI): Soft to palpation Neuro General: patient oriented x3 Results Lab Results 09/21/24 07:09 09/21/24 07:09 Lab results: Chemistry 09/20/24 09/21/24 07:31 07:09 Sodium 142 143 Potassium 4.7 5.2 H Carbon Dioxide 18 L 16 L BUN 96 H 92 H Creatinine 2.20 H 2.25 H Calcium 9.3 8.7 D Hematology 09/20/24 09/21/24 11:32 07:09 WBC 18.8 H 15.0 H Hgb 10.2 L 9.0 L Plt Count 268 D 259 Assessment and Plan (1) Acute kidney injury: Status: Acute Plan ROSHNI due to compromise in renal perfusion with resultant tubular injury UO OK. No reason to suspect GN/AIN; ACEI/Diuretics on hold No indication for renal replacement; C/W rest of current supp care Labs AM, Shall closely follow up Procedures Date of Service Date of Service: 09/21/24
[2024-09-21 20:47] LABS: Glucose, Whole Blood 173 mg/dL (60-115)
[2024-09-21 23:31] VITALS: BP 129/59; PULSE 58; RESP 19; O2SAT 96
[2024-09-22 03:04] VITALS: BP 136/50; PULSE 50; RESP 19; TEMP 36.3; O2SAT 98
[2024-09-22] MEDS: Piperacillin Sodium/Tazobactam 2.25 GM in 0.9 % Sodium Chloride 50 ML IV ×3 (05:50→17:19)
[2024-09-22] MEDS: Heparin Sodium,Porcine 5,000 UNIT/ML VIAL 5000 UNIT SUBCUT ×2 (05:50→17:14)
[2024-09-22 07:59] LABS: Anion Gap 10 (12-20); Blood Urea Nitrogen 58 mg/dL (9-16); Calcium 8.5 mg/dL (8.4-10.2); Carbon Dioxide 17 mmol/L (22-29); Chloride 121 mmol/L (96-108); Creatinine Clr Calc Pharmacy 36.5; Estimated Glomerular Filt Rate 44; Glucose Random 121 mg/dL (60-115); Potassium 4.7 mmol/L (3.3-5.1); Sodium 143 mmol/L (135-145)
[2024-09-22 08:00] VITALS: BP 158/67; PULSE 58; RESP 18; TEMP 36.2; O2SAT 97
[2024-09-22 08:23] LABS: Glucose, Whole Blood 109 mg/dL (60-115)
[2024-09-22] MEDS: Clopidogrel Bisulfate 75 MG TABLET PO (09:08)
[2024-09-22] MEDS: Aspirin Enteric Coated 81 MG TABLET.DR PO (09:08)
[2024-09-22] MEDS: Lactated Ringers 1,000 ML 125 ML IVCONT ×2 (09:12→21:43)
--- NOTE | 2024-09-22 10:46 | P.CDIM_ITS ---
PROVIDER RESPONSE TEXT: To clarify, the appropriate diagnosis supported by the clinical indicators: Yes the cellulitis is related to / associated with / due to Insulin-dependent Diabetes Type 2 QUERY TEXT: PHYSICIAN'S DOCUMENTATION REQUEST Date of Query: 09/21/2024 11:28 AM EDT Patient Name: Talon Manzano Admit Date: 09/20/2024 Dear Luis Carlos Reese MD, A review of the medical record indicates additional documentation may be needed. Please review below and update the documentation accordingly. Documentation includes the conditions of cellulitis and Diabetes: Clinical Indicators: Progress note 09/21/24 - Admitted for further evaluation of right foot cellulitis and suspected acute osteomyelitis. Insulin-dependent type 2 Diabetes. Symptoms began 2 weeks ago when the area of chronic callus on bottom of foot became sore and turned r ed. Erythema began to spread. Vanco and Zosyn, Insulin Please clarify the relationship between these conditions, if any: Yes the cellulitis is related to / associated with / due to Insulin-dependent Diabetes Type 2 No the cellulitis is not related to / associated with / due to the Insulin-dependent Diabetes Type 2 Other (explain) Clinically unable to determine (explain) Thank you, Ann Gandhi, CCS, CDIS Use of terms such as suspected, likely, concern for, or probable (associated with a specific diagnosi s that is being evaluated, monitored, or treated as if it exists) are acceptable and can be coded in the inpatient se tting, when documented at the time of discharge. Please use your independent medical judgment in providing your response. THIS QUERY IS PART OF THE PERMANENT MEDICAL RECORD
--- NOTE | 2024-09-22 10:46 | P.CDIM_ITS ---
PROVIDER RESPONSE TEXT: To clarify, the appropriate diagnosis supported by the clinical indicators: Acute QUERY TEXT: PHYSICIAN'S DOCUMENTATION REQUEST Date of Query: 09/21/2024 11:34 AM EDT Patient Name: Talon Manzano Admit Date: 09/20/2024 Dear Luis Carlos Reese MD, A review of the medical record indicates additional documentation may be needed. Please review below and update the documentation accordingly. Clinical Indicators: Progress note dated 09/21/24 - Metabolic acidosis from renal failure. IVF and monitor, stop Jardiance. Clarify which of the following accurately represents the acuity of the metabolic acidosis: Possible options might include: Acute Chronic Other specified Other (explain) Clinically unable to determine (explain) Thank you, Ann Gandhi, CCS, CDIS Use of terms such as suspected, likely, concern for, or probable (associated with a specific diagnosi s that is being evaluated, monitored, or treated as if it exists) are acceptable and can be coded in the inpatient se tting, when documented at the time of discharge. Please use your independent medical judgment in providing your response. THIS QUERY IS PART OF THE PERMANENT MEDICAL RECORD
--- NOTE | 2024-09-22 10:51 | HO.SKINPHOTO ---
Location: Category: Stage: Length: Width: Depth: cm Location: Category: Stage: Length: Width: Depth: cm Location: Category: Stage: Length: Width: Depth: cm Location: Category: Stage: Length: Width: Depth: cm Location: Category: Stage: Length: Width: Depth: cm Location: Category: Stage: Length: Width: Depth: cm
[2024-09-22 10:52] VITALS: PULSE 74; RESP 18; TEMP 36.4; O2SAT 98
[2024-09-22 11:39] LABS: Glucose, Whole Blood 203 mg/dL (60-115)
[2024-09-22] MEDS: Insulin Lispro 100 UNIT/ML 3 ML VIAL SUBCUT ×2 (11:54→22:01)
[2024-09-22 12:01] LABS: Vancomycin Random 15.9 mcg/mL (15-20)
[2024-09-22] MEDS: vancomycin HCL 750 MG in 0.9 % Sodium Chloride 250 ML 265 MG IV (13:11)
[2024-09-22 15:48] VITALS: BP 187/77; PULSE 52; RESP 16; TEMP 36.2; O2SAT 98
[2024-09-22 16:12] LABS: Glucose, Whole Blood 149 mg/dL (60-115)
[2024-09-22 19:32] VITALS: BP 184/77; PULSE 50; RESP 18; TEMP 36.6; O2SAT 98
[2024-09-22 19:50] VITALS: BP 140/62
[2024-09-22 20:29] LABS: Glucose, Whole Blood 170 mg/dL (60-115)
[2024-09-23] MEDS: Piperacillin Sodium/Tazobactam 2.25 GM in 0.9 % Sodium Chloride 50 ML IV ×2 (00:21→06:05)
--- NOTE | 2024-09-23 00:27 | W.PM.IDCN ---
History of Present Illness Data of Consult Service Date: 09/22/24 Requesting physician: Luis Carlos Reese Primary Care Provider: SARI Jaffe- HPI Reason for consult: exacerbation of chronic OM right foot He presents with two week right foot plantar lateral serosanguinous drainage and discomfort. I had seen him 06/2021 with OM left great toe and had six weeks IV. 08/2022 he had right farideh infection and received Doxycycline and had received linezolid in past. He has no fever or chills. XR shows OM chronic, 4th proximal phalanx an MT head. CRP is 16. Review of Systems Review of Systems: Yes all other systems are reviewed and are negative PMFSH Past Medical History Medical History Osteomyelitis of great toe of left foot Diabetes PVD (peripheral vascular disease) Hypercholesteremia Family History Family history: reviewed and not pertinent Surgical History Surgical History S/P angiogram of extremity (08/13/20) Amputated toe of left foot (08/18/20) S/P angiogram of extremity (10/08/19) S/P PICC central line placement Social History Social History Household Members Other:: lives alone Housing: Apartment Alcohol intake: current Alcohol intake frequency: does not drink Patient Tobacco Use Status: Never used Tobacco Years Smoked: 39 Smoked in Last 30 Days: Yes e-Cigarette/Vaping Use: Never Used Second Hand Smoke Exposure: No Use of substances other than those prescribed or required for medical reasons: No Currently Displaying Signs/Symptoms of Drug Intoxication Withdrawal: No Advance Directives: No Advance Directives Information Provided: No Nutrition Risks: No Nutritional Risk service: No Current occupational status: retired Cognitive needs: No Hearing needs: No Vision needs: No Meds Allergies Allergy/AdvReac Type Severity Reaction Status Date / Time No Known Allergies Allergy Verified 09/20/24 11:03 [No Known Allergies*] Active Medications: Current Medications Acetaminophen (Acetaminophen 325 Mg Tablet) 650 mg PO Q6H PRN PRN Reason: Pain, Mild 1-3,fever,headache Aspirin (Aspirin Enteric Coated 81 Mg Tablet.) 81 mg PO DAILY [facility] Last Admin: 09/22/24 09:08 Dose: 81 mg Calcium Carbonate (Calcium Carbonate 750 Mg Tab.Chew) 750 mg PO Q4H PRN PRN Reason: Heartburn Clopidogrel Bisulfate (Clopidogrel Bisulfate 75 Mg Tablet) 75 mg PO DAILY [facility] Last Admin: 09/22/24 09:08 Dose: 75 mg Dextrose (Dextrose 50 % 25 Gm/50 Ml Syringe) 25 gm IVPUSH Q15M PRN; Protocol PRN Reason: per Hypoglycemia Standing Ord. Glucose (Glucose Gel 15 Gm Gel..Gram.) 15 gm PO Q15M PRN; Protocol PRN Reason: per Hypoglycemia Standing Ord. Heparin Sodium (Porcine) (Heparin Sodium,Porcine 5,000 Unit/Ml Vial) 5,000 unit SUBCUT Q12H [facility] Last Admin: 09/22/24 17:14 Dose: 5,000 unit Piperacillin Sod/Tazobactam (Sod 2.25 gm/ Sodium Chloride) 50 mls @ 100 mls/hr IV Q6H [facility] Last Admin: 09/23/24 00:21 Dose: 100 mls/hr Vancomycin HCl 750 mg/ Sodium (Chloride) 265 mls @ 265 mls/hr IV Q24H [facility] Last Infusion: 09/22/24 14:14 Dose: Infused Lactated Ringer's (Lr) 1,000 mls @ 125 mls/hr IVCONT .Q8H [facility] Last Infusion: 09/23/24 00:14 Dose: 0 mls/hr Insulin Human Lispro (Insulin Lispro 100 Unit/Ml 3 Ml Vial) 0 unit SUBCUT QIDACHS [facility]; Protocol Last Admin: 09/22/24 22:01 Dose: 2 unit Magnesium Hydroxide (Milk Of Magnesia 30 Ml Oral.Susp) 30 ml PO DAILY PRN PRN Reason: Constipation Melatonin (Melatonin 3 Mg Tablet) 6 mg PO BEDTIME PRN PRN Reason: Insomnia Ondansetron HCl (Ondansetron Hcl 4 Mg/2 Ml Vial) 4 mg IVPUSH Q8H PRN PRN Reason: Nausea and Vomiting Pharmacy Consult (Consult Rx Vancomycin Dosing) 1 each MISCELLANE DAILY PRN PRN Reason: Consult order Sodium Chloride (0.9 % Sodium Chloride Flush 3 Ml Syringe) 3 ml IVFLUSH QSHIFT [facility] Last Admin: 09/23/24 00:22 Dose: Not Given Home Medications ?Medication ?Instructions ?Recorded ?Confirmed ?Last Taken ?Type aspirin 81 mg tablet,delayed 81 mg PO DAILY 09/02/20 09/20/24 09/20/24 History release (Adult Low Dose Aspirin) insulin aspart See Protocol subcut TID PRN high 09/20/24 09/20/24 Unknown History (niacinamide)(U-100) 100 unit/mL(3 sugar mL) subcutaneous pen (Fiasp FlexTouch U-100 Insulin) Physical Exam Vital Signs: Vital Signs: Last Vital Signs Temp 97.8 F 09/22/24 19:32 Pulse 50 09/22/24 19:32 Resp 18 09/22/24 19:32 BP 140/62 H 09/22/24 19:50 Pulse Ox 98 09/22/24 19:32 O2 Del Method Room Air 09/22/24 19:32 BMI result Body Mass Index 20.7 Const: General: cooperative HEENT: Head: Yes normal to inspection Face and sinus: Yes normal facial exam Mouth: Normal oral and palatal mucosa present Teeth and gingiva: dentition normal Eyes: General: appearance normal, both eyes and all related structures Pupils: Equal, round and reactive pupils present Resp: Effort & Inspection: normal respiratory effort Cardio: Rate: regular rate Rhythm: regular rhythm GI: Palpation (GI): Soft to palpation and nontender : General: Yes no CVA tenderness Back/Spine/Pelvis: Back: no CVA tenderness Skin: General skin exam: no rashes or lesions noted Neuro: General: moves all extremities Cranial nerves: Yes Equal, round and reactive pupils present Extrem: Other: right ulcer serosanguinous drainage plantar area. General: Yes normal to inspection Psych: Appearance: grossly normal Results Labs 09/21/24 07:09 09/22/24 06:41 Labs: BMP 09/22/24 06:41 Sodium 143 Potassium 4.7 Chloride 121 H Carbon Dioxide 17 L BUN 58 H Creatinine 1.57 H Calcium 8.5 Microbiology Microbiology Results: Microbiology 09/20/24 11:32 Blood - Venous Blood Culture - Preliminary No growth after 48 hours. 09/20/24 11:32 Blood - Venous Blood Culture - Preliminary No growth after 48 hours. Assessment and Plan (1) Osteomyelitis: Status: Acute (2) Cellulitis of right foot: Status: Acute (3) CKD (chronic kidney disease) stage 3, GFR 30-59 ml/min: Status: Acute Plan He has exacerbation chronic OM right foot. He wants to avoid long term IV antibiotics and did well in 2022 with linezolid 600 mg bid for six weeks. Would switch to this tomorrow if doing wll and discharge on po He also will see Dr Almaguer outpatient.
[2024-09-23 03:18] VITALS: BP 158/72; PULSE 50; RESP 18; TEMP 36.7; O2SAT 95
[2024-09-23] MEDS: Heparin Sodium,Porcine 5,000 UNIT/ML VIAL 5000 UNIT SUBCUT ×2 (06:05→17:06)
[2024-09-23] MEDS: Lactated Ringers 1,000 ML 125 ML IVCONT ×3 (06:36→22:11)
[2024-09-23 06:49] VITALS: BP 142/74; PULSE 50; RESP 16; TEMP 36.6; O2SAT 96
[2024-09-23 07:13] LABS: Glucose, Whole Blood 128 mg/dL (60-115)
[2024-09-23 07:31] LABS: MANUAL DIFF FLAG NO
[2024-09-23 07:37] LABS: Anion Gap 13 (12-20); Blood Urea Nitrogen 35 mg/dL (9-16); Calcium 8.3 mg/dL (8.4-10.2); Carbon Dioxide 17 mmol/L (22-29); Chloride 120 mmol/L (96-108); Creatinine Clr Calc Pharmacy 42.2; Estimated Glomerular Filt Rate 51; Glucose Random 149 mg/dL (60-115); Potassium 4.5 mmol/L (3.3-5.1); Sodium 145 mmol/L (135-145)
[2024-09-23] MEDS: Aspirin Enteric Coated 81 MG TABLET.DR PO (08:09)
[2024-09-23] MEDS: Clopidogrel Bisulfate 75 MG TABLET PO (08:10)
--- NOTE | 2024-09-23 08:11 | HO.PM.IMPN ---
Subjective Subjective Date of Service: 09/23/24 Interval History: f/u on diabetic foot ulcer, cellulitis, oseomylitis and Roshni no new isues Physical Exam Vital Signs: Vital Signs: Last Vital Signs Temp 97.9 F 09/23/24 06:49 Pulse 50 09/23/24 06:49 Resp 16 09/23/24 06:49 BP 142/74 H 09/23/24 06:49 Pulse Ox 96 09/23/24 06:49 O2 Del Method Room Air 09/23/24 06:49 BMI result Body Mass Index 20.7 Const: Other: General: AO X 3, no acute distress Resp: CTA bilateral CVS: S1,S2,RRR GI: +BS, NT, no distention Skin: see pic in h and p from 09/20 Neuro: motor grossly intact Psych: appropriate affect Objective Data Active Medications Acetaminophen (Acetaminophen 325 Mg Tablet) 650 mg PO Q6H PRN PRN Reason: Pain, Mild 1-3,fever,headache Aspirin (Aspirin Enteric Coated 81 Mg Tablet.) 81 mg PO DAILY [facility] Last Admin: 09/23/24 08:09 Dose: 81 mg Documented By: PHILL Calcium Carbonate (Calcium Carbonate 750 Mg Tab.Chew) 750 mg PO Q4H PRN PRN Reason: Heartburn Clopidogrel Bisulfate (Clopidogrel Bisulfate 75 Mg Tablet) 75 mg PO DAILY [facility] Last Admin: 09/23/24 08:10 Dose: 75 mg Documented By: PHILL Dextrose (Dextrose 50 % 25 Gm/50 Ml Syringe) 25 gm IVPUSH Q15M PRN; Protocol PRN Reason: per Hypoglycemia Standing Ord. Glucose (Glucose Gel 15 Gm Gel..Gram.) 15 gm PO Q15M PRN; Protocol PRN Reason: per Hypoglycemia Standing Ord. Heparin Sodium (Porcine) (Heparin Sodium,Porcine 5,000 Unit/Ml Vial) 5,000 unit SUBCUT Q12H [facility] Last Admin: 09/23/24 06:05 Dose: 5,000 unit Documented By: JENN Piperacillin Sod/Tazobactam (Sod 2.25 gm/ Sodium Chloride) 50 mls @ 100 mls/hr IV Q6H [facility] Last Infusion: 09/23/24 06:35 Dose: Infused Documented By: JENN Vancomycin HCl 750 mg/ Sodium (Chloride) 265 mls @ 265 mls/hr IV Q24H [facility] Last Infusion: 09/22/24 14:14 Dose: Infused Documented By: PHILL Lactated Ringer's (Lr) 1,000 mls @ 125 mls/hr IVCONT .Q8H [facility] Last Admin: 09/23/24 06:36 Dose: 125 mls/hr Documented By: JENN Insulin Human Lispro (Insulin Lispro 100 Unit/Ml 3 Ml Vial) 0 unit SUBCUT QIDACHS [facility]; Protocol Last Admin: 09/23/24 07:15 Dose: Not Given Documented By: PHILL Non-Admin Reason: No Insulin Coverage Magnesium Hydroxide (Milk Of Magnesia 30 Ml Oral.Susp) 30 ml PO DAILY PRN PRN Reason: Constipation Melatonin (Melatonin 3 Mg Tablet) 6 mg PO BEDTIME PRN PRN Reason: Insomnia Ondansetron HCl (Ondansetron Hcl 4 Mg/2 Ml Vial) 4 mg IVPUSH Q8H PRN PRN Reason: Nausea and Vomiting Pharmacy Consult (Consult Rx Vancomycin Dosing) 1 each MISCELLANE DAILY PRN PRN Reason: Consult order Sodium Chloride (0.9 % Sodium Chloride Flush 3 Ml Syringe) 3 ml IVFLUSH QSHIFT [facility] Last Admin: 09/23/24 07:15 Dose: Not Given Documented By: PHILL Non-Admin Reason: IV Running Labs 09/21/24 07:09 09/23/24 06:40 Labs: Laboratory Results - last 24 hr 09/22/24 09/22/24 09/22/24 08:04 10:57 11:36 Hold Purple Top Anion Gap Estim Creat Clear Calc Estimated GFR POC Glucose 109 203 H Random Glucose Calcium Random Vancomycin 15.9 09/22/24 09/22/24 09/23/24 16:09 20:26 06:40 Hold Purple Top SEE NOTE Anion Gap 13 Estim Creat Clear Calc 42.2 Estimated GFR 51 POC Glucose 149 H 170 H Random Glucose 149 H Calcium 8.3 L Random Vancomycin 09/23/24 07:09 Hold Purple Top Anion Gap Estim Creat Clear Calc Estimated GFR POC Glucose 128 H Random Glucose Calcium Random Vancomycin Microbiology Microbiology Results: Microbiology 09/20/24 11:32 Blood Culture - Preliminary Blood - Venous No growth after 48 hours. 09/20/24 11:32 Blood Culture - Preliminary Blood - Venous No growth after 48 hours. Assessment and Plan (1) Diabetes: Status: Acute (2) Osteomyelitis of great toe of left foot: Status: Acute (3) Type 2 diabetes mellitus without complications: Status: Acute Plan Pt is a 73-year-old female with a PMH significant for?insulin-dependent type 2 diabetes, PVD, HTN, and hx of osteo s/p left fifth toe amputation who presents to the ED with?worsening right foot wound. Admitted for further evaluation of right foot cellulitis and suspected acute osteomyelitis. Right foot cellulitis, and acute on chronnic osteomylitis (OM) as evident on xray, elevate ESR and CRP vanc and Zosyn, started 09/20/2024, Vascular surgery to perform angiogram tomorrow 09/24 Infectious disease recommends [place] Zyvox at [place], patient has previously done well with this in past, recommends Zyvox 600 mg twice daily x 6 weeks ROSHNI on CKD, liekly from lasix started recent, lisinopril and metformin, resolved Cr is 1.3 continue holding Lasix and lisinopril, add norvasc for BP matabolic acidosis from renal failure, ivf and monitor, stopped jardiance PVD S/P SFA plasty bilaterally Continue aspirin and Plavix angiogram tomorrow 09/24 Insulin-dependent type 2 diabetes Has been hyperglycemic since being on prednisone taper 1 week ago for gout sliding scale insulin, hold jardiance and metformin, if needed low dose glipizide Full Code DVT Prophylaxis: Heparin hospitalization for iv Abx for acute osteomylitis Quality Stroke Does the patient have a stroke diagnosis?: No VTE Prior VTE?: No VTE Risk Level:: Medical - moderate - high VTE Device Contraindication: Treatment Not Indicated VTE Drug Contraindication: N/A - Med Ordered
[2024-09-23] MEDS: Linezolid 600 MG TABLET PO ×2 (08:47→20:13)
[2024-09-23 09:05] LABS: Basophils Absolute Auto 0.1 X10*3/uL (0.0-0.2); Basophils Percent Auto 0.6 % (0-2); Eosinophils Absolute Auto 0.8 X10*3/uL (0.0-0.4); Eosinophils Percent Auto 8.7 % (0-4); Hematocrit 26.1 % (42.0-52.0); Hemoglobin 8.5 g/dl (14.0-18.0); Imm Gran Abs Auto 0.22 X10*3/uL (0.00-0.03); Imm Gran Pct Auto 2.4 % (0.0-0.4); Lymphocytes Absolute Auto 1.8 X10*3/uL (1.2-4.9); Lymphocytes Percent Auto 19.6 % (20-40); Mean Corpuscular HGB Conc 32.6 g/dl (31.0-36.0); Mean Corpuscular Hemoglobin 30.4 pg (27.0-33.0); Mean Corpuscular Volume 93.2 fL (80.0-98.0); Mean Platelet Volume 10.8 fL (9.4-12.4); Monocytes Absolute Auto 0.8 X10*3/uL (0.1-1.2); Neutrophils Absolute Auto 5.4 x10*3/uL (2.0-8.3); Neutrophils Percent Auto 59.7 % (45-73); Platelet Count 269 X10*3/uL (160-400); Red Cell Distribution Width 12.8 % (11.0-16.0)
[2024-09-23 11:11] LABS: Glucose, Whole Blood 163 mg/dL (60-115)
[2024-09-23] MEDS: Insulin Lispro 100 UNIT/ML 3 ML VIAL SUBCUT (11:39)
[2024-09-23 11:57] LABS: Vancomycin Random 13.6 mcg/mL (15-20)
[2024-09-23 15:28] VITALS: BP 148/76; PULSE 51; RESP 18; TEMP 36.7; O2SAT 97
[2024-09-23 16:04] LABS: Glucose, Whole Blood 133 mg/dL (60-115)
[2024-09-23 19:18] VITALS: BP 148/70; PULSE 52; RESP 18; TEMP 36.8; O2SAT 96
[2024-09-23 19:32] LABS: Glucose, Whole Blood 149 mg/dL (60-115)
[2024-09-24] VITALS (14 sets, daily range): BP systolic 138–196; BP diastolic 60–77; PULSE 47–91; RESP 12–20; TEMP 36.1–36.6; O2SAT 94–100
[2024-09-24] MEDS: Lactated Ringers 1,000 ML 125 ML IVCONT ×2 (05:32→19:33)
[2024-09-24] MEDS: Heparin Sodium,Porcine 5,000 UNIT/ML VIAL 5000 UNIT SUBCUT ×2 (05:33→16:59)
[2024-09-24 06:26] LABS: Creatinine Clr Calc Pharmacy 43.4; Estimated Glomerular Filt Rate 53
[2024-09-24 07:28] LABS: Glucose, Whole Blood 101 mg/dL (60-115)
[2024-09-24] MEDS: Aspirin Enteric Coated 81 MG TABLET.DR PO (08:18)
[2024-09-24] MEDS: Linezolid 600 MG TABLET PO ×2 (08:18→20:54)
[2024-09-24] MEDS: Clopidogrel Bisulfate 75 MG TABLET PO (08:19)
--- NOTE | 2024-09-24 09:17 | HO.PM.IMPN ---
Subjective Subjective Date of Service: 09/24/24 Interval History: f/u on diabetic foot ulcer, cellulitis, oseomylitis and Roshni no new isues, awaiting angiogram today Physical Exam Vital Signs: Vital Signs: Last Vital Signs Temp 97.0 F 09/24/24 07:45 Pulse 50 09/24/24 07:45 Resp 18 09/24/24 07:45 BP 160/75 H 09/24/24 07:45 Pulse Ox 95 09/24/24 07:45 O2 Del Method Room Air 09/24/24 07:45 BMI result Body Mass Index 20.7 Objective Data Active Medications Acetaminophen (Acetaminophen 325 Mg Tablet) 650 mg PO Q6H PRN PRN Reason: Pain, Mild 1-3,fever,headache Aspirin (Aspirin Enteric Coated 81 Mg Tablet.Dr) 81 mg PO DAILY [facility] Last Admin: 09/24/24 08:18 Dose: 81 mg Documented By: PHILL Calcium Carbonate (Calcium Carbonate 750 Mg Tab.Chew) 750 mg PO Q4H PRN PRN Reason: Heartburn Clopidogrel Bisulfate (Clopidogrel Bisulfate 75 Mg Tablet) 75 mg PO DAILY [facility] Last Admin: 09/24/24 08:19 Dose: 75 mg Documented By: PHILL Dextrose (Dextrose 50 % 25 Gm/50 Ml Syringe) 25 gm IVPUSH Q15M PRN; Protocol PRN Reason: per Hypoglycemia Standing Ord. Glucose (Glucose Gel 15 Gm Gel..Gram.) 15 gm PO Q15M PRN; Protocol PRN Reason: per Hypoglycemia Standing Ord. Heparin Sodium (Porcine) (Heparin Sodium,Porcine 5,000 Unit/Ml Vial) 5,000 unit SUBCUT Q12H [facility] Last Admin: 09/24/24 05:33 Dose: 5,000 unit Documented By: JENN Lactated Ringer's (Lr) 1,000 mls @ 125 mls/hr IVCONT .Q8H [facility] Last Admin: 09/24/24 05:32 Dose: 125 mls/hr Documented By: JENN Sodium Chloride (Ns) 1,000 mls @ 100 mls/hr IVCONT .Q10H [facility] Insulin Human Lispro (Insulin Lispro 100 Unit/Ml 3 Ml Vial) 0 unit SUBCUT QIDACHS [facility]; Protocol Last Admin: 09/24/24 07:29 Dose: Not Given Documented By: PHILL Non-Admin Reason: No Insulin Coverage Linezolid (Linezolid 600 Mg Tablet) 600 mg PO Q12H [facility] Last Admin: 09/24/24 08:18 Dose: 600 mg Documented By: PHILL Magnesium Hydroxide (Milk Of Magnesia 30 Ml Oral.Susp) 30 ml PO DAILY PRN PRN Reason: Constipation Melatonin (Melatonin 3 Mg Tablet) 6 mg PO BEDTIME PRN PRN Reason: Insomnia Ondansetron HCl (Ondansetron Hcl 4 Mg/2 Ml Vial) 4 mg IVPUSH Q8H PRN PRN Reason: Nausea and Vomiting Pharmacy Consult (Consult Rx Vancomycin Dosing) 1 each MISCELLANE DAILY PRN PRN Reason: Consult order Sodium Chloride (0.9 % Sodium Chloride Flush 3 Ml Syringe) 3 ml IVFLUSH QSHIFT [facility] Last Admin: 09/24/24 07:29 Dose: Not Given Documented By: PHILL Non-Admin Reason: IV Running Labs 09/23/24 06:40 09/24/24 05:40 Labs: Laboratory Results - last 24 hr 09/23/24 09/23/24 09/23/24 11:07 11:30 16:00 Estim Creat Clear Calc Estimated GFR POC Glucose 163 H 133 H Random Vancomycin 13.6 L 09/23/24 09/24/24 09/24/24 19:26 05:40 07:21 Estim Creat Clear Calc 43.4 Estimated GFR 53 POC Glucose 149 H 101 Random Vancomycin Assessment and Plan (1) Diabetes: Status: Acute (2) Osteomyelitis of great toe of left foot: Status: Acute (3) Type 2 diabetes mellitus without complications: Status: Acute Plan Pt is a 73-year-old female with a PMH significant for?insulin-dependent type 2 diabetes, PVD, HTN, and hx of osteo s/p left fifth toe amputation who presents to the ED with?worsening right foot wound. Admitted for further evaluation of right foot cellulitis and suspected acute osteomyelitis. Right foot cellulitis, and acute on chronnic osteomylitis (OM) as evident on xray, elevate ESR and CRP. He was initiated on Vanco and Zosyn from 09/20/2024 to 09/23. He was seen by Infectious disease and recommends PO Zyvox at [place], patient has previously done well with this in past, recommends Zyvox 600 mg twice daily x 6 weeks. Patient has also been evaluated by Vascular surgery and is having Vascular surgery to perform angiogram today 09/24 ROSHNI on CKD, liekly from lasix started recent, lisinopril and metformin, resolved Cr is 1.3, down from 2.25 on 09/21 continue holding Lasix and lisinopril, add norvasc for BP matabolic acidosis from renal failure, ivf and monitor, stopped jardiance PVD S/P SFA plasty bilaterally Continue aspirin and Plavix angiogram today 09/24 Insulin-dependent type 2 diabetes Has been hyperglycemic since being on prednisone taper 1 week ago for gout sliding scale insulin, hold jardiance and metformin, if needed low dose glipizide Full Code DVT Prophylaxis: Heparin hospitalization for iv Abx for acute osteomylitis Quality Stroke Does the patient have a stroke diagnosis?: No VTE Prior VTE?: No VTE Risk Level:: Medical - moderate - high VTE Device Contraindication: Treatment Not Indicated VTE Drug Contraindication: N/A - Med Ordered
[2024-09-24 11:28] LABS: Glucose, Whole Blood 104 mg/dL (60-115)
[2024-09-24] MEDS: 0.9 % Sodium Chloride 1,000 ML 100 ML IVCONT (12:30)
--- NOTE | 2024-09-24 13:02 | MHC.CM.PN ---
EMR REVIEWED AND PER MD ROUNDS, PT IS NOT MEDICALLY CLEARED FOR DC (WILL HAVE ANGIOGRAM TODAY) DP REMAINS HOME ON P.O. ABT. CM WILL CONTINUE TO FOLLOW FOR ANY CHANGE TO DC PLAN/NEEDS.
[2024-09-24] MEDS: Midazolam HCl 2 MG/2 ML VIAL 0.5 MG IVPUSH (15:17)
[2024-09-24] MEDS: fentaNYL citrate/PF 100 MCG/2 ML VIAL 25 MCG IVPUSH (15:17)
--- NOTE | 2024-09-24 15:44 | P.OP_ITS ---
Operative Note Operative Note Date of Service: 09/24/24 Narrative: Angiogram report from [facility] Preoperative diagnosis: Atherosclerosis of lower extremity with Postoperative diagnosis: Same Procedure: 1. Ultrasound-guided left common femoral access 2. Aortogram with right lower extremity runoff Surgeon:Sanford Almaguer M.D., FACS, RPVI Word Processing Machine Operator:None Anesthesia: Local with moderate conscious sedation. Total intraservice moderate sedation time was 23 minutes. I monitored the patient's level of consciousness and physiologic status continuously throughout the procedure. Specimens:none Drains:none Estimated blood loss: Less than 10 ml Radiation Dose: 186 mGy Implant: None Indications: 73-year-old gentleman who is a known diabetic has a nonhealing right plantar ulcer. He now presents for right lower extremity endovascular intervention. On noninvasive testing concern was for SFA occlusion. The patient has signed the informed consent after reviewing risks, complications, benefits, and alternatives previously discussed with the patient. The patient was given the opportunity to ask any additional questions or voice any concerns. All questions were answered to the patient's satisfaction. Procedure in detail: Patient was brought to the angiography suite prior to which a time-out was called for patient identification and site verification. Bilateral groins were prepped and draped in the standard surgical fashion. Under ultrasound guidance left common femoral was punctured with micro puncture needle and wire. Subsequently a precision 5 [place]i sheath was then placed. Bentson wire was advanced to the level of the aorta bifurcation. 5 [place] Flush catheter was brought up and parked at iliac bifurcation. Iliacs were subsequently imaged. Catheter was then brought in up and over to the right side SFA. Runoff study was then undertaken. Multiple orthogonal views were then undertaken. We were able to get into the origin of the SFA. We then exchanged out for a Navicross catheter and a stiff angled Glidewire. We did try to traverse this occlusion. We did get into dissection plane. Navicross was brought around and we tried to confirmed true lumen multiple attempts were made to try to traverse this lesion but it was occluded and we were in a clear dissection plane. Once this was accomplished we brought back catheter back to the common femoral. Through this we did a repeat runoff demonstrated appropriate runoff with reconstitution at the above knee popliteal there was three-vessel runoff. At this point it was decided to terminate the procedure. Catheter wire sheath was brought back to the ipsilateral side. A 5 [place]i CELT closure device was then placed. Patient tolerated the procedure well. Returned to recovery with stable vitals. Interpretation of films: 1. Ultrasound demonstrates appropriate femoral access site. Vessel was patent with minimal stenosis. Needle entry was visualized. Image of ultrasound was saved. 2. Aortogram demonstrates appropriate caliber aorta. This was at the level of the iliacs. 3. Iliac images demonstrate no significant disease 4. Right Leg Common femoral artery: No significant disease Profundus Femoris: No significant disease Superficial femoral artery: Occluded mid 2/3 down to Melvin's canal reconstitutes at the above knee popliteal Popliteal artery (p1,p2,p3): Normal flow Anterior tibial artery: No significant disease Peroneal artery: No significant disease Posterior tibial artery: No significant disease Dorsalis pedis/plantar arch: Incomplete but the foot is supplied Conclusion: 1. Successful diagnostic angiogram. If wound persists will need fem to above knee popliteal bypass. Would continue with antibiotics for now. He can follow up with us as an outpatient. 2. Anticoagulation status: No change This note is constructed using voice recognition software. While every effort has been made to ensure accuracy, spray machine operator errors may have been included. Thank you for allowing me to participate in the care of your patient. Yours sincerely, Sanford Almaguer MD, FACS, R.P.V.I.
[2024-09-24 16:40] LABS: Glucose, Whole Blood 81 mg/dL (60-115)
[2024-09-24 20:43] LABS: Glucose, Whole Blood 140 mg/dL (60-115)
[2024-09-25] MEDS: Lactated Ringers 1,000 ML 125 ML IVCONT (03:43)
[2024-09-25] MEDS: Heparin Sodium,Porcine 5,000 UNIT/ML VIAL 5000 UNIT SUBCUT (05:02)
[2024-09-25 07:16] LABS: Anion Gap 11 (12-20); Blood Urea Nitrogen 26 mg/dL (9-16); Calcium 8.2 mg/dL (8.4-10.2); Carbon Dioxide 18 mmol/L (22-29); Chloride 116 mmol/L (96-108); Creatinine Clr Calc Pharmacy 47.8; Estimated Glomerular Filt Rate 59; Glucose Random 107 mg/dL (60-115); Potassium 4.3 mmol/L (3.3-5.1); Sodium 141 mmol/L (135-145)
[2024-09-25 07:28] LABS: Glucose, Whole Blood 98 mg/dL (60-115)
[2024-09-25] MEDS: Clopidogrel Bisulfate 75 MG TABLET PO (07:33)
[2024-09-25] MEDS: Linezolid 600 MG TABLET PO (07:33)
[2024-09-25] MEDS: Aspirin Enteric Coated 81 MG TABLET.DR PO (07:33)
[2024-09-25] MEDS: amLODIPine Besylate 2.5 MG TABLET PO (07:33)
[2024-09-25 07:43] VITALS: BP 170/60; PULSE 58; RESP 18; TEMP 36.9; O2SAT 93
--- NOTE | 2024-09-25 08:22 | P.PNNP_ITS ---
Subjective Subjective Date of Service: 09/25/24 Interval history: f/u on diabetic foot ulcer, cellulitis, oseomylitis and Michael no new isues, awaiting angiogram today Physical Exam 2 Vital Signs: Vital Signs: Last Vital Signs Temp 98.5 F 09/25/24 07:43 Pulse 58 09/25/24 07:43 Resp 18 09/25/24 07:43 BP 170/60 H 09/25/24 07:43 Pulse Ox 93 09/25/24 07:43 O2 Del Method Room Air 09/25/24 07:43 O2 Flow Rate 2 09/24/24 15:41 BMI result Body Mass Index 20.7 Const: General: no acute distress Orientation/consciousness: patient oriented x3 Neck: Neck: Yes supple Resp: Auscultation: diminished lung sounds Cardio: Rate: regular rate GI: Palpation (GI): Soft to palpation Neuro: General: patient oriented x3 Objective Data Labs 09/23/24 06:40 09/25/24 06:30 Labs: Laboratory Results - last 24 hr 09/24/24 09/24/24 09/24/24 11:24 16:34 20:39 Hold Purple Top Sodium Potassium Chloride Carbon Dioxide Anion Gap BUN Creatinine Estim Creat Clear Calc Estimated GFR POC Glucose 104 81 140 H Random Glucose Calcium 09/25/24 09/25/24 06:30 07:18 Hold Purple Top SEE NOTE Sodium 141 Potassium 4.3 Chloride 116 H Carbon Dioxide 18 L Anion Gap 11 L BUN 26 H Creatinine 1.20 Estim Creat Clear Calc 47.8 Estimated GFR 59 POC Glucose 98 Random Glucose 107 Calcium 8.2 L Microbiology Microbiology Results: Microbiology 09/20/24 11:32 Blood - Venous Blood Culture - Preliminary No growth after 48 hours. 09/20/24 11:32 Blood - Venous Blood Culture - Preliminary No growth after 48 hours. Procedures Date of Service Date of Service: 09/25/24 Assessment & Plan Assessment and plan (1) Acute kidney injury: Status: Acute Plan MICHAEL due to compromise in renal perfusion with resultant tubular injury UO OK. Cr is much better No reason to suspect GN/AIN; ACEI/Diuretics on hold until michael resolves No indication for renal replacement; C/W rest of current supp care Has follow up with me as out patient in the next few weeks L Time Spent With Patient Time: Total time managing care of this patient today ____ minutes. Progress Note: Quality Stroke Does the patient have a stroke diagnosis?: No
--- NOTE | 2024-09-25 08:41 | PM.DS ---
DS: Providers Provider Date of Service: 09/25/24 <Jamar Ludwig MD - Last Filed: 09/25/24 11:43> Date of admission: 09/20/24 15:46 <Luis Carlos Reese MD - Last Filed: 09/25/24 08:48> Date of discharge: 09/25/24 <Jamar Ludwig MD - Last Filed: 09/25/24 11:43> Primary care physician: PEREZ Jaffe <Luis Carlos Reese MD - Last Filed: 09/25/24 08:48> Consults: 09/20/24 15:32 Consult to Infectious Diseases Routine Consulting Provider: [facility] [place] [facility] Reason for consultation: ?Right foot osteo Consult to Vascular Surgery Routine Consulting Provider: [facility] [place] [facility] Reason for consultation: ?Right foot osteo. Hx of PVD s/p bilateral angiograms 09/21/24 09:00 Consult to Wound Care Routine Reason for consultation: right foot wound 09/21/24 09:32 Consult to Nephrology Routine Consulting Provider: [facility] [place] Reason for consultation: roshni, acidosis <Luis Carlos Reese MD - Last Filed: 09/25/24 08:48> Attending physician on discharge: Jamar Ludwig <Jamar Ludwig MD - Last Filed: 09/25/24 11:43> Discharging clinician: Jamar Ludwig <Jamar Ludwig MD - Last Filed: 09/25/24 11:43> DS: Diagnosis Discharge Diagnosis (1) Acute kidney injury: Status: Acute <Luis Carlos Reese MD - Last Filed: 09/25/24 08:48> DS: Summary Hospital Course Hospital Course: admission hpi Chief Complaint: Right foot wound Pt is a 73-year-old female with a PMH significant for?insulin-dependent type 2 diabetes, PVD, HTN, and hx of osteo s/p left fifth toe amputation who presents to the ED with?worsening right foot wound. Pt reports symptoms began 2 weeks ago when the area of a chronic callus on the bottom of his right foot became sore and then turned red. Pt initially went to walk-in clinic and was diagnosed with gout and prescribed prednisone. Over the next week pt's symptoms did not resolve and erythema began to spread. Four days later went back to walk-in clinic where he was diagnosed with cellulitis and started on doxycycline 100 mg b.i.d. times 10 days. Symptoms again did not improve, and earlier this morning bottom of patient's foot opened up and had purulent, foul-smelling discharge. Reports some subjective fever and chills earlier in the week, but none recently. No nausea, vomiting, diarrhea. Has been eating and drinking normally. Denies abdominal pain. No chest pain/pressure, palpitations. Denies shortness or breath or difficulty breathing. Of note, pt reports recently started on furosemide 20 mg p.o. by Nephrology around to 2024. In the ED pt was soft BP as low as 134/51, vitals otherwise stable and WNL. Labs were significant for leukocytosis 18.8, ESR 90, creatinine 2.20 (elevated from 1.30 on 07/23/2024), and CRP 16.06. Stable normocytic anemia. No significant electrolyte abnormalities. Right foot x-ray found soft tissue swelling with gas over dorsal 4th digit and MCP, as well as changes consistent with chronic osteomyelitis. Also found mild hallux valgus with characteristic erosions of gouty arthropathy. Pt was treated with IVF, vancomycin, and Zosyn. Pt will be admitted to the hospital for treatment and further evaluation of right foot cellulitis concerning for acute osteomyelitis. hospital course Pt is a 73-year-old female with a PMH significant for?insulin-dependent type 2 diabetes, PVD, HTN, and hx of osteo s/p left fifth toe amputation who presents to the ED with?worsening right foot wound. Admitted for further evaluation of right foot cellulitis and suspected acute osteomyelitis. Right foot cellulitis, and acute on chronnic osteomylitis (OM) as evident on xray, elevate ESR and CRP. He was initiated on Vanco and Zosyn from 09/20/2024 to 09/23. He was seen by Infectious disease and recommends PO Zyvox at [place], patient has previously done well with this in past, recommends Zyvox 600 mg twice daily x 6 weeks. Patient has also been evaluated by Vascular surgery and is having Vascular surgery to perform angiogram 09/24: s/p angiogram yesterday, which revealed a right SFA occlusion which reconstitutes above the knee at the popliteal, which is not new. vascular recommend continuing with daily dressing changes (can be switched to 3-4/week if home with VNA services) to include Iodoform packing, 4x4 or abd pad, and Kerlix wrap. ROSHNI on CKD, liekly from lasix started recent, lisinopril and metformin, resolved Cr is 1.2, down from 2.25 on 09/21 continue holding Lasix and lisinopril, added norvasc for BP matabolic acidosis from renal failure. given IVF and jardiance stopped: improving ,moniter bmp outpatient. PVD S/P SFA plasty bilaterally Continue aspirin and Plavix angiogram on 09/24(as above )> Insulin-dependent type 2 diabetes on sliding scale at home stopped Jardiance due to metabolic acidosis metformin can be restarted sinc renal function is better. plan: take Zyvox 600 mg twice daily for 6 weeks follow up with your PCP and Dr. Yoder. follow bmp closely , hold lisinopril/lasix until seen by pcp and Dr Garcia nephrology. added amlodipine 2.5 mg po daily for htn-amlodipine can be adjusted as needed for blood pressure outpatient. Above management discussed with the patient detail length he understand and in agreement with the plan, time spent 40 minute. <Luis Carlos Reese MD - Last Filed: 09/25/24 08:48> Time Attestation Discharge Coordination Time (in mins): 40 <Luis Carlos Reese MD - Last Filed: 09/25/24 08:48> Quality: Safe Use of Opioids Does Pt have an Active Cancer Diagnosis on the Problem List?: No <Luis Carlos Reese MD - Last Filed: 09/25/24 08:48> Quality: Stroke Does the patient have a stroke diagnosis?: No <Luis Carlos Reese MD - Last Filed: 09/25/24 08:48> Physical Exam Vital Signs: Vital Signs: Last Vital Signs Temp 98.5 F 09/25/24 07:43 Pulse 58 09/25/24 07:43 Resp 18 09/25/24 07:43 BP 170/60 H 09/25/24 07:43 Pulse Ox 93 09/25/24 07:43 O2 Del Method Room Air 09/25/24 07:43 O2 Flow Rate 2 09/24/24 15:41 BMI result Body Mass Index 20.7 <Luis Carlos Reese MD - Last Filed: 09/25/24 08:48> General: AO X 3, no acute distress Resp: CTA bilateral CVS: S1,S2,RRR GI: +BS, NT, no distention Skin: right foot dm wound -similar (dry/no erythema) Neuro: motor grossly intact Psych: appropriate affect <Jamar Ludwig MD - Last Filed: 09/25/24 11:43> DS: Data Data Completed and Pending Labs on day of discharge: Laboratory Results - last 24 hr 09/24/24 09/24/24 09/24/24 11:24 16:34 20:39 Hold Purple Top Sodium Potassium Chloride Carbon Dioxide Anion Gap BUN Creatinine Estim Creat Clear Calc Estimated GFR POC Glucose 104 81 140 H Random Glucose Calcium 09/25/24 09/25/24 06:30 07:18 Hold Purple Top SEE NOTE Sodium 141 Potassium 4.3 Chloride 116 H Carbon Dioxide 18 L Anion Gap 11 L BUN 26 H Creatinine 1.20 Estim Creat Clear Calc 47.8 Estimated GFR 59 POC Glucose 98 Random Glucose 107 Calcium 8.2 L Preliminary micro results at discharge 09/20/24 11:32 Blood Culture - Preliminary Blood - Venous No growth after 48 hours. 09/20/24 11:32 Blood Culture - Preliminary Blood - Venous No growth after 48 hours. <Luis Carlos Reese MD - Last Filed: 09/25/24 08:48> Imaging Chest x-ray: Radiologist's impression: ITS Impressions Foot X-Ray 09/20/24 12:30 IMPRESSION: 1.Resorptive changes seen involving the fourth metatarsal head and proximal aspect of the proximal phalanx consistent with chronic osteomyelitis. 2. Soft tissue swelling with gas seen overlying the dorsal fourth digit and MCP. 3. Mild hallux valgus. Arthritic changes at the first MTP joint with characteristic erosions of gouty arthropathy. Electronically signed by: Marino Carrillo MD 09/20/2024 12:55 PM EDT Arterial/Peripheral Duplex 09/21/24 09:40 IMPRESSION: Right leg: Occluded mid segment of the superficial femoral artery. Severe inflow disease in the interrogated arteries from the distal superficial femoral artery to the dorsal pedis artery. Left leg: Moderate to severe inflow disease involving mostly the left dorsalis pedis artery and the profunda femoral artery. CATRACHO Reference: - >1.4 = calcified vessels - 0.9 - 1.4 = normal - no significant arterial disease - 0.7 - 0.89 = mild peripheral arterial disease - 0.51 - 0.69 = moderate peripheral arterial disease - d 0.50 = severe peripheral arterial disease - < .30 = critical arterial disease Electronically signed by: Cordell Butler MD 09/25/2024 11:06 AM EDT RP <Jamar Ludwig MD - Last Filed: 09/25/24 11:43> Discharge Plan Discharge Anticipated Discharge Date/Time: 09/25/24 15:56 <Luis Carlos Reees MD - Last Filed: 09/25/24 08:48> Patient Disposition: Home Health Service <Luis Carlos Reese MD - Last Filed: 09/25/24 08:48> Discharge Diagnosis: Acute osteomylitis of the foot <Luis Carlos Reese MD - Last Filed: 09/25/24 08:48> Acute osteomylitis of the foot <Jamar Ludwig MD - Last Filed: 09/25/24 11:43> Referrals: [facility] [Outside] - 1 Week Clint Vivar FNP- [Primary Care Provider] - 1 Week <Luis Carlos Reese MD - Last Filed: 09/25/24 08:48> Discharge Medications: New linezolid 600 mg Tablet 600 mg PO Q12H Qty: 84 0RF amlodipine 2.5 mg Tablet 2.5 mg PO DAILY Qty: 60 0RF Protocol: Hold for SBP< HOLD for SBP < : 90 Continued (DME) blood-glucose meter [FreeStyle Lite Meter] Kit See Rx Instructions .Route Qty: 1 0RF Rx Instructions: test 4 times QD (DME) pen needle, diabetic 31 gauge x 3/16 needle See Rx Instructions subcut TID Qty: 50 1RF Rx Instructions: tid clopidogrel 75 mg tablet 75 mg PO DAILY Qty: 90 1RF metformin 500 mg tablet 500 mg PO DAILY 90 Days Qty: 90 1RF Fiasp FlexTouch U-100 Insulin 100 unit/mL (3 mL) insulin pen See Protocol subcut TID PRN (Reason: high sugar ) Protocol: Insulin Correction Scale Less than or equal to 110 ---- Give (units): 0 111 to 150 Give (units): 0 151 to 200 Give (units): 2 201 to 250 Give (units): 4 251 to 300 Give (units): 6 301 to 350 Give (units): 8 Greater than 350 Give (units): 10 Call MD if Blood Glucose > : 350 aspirin [Adult Low Dose Aspirin] 81 mg tablet,delayed release (DR/EC) 81 mg PO DAILY Held lisinopril 10 mg tablet 10 mg PO DAILY Qty: 90 1RF Hold Instructions: Resume on 11/28/24. furosemide 20 mg tablet 20 mg PO DAILY Qty: 30 0RF Hold Instructions: Resume on 10/25/24. Discontinued Jardiance 10 mg tablet 10 mg PO DAILY Qty: 30 4RF <Luis Carlos Reese MD - Last Filed: 09/25/24 08:48> Discharge Orders: Discharge Order (Routine); Ordered 09/25/24 Ordered By: Jamar Ludwig <Luis Carlos Reese MD - Last Filed: 09/25/24 08:48> Diet: Advance to usual diet <Luis Carlos Reese MD - Last Filed: 09/25/24 08:48> Advance to usual diet <Jamar Ludwig MD - Last Filed: 09/25/24 11:43> Activity on Discharge: As tolerated <Luis Carlos Reese MD - Last Filed: 09/25/24 08:48> As tolerated <Jamar Ludwig MD - Last Filed: 09/25/24 11:43> Stand Alone Forms: Patient Portal Discharge page <Luis Carlos Reese MD - Last Filed: 09/25/24 08:48> Print Language: Surinamese <Luis Carlos Reese MD - Last Filed: 09/25/24 08:48> Other Ambulatory Orders: Basic Metabolic Panel (Routine) Timeframe: 1 Week Facility: [facility] - Location: Laboratory Ordered By: Jamar Ludwig <Luis Carlos Reese MD - Last Filed: 09/25/24 08:48> Activity Restrictions/Additional Instructions: Dressing changes (daily if possible, if not, can be done 3-4/week) of Iodoform packing, 4x4, and kerlix wrap. <Luis Carlos Reese MD - Last Filed: 09/25/24 08:48> Care Plan Goals: recovery from acute osteomylitis <Luis Carlos Reese MD - Last Filed: 09/25/24 08:48> Health Concerns: diabetic foot ulcer acute on chronic osteomylitis <Luis Carlos Reese MD - Last Filed: 09/25/24 08:48> Plan of Treatment: take Zyvox 600 mg twice daily for 6 weeks follow up with your PCP and Dr. Yoder. follow bmp closely , hold lisinopril/lasix until seen by pcp and dr garcia nephrology. <Luis Carlos Reese MD - Last Filed: 09/25/24 08:48> Assessment: see above <Luis Carlos Reese MD - Last Filed: 09/25/24 08:48>
[2024-09-25 08:46] VITALS: BP 143/67; PULSE 60
--- NOTE | 2024-09-25 09:09 | HO.VASCPN ---
Subjective Subjective Date of Service: 09/25/24 Interval history: Talon is doing well this morning. He states he is eating, drinking, and sleeping well. He denies any pain. He has no new concerns this morning. Physical Exam Vital Signs: Vital Signs: Last Vital Signs Temp 98.5 F 09/25/24 07:43 Pulse 60 09/25/24 08:46 Resp 18 09/25/24 07:43 BP 143/67 H 09/25/24 08:46 Pulse Ox 93 09/25/24 07:43 O2 Del Method Room Air 09/25/24 07:43 O2 Flow Rate 2 09/24/24 15:41 BMI result Body Mass Index 20.7 Const: General: healthy appearing and no acute distress Orientation/consciousness: patient oriented x3 HEENT: Head: Yes normal to inspection Ears: hearing grossly normal bilaterally Mouth: Normal oral and palatal mucosa present Resp: Effort & Inspection: normal respiratory effort and able to speak in complete sentences Auscultation: clear to auscultation bilaterally Cardio: Jugular venous distension: no JVD Rate: regular rate Rhythm: regular rhythm Heart sounds: S1 normal heart sound present and S2 normal heart sound present Bruits: no abdominal aortic bruits, no carotid bruits, no femoral bruits and no renal bruits Peripheral pulses: Peripheral pulses 2+ throughout GI: Inspection: Yes normal to inspection Palpation (GI): No Abdominal aortic bruit present : Other: Left groin incision site: C/D/I. No bleeding or drainage noted. Skin: General skin exam: no rashes or lesions noted Wounds: no wounds Hair: normal Neuro: General: patient oriented x3 Cranial nerves: Yes CN's II-XII intact bilaterally and Yes Normal hearing present Cognition (Neuro): normal cognition Gait exam (Neuro): Normal gait present Motor exam (neuro): 5/5 motor strength present throughout Sensory Exam: No Sensory deficit (Neuro) Extrem: Other: Right foot: dressing not taken down this morning, will be changed later. General: Yes normal to inspection, Yes full ROM, Yes capillary refill normal and Yes normal gait Progress Note: A&P Assessment and plan (1) PVD (peripheral vascular disease): Status: Acute Assessment and Plan: Talon remains stable from a vascular standpoint. He is s/p angiogram yesterday, which revealed a right SFA occlusion which reconstitutes above the knee at the popliteal, which is not new. We recommend continuing with daily dressing changes (can be switched to 3-4/week if home with VNA services) to include Iodoform packing, 4x4 or abd pad, and Kerlix wrap. We would continue on Abx. We will have him follow up with us outpatient in the office. If there are any questions or concerns, please do not hesitate to reach out to us. Time Spent With Patient Time: Total time managing care of this patient today ____ minutes. Procedures Date of Service Date of Service: 09/25/24 Quality Stroke Does the patient have a stroke diagnosis?: No VTE Prior VTE?: No VTE Risk Level:: Medical - moderate - high VTE Device Contraindication: Treatment Not Indicated VTE Drug Contraindication: N/A - Med Ordered
--- NOTE | 2024-09-25 09:49 | MHC.CM.PN ---
IMM 09/25/24 Patient is discharged to home with VNA services. NA will provide home services. Patient has arranged for a ride home.
[2024-09-25 11:19] LABS: Glucose, Whole Blood 147 mg/dL (60-115)
--- NOTE | 2024-09-25 11:23 | W.MHC.F2F ---
Service Date Service Date: 09/25/24 Encounter Date of encounter: 09/25/24 Encounter: dm foot infection,Right foot cellulitis, and acute on chronnic osteomylitis Reasons for Services Signs and symptoms assessed: new synptoms or fevers Reason for long term: medication management, medication treatment and teach disease management Reason for physical therapy: home safety and mobility, therapeutic exercises, restore joint function, gait/transfer training, assess need for DME, ADL training, energy conservation and other MD Overseeing Care: Clint Vivar Homebound: Leaving the home is medically contraindicated at this time without the asist of a device and/or another person due th the listed conditions above and below. Reason homebound: weakness related to hospital stay Homebound supporting statement: Patient is generalised weak post hospitlisation and need help with going to appointments and labs draws as well as wound care. Certification: Based on the above findings, I certify that this patient is confined to the home and needs intermittent long term care, physical therapy and/or speech therapy, or continues to need occupational therapy. The patient is under my care, and I have initiated the establishment of the plan of care. The patient will be followed by a physician who will periodically review the plan of care. Time Spent With Patient Time: Total time managing care of this patient today ____ minutes.
== END 2024-09-25 12:19 | disposition home health service (06) | DRG 300 ==
LOC: HO.ED 15:12 → HO.EDOVER 16:01 → HO.IMC 19:05 → HO.S3 09-22 09:00
PROVIDERS: Internal Medicine; Physician Assistant Medical; Surgery Vascular Surgery; Admitting Provider Student in an Organized Health Care Education/Training Program; Emergency Provider Emergency Medicine; PCP Nurse Practitioner Family; Visit Provider Internal Medicine
PROC: B40D1ZZ Plain Radiography of Aorta and Bilateral Lower Extremity Arteries using Low Osmolar Contrast (ICD-10-PCS; principal; 2024-09-24 13:00)
DX: E11.51 Type 2 diabetes mellitus with diabetic peripheral angiopathy without gangrene (principal); E87.21 Acute metabolic acidosis; L03.115 Cellulitis of right lower limb; L97.419 Non-pressure chronic ulcer of right heel and midfoot with unspecified severity; M86.171 Other acute osteomyelitis, right ankle and foot; M86.671 Other chronic osteomyelitis, right ankle and foot; N17.9 Acute kidney failure, unspecified; E11.69 Type 2 diabetes mellitus with other specified complication; E11.628 Type 2 diabetes mellitus with other skin complications; I70.234 Atherosclerosis of native arteries of right leg with ulceration of heel and midfoot; I12.9 Hypertensive chronic kidney disease with stage 1 through stage 4 chronic kidney disease, or unspecified chronic kidney disease; N18.30 Chronic kidney disease, stage 3 unspecified; D63.1 Anemia in chronic kidney disease; Z79.82 Long term (current) use of aspirin; Z79.84 Long term (current) use of oral hypoglycemic drugs; Z79.899 Other long term (current) drug therapy
CPT/HCPCS: 36247; 36415; 73630; 75630; 76937; 80048; 80202; 82247; 82565; 82947; 83605; 85025; 85027; 85610; 85652; 85730; 86140; 87040; 93922; 93925; 99152; 99153; 99212; 99285; C1769; C1887; C1894; J1644; J2250; J2310; J2543; J3010; J3370; J3371; J7120; Q9967

== ENCOUNTER → 2024-09-20 11:54 | Outpatient (BNV) | payer MEDICARE, OTHER, SELFPAY | PROVIDERS: Emergency Provider Emergency Medicine; PCP Nurse Practitioner Family; Visit Provider Radiology Diagnostic Radiology | DX: L03.115 Cellulitis of right lower limb (principal) | CPT/HCPCS: 73630 ==

== ENCOUNTER 2024-09-20 15:46 | Outpatient (BNV) | payer MEDICARE, OTHER, SELFPAY | END 2024-09-21 07:00 | PROVIDERS: Admitting Provider Student in an Organized Health Care Education/Training Program; Emergency Provider Emergency Medicine; PCP Nurse Practitioner Family; Visit Provider Radiology Diagnostic Radiology | DX: I74.3 Embolism and thrombosis of arteries of the lower extremities (principal) | CPT/HCPCS: 93922; 93925 ==

== ENCOUNTER → 2024-09-20 15:46 | Outpatient (BNV) | payer MEDICARE, OTHER, SELFPAY | PROVIDERS: Admitting Provider Student in an Organized Health Care Education/Training Program; Emergency Provider Emergency Medicine; PCP Nurse Practitioner Family; Visit Provider Student in an Organized Health Care Education/Training Program | DX: E11.9 Type 2 diabetes mellitus without complications (principal); M86.9 Osteomyelitis, unspecified | CPT/HCPCS: 99232 ==

== ENCOUNTER → 2024-09-20 15:46 | Outpatient (BNV) | payer MEDICARE, OTHER, SELFPAY | PROVIDERS: Admitting Provider Student in an Organized Health Care Education/Training Program; Emergency Provider Emergency Medicine; PCP Nurse Practitioner Family; Visit Provider Internal Medicine Nephrology | DX: N17.0 Acute kidney failure with tubular necrosis (principal) | CPT/HCPCS: 99223; 99232 ==

== ENCOUNTER → 2024-09-20 15:46 | Outpatient (BNV) | payer MEDICARE, OTHER, SELFPAY | PROVIDERS: Admitting Provider Student in an Organized Health Care Education/Training Program; Emergency Provider Emergency Medicine; PCP Nurse Practitioner Family; Visit Provider Internal Medicine | DX: M86.9 Osteomyelitis, unspecified (principal); L03.115 Cellulitis of right lower limb; N18.30 Chronic kidney disease, stage 3 unspecified | CPT/HCPCS: 99222 ==

== ENCOUNTER → 2024-09-20 15:46 | Outpatient (BNV) | payer MEDICARE, OTHER, SELFPAY | PROVIDERS: Admitting Provider Student in an Organized Health Care Education/Training Program; Emergency Provider Emergency Medicine; PCP Nurse Practitioner Family; Visit Provider Physician Assistant Surgical | DX: E11.621 Type 2 diabetes mellitus with foot ulcer (principal); L97.519 Non-pressure chronic ulcer of other part of right foot with unspecified severity; I70.221 Atherosclerosis of native arteries of extremities with rest pain, right leg | CPT/HCPCS: 36247; 75625; 75710; 76937; 99152; 99222 ==

== ENCOUNTER 2024-10-04 13:25 | Outpatient (REF) | payer MEDICARE, OTHER, SELFPAY ==
[2024-10-04 15:55] LABS: MANUAL DIFF FLAG NO
[2024-10-04 16:05] LABS: Basophils Absolute Auto 0.1 X10*3/uL (0.0-0.2); Eosinophils Absolute Auto 0.3 X10*3/uL (0.0-0.4); Eosinophils Percent Auto 5.3 % (0-4); Hematocrit 26.8 % (42.0-52.0); Hemoglobin 8.8 g/dl (14.0-18.0); Imm Gran Abs Auto 0.02 X10*3/uL (0.00-0.03); Imm Gran Pct Auto 0.3 % (0.0-0.4); Lymphocytes Absolute Auto 1.3 X10*3/uL (1.2-4.9); Lymphocytes Percent Auto 22.9 % (20-40); Mean Corpuscular HGB Conc 32.8 g/dl (31.0-36.0); Mean Corpuscular Hemoglobin 29.9 pg (27.0-33.0); Mean Corpuscular Volume 91.2 fL (80.0-98.0); Monocytes Absolute Auto 0.4 X10*3/uL (0.1-1.2); Monocytes Percent Auto 7.6 % (2-11); Neutrophils Absolute Auto 3.7 x10*3/uL (2.0-8.3); Neutrophils Percent Auto 62.9 % (45-73); Platelet Count 201 X10*3/uL (160-400); Red Blood Count 2.94 X10*6/uL (4.60-5.80); Red Cell Distribution Width 13.3 % (11.0-16.0); White Blood Count 5.8 X10*3/uL (4.8-10.8)
[2024-10-04 16:26] LABS: Anion Gap 14 (12-20)
[2024-10-04 16:44] LABS: Alanine Aminotransferase 15 U/L (0-40); Albumin Level 3.4 g/dL (3.5-5.0); Alkaline Phosphatase 65 U/L (39-117); Aspartate Amino Transferase 22 U/L (5-37); Bilirubin Total 0.3 mg/dL (0.0-1.0); Blood Urea Nitrogen 31 mg/dL (9-16); C Reactive Protein 0.51 mg/dL (< or = 0.50); Calcium 9.2 mg/dL (8.4-10.2); Carbon Dioxide 22 mmol/L (22-29); Chloride 108 mmol/L (96-108); Estimated Glomerular Filt Rate 44; Glucose Random 123 mg/dL (60-115); Potassium 4.9 mmol/L (3.3-5.1); Sodium 138 mmol/L (135-145); Total Protein 6.5 g/dL (6.5-8.0)
[2024-10-04 17:10] LABS: Erythrocyte Sedimentation Rate 58 MM/HR (0-15)
--- OUTSIDE RECORDS SUMMARY | 2024-10-04 17:18 | XMS_ITS | Clinical Summary ---
Author Organization [facility] Facility Address [address] [address] Care Team Providers Care Animal Nursery Worker Name Role Phone Clint Vivar NP Primary Care Provider Social History Tobacco [...] complete [place] [id number] Medicare [facility] Medicare [facility] Care Teams Animal Nursery Worker Relationship Specialty Start Date End Date Clint Vivar NP 1961 [facility] [place] [address] PCP - General Nurse Practitioner 07/21/22
== END 2024-10-04 13:26 | disposition home or self-care (01) ==
LOC: HO.HMGCLDS 13:25
PROVIDERS: PCP Nurse Practitioner Family; Visit Provider Nurse Practitioner Family
DX: L03.115 Cellulitis of right lower limb (principal); M86.9 Osteomyelitis, unspecified; S91.301A Unspecified open wound, right foot, initial encounter
CPT/HCPCS: 36415; 80053; 85025; 85652; 86140; 99212

== ENCOUNTER 2024-10-04 13:25 | Outpatient (AMB) | payer MEDICARE, OTHER, SELFPAY ==
[2024-10-04 13:34] VITALS: BP 144/58; PULSE 79; O2SAT 94; BMI 21.5
--- NOTE | 2024-10-04 13:34 | MHC.PC.OV ---
Vital Signs 10/04/24 13:34 Height 5 ft 8 in Weight 141 lb 2 oz BMI 21.5 BP 144/58 H Blood Pressure Location Rt brachial Position Sitting Pulse 79 Pulse Source Pulse Oximeter Pulse Oximetry (%) 94 Oxygen Delivery Method Room Air Intake Visit Reasons: HDF Allergies No Known Allergies [No Known Allergies*] Allergy (Verified 10/04/24 14:36) Medication List - Last Reconciled 10/04/24 by SARI Ruiz- amlodipine 5 mg See Protocol PO DAILY aspirin (Adult Low Dose Aspirin) 81 mg PO DAILY Bifidobacterium infantis (Align (B.infantis)) 10.5 mg PO DAILY 30 days blood-glucose meter (FreeStyle Lite Meter kit) test 4 times QD clopidogrel 75 mg PO DAILY insulin aspart (niacinamide) 100 unit/mL (3 mL) (Fiasp FlexTouch U-100 Insulin) See Protocol sliding scale doses subcut TID PRN linezolid 600 mg PO Q12H loperamide (Anti-Diarrheal (loperamide)) 2 mg PO Q6H PRN 30 days metformin 500 mg PO DAILY 90 days pen needle, diabetic tid Tobacco use date assessed: 10/04/24 Fall risk assessment: No Falls in past year Last assessed Fall Risk: 10/04/24 Dental Screening Dental Screen Date: 10/04/24 Did you have a dental visit in the last 12 months?: No Did you have a dental problem in the last 6 months where you did not have access to dental care?: No Was dental information given to patient?: Patient declined HPI HDF HPI Details Chief Complaint Follow-up for right foot cellulitis and osteomyelitis management. History of Present Illness The patient is a 74-year-old male presenting for hospital discharge follow-up related to right foot cellulitis and osteomyelitis. He was diagnosed with a worsening right foot wound two weeks before presenting to the emergency department on 09/20. The wound underwent vascular monitoring due to a chronic callus which became erythematous and tender. Previous treatment attempts with prednisone and doxycycline for suspected gout did not improve symptoms, prompting emergency evaluation. At the time of his ED visit, labs showed leukocytosis, elevated creatinine levels indicating acute kidney injury, and markers of inflammation, including an elevated ESR and CRP. Imaging suggested osteomyelitis and confirmed hallux valgus and gout-related erosions. During hospitalization, he received broad-spectrum antibiotics and was advised on continuation with linezolid. Vascular assessment indicated right SFA occlusion, and recommendations included local wound care measures. Social History Health Maintenance - Directed vascular care including dressing changes and monitoring via [facility] ([facility]). - Blood pressure management adjustments due to acute kidney injury. Review of Systems - Cardiovascular: Reports history of peripheral vascular disease and hypertension. - Endocrine: Reports type 2 diabetes mellitus. - Gastrointestinal: Reports diarrhea. - Hematological: Reports normocytic anemia. 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 Physical Exam General: Cooperative, healthy appearing, comfortable, no acute distress and well developed Orientation: Patient oriented x3 Limitations: No limitations Head: Normal to inspection Ears: Hearing grossly normal bilaterally Nose: Normal external nose present Face and sinus: Normal facial exam Eyes: Appearance normal, both eyes and all related structures Neck: Normal visual inspection and Yes full ROM Respiratory: Normal respiratory effort and able to speak in complete sentences. Clear to auscultation bilaterally Cardiovascular: Regular rate and rhythm. Normal S1 and S2, faint systolic murmur GI: Normal to inspection. Soft to palpation and nontender Skin: No rashes or lesions noted Neuro: Patient oriented x3 Extremities: Weak dorsalis pedis noted to the right foot. Slightly open wound with no signs of infection on the distal plantar aspect of the right foot. Excoriation between the fourth and fifth toes with no signs of infection. Everything seems to be healing well. Results - Labs: WBC 18.8 K/uL, ESR 90 mm/hr, CRP 16.06 mg/dL, creatinine 2.2 mg/dL (resolved to 1.2 mg/dL). - Imaging: X-ray shows gas over the dorsal fourth digit, findings consistent with chronic osteomyelitis, mild hallux valgus, erosions of gouty arthropathy. - Procedures: Angiogram revealing right SFA occlusion. Plan The management for the patient's conditions involves ongoing antibiotic therapy with linezolid for osteomyelitis, alongside careful wound care coordinated with the VNA. He is advised on dressing changes at home, transitioning from daily to less frequent under vascular surgery guidance. Blood pressure management has been addressed through the cessation of certain medications contributing to prior acute kidney injury, ensuring renal function stabilization. Amlodipine was increased from 2.5mg to 5mg. Diarrhea linked to antibiotic use and will treat with loperamide and probiotics. Follow-up appointments will assess wound healing and renal health, with continual monitoring of therapy effectiveness. Discussion Notes I discussed the management and treatment plan with the patient, emphasizing the continuation of linezolid for osteomyelitis and the importance of dressing changes as recommended for optimal wound healing. The resolution of his acute kidney injury through medication adjustment was explained, along with the need for ongoing monitoring of renal function and blood pressure. We reviewed the use of loperamide and probiotics for diarrhea management related to antibiotic therapy. The patient was counseled on recognizing signs of infection and understands the importance of follow-up appointments, outlining reasons to seek care for any worsening symptoms. Patient Instructions - Complete the full course of linezolid as prescribed. - Follow VNA instructions for daily dressing changes, transitioning to home care upon recommendation. - Monitor blood pressure as advised with current medications. - Take loperamide for diarrhea and utilize probiotics as directed. - Schedule follow-up appointments with nephrology and myself next month. - Seek emergency care if symptoms, especially around the foot, worsen. - Contact me with any questions or concerns. FORMERLY [facility], [facility]1983 Medical History CKD (chronic kidney disease) stage 3, GFR 30-59 ml/min Type 2 diabetes mellitus without complications Osteomyelitis of great toe of left foot Diabetes PVD (peripheral vascular disease) Hypercholesteremia Surgical History S/P angiogram of extremity (08/13/20) Amputated toe of left foot (08/18/20) S/P angiogram of extremity (10/08/19) S/P PICC central line placement Social History Household Members Other:: lives alone Housing: Apartment Alcohol intake: current Alcohol intake frequency: does not drink Patient Tobacco Use Status: Never used Tobacco Years Smoked: 39 e-Cigarette/Vaping Use: Never Used Second Hand Smoke Exposure: No service: No Current occupational status: retired Cognitive needs: No Hearing needs: No Vision needs: No Questionnaire Thrive Questionnaire Date Thrive assessed: 09/21/24 AUDIT C Alcohol Use Questionnaire (AUDIT-C) 1. How often do you have a drink containing alcohol?: Never 3. How often do you have six or more drinks on one occasion?: Never Total Score: 0 Score Reviewed/Action Taken: Yes KIYA-7 AMB Questionnaire KIYA-7 Date KIYA - 7 assessed: 07/30/24 Source: Developed by Drs. Nasir Gilmore, Ana Laura Harley, José Miguel Garvin and colleagues, with an educational arnaud from [employer]. Physical exam (Primary Care) Vital Signs: Last Vital Signs Pulse 79 10/04/24 13:34 BP 144/58 H 10/04/24 13:34 Pulse Ox 94 10/04/24 13:34 Oxygen Delivery Method Room Air 10/04/24 13:34 BMI result Body Mass Index 21.5 Tobacco/Smoking Status: Tobacco use Status Tobacco use date assessed 10/04/24 10/04/24 13:47 Patient Tobacco Use Status Never used Tobacco 10/04/24 13:47 e-Cigarette/Vaping Use Never Used 10/04/24 13:47 Thrive Assessment: Date of Thrive Assessment Date Thrive assessed 09/21/24 10/04/24 13:47 Coding Level of Care Code Est Pt Level 4 (98793) Diagnoses Osteomyelitis M86.9 Cellulitis L03.90 Wound of foot S91.309A Assessment & Plan Assessment & Plan (1) Osteomyelitis: Code(s): M86.9 - Osteomyelitis, unspecified Category: Medical (2) Cellulitis: Code(s): L03.90 - Cellulitis, unspecified Category: Medical (3) Wound of foot: Code(s): S91.309A - Unspecified open wound, unspecified foot, initial encounter Category: Medical Plan . Orders: Orders Complete Blood Count Auto Diff Today L03.90 - Cellulitis, unspecified, M86.9 - Osteomyelitis, unspecified, S91.309A - Unspecified open wound, unspecified foot, initial encounter Comprehensive Met. Panel Today L03.90 - Cellulitis, unspecified, M86.9 - Osteomyelitis, unspecified, S91.309A - Unspecified open wound, unspecified foot, initial encounter Erythrocyte Sedimentation Rate Today L03.90 - Cellulitis, unspecified, M86.9 - Osteomyelitis, unspecified, S91.309A - Unspecified open wound, unspecified foot, initial encounter C Reactive Protein Today L03.90 - Cellulitis, unspecified, M86.9 - Osteomyelitis, unspecified, S91.309A - Unspecified open wound, unspecified foot, initial encounter Medications: New loperamide (Anti-Diarrheal (loperamide)) 2 mg PO Q6H PRN 120 caps 0RF loose stool 30 days Bifidobacterium infantis (Align (B.infantis)) 10.5 mg PO DAILY 30 tabs 1RF 30 days Changed From amlodipine 2.5 mg See Protocol PO DAILY 60 tabs 0RF To amlodipine 5 mg See Protocol PO DAILY 30 tabs 2RF
--- OUTSIDE RECORDS SUMMARY | 2024-10-04 15:46 | XMS_ITS | Clinical Summary ---
Author Organization [facility] Facility Address [address] [address] Care Team Providers Care Cardiology Clinical Consultant Name Role Phone Clint Vivar NP Primary Care Provider [phone] Social History Tobacco Use Types Packs/Day Years [...] 50+ Ye ars (1 of - PCV) 2000 Influenza Vaccine (Season Ended) 2025 Hepatitis B Vaccine Aged Out No longe r eligible based on patient's age to [place] [id number] Medicare [facility] Care Teams Cardiology Clinical Consultant Relationship Specialty Start Date End Date Clint Vivar NP 1961 [facility] [place] [address] PCP - General Nurse Practitioner 07/21/22
== END 2024-10-04 14:52 | disposition home or self-care (01) ==
LOC: HO.HMCC 13:26
PROVIDERS: PCP Nurse Practitioner Family; Visit Provider Nurse Practitioner Family
DX: M86.9 Osteomyelitis, unspecified (principal); L03.90 Cellulitis, unspecified; S91.309A Unspecified open wound, unspecified foot, initial encounter

== ENCOUNTER 2024-10-09 12:39 | Outpatient (AMB) | payer MEDICARE, OTHER, SELFPAY ==
--- NOTE | 2024-10-09 13:01 | A.OFFVIS_ITS ---
Vital Signs 10/09/24 13:02 Height 5 ft 8 in Weight 141 lb BMI 21.4 Intake Visit Reasons: 2 week follow up angio 09/24/24 Intake Note: 2 week follow up Right LE angiogram 09/24/24. Pt states VNA are coming a few times a week to change dressing to the Right 4th toe Client Resolution Specialist Required: No Accompanied by: Self / Same As Patient Allergies No Known Allergies [No Known Allergies*] Allergy (Verified 10/09/24 13:05) HPI HPI 2 week follow up angio 09/24/24: Details: The patient is a 74-year-old male presenting to follow up on his right lower extremity post-angiogram due to known peripheral artery disease and arterial blockage in the right leg. The visit is prompted by a wound near the toes that has been under scrutiny for healing properly. The condition was first identified by a visiting nurse with emphasis on appropriate healing from beneath the surface. The wound dimensions have been assessed at 3 cm by 1.7 cm, accompanied by dry callus buildup, and it is under active wound management including previous packing. He now presents for routine vascular follow-up for right foot ulcer. [facility] Medical History CKD (chronic kidney disease) stage 3, GFR 30-59 ml/min Type 2 diabetes mellitus without complications Osteomyelitis of great toe of left foot Diabetes PVD (peripheral vascular disease) Hypercholesteremia Surgical History S/P angiogram of extremity (08/13/20) Amputated toe of left foot (08/18/20) S/P angiogram of extremity (10/08/19) S/P PICC central line placement Social History Household Members Other:: lives alone Housing: Apartment Alcohol intake: current Alcohol intake frequency: does not drink Patient Tobacco Use Status: Never used Tobacco Years Smoked: 39 e-Cigarette/Vaping Use: Never Used Second Hand Smoke Exposure: No service: No Current occupational status: retired Cognitive needs: No Hearing needs: No Vision needs: No Review of Systems Const All systems reviewed & are unremarkable except as noted in HPI and below Reports no additional complaints ENT Reports Normal hearing present Card Denies chest pain, Denies chest pain at rest, Denies chest pain with activity and Denies pedal edema Resp Denies cough GI Denies abdominal pain Musc Denies abnormal gait, Denies muscle cramps and Denies radiating pain into limb Skin/Breast Denies skin ulcer and Denies wounds Neuro Reports Normal hearing present and Denies abnormal gait Psych Reports no additional complaints Physical Exam Vital Signs: BMI result Body Mass Index 21.4 Const General: cooperative, healthy appearing and comfortable Orientation/consciousness: oriented to person, oriented to place and oriented to time HEENT Head: Yes normal to inspection Neck Neck: Yes normal visual inspection Carotids: no bruits Chest Chest palpation & inspection: normal inspection of the chest Resp Effort & Inspection: normal respiratory effort and able to speak in complete sentences Auscultation: clear to auscultation bilaterally, no crackles, no rales, no rhonchi and no wheezes Cardio Rate: regular rate Rhythm: regular rhythm Heart sounds: S1 normal heart sound present and S2 normal heart sound present Bruits: no carotid bruits Peripheral pulses: Peripheral pulses 2+ throughout GI Inspection: Yes normal to inspection Skin Other: Right foot ulcer measures 3 x 1.7 x 0.3 cm. Dry callus overlying. Wounds: wounds noted Hair: normal Neuro General: oriented to person, oriented to place and oriented to time Cranial nerves: Yes CN's II-XII intact bilaterally and Yes Normal hearing present Cognition (Neuro): normal cognition Motor exam (neuro): 5/5 motor strength present throughout Extrem Other: venous exam: No significant superficial varicosities or spider telangiectasias, minimal edema General: No clubbing, No cyanosis and No edema Psych Appearance: grossly normal Mental Status: mental status grossly normal Speech and movement: Normal speech and movement present Office Procedures Vascular Office Procedure Details Details: Wound debridement note: Preoperative diagnosis: Nonhealing right foot ulcer Postoperative diagnosis: Nonhealing right foot ulcer Procedure: Excisional debridement into muscle Anesthesia: None Estimated blood loss: Minimal Pre-procedure measurement and appearance right plantar surface dry callus measuring 0.3 x 1.7 by 0.2 cm Postprocedure measurement and appearance: Clean granulation tissue measuring 0.3 x 1.8 x .4 cm Procedure in detail: Excisional debridement of the muscle was carried out.. Necrotic devitalized and nonviable tissue was removed. We debrided into muscle using pickups Metzenbaum scissors and curette. Wound was thoroughly irrigated. At the conclusion wound appeared clean with good granulation. Clean and sterile dressing was applied. Patient tolerated the procedure well. Instructions were given to the patient. Follow-up was suggested. This note is constructed using voice recognition software. While every effort has been made to ensure accuracy, quality improvement engineer errors may have been included. Thank you for allowing me to participate in the care of your patient. Yours sincerely, Sanford Almaguer MD, FACS, R.P.V.I. [id number] Debridement, muscle and or fascia (lst 20 sq cm or less) All charges added?: Procedure code (CPT) selection complete Assessment & Plan Assessment & Plan (1) PVD (peripheral vascular disease): Comment: 10/08/2019 - left SFA stent and popliteal plasty with DCB 08/13/2020 - angioplasty left SFA with DCB 08/18/2020 - left 5th toe amputation 05/30/2024 - diagnostic angiogram 06/27/2024 - left SFA plasty 09/24/2024 - right leg angiogram Code(s): I73.9 - Peripheral vascular disease, unspecified Category: Medical Plan: During the visit, I explained to the patient the current status and appropriate management of his right lower extremity wound, accentuating the importance of healing from the inside out, consistent with common best practices discussed with the visiting nurse. I clarified the non-immediate necessity for a major surgical approach regarding his peripheral artery disease and blockage in the right leg, encouraging continued patient participation. Consent was implicitly detailed during these discussions, focusing on vigilance advised for wound management. He will follow up with us in approximately 2 weeks time. Thank you for allowing us to participate in his care. Plan Patient was informed and verbally consented to the use of an ambient scribe for clinic note documentation during this visit. Patient Instructions: - Keep the wound clean and packed as recommended. - Monitor healing progress and alert us if conditions worsen. - Return for a follow-up appointment in two weeks. Coding Level of Care Code Est Pt Level 3 (05112) Diagnoses PVD (peripheral vascular disease) I73.9
[2024-10-09 13:02] VITALS: BMI 21.4
--- OUTSIDE RECORDS SUMMARY | 2024-10-09 14:30 | XMS_ITS | Clinical Summary ---
Author Organization [facility] Facility Address [address] [address] Care Team Providers Care [employer]x Research Associate Name Role Phone Clint Vivar NP Primary [...] complete [place] [id number] Medicare [facility] Medicare [facility] Care Teams Ux Research Associate Relationship Specialty Start Date End Date Clint Vivar NP 1961 [facility] [place] [address] PCP - General Nurse Practitioner 07/21/22
== END 2024-10-09 13:55 | disposition home or self-care (01) ==
LOC: HO.HVS 12:39
PROVIDERS: PCP Nurse Practitioner Family; Visit Provider Surgery Vascular Surgery
DX: I73.9 Peripheral vascular disease, unspecified (principal)
CPT/HCPCS: 99213

== ENCOUNTER → 2024-10-09 12:39 | Outpatient (BNVA) | payer MEDICARE, OTHER, SELFPAY | PROVIDERS: PCP Nurse Practitioner Family; Visit Provider Surgery Vascular Surgery | DX: E11.621 Type 2 diabetes mellitus with foot ulcer (principal); L97.513 Non-pressure chronic ulcer of other part of right foot with necrosis of muscle; E11.51 Type 2 diabetes mellitus with diabetic peripheral angiopathy without gangrene; L84 Corns and callosities | CPT/HCPCS: 11043; 99212 ==

== ENCOUNTER 2024-10-15 06:09 | Outpatient (REF) | payer MEDICARE, OTHER, SELFPAY ==
--- OUTSIDE RECORDS SUMMARY | 2024-10-15 06:12 | XMS_ITS | Clinical Summary ---
Author Organization [facility] Facility Address [address] [place] [address] Care Team Providers Care Computing Systems Mechanic Name Role Phone Clint Vivar NP Primary Care Provider [phone] Social History Tobacco Use Types Packs/Day Years [...] complete [place] [id number] Medicare [facility] Medicare [facility] Care Teams Computing Systems Mechanic Relationship Specialty Start Date End Date Clint Vivar NP 1961 [facility] [place] [address] PCP - General Nurse Practitioner 07/21/22
[2024-10-15 10:07] LABS: MANUAL DIFF FLAG NO
[2024-10-15 10:31] LABS: Basophils Percent Auto 0.6 % (0-2); Eosinophils Absolute Auto 0.6 X10*3/uL (0.0-0.4); Eosinophils Percent Auto 11.5 % (0-4); Hemoglobin 7.5 g/dl (14.0-18.0); Imm Gran Abs Auto 0.01 X10*3/uL (0.00-0.03); Imm Gran Pct Auto 0.2 % (0.0-0.4); Lymphocytes Absolute Auto 1.5 X10*3/uL (1.2-4.9); Lymphocytes Percent Auto 31.2 % (20-40); Mean Corpuscular HGB Conc 32.6 g/dl (31.0-36.0); Mean Platelet Volume 10.8 fL (9.4-12.4); Monocytes Absolute Auto 0.6 X10*3/uL (0.1-1.2); Monocytes Percent Auto 11.7 % (2-11); Neutrophils Absolute Auto 2.2 x10*3/uL (2.0-8.3); Neutrophils Percent Auto 44.8 % (45-73); Red Cell Distribution Width 13.8 % (11.0-16.0); White Blood Count 4.9 X10*3/uL (4.8-10.8)
[2024-10-15 10:42] LABS: Platelet Count 142 X10*3/uL (160-400)
[2024-10-15 11:02] LABS: Alanine Aminotransferase 23 U/L (0-40); Albumin Level 3.4 g/dL (3.5-5.0); Alkaline Phosphatase 67 U/L (39-117); Anion Gap 13 (12-20); Aspartate Amino Transferase 24 U/L (5-37); Bilirubin Total 0.1 mg/dL (0.0-1.0); Blood Urea Nitrogen 34 mg/dL (9-16); Calcium 8.3 mg/dL (8.4-10.2); Carbon Dioxide 19 mmol/L (22-29); Chloride 114 mmol/L (96-108); Cholesterol 119 mg/dL (<200); Estimated Glomerular Filt Rate 50; Glucose Fasting 123 mg/dL (60-99); HDL Cholesterol 54 mg/dL (>40); LDL Cholesterol Calculated 53 mg/dL (<100); Potassium 4.6 mmol/L (3.3-5.1); Sodium 141 mmol/L (135-145); Total Protein 5.9 g/dL (6.5-8.0); Triglycerides 63 mg/dL (<150)
[2024-10-15 11:03] LABS: TSH reflex Free T4 0.64 uIU/mL (0.32-4.0)
== END 2024-10-15 06:10 | disposition home or self-care (01) ==
LOC: HO.HMGCLDS 06:09
PROVIDERS: PCP Nurse Practitioner Family; Visit Provider Internal Medicine Hypertension Specialist
DX: Z00.00 Encounter for general adult medical examination without abnormal findings (principal); E11.9 Type 2 diabetes mellitus without complications; N18.30 Chronic kidney disease, stage 3 unspecified
CPT/HCPCS: 36415; 80053; 80061; 84443; 85025

== ENCOUNTER 2024-10-22 09:26 | Outpatient (AMB) | payer MEDICARE, OTHER, SELFPAY ==
--- OUTSIDE RECORDS SUMMARY | 2024-10-22 09:36 | XMS_ITS | Clinical Summary ---
Author Organization [facility] Facility Address [address] [address] Care Team Providers Care Correctional Agency Director Name Role Phone Clint Vivar NP Primary Care Provider [phone] Social History Tobacco Use Types Packs/Day Years [...] complete [place] [id number] Medicare [facility] Medicare [facility] Care Teams Correctional Agency Director Relationship Specialty Start Date End Date Clint Vivar NP 1961 [facility] [place] [address] PCP - General Nurse Practitioner 07/21/22
--- NOTE | 2024-10-22 09:53 | HO.NEPHOV ---
Vital Signs 10/22/24 09:54 Height 5 ft 8 in Weight 137 lb BMI 20.8 BP 148/60 H Blood Pressure Location Lt brachial Position Sitting Pulse 71 Pulse Source Pulse Oximeter Pulse Oximetry (%) 95 Oxygen Delivery Method Room Air Intake Visit Reasons: CKD Foreign Policy Officer Required: No Accompanied by: Self / Same As Patient Allergies No Known Allergies [No Known Allergies*] Allergy (Verified 10/22/24 09:56) Medication List - Last Reconciled 10/22/24 by Shane Garcia MD amlodipine 2.5 mg PO DAILY aspirin (Adult Low Dose Aspirin) 81 mg PO DAILY Bifidobacterium infantis (Align (B.infantis)) 10.5 mg PO DAILY 30 days blood-glucose meter (FreeStyle Lite Meter kit) test 4 times QD clopidogrel 75 mg PO DAILY insulin aspart (niacinamide) 100 unit/mL (3 mL) (Fiasp FlexTouch U-100 Insulin) See Protocol sliding scale doses subcut TID PRN linezolid 600 mg PO Q12H loperamide (Anti-Diarrheal (loperamide)) 2 mg PO Q6H PRN 30 days metformin 500 mg PO DAILY 90 days pen needle, diabetic tid HPI Comments Details: Talon is a pleasant 72-year-old man with a history of diabetes mellitus which was diagnosed in 2019. We are not sure how long he had diabetes prior to this. He had a foot infection and underwent amputation of the toe. He was also found to have significant peripheral disease and stents has been inserted by Dr. Almaguer. He had mild fullness on the renal collecting system back in 2021. However repeat CT scan in 2022 did not reveal any evidence of obstruction. He had microhematuria. He was seen by urologist. Was supposed to have a cystoscopy but he had refused. Recently the repeat urinalysis did not reveal any hematuria. He did have proteinuria in the recent urine protein creatinine ratio was 911 and hence this referral. He was on lisinopril 2.5 mg a day. Increased to 5 mg QD in October 2023 Overall blood sugar seems to be well controlled with a recent hemoglobin A1c of 6.5%. Recent creatinine was 1.28 mg with EGFR of 55 mL/minute He is history of smoking. Currently smokes about 5 cigarettes a day. 01/02/24 ;Feels better;BP better;Cr has bumped up 03/01/24 ;No new complinats ; Tolerating Lisinopril ; No urinary symptoms 08/02/24 ;Overall doing OK ;Jardiance has been added since 07/30/24 ;Tolerating well so far 10/22/24: REcently hospitalized for foot infection. Treated with antibiotics Underwent Angiogram Sustained ROSHNI Cr peaked at 1.5 and now down to 1.39 No urinary symptoms PFSH Medical History CKD (chronic kidney disease) stage 3, GFR 30-59 ml/min Type 2 diabetes mellitus without complications Osteomyelitis of great toe of left foot Diabetes PVD (peripheral vascular disease) Hypercholesteremia Surgical History S/P angiogram of extremity (08/13/20) Amputated toe of left foot (08/18/20) S/P angiogram of extremity (10/08/19) S/P PICC central line placement Social History Household Members Other:: lives alone Housing: Apartment Alcohol intake: current Alcohol intake frequency: does not drink Patient Tobacco Use Status: Never used Tobacco Years Smoked: 39 e-Cigarette/Vaping Use: Never Used Second Hand Smoke Exposure: No service: No Current occupational status: retired Cognitive needs: No Hearing needs: No Vision needs: No Physical Exam Vital Signs: Last Vital Signs Pulse 71 10/22/24 09:54 Pulse Ox 95 10/22/24 09:54 Oxygen Delivery Method Room Air 10/22/24 09:54 BMI result Body Mass Index 20.8 Last Vital Signs Temp 98.5 F 09/25/24 07:43 Pulse 58 09/25/24 07:43 Resp 18 09/25/24 07:43 BP 170/60 H 09/25/24 07:43 Pulse Ox 93 09/25/24 07:43 O2 Del Method Room Air 09/25/24 07:43 O2 Flow Rate 2 09/24/24 15:41 BMI result Body Mass Index 20.7 Comfortable Neck supple no JVD. Lungs entry equal no rales. Heart S1-S2 heard no gallop or rub. Abdomen soft nontender. Neuro alert awake oriented. No asterixis. Extremities no edema. Const General: no acute distress Orientation/consciousness: patient oriented x3 Neck Neck: Yes supple Resp Auscultation: diminished lung sounds Cardio Rate: regular rate GI Palpation (GI): Soft to palpation Neuro General: patient oriented x3 Results Reviewed Nephrology Results: Hgb 7.5 g/dl (14.0-18.0) L 10/15/24 WBC 4.9 X10*3/uL (4.8-10.8) 10/15/24 Plt Count 142 X10*3/uL (160-400) L 10/15/24 Sodium 141 mmol/L (135-145) 10/15/24 Potassium 4.6 mmol/L (3.3-5.1) 10/15/24 Chloride 114 mmol/L (96-108) H 10/15/24 Carbon Dioxide 19 mmol/L (22-29) L 10/15/24 BUN 34 mg/dL (9-16) H 10/15/24 Creatinine 1.39 mg/dL (0.5-1.4) 10/15/24 Calcium 8.3 mg/dL (8.4-10.2) L 10/15/24 Assessment & Plan Assessment & Plan (1) Diabetes: Comment: IDDM Code(s): E11.9 - Type 2 diabetes mellitus without complications Category: Medical (2) Microalbuminuria: Code(s): R80.9 - Proteinuria, unspecified Category: Medical (3) CKD (chronic kidney disease) stage 3, GFR 30-59 ml/min: Code(s): N18.30 - Chronic kidney disease, stage 3 unspecified Category: Medical (4) Proteinuria: Code(s): R80.9 - Proteinuria, unspecified Category: Medical Plan . Plesant spetaugenerian with diabetes mellitus and peripheral artery disease with mild CKD and proteinuria. Proteinuria is most likely due to underlying diabetic kidney disease. Urine Pro: Cr is 2.66! Nondiabetic causes should be considered but unlikely at this point. All serologies have been negative thus far ROSHNI - Cr has improved Goal is to slow the progression of kidney disease. He was on lisinopril 10 mg. Currently on hold due to recent ROSHNI Shall recheck renal panel and start an ACEi HTN_ BP is better controlled Serologies ordered for non diabetic causes - essentially normal Hold off on kidney biopsy. He would benefit from SGLT2 inhibitor. - started on 07/30/24 !! Continue to avoid nephrotoxic agents including NSAIDs and Hdz 2 inhibitors. Maintain blood pressure less than 130/80. stay on low-sodium diet. Discussed smoking cessation Orders: Orders Total Protein Urine Random 3 Months N18.30 - Chronic kidney disease, stage 3 unspecified, R80.9 - Proteinuria, unspecified UA and rflx microscopic 3 Months N18.30 - Chronic kidney disease, stage 3 unspecified, R80.9 - Proteinuria, unspecified Complement C4 3 Months N18.30 - Chronic kidney disease, stage 3 unspecified, R80.9 - Proteinuria, unspecified Protein Electrophoresis, Serum 3 Months N18.30 - Chronic kidney disease, stage 3 unspecified, R80.9 - Proteinuria, unspecified Anti Glomerular Basement Memb 3 Months N18.30 - Chronic kidney disease, stage 3 unspecified, R80.9 - Proteinuria, unspecified Phospholipase A2 Receptor Pnl 3 Months N18.30 - Chronic kidney disease, stage 3 unspecified, R80.9 - Proteinuria, unspecified Basic Metabolic Panel 3 Months N18.30 - Chronic kidney disease, stage 3 unspecified, R80.9 - Proteinuria, unspecified Creatinine Urine 3 Months N18.30 - Chronic kidney disease, stage 3 unspecified, R80.9 - Proteinuria, unspecified Neutrophil Cytoplasma Ab 3 Months N18.30 - Chronic kidney disease, stage 3 unspecified, R80.9 - Proteinuria, unspecified Myeloperoxidase Antibody 3 Months N18.30 - Chronic kidney disease, stage 3 unspecified, R80.9 - Proteinuria, unspecified Complement C3 3 Months N18.30 - Chronic kidney disease, stage 3 unspecified, R80.9 - Proteinuria, unspecified Proteinase 3 PR3 Antibodies 3 Months N18.30 - Chronic kidney disease, stage 3 unspecified, R80.9 - Proteinuria, unspecified Coding Level of Care Code Est Pt Level 4 (60680) Diagnoses Diabetes E11.9 Microalbuminuria R80.9 CKD (chronic kidney disease) stage 3, GFR 30-59 ml/min N18.30 Proteinuria R80.9
[2024-10-22 09:54] VITALS: BP 148/60; PULSE 71; O2SAT 95; BMI 20.8
== END 2024-10-22 10:11 | disposition home or self-care (01) ==
LOC: HO.HKA 09:26
PROVIDERS: PCP Nurse Practitioner Family; Visit Provider Internal Medicine Hypertension Specialist
DX: E11.9 Type 2 diabetes mellitus without complications (principal); R80.9 Proteinuria, unspecified; N18.30 Chronic kidney disease, stage 3 unspecified
CPT/HCPCS: 99214

== ENCOUNTER → 2024-10-22 09:26 | Outpatient (BNVA) | payer MEDICARE, OTHER, SELFPAY | PROVIDERS: PCP Nurse Practitioner Family; Visit Provider Internal Medicine Hypertension Specialist | DX: E11.22 Type 2 diabetes mellitus with diabetic chronic kidney disease (principal); N18.30 Chronic kidney disease, stage 3 unspecified; R80.9 Proteinuria, unspecified | CPT/HCPCS: 99212 ==

== ENCOUNTER → 2024-10-23 12:42 | Outpatient (BNVA) | payer MEDICARE, OTHER, SELFPAY | PROVIDERS: PCP Nurse Practitioner Family; Visit Provider Surgery Vascular Surgery | DX: T81.89XA Other complications of procedures, not elsewhere classified, initial encounter (principal); S91.309A Unspecified open wound, unspecified foot, initial encounter | CPT/HCPCS: 11043; 99212 ==

== ENCOUNTER 2024-10-25 06:46 | Outpatient (REF) | payer MEDICARE, OTHER, SELFPAY ==
[2024-10-25 10:33] LABS: MANUAL DIFF FLAG NO
[2024-10-25 10:48] LABS: Basophils Absolute Auto 0.1 X10*3/uL (0.0-0.2); Basophils Percent Auto 0.9 % (0-2); Eosinophils Absolute Auto 0.6 X10*3/uL (0.0-0.4); Eosinophils Percent Auto 8.6 % (0-4); Hematocrit 24.5 % (42.0-52.0); Hemoglobin 7.7 g/dl (14.0-18.0); Imm Gran Abs Auto 0.03 X10*3/uL (0.00-0.03); Imm Gran Pct Auto 0.4 % (0.0-0.4); Lymphocytes Absolute Auto 1.3 X10*3/uL (1.2-4.9); Lymphocytes Percent Auto 18.4 % (20-40); Mean Corpuscular HGB Conc 31.4 g/dl (31.0-36.0); Mean Corpuscular Hemoglobin 30.2 pg (27.0-33.0); Mean Corpuscular Volume 96.1 fL (80.0-98.0); Mean Platelet Volume 10.3 fL (9.4-12.4); Monocytes Absolute Auto 0.7 X10*3/uL (0.1-1.2); Monocytes Percent Auto 10.4 % (2-11); Neutrophils Absolute Auto 4.2 x10*3/uL (2.0-8.3); Neutrophils Percent Auto 61.3 % (45-73); Platelet Count 236 X10*3/uL (160-400); Red Blood Count 2.55 X10*6/uL (4.60-5.80); Red Cell Distribution Width 16.9 % (11.0-16.0); White Blood Count 6.8 X10*3/uL (4.8-10.8)
[2024-10-25 11:03] LABS: Iron 116 mcg/dL (45-160); Percent Iron Saturation 44 % (15-50); Total Iron Binding Capacity 261 mcg/dL (228-428); Unsaturated Iron Binding 145 ug/dL
[2024-10-25 11:21] LABS: Ferritin 41 ng/mL (20-250)
[2024-10-25 11:25] LABS: RET ABN SCTR 1
[2024-10-25 11:26] LABS: Immature Retic Fraction 7.2 % (2.3-13.4); Retic HGB Equivalent 28.1 pg (30.0-35.0); Reticulocytes Absolute 0.144 X10*6/uL (0.026-0.095)
[2024-10-25 11:27] LABS: Reticulocyte Percent 5.9 % (0.5-1.8)
[2024-10-25 11:33] LABS: Vitamin B12 371 pg/mL (200-900)
== END 2024-10-25 06:47 | disposition home or self-care (01) ==
LOC: HO.HMGCLDS 06:46
PROVIDERS: PCP Nurse Practitioner Family; Referring Provider Internal Medicine Hypertension Specialist; Visit Provider Nurse Practitioner Family
DX: D64.9 Anemia, unspecified (principal)
CPT/HCPCS: 36415; 82607; 82728; 82746; 83540; 85025; 85045

== ENCOUNTER 2024-10-30 08:29 | Outpatient (AMB) | payer MEDICARE, OTHER, SELFPAY ==
--- NOTE | 2024-10-30 08:38 | MHC.PC.OV ---
Vital Signs 10/30/24 08:41 Height 5 ft 8 in Weight 137 lb BMI 20.8 BP 140/70 H Blood Pressure Location Lt brachial Position Sitting Pulse 64 Pulse Source Pulse Oximeter Temp 98.2 F Pulse Oximetry (%) 98 Oxygen Delivery Method Room Air Intake Visit Reasons: 1 month follow up Scullion Chief Required: No Accompanied by: Self / Same As Patient Allergies No Known Allergies [No Known Allergies*] Allergy (Verified 10/30/24 08:39) Tobacco use date assessed: 10/30/24 Fall risk assessment: No Falls in past year Last assessed Fall Risk: 10/30/24 Dental Screening Dental Screen Date: 10/30/24 Did you have a dental visit in the last 12 months?: Yes Did you have a dental problem in the last 6 months where you did not have access to dental care?: No Was dental information given to patient?: Patient has dentist HPI 1 month follow up HPI Details Chief Complaint Follow-up for right foot infection History of Present Illness The patient is a 74-year-old male presenting with a follow-up for cellulitis and osteomyelitis of the right foot. He was initially treated in a hospital setting with intravenous antibiotics and has transitioned to outpatient care. Presently, the patient is administered oral Zyvox bi-daily and receives VNA visits weekly. He observes substantial progress regarding the healing of his wound and denies any symptoms typically associated with infection, such as fever, chills, or visual disturbances. The patient also notes the excoriation between the last two toes has been improving. The current state of the wound is favorable, with no signs of secondary infection or drainage and the dressing remains clean and intact. NOTE: some diarrhea with use of antibiotic, but not with every BM. Social History Health Maintenance Review of Systems - Constitutional: Denies recent fever or chills. - Eye: Denies blurred vision. - Skin: Denies redness or swelling in the right foot and lower extremity. Physical Exam General: Cooperative, healthy appearing, comfortable, no acute distress and well developed Orientation: Patient oriented x3 Limitations: No limitations Head: Normal to inspection Ears: Hearing grossly normal bilaterally Nose: Normal external nose present Face and sinus: Normal facial exam Eyes: Appearance normal, both eyes and all related structures Neck: Normal visual inspection and Yes full ROM Respiratory: Normal respiratory effort and able to speak in complete sentences. Clear to auscultation bilaterally Cardiovascular: Regular rate and rhythm. Normal S1 and S2 GI: Normal to inspection. Soft to palpation and nontender Skin: No rashes or lesions noted Neuro: Patient oriented x3 Extremities: Positive dorsalis pedis, positive sensation. The right foot is wrapped with fluff and tape. Plantar distal aspect with healing wound, no signs of drainage. Dressing is clean, dry, and intact. No surrounding erythema, warmth, or discharge noted. Normal to inspection otherwise. healing excoriation between last two toes, healing without s/s of infection. Results Plan Management of the patient's cellulitis and osteomyelitis involves continued oral administration of Zyvox, along with regular VNA visits for wound care. The patient will maintain follow-ups with the vascular team to ensure effective monitoring. Given the positive progress and absence of concerning symptoms, follow-up has been scheduled for next month to evaluate the situation further. Discussion Notes I discussed the ongoing management of the patient's cellulitis and osteomyelitis, emphasizing the importance of adhering to the oral Zyvox regimen and continuing VNA visits for wound care. We reviewed the patient's progress, including the diminished risk of secondary infection noted by the absence of concerning symptoms such as fever, redness, or swelling. I advised the patient to persist with vascular team appointments and to remain attentive to any symptom changes. We agreed upon a follow-up visit next month to continue monitoring the condition. Patient Instructions - Continue taking Zyvox as prescribed, every 12 hours. - Maintain weekly visits with the VNA for wound care. - Watch for any signs of infection like fever, chills, redness, or increased swelling. - Keep follow-up appointments with the vascular team. - Attend the follow-up appointment next month. [facility] Medical History CKD (chronic kidney disease) stage 3, GFR 30-59 ml/min Type 2 diabetes mellitus without complications Osteomyelitis of great toe of left foot Diabetes PVD (peripheral vascular disease) Hypercholesteremia Surgical History S/P angiogram of extremity (08/13/20) Amputated toe of left foot (08/18/20) S/P angiogram of extremity (04/27/20) S/P PICC central line placement Social History Household Members Other:: lives alone Housing: Apartment Alcohol intake: current Alcohol intake frequency: does not drink Patient Tobacco Use Status: Never used Tobacco Years Smoked: 39 e-Cigarette/Vaping Use: Never Used Second Hand Smoke Exposure: No service: No Current occupational status: retired Cognitive needs: No Hearing needs: No Vision needs: No Questionnaire PHQ-9 Over the last 2 weeks, how often have you been bothered by any of the following problems? Depression Screening Interpretation: Negative Depression Screening Done: Yes 78223 - PHQ-9 Billing: Yes Source: Developed by Drs. Nasir Gilmore, Ana Laura Harley, José Miguel Garvin and colleagues, with an educational arnaud from [employer]. Thrive Questionnaire Date Thrive assessed: 10/30/24 AUDIT C Alcohol Use Questionnaire (AUDIT-C) Score Reviewed/Action Taken: Yes KIYA-7 AMB Questionnaire KIYA-7 Date KIYA - 7 assessed: 10/30/24 Source: Developed by Drs. Nasir Gilmore, José Miguel Andres and colleagues, with an educational arnaud from [employer]. KIYA-7 Assessment Billing KIYA-7 Assessment Tool: KIYA-7 Assessment 08474 Physical exam (Primary Care) Vital Signs: Last Vital Signs Temp 98.2 F 10/30/24 08:41 Pulse 64 10/30/24 08:41 BP 140/70 H 10/30/24 08:41 Pulse Ox 98 10/30/24 08:41 Oxygen Delivery Method Room Air 10/30/24 08:41 BMI result Body Mass Index 20.8 Tobacco/Smoking Status: Tobacco use Status Tobacco use date assessed 10/30/24 10/30/24 08:42 Patient Tobacco Use Status Never used Tobacco 10/30/24 08:42 e-Cigarette/Vaping Use Never Used 10/30/24 08:42 Depression Screening Interpretation: Negative Thrive Assessment: Date of Thrive Assessment Date Thrive assessed 10/30/24 10/30/24 08:42 Results AMB Hemoglobin A1c AMB Hemoglobin A1c 6.1 % Last Edit by Joshua Capps CMA on 10/30/24 09:03 Results Reviewed Results Reviewed: Laboratory Last Values Hgb A1c (Clinic) 6.1 % (4.0-6.0) H 10/30/24 09:02 Coding Level of Care Code Est Pt Level 4 (08761) Diagnoses Wound of foot S91.309A Cellulitis L03.90 Osteomyelitis M86.9 Additional Codes KIYA-7 Assessment Billing - KIYA-7 Assessment Tool: KIYA-7 Assessment 74438 ([id number]) PHQ-9 - 16888 - PHQ-9 Billing: Yes ([id number]) Assessment & Plan Assessment & Plan (1) Wound of foot: Code(s): S91.309A - Unspecified open wound, unspecified foot, initial encounter Category: Medical (2) Cellulitis: Code(s): L03.90 - Cellulitis, unspecified Category: Medical (3) Osteomyelitis: Code(s): M86.9 - Osteomyelitis, unspecified Category: Medical Plan . Orders: Orders AMB Hemoglobin A1c Today Z13.9 - Encounter for screening, unspecified Comprehensive Met. Panel Today L03.90 - Cellulitis, unspecified, M86.9 - Osteomyelitis, unspecified, S91.309A - Unspecified open wound, unspecified foot, initial encounter Complete Blood Count Auto Diff Today L03.90 - Cellulitis, unspecified, M86.9 - Osteomyelitis, unspecified, S91.309A - Unspecified open wound, unspecified foot, initial encounter
[2024-10-30 08:41] VITALS: BP 140/70; PULSE 64; TEMP 36.8; O2SAT 98; BMI 20.8
--- OUTSIDE RECORDS SUMMARY | 2024-10-30 08:41 | XMS_ITS | Clinical Summary ---
Author Organization [facility] Facility Address [address] [address] Care Team Providers Care Spot Welder Line Name Role Phone Clint Vivar NP Primary Care Provider [phone] Social History Tobacco Use Types Packs/Day Years [...] complete this [place] [id number] Medicare [facility] Care Teams Spot Welder Line Relationship Specialty Start Date End Date Clint Vivar NP 1961 [facility] [place] [address] PCP - General Nurse Practitioner 07/21/22
== END 2024-10-30 09:15 | disposition home or self-care (01) ==
LOC: HO.HMCC 08:30
PROVIDERS: PCP Nurse Practitioner Family; Visit Provider Nurse Practitioner Family
DX: S91.309A Unspecified open wound, unspecified foot, initial encounter (principal); L03.90 Cellulitis, unspecified; M86.9 Osteomyelitis, unspecified; Z13.9 Encounter for screening, unspecified

== ENCOUNTER → 2024-10-30 08:29 | Outpatient (BNVA) | payer MEDICARE, OTHER, SELFPAY | PROVIDERS: PCP Nurse Practitioner Family; Visit Provider Nurse Practitioner Family | DX: L03.90 Cellulitis, unspecified (principal); M86.9 Osteomyelitis, unspecified; S91.301D Unspecified open wound, right foot, subsequent encounter; E11.9 Type 2 diabetes mellitus without complications | CPT/HCPCS: 83036; 96127; 99212 ==

== ENCOUNTER 2024-11-08 12:44 | Outpatient (AMB) | payer MEDICARE, OTHER, SELFPAY ==
[2024-11-08 12:45] VITALS: BMI 20.8
--- NOTE | 2024-11-08 12:45 | A.OFFVIS_ITS ---
Vital Signs 11/08/24 12:45 Height 5 ft 8 in Weight 137 lb BMI 20.8 Intake Visit Reasons: 2 week wound check follow up Intake Note: 2 wk follow up Right plantar wound. VNA once weekl, pt changes dressing daily. No drainage. Mophead Sewer Required: No Accompanied by: Self / Same As Patient Allergies No Known Allergies [No Known Allergies*] Allergy (Verified 11/08/24 13:04) HPI HPI 2 week wound check follow up: Details: The patient is a 74-year-old male presenting for a routine wound check following a right leg angiogram performed on September 24. The wound has shown considerable improvement and no longer requires packing. The patient is on anticoagulation therapy, which has led to some minor bleeding. The patient reports good daily functionality without significant discomfort when walking. A nurse previously noted that the wound was healing well. Now presents for routine wound check [facility] Medical History CKD (chronic kidney disease) stage 3, GFR 30-59 ml/min Type 2 diabetes mellitus without complications Osteomyelitis of great toe of left foot Diabetes PVD (peripheral vascular disease) Hypercholesteremia Surgical History S/P angiogram of extremity (08/13/20) Amputated toe of left foot (08/18/20) S/P angiogram of extremity (10/08/19) S/P PICC central line placement Social History Household Members Other:: lives alone Housing: Apartment Alcohol intake: current Alcohol intake frequency: does not drink Patient Tobacco Use Status: Never used Tobacco Years Smoked: 39 e-Cigarette/Vaping Use: Never Used Second Hand Smoke Exposure: No service: No Current occupational status: retired Cognitive needs: No Hearing needs: No Vision needs: No Review of Systems Const All systems reviewed & are unremarkable except as noted in HPI and below Reports no additional complaints ENT Reports Normal hearing present Card Denies chest pain, Denies chest pain at rest, Denies chest pain with activity and Denies pedal edema Resp Denies cough GI Denies abdominal pain Musc Denies abnormal gait, Denies muscle cramps and Denies radiating pain into limb Skin/Breast Denies skin ulcer and Denies wounds Neuro Reports Normal hearing present and Denies abnormal gait Psych Reports no additional complaints Physical Exam Vital Signs: BMI result Body Mass Index 20.8 Const General: cooperative, healthy appearing and comfortable Orientation/consciousness: oriented to person, oriented to place and oriented to time HEENT Head: Yes normal to inspection Neck Neck: Yes normal visual inspection Carotids: no bruits Chest Chest palpation & inspection: normal inspection of the chest Resp Effort & Inspection: normal respiratory effort and able to speak in complete sentences Auscultation: clear to auscultation bilaterally, no crackles, no rales, no rhonchi and no wheezes Cardio Rate: regular rate Rhythm: regular rhythm Heart sounds: S1 normal heart sound present and S2 normal heart sound present Bruits: no carotid bruits Peripheral pulses: Peripheral pulses 2+ throughout GI Inspection: Yes normal to inspection Skin Other: Right plantar surface wound measuring 1.2 x 0.5 x 0.1 cm Wounds: no wounds Hair: normal Neuro General: oriented to person, oriented to place and oriented to time Cranial nerves: Yes CN's II-XII intact bilaterally and Yes Normal hearing present Cognition (Neuro): normal cognition Motor exam (neuro): 5/5 motor strength present throughout Extrem Other: venous exam: No significant superficial varicosities or spider telangiectasias, minimal edema General: No clubbing, No cyanosis and No edema Psych Appearance: grossly normal Mental Status: mental status grossly normal Speech and movement: Normal speech and movement present Office Procedures Vascular Office Procedure Details Details: Wound debridement note: Preoperative diagnosis: Nonhealing right plantar foot wound Postoperative diagnosis: Same Procedure: Excisional debridement into muscle Anesthesia: None Estimated blood loss: Minimal Pre-procedure measurement and appearance: 1.2 x 0.5 x 0.1 cm with dry overlying callus Postprocedure measurement and appearance: 1.4 x .6 x 0.1 cm clean granulation base Procedure in detail: Excisional debridement of the right plantar foot was carried out.. Necrotic devitalized and nonviable tissue was removed. We debrided into muscle using pickups curette and 15 blade. Wound was thoroughly irrigated. At the conclusion wound appeared clean with good granulation base. Clean and sterile dressing was applied. Patient tolerated the procedure well. Instructions were given to the patient. Follow-up was suggested. This note is constructed using voice recognition software. While every effort has been made to ensure accuracy, inspector bullet slugs errors may have been included. Thank you for allowing me to participate in the care of your patient. Yours sincerely, Sanford Almaguer MD, FACS, R.P.V.I. [id number] Debridement, muscle and or fascia (lst 20 sq cm or less) All charges added?: Procedure code (CPT) selection complete Assessment & Plan Assessment & Plan (1) PVD (peripheral vascular disease): Comment: 10/08/2019 - left SFA stent and popliteal plasty with DCB 08/13/2020 - angioplasty left SFA with DCB 08/18/2020 - left 5th toe amputation 05/30/2024 - diagnostic angiogram 06/27/2024 - left SFA plasty 09/24/2024 - right leg angiogram Code(s): I73.9 - Peripheral vascular disease, unspecified Category: Medical Plan: I discussed with the patient the current status of his wound, which is healing well post-right leg angiogram. We talked about the minor oozing after debridement, which is likely due to anticoagulation therapy, and I applied a silver nitrate stick to control the bleeding. The patient agreed to the plan of regular dressing changes and a follow-up appointment in three weeks to reassess his wound. Thank you for allowing us to assist in his care. If there are any q uestions or concerns please do not hesitate to contact us. Plan Patient was informed and verbally consented to the use of an ambient scribe for clinic note documentation during this visit. Patient Instructions: - Continue regular dressing changes as instructed. - Monitor the wound for any signs of excessive bleeding. - Follow up in three weeks for wound reassessment. - Report any significant changes or concerns immediately. Coding Level of Care Code Est Pt Level 4 (53044) Diagnoses PVD (peripheral vascular disease) I73.9
== END 2024-11-08 13:33 | disposition home or self-care (01) ==
LOC: HO.HVS 12:44
PROVIDERS: PCP Nurse Practitioner Family; Visit Provider Surgery Vascular Surgery
DX: I73.9 Peripheral vascular disease, unspecified (principal)
CPT/HCPCS: 99214

== ENCOUNTER → 2024-11-08 12:44 | Outpatient (BNVA) | payer MEDICARE, OTHER, SELFPAY | PROVIDERS: PCP Nurse Practitioner Family; Visit Provider Surgery Vascular Surgery | DX: S91.301D Unspecified open wound, right foot, subsequent encounter (principal); I73.9 Peripheral vascular disease, unspecified; Z79.01 Long term (current) use of anticoagulants | CPT/HCPCS: 11043; 99212 ==

== ENCOUNTER → 2024-11-25 23:59 | Outpatient (BNV) | payer MEDICARE, OTHER, SELFPAY | PROVIDERS: PCP Nurse Practitioner Family; Visit Provider Nurse Practitioner Family | DX: E11.69 Type 2 diabetes mellitus with other specified complication (principal) | CPT/HCPCS: G0179 ==

== ENCOUNTER 2024-11-27 08:46 | Outpatient (AMB) | payer MEDICARE, OTHER, SELFPAY ==
--- NOTE | 2024-11-27 09:01 | MHC.OFFVIS ---
Intake Visit Reasons: 3 week follow up wound check Intake Note: Patient presents for 3 week follow up wound check. Visiting nurse sees patient once a week. Accompanied by: Self / Same As Patient Allergies No Known Allergies [No Known Allergies*] Allergy (Verified 11/27/24 09:03) [facility] 3 week follow up wound check: Details: Very pleasant 74-year-old gentleman presents for routine follow-up regarding nonhealing right plantar aspect ulceration. He had undergone angiogram on September 24. And the wound has gone on to heal. At the current time no complaints. Now for routine follow-up and wound check. 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 Diabetes PVD (peripheral vascular disease) Hypercholesteremia Surgical History S/P angiogram of extremity (08/13/20) Amputated toe of left foot (08/18/20) S/P angiogram of extremity (10/08/19) S/P PICC central line placement Social History Household Members Other:: lives alone Housing: Apartment Alcohol intake: current Alcohol intake frequency: does not drink Patient Tobacco Use Status: Never used Tobacco Years Smoked: 39 e-Cigarette/Vaping Use: Never Used Second Hand Smoke Exposure: No service: No Current occupational status: retired Cognitive needs: No Hearing needs: No Vision needs: No Review of Systems Const All systems reviewed & are unremarkable except as noted in HPI and below Reports no additional complaints ENT Reports Normal hearing present Card Denies chest pain, Denies chest pain at rest, Denies chest pain with activity and Denies pedal edema Resp Denies cough GI Denies abdominal pain Musc Denies abnormal gait, Denies muscle cramps and Denies radiating pain into limb Skin/Breast Denies skin ulcer and Denies wounds Neuro Reports Normal hearing present and Denies abnormal gait Psych Reports no additional complaints Physical Exam Const General: cooperative, healthy appearing and comfortable Orientation/consciousness: oriented to person, oriented to place and oriented to time HEENT Head: Yes normal to inspection Neck Neck: Yes normal visual inspection Carotids: no bruits Chest Chest palpation & inspection: normal inspection of the chest Resp Effort & Inspection: normal respiratory effort and able to speak in complete sentences Auscultation: clear to auscultation bilaterally, no crackles, no rales, no rhonchi and no wheezes Cardio Other: Bilateral DP signals Rate: regular rate Rhythm: regular rhythm Heart sounds: S1 normal heart sound present and S2 normal heart sound present Bruits: no carotid bruits Peripheral pulses: Peripheral pulses 2+ throughout GI Inspection: Yes normal to inspection Skin Wounds: no wounds Hair: normal Neuro General: oriented to person, oriented to place and oriented to time Cranial nerves: Yes CN's II-XII intact bilaterally and Yes Normal hearing present Cognition (Neuro): normal cognition Motor exam (neuro): 5/5 motor strength present throughout Extrem Other: venous exam: No significant superficial varicosities or spider telangiectasias, minimal edema General: No clubbing, No cyanosis and No edema Psych Appearance: grossly normal Mental Status: mental status grossly normal Speech and movement: Normal speech and movement present Assessment & Plan Assessment & Plan (1) PVD (peripheral vascular disease): Comment: 10/08/2019 - left SFA stent and popliteal plasty with DCB 08/13/2020 - angioplasty left SFA with DCB 08/18/2020 - left 5th toe amputation 05/30/2024 - diagnostic angiogram 06/27/2024 - left SFA plasty 09/24/2024 - right leg angiogram Code(s): I73.9 - Peripheral vascular disease, unspecified Category: Medical Plan: In short right foot has gone on to heal. He is doing extremely well. Will plan for routine 6 month arterial surveillance follow-up. Thank you for allowing us to assist in his care. If there are any questions or concerns please do not hesitate to contact us. Orders: Orders US arterial duplex LE BI 6 Months I73.9 - Peripheral vascular disease, unspecified Coding Level of Care Code Est Pt Level 4 (66025) Complex EM visit Add On G2211 Diagnoses PVD (peripheral vascular disease) I73.9
--- OUTSIDE RECORDS SUMMARY | 2024-11-27 09:15 | XMS_ITS | Clinical Summary ---
Author Organization [facility] Facility Address [address] [address] Care Team Providers Care Morning Caregiver Name Role Phone Clint Vivar NP Primary Care Provider [phone] Social History Tobacco Use Types Packs/Day Years [...] complete [place] [id number] Medicare [facility] [address] [place] [address] Medicare [facility] Care Teams Morning Caregiver Relationship Specialty Start Date End Date Clint Vivar NP 1961 [facility] [place] [address] PCP - General Nurse Practitioner 07/21/22
== END 2024-11-27 09:50 | disposition home or self-care (01) ==
LOC: HO.HVS 08:47
PROVIDERS: PCP Nurse Practitioner Family; Visit Provider Surgery Vascular Surgery
DX: I73.9 Peripheral vascular disease, unspecified (principal)
CPT/HCPCS: 99214; G2211

== ENCOUNTER → 2024-11-27 08:46 | Outpatient (BNVA) | payer MEDICARE, OTHER, SELFPAY | PROVIDERS: PCP Nurse Practitioner Family; Visit Provider Surgery Vascular Surgery | DX: I73.9 Peripheral vascular disease, unspecified (principal) | CPT/HCPCS: 99212 ==

== ENCOUNTER 2024-11-28 08:31 | Outpatient (AMB) | payer MEDICARE, OTHER, SELFPAY ==
--- NOTE | 2024-11-28 08:44 | A.OFFPC_ITS ---
Vital Signs 11/28/24 08:46 Height 5 ft 8 in Weight 135 lb BMI 20.5 BP 130/64 Blood Pressure Location Rt brachial Position Sitting Pulse 70 Pulse Source Pulse Oximeter Pulse Oximetry (%) 96 Oxygen Delivery Method Room Air Intake Visit Reasons: 4m follow up Mft Required: No Accompanied by: Self / Same As Patient Allergies No Known Allergies (No Known Allergies*) Allergy (Verified 11/28/24 09:16) Medication List - Last Reconciled 11/28/24 by SARI Ruiz- amlodipine 2.5 mg PO DAILY aspirin (Adult Low Dose Aspirin) 81 mg PO DAILY Bifidobacterium infantis (Align (B.infantis)) 10.5 mg PO DAILY 30 days blood-glucose meter (FreeStyle Lite Meter kit) test 4 times QD clopidogrel 75 mg PO DAILY insulin aspart (niacinamide) 100 unit/mL (3 mL) (Fiasp FlexTouch U-100 Insulin) See Protocol sliding scale doses subcut TID PRN lisinopril 10 mg PO DAILY loperamide (Anti-Diarrheal (loperamide)) 2 mg PO Q6H PRN 30 days metformin 500 mg PO DAILY 90 days pen needle, diabetic tid Tobacco use date assessed: 10/30/24 Fall risk assessment: No Falls in past year Last assessed Fall Risk: 11/28/24 Dental Screening Dental Screen Date: 10/30/24 HPI 4m follow up HPI Details Chief Complaint The patient presents for follow-up care for diabetes and right foot ulceration. History of Present Illness The patient is a 74-year-old male presenting with follow-up for diabetes and right foot ulceration. The right foot ulceration is located on the plantar aspect, just inferior to the fifth toe, and is healing well without signs of infection such as warmth, tenderness, or erythema. He continues to see a vascular specialist for this condition. The patient has a history of anemia, which is being monitored with plans to repeat labs in one month. He reports feeling well overall and denies any fever, chills, or dyspnea. There is a history of neuropathy, but sensation was present during examination with the use of a monofilament. The patient has a faint systolic murmur, and carotid bruits were questioned, prompting a plan for carotid ultrasound due to his smoking history. He is not interested in colon cancer screening or low-dose CT scans for lung cancer screening. The patient's A1c was 6.1 last month, but the accuracy is questioned due to his anemia. He sees a marketing effectiveness manager regularly and is advised to have annual eye exams for retinopathy monitoring. Social History - Smoking history noted Health Maintenance - Annual eye exams for retinopathy monit oring recommended Review of Systems - General: Denies fever, chills - Respiratory: Denies dyspnea, CP - Neurological: Reports neuropathy, sens ation present with monofilament Physical Exam General: Cooperative, healthy appearing, comfortable, no acute distress and well developed Orientation: Patient oriented x3 Limitations: No limitations Head: Normal to inspection Ears: Hearing grossly normal bilaterally Nose: Normal external nose present Face and sinus: Normal facial exam Eyes: Appearance normal, both eyes and all related structures Neck: Normal visual inspection and Yes full ROM Respiratory: Normal respiratory effort and able to speak in complete sentences. Clear to auscultation bilaterally Cardiovascular: Regular rate and rhythm. Normal S1 and S2. Systolic murmur noted faint. Questioned carotid bruits noted GI: Normal to inspection. Soft to palpation and nontender Skin: No rashes or lesions noted Neuro: Patient oriented x3. Does have some neuropathy. There was sensation with use of monofilament today Extremities: Normal to inspection. Ulceration to right foot plantar aspect, just inferior to fifth toe, with no signs of infection including warmth, tenderness, or erythema. left 5th toe amputated Results - Labs: A1c 6.1% last month, accuracy qu estioned due to anemia Plan The patient will continue to be monitored for his diabetes, with no changes to his current medication regimen at this time. The right foot ulceration is healing well, and he will continue to see his vascular specialist for ongoing care. A carotid ultrasound is planned due to the presence of a faint systolic murmur and questioned carotid bruits, especially considering his smoking history. The patient's anemia will be monitored with repeat labs in one month to assess any changes. He is advised to have annual eye exams to monitor for retinopathy, given his diabetes. The patient is not interested in colon cancer screening or low-dose CT scans for lung cancer screening at this time. Discussion Notes I discussed with the patient the importance of monitoring his diabetes and the current stability of his condition, with no changes to his medications needed at this time. We reviewed the healing progress of his right foot ulceration and the continued care with his vascular specialist. I explained the need for a carotid ultrasound due to the faint systolic murmur and questioned carotid bruits, particularly given his smoking history. We also discussed the plan to monitor his anemia with repeat labs in one month and the recommendation for annual eye exams to monitor for retinopathy. The patient expressed no interest in colon cancer screening or low-dose CT scans for lung cancer screening at this time. Patient Instructions - Continue current diabetes management a nd monitor blood sugar levels regularly. - Follow up with vascular specialist for right foot ulceration care. - Schedule a carotid ultrasound as discu ssed. - Repeat labs in one month to monitor an emia. - Have annual eye exams to check for ret inopathy. [facility] Medical History CKD (chronic kidney disease) stage 3, GFR 30-59 ml/min Type 2 diabetes mellitus without complications Osteomyelitis of great toe of left foot Diabetes PVD (peripheral vascular disease) Hypercholesteremia Surgical History S/P angiogram of extremity (08/13/20) Amputated toe of left foot (08/18/20) S/P angiogram of extremity (10/08/19) S/P PICC central line placement Social History Household Members Other:: lives alone Housing: Apartment Alcohol intake: current Alcohol intake frequency: does not drink Patient Tobacco Use Status: Never used Tobacco Years Smoked: 39 e-Cigarette/Vaping Use: Never Used Second Hand Smoke Exposure: No service: No Current occupational status: retired Cognitive needs: No Hearing needs: No Vision needs: No Questionnaire PHQ-9 Over the last 2 weeks, how often have you been bothered by any of the following problems? 1. Little interest or pleasure in doing things: not at all 2. Feeling down, depressed, or hopeless: not at all 3. Trouble falling or staying asleep, or sleeping too much: not at all 4. Feeling tired or having little energy: not at all 5. Poor appetite or overeating: not at all 6. Feeling bad about yourself - or that you are a failure or have let yourself or your family down: not at all 7. Trouble concentrating on things, such as reading the newspaper or watching television: not at all 8. Moving or speaking so slowly that other people could have noticed. Or the opposite - being so fidgety or restless that you have been moving around a lot more than usual: not at all 9. Thoughts that you would be better off or of hurting yourself in some w ay: not at all Total score: 0 Depression Screening Interpretation: Negative Depression Screening Done: Yes 89849 - PHQ-9 Billing: Yes Source: Developed by Drs. Nasir Gilmore, Ana Laura Harley, José Miguel Garvin and colleagues, with an educational arnaud from [employer]. Thrive Questionnaire Date Thrive assessed: 10/30/24 KIYA-7 AMB Questionnaire KIYA-7 Date KIYA - 7 assessed: 10/30/24 Source: Developed by Drs. Nasir Gilmore, Ana Laura Harley, José Miguel Garvin and colleagues, with an educational arnaud from [employer]. Physical exam (Primary Care) Vital Signs: Last Vital Signs Pulse 70 11/28/24 08:46 BP 130/64 11/28/24 08:46 Pulse Ox 96 11/28/24 08:46 Oxygen Delivery Method Room Air 11/28/24 08:46 BMI result Body Mass Index 20.5 Tobacco/Smoking Status: Tobacco use Status Tobacco use date assessed 10/30/24 11/28/24 08:45 Patient Tobacco Use Status Never used Tobacco 11/28/24 08:45 e-Cigarette/Vaping Use Never Used 11/28/24 08:45 PHQ-9: PHQ-9 Score PHQ-9: Total score 0 11/28/24 08:48 Depression Screening Interpretation: Negative Thrive Assessment: Date of Thrive Assessment Date Thrive assessed 10/30/24 11/28/24 08:45 Coding Level of Care Code Est Pt Level 3 (35463) Diagnoses Type 2 diabetes mellitus with foot ulcer E11.621; L97.509 Carotid bruit R09.89 Additional Codes PHQ-9 - 72768 - PHQ-9 Billing: Yes ([id number]) Assessment & Plan Assessment & Plan (1) Type 2 diabetes mellitus with foot ulcer: Code(s): E11.621 - Type 2 diabetes mellitus with foot ulcer; L97.509 - Non-pressure chronic ulcer of other part of unspecified foot with unspecified severity Category: Medical (2) Carotid bruit: Code(s): R09.89 - Other specified symptoms and signs involving the circulatory and respiratory systems Category: Medical Plan . Orders: Orders US carotid duplex BI Today R09.89 - Other specified symptoms and signs involving the circulatory and respiratory systems
[2024-11-28 08:46] VITALS: BP 130/64; PULSE 70; O2SAT 96; BMI 20.5
--- OUTSIDE RECORDS SUMMARY | 2024-11-28 08:54 | XMS_ITS | Clinical Summary ---
Author Organization [facility] Facility Address [address] [address] Care Team Providers Care Labeling Specialist Name Role Phone Clint Vivar NP Primary Care Provider [phone] Social History Tobacco Use Types Packs/Day Years [...] complete [place] [id number] Medicare [facility] Medicare [facility] Care Teams Labeling Specialist Relationship Specialty Start Date End Date Clint Vivar NP 1961 [facility] [address] PCP - General Nurse Practitioner 07/21/22
== END 2024-11-28 09:24 | disposition home or self-care (01) ==
LOC: HO.HMCC 08:32
PROVIDERS: PCP Nurse Practitioner Family; Visit Provider Nurse Practitioner Family
DX: E11.621 Type 2 diabetes mellitus with foot ulcer (principal); L97.509 Non-pressure chronic ulcer of other part of unspecified foot with unspecified severity; R09.89 Other specified symptoms and signs involving the circulatory and respiratory systems

== ENCOUNTER → 2024-11-28 08:31 | Outpatient (BNVA) | payer MEDICARE, OTHER, SELFPAY | PROVIDERS: PCP Nurse Practitioner Family; Visit Provider Nurse Practitioner Family | DX: E11.621 Type 2 diabetes mellitus with foot ulcer (principal); L97.509 Non-pressure chronic ulcer of other part of unspecified foot with unspecified severity; R09.89 Other specified symptoms and signs involving the circulatory and respiratory systems | CPT/HCPCS: 96127; 99212 ==

== ENCOUNTER → 2024-12-10 15:29 | Outpatient (BNVA) | payer MEDICARE, OTHER, SELFPAY | PROVIDERS: PCP Nurse Practitioner Family; Visit Provider Nurse Practitioner Family | DX: Z13.89 Encounter for screening for other disorder (principal) ==

== ENCOUNTER 2025-01-02 12:32 | Outpatient (REF) | payer MEDICARE, OTHER, SELFPAY ==
--- NOTE | ~2025-01-02 | US_ITS ---
CLINICAL HISTORY: R09.89 - Other specified symptoms and signs involving the circulatory an... --- Additional Notes or Special Instructions: carotid bruit US Bilateral Carotid Duplex Comparison: None provided Findings: mild plaque within the carotid bifurcation/proximal bilateral internal carotid arteries. elevated velocity in the bilateral subclavian arteries greater than 200 cm/sec indicative of stenosis. Color doppler and spectral tracings normal. Peak systolic velocities: Right CCA: 139 cm/s. Right ICA: 106 cm/s. ICA/CCA ratio: Normal. Right ECA: Unremarkable. Right vertebral artery flow antegrade. Left CCA: 225 cm/s. Left ICA: 138 cm/s. ICA/CCA ratio: Normal. Left ECA: Unremarkable. Left vertebral artery flow antegrade. IMPRESSION: * mild stenosis of the right internal carotid artery. Moderate stenosis of the left internal carotid artery. * Evidence of stenosis of the bilateral subclavian arteries. * Nonspecific elevated velocity in the bilateral common carotid arteries ([id number]) . CTA could be obtained for further evaluation of these findings if indicated. This document has been electronically signed by: Nawaf Milligan DO on 01/03/2025 13:12:19
--- OUTSIDE RECORDS SUMMARY | 2025-01-02 12:57 | XMS_ITS | Clinical Summary ---
Author Organization [facility] Facility Address [address] [place] [address] Care Team Providers Care Healthcare Receptionist Name Role Phone Clint Vivar NP Primary Care Provider [phone] Social History Tobacco Use Types Packs/Day Years [...] Pneumococcal Vaccine: 50+ Ye ars (1 of 1 - PCV) 2000 Influenza Vaccine (#1) 2025 Hepatitis B Vaccine Aged Out No longe r eligible based on patient's age to complete [place] [id number] Medicare [facility] Medicare [facility] Care Teams Healthcare Receptionist Relationship Specialty Start Date End Date Clint Vivar NP 1961 [facility] [place] [address] PCP - General Nurse Practitioner 07/21/22
== END 2025-01-02 12:33 | disposition home or self-care (01) ==
LOC: HO.HMGCX 12:32
PROVIDERS: PCP Nurse Practitioner Family; Visit Provider Nurse Practitioner Family
DX: R09.89 Other specified symptoms and signs involving the circulatory and respiratory systems (principal)
CPT/HCPCS: 93880

== ENCOUNTER → 2025-01-02 12:35 | Outpatient (BNV) | payer MEDICARE, OTHER, SELFPAY | PROVIDERS: PCP Nurse Practitioner Family; Visit Provider Family Medicine | DX: I65.22 Occlusion and stenosis of left carotid artery (principal) | CPT/HCPCS: 93880 ==

== ENCOUNTER 2025-01-14 06:16 | Outpatient (REF) | payer MEDICARE, OTHER, SELFPAY ==
[2025-01-14 10:22] LABS: Appearance Urine Clear; Glucose Urine UA Negative (Negative); PH 7.0 (5.0-9.0); Specific Gravity - Urine 1.020 (1.005-1.025); UMIC TRIGGER UA YES
[2025-01-14 10:36] LABS: Total Protein Urine Random 162 mg/dL (<12)
[2025-01-14 10:48] LABS: Anion Gap 9 (12-20); Blood Urea Nitrogen 48 mg/dL (9-16); Calcium 8.9 mg/dL (8.4-10.2); Carbon Dioxide 26 mmol/L (22-29); Chloride 115 mmol/L (96-108); Estimated Glomerular Filt Rate 46; Potassium 5.6 mmol/L (3.3-5.1); Sodium 144 mmol/L (135-145)
[2025-01-15 21:58] LABS: Prot Elec - Albumin 3.5 g/dL (3.8-4.8); Prot Elec - Alpha1 0.3 g/dL (0.2-0.3); Prot Elec - Alpha2 0.8 g/dL (0.5-0.9); Prot Elec - Beta 1 0.4 g/dL (0.4-0.6); Prot Elec - Beta 2 0.4 g/dL (0.2-0.5); Prot Elec - Gamma 0.7 g/dL (0.8-1.7); Prot Elec - Total Protein 6.1 g/dL (6.1-8.1)
[2025-01-15 23:23] LABS: Anti Glomerular Basement Memb <1.0 AI; Proteinase 3 PR3 Antibodies <1.0 AI
[2025-01-17 23:48] LABS: Phospholipase A2 IgG ELISA <4 RU/mL; Phospholipase A2 IgG IFA NEGATIVE (NEGATIVE)
[2025-01-22 07:18] LABS: Neutrophil Cyto Ab Screen NEGATIVE (NEGATIVE)
== END 2025-01-14 06:17 | disposition home or self-care (01) ==
LOC: HO.HMGCLDS 06:16
PROVIDERS: PCP Nurse Practitioner Family; Visit Provider Internal Medicine Hypertension Specialist
DX: Z01.84 Encounter for antibody response examination (principal); N18.30 Chronic kidney disease, stage 3 unspecified; R80.9 Proteinuria, unspecified
CPT/HCPCS: 36415; 80048; 81001; 82570; 83520; 84156; 84165; 86021; 86036; 86160; 86255

== ENCOUNTER 2025-01-21 09:02 | Outpatient (AMB) | payer MEDICARE, OTHER, SELFPAY ==
--- NOTE | 2025-01-21 09:13 | HO.NEPHOV ---
Vital Signs 01/21/25 09:14 Height 5 ft 8 in Weight 135 lb BMI 20.5 BP 162/66 H Blood Pressure Location Lt brachial Position Sitting Pulse 66 Pulse Source Pulse Oximeter Pulse Oximetry (%) 97 Oxygen Delivery Method Room Air Intake Visit Reasons: 3 MO FU/ LVM Self Defense Instructor Required: No Accompanied by: Self / Same As Patient Allergies No Known Allergies (No Known Allergies*) Allergy (Verified 01/21/25 09:17) Medication List - Last Reconciled 01/21/25 by Shane Garcia MD amlodipine 2.5 mg PO DAILY aspirin (Adult Low Dose Aspirin) 81 mg PO DAILY Bifidobacterium infantis (Align (B.infantis)) 10.5 mg PO DAILY 30 days blood-glucose meter (FreeStyle Lite Meter kit) test 4 times QD clopidogrel 75 mg PO DAILY insulin aspart (niacinamide) 100 unit/mL (3 mL) (Fiasp FlexTouch U-100 Insulin) See Protocol sliding scale doses subcut TID PRN lisinopril 10 mg PO DAILY loperamide (Anti-Diarrheal (loperamide)) 2 mg PO Q6H PRN 30 days metformin 500 mg PO DAILY 90 days pen needle, diabetic tid HPI Comments Details: Talon is a pleasant 72-year-old man with a history of diabetes mellitus which was diagnosed in 2019. We are not sure how long he had diabetes prior to this. He had a foot infection and underwent amputation of the toe. He was also found to have significant peripheral disease and stents has been inserted by Dr. Almaguer. He had mild fullness on the renal collecting system back in 2021. However repeat CT scan in 2022 did not reveal any evidence of obstruction. He had microhematuria. He was seen by urologist. Was supposed to have a cystoscopy but he had refused. Recently the repeat urinalysis did not reveal any hematuria. He did have proteinuria in the recent urine protein creatinine ratio was 911 and hence this referral. He was on lisinopril 2.5 mg a day. Increased to 5 mg QD in October 2023 Overall blood sugar seems to be well controlled with a recent hemoglobin A1c of 6.5%. Recent creatinine was 1.28 mg with EGFR of 55 mL/minute He is history of smoking. Currently smokes about 5 cigarettes a day. 01/02/24 ;Feels better;BP better;Cr has bumped up 03/01/24 ;No new complinats ; Tolerating Lisinopril ; No urinary symptoms 08/02/24 ;Overall doing OK ;Jardiance has been added since 07/30/24 ;Tolerating well so far 10/22/24: REcently hospitalized for foot infection. Treated with antibiotics Underwent Angiogram Sustained ROSHNI Cr peaked at 1.5 and now down to 1.39 No urinary symptoms 01/21/25 ADmits to consuming hig K diet No urinary issues PFSH Medical History (Reviewed 12/10/24 @ 15:45 by Joshua Capps [facility]) CKD (chronic kidney disease) stage 3, GFR 30-59 ml/min Type 2 diabetes mellitus without complications Osteomyelitis of great toe of left foot Diabetes PVD (peripheral vascular disease) Hypercholesteremia Surgical History S/P angiogram of extremity (08/13/20) Amputated toe of left foot (08/18/20) S/P angiogram of extremity (10/08/19) S/P PICC central line placement Social History Household Members Other:: lives alone Housing: Apartment Alcohol intake: current Alcohol intake frequency: does not drink Patient Tobacco Use Status: Never used Tobacco Years Smoked: 39 e-Cigarette/Vaping Use: Never Used Second Hand Smoke Exposure: No service: No Current occupational status: retired Cognitive needs: No Hearing needs: No Vision needs: No Physical Exam Vital Signs: Last Vital Signs Pulse 66 01/21/25 09:14 BP 162/66 H 01/21/25 09:14 Pulse Ox 97 01/21/25 09:14 Oxygen Delivery Method Room Air 01/21/25 09:14 BMI result Body Mass Index 20.5 Last Vital Signs Temp 98.5 F 09/25/24 07:43 Pulse 58 09/25/24 07:43 Resp 18 09/25/24 07:43 BP 170/60 H 09/25/24 07:43 Pulse Ox 93 09/25/24 07:43 O2 Del Method Room Air 09/25/24 07:43 O2 Flow Rate 2 09/24/24 15:41 BMI result Body Mass Index 20.7 Comfortable Neck supple no JVD. Lungs entry equal no rales. Heart S1-S2 heard no gallop or rub. Abdomen soft nontender. Neuro alert awake oriented. No asterixis. Extremities no edema. Const General: no acute distress Orientation/consciousness: patient oriented x3 Neck Neck: Yes supple Resp Auscultation: diminished lung sounds Cardio Rate: regular rate GI Palpation (GI): Soft to palpation Neuro General: patient oriented x3 Results Reviewed Nephrology Results: Sodium, (135-145) 144 mmol/L 01/14/25 Potassium, (3.3-5.1) 5.6 mmol/L H Δ 01/14/25 Chloride, (96-108) 115 mmol/L H 01/14/25 Carbon Dioxide, (22-29) 26 mmol/L 01/14/25 BUN, (9-16) 48 mg/dL H 01/14/25 Creatinine, (0.5-1.4) 1.49 mg/dL H 01/14/25 Calcium, (8.4-10.2) 8.9 mg/dL Δ 01/14/25 Urine Protein, (Neg-Trace) 300 (3+) mg/dL H 01/14/25 Urine Creatinine 82.01 mg/dL 01/14/25 Assessment & Plan Assessment & Plan (1) Microalbuminuria: Code(s): R80.9 - Proteinuria, unspecified Category: Medical (2) CKD (chronic kidney disease) stage 3, GFR 30-59 ml/min: Code(s): N18.30 - Chronic kidney disease, stage 3 unspecified Category: Medical (3) Proteinuria: Code(s): R80.9 - Proteinuria, unspecified Category: Medical Plan . Plesant spetaugenerian with diabetes mellitus and peripheral artery disease with mild CKD and proteinuria. Proteinuria is most likely due to underlying diabetic kidney disease. Urine Pro: Cr is 2.66! Nondiabetic causes should be considered but unlikely at this point. All serologies have been negative thus far ROSHNI - Cr has improved Goal is to slow the progression of kidney disease. He was on lisinopril 10 mg. Currently on hold due to recent ROSHNI Shall recheck renal panel and start an ACEi HTN_ BP is better controlled Serologies ordered for non diabetic causes - essentially normal Hold off on kidney biopsy. He would benefit from SGLT2 inhibitor. - started on 07/30/24 !! Continue to avoid nephrotoxic agents including NSAIDs and Hdz 2 inhibitors. Maintain blood pressure less than 130/80. stay on low-sodium diet. Discussed smoking cessation 01/21/25 BP Sub optimal Mild hyperkalemia Increase AMLODIPINE to 5 mg QD Low K diet REcheck BMP in 1 week Orders: Orders Basic Metabolic Panel 3 Months N18.30 - Chronic kidney disease, stage 3 unspecified Basic Metabolic Panel 1 Week N18.30 - Chronic kidney disease, stage 3 unspecified Medications: Changed From amlodipine 2.5 mg PO DAILY 90 tabs 1RF To amlodipine 5 mg PO DAILY 90 tabs 1RF Coding Level of Care Code Est Pt Level 4 (11755) Diagnoses Microalbuminuria R80.9 CKD (chronic kidney disease) stage 3, GFR 30-59 ml/min N18.30 Proteinuria R80.9
[2025-01-21 09:14] VITALS: BP 162/66; PULSE 66; O2SAT 97; BMI 20.5
--- OUTSIDE RECORDS SUMMARY | 2025-01-21 09:28 | XMS_ITS | Clinical Summary ---
Author Organization [facility] Facility Address [address] [place] [address] Care Team Providers Care Rn Stars Name Role Phone Clint Vivar NP Primary Care Provider [phone] Social History Tobacco Use Types Packs/Day Years [...] complete [place] [id number] Medicare [facility] Medicare [facility] Care Teams Rn Stars Relationship Specialty Start Date End Date Clint Vivar NP 1961 [place] [address] PCP - General Nurse Practitioner 07/21/22
== END 2025-01-21 09:29 | disposition home or self-care (01) ==
LOC: HO.HKA 09:03
PROVIDERS: PCP Nurse Practitioner Family; Visit Provider Internal Medicine Hypertension Specialist
DX: R80.9 Proteinuria, unspecified (principal); N18.30 Chronic kidney disease, stage 3 unspecified
CPT/HCPCS: 99214

== ENCOUNTER → 2025-01-21 09:02 | Outpatient (BNVA) | payer MEDICARE, OTHER, SELFPAY | PROVIDERS: PCP Nurse Practitioner Family; Visit Provider Internal Medicine Hypertension Specialist | DX: E11.22 Type 2 diabetes mellitus with diabetic chronic kidney disease (principal); N18.30 Chronic kidney disease, stage 3 unspecified; R80.9 Proteinuria, unspecified | CPT/HCPCS: 99212 ==

== ENCOUNTER 2025-01-31 06:10 | Outpatient (REF) | payer MEDICARE, OTHER, SELFPAY ==
--- OUTSIDE RECORDS SUMMARY | 2025-01-31 06:12 | XMS_ITS | Clinical Summary ---
Author Organization [facility] Facility Address [address] [place] [address] Care Team Providers Care Configuration Developer Name Role Phone Clint Vivar NP Primary Care Provider [phone] Social History Tobacco Use Types Packs/Day Years [...] complete [place] [id number] Medicare [facility] Medicare [facility] Care Teams Configuration Developer Relationship Specialty Start Date End Date Clint Vivar NP 1961 [facility] [place] [address] PCP - General Nurse Practitioner 07/21/22
[2025-01-31 10:24] LABS: Anion Gap 10 (12-20); Blood Urea Nitrogen 30 mg/dL (9-16); Calcium 8.8 mg/dL (8.4-10.2); Carbon Dioxide 24 mmol/L (22-29); Chloride 112 mmol/L (96-108); Estimated Glomerular Filt Rate 58; Potassium 4.8 mmol/L (3.3-5.1); Sodium 141 mmol/L (135-145)
== END 2025-01-31 06:11 | disposition home or self-care (01) ==
LOC: HO.HMGCLDS 06:10
PROVIDERS: PCP Nurse Practitioner Family; Visit Provider Internal Medicine Hypertension Specialist
DX: N18.30 Chronic kidney disease, stage 3 unspecified (principal)
CPT/HCPCS: 36415; 80048

== ENCOUNTER 2025-02-04 10:26 | Outpatient (AMB) | payer MEDICARE, OTHER, SELFPAY ==
[2025-02-04 10:43] VITALS: BP 140/94; PULSE 70; RESP 16; TEMP 36.8; O2SAT 96; BMI 20.8
--- NOTE | 2025-02-04 10:43 | A.OFFPC_ITS ---
Vital Signs 02/04/25 10:43 02/04/25 11:46 Height 5 ft 8 in Weight 137 lb BMI 20.8 BP 140/94 H 170/80 H Blood Pressure Location Lt brachial Rt brachial Position Sitting Sitting Respiration 16 Pulse 70 Pulse Source Pulse Oximeter Temp 98.2 F Temp Source Oral Pulse Oximetry (%) 96 Intake Visit Reasons: PE Language Instructor Required: No Accompanied by: Self / Same As Patient Allergies No Known Allergies (No Known Allergies*) Allergy (Verified 02/04/25 10:46) Medication List - Last Reconciled 02/04/25 by JEWELL RuizP- amlodipine 5 mg PO DAILY aspirin (Adult Low Dose Aspirin) 81 mg PO DAILY Bifidobacterium infantis (Align (B.infantis)) 10.5 mg PO DAILY 30 days blood sugar diagnostic (FreeStyle Lite Strips) Test blood sugar 3 times per day blood-glucose meter (FreeStyle Lite Meter kit) test 4 times QD clopidogrel 75 mg PO DAILY insulin aspart (niacinamide) 100 unit/mL (3 mL) (Fiasp FlexTouch U-100 Insulin) See Protocol sliding scale doses subcut TID PRN lancets (FreeStyle Lancets) Test blood sugar 3 times a day lisinopril 10 mg PO DAILY loperamide (Anti-Diarrheal (loperamide)) 2 mg PO Q6H PRN 30 days metformin 500 mg PO DAILY 90 days pen needle, diabetic tid Tobacco use date assessed: 02/04/25 Fall risk assessment: No Falls in past year Last assessed Fall Risk: 02/04/25 Dental Screening Dental Screen Date: 02/04/25 Did you have a dental visit in the last 12 months?: No Did you have a dental problem in the last 6 months where you did not have access to dental care?: No Was dental information given to patient?: Patient has dentist HPI PE HPI Details History of Present Illness The patient is a 74-year-old male presenting for a physical examination. He denies experiencing any chest pain or increased dyspnea. He is not interested in undergoing low-dose CT scans or any form of colon cancer screening, including Cologuard. The patient denies any urinary issues, abdominal pain, hematochezia, constipation, diarrhea, or melena. He has a history of hypertension, for which his lisinopril dosage is being increased from 10 mg to 20 mg. He is advised to have laboratory tests in the near future to reassess kidney function and continues to follow up with nephr ology regularly. The patient is a smoker and had a carotid ultrasound that recommended a CTA of the neck, which will be arranged. He has a history of vascular issues, as evidenced by the absence of the dorsalis pedis pulse and the presence of the posterior tibialis pulse. He has undergone amputation of the left fifth toe. Health Maintenance - Vaccinations discussed with the patien manjeet, advised to obtain them at the pharmacy - Recommended CTA of the neck following carotid ultrasound findings Social History - Smoking: The patient is a current smok er. Review of Systems - Cardiovascular: Denies chest pain - Respiratory: Denies increased dyspnea - Gastrointestinal: Denies abdominal jennifer n, hematochezia, constipation, diarrhea, or melena - Genitourinary: Denies urinary issues Physical Exam General: Cooperative, healthy appearing, comfortable, no acute distress and well developed Orientation: Patient oriented x3 Limitations: No limitations Head: Normal to inspection Ears: Hearing grossly normal bilaterally Nose: Normal external nose present Face and sinus: Normal facial exam Eyes: Appearance normal, both eyes and all related structures Neck: Normal visual inspection and Yes full ROM Respiratory: Lungs were coarse bilat slightly diminished Cardiovascular: Regular rate and rhythm. S1, S2, very faint murmur GI: Normal to inspection. Soft to palpation and nontender Skin: No rashes or lesions noted Neuro: Patient oriented x3 Extremities: Right foot with a 4th toe over his 3rd toe. Left foot with 5th toe amputated. Posterior tibialis found but not dorsalis pedis. Feet positive sensation in the use of monofilament. Results - Carotid ultrasound: Recommended CTA of the neck Plan The patient's hypertension management will be adjusted by increasing the lisinopril dosage from 10 mg to 20 mg, with follow-up laboratory tests to reassess kidney function. He is advised to continue regular follow-ups with nephrology. A CTA of the neck is recommended following the carotid ultrasound findings, and arrangements will be made for this procedure. The patient is encouraged to obtain vaccinations at his pharmacy. Discussion Notes I discussed with the patient the importance of managing his hypertension and the need to increase his lisinopril dosage. We also reviewed the findings of his carotid ultrasound, which recommended a CTA of the neck, and I explained the necessity of this follow-up imaging. The patient was informed about the availability of vaccinations at his pharmacy and encouraged to obtain them. Patient Instructions - Increase lisinopril dosage to 20 mg as prescribed. - Schedule and complete a CTA of the nec k as recommended. - Obtain vaccinations at your pharmacy. - Continue regular follow-ups with nephr josie. 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 PVD (peripheral vascular disease) Hypercholesteremia Surgical History S/P angiogram of extremity (08/13/20) Amputated toe of left foot (08/18/20) S/P angiogram of extremity (10/08/19) S/P PICC central line placement Social History Household Members Other:: lives alone Housing: Apartment Alcohol intake: current Alcohol intake frequency: does not drink Patient Tobacco Use Status: Current everyday Tobacco user Years Smoked: 39 e-Cigarette/Vaping Use: Never Used Second Hand Smoke Exposure: No service: No Current occupational status: retired Cognitive needs: No Hearing needs: No Vision needs: No Questionnaire PHQ-9 Over the last 2 weeks, how often have you been bothered by any of the following problems? 1. Little interest or pleasure in doing things: not at all 2. Feeling down, depressed, or hopeless: not at all 3. Trouble falling or staying asleep, or sleeping too much: not at all 4. Feeling tired or having little energy: not at all 5. Poor appetite or overeating: not at all 6. Feeling bad about yourself - or that you are a failure or have let yourself or your family down: not at all 7. Trouble concentrating on things, such as reading the newspaper or watching television: not at all 8. Moving or speaking so slowly that other people could have noticed. Or the opposite - being so fidgety or restless that you have been moving around a lot more than usual: not at all 9. Thoughts that you would be better off or of hurting yourself in some way: not at all Total score: 0 Depression Screening Interpretation: Negative Depression Screening Done: Yes 75265 - PHQ-9 Billing: Yes Source: Developed by Drs. Nasir Gilmore, Ana Laura Harley, José Miguel Garvin and colleagues, with an educational arnaud from [employer]. Thrive Questionnaire Date Thrive assessed: 10/30/24 KIYA-7 AMB Questionnaire KIYA-7 Date KIYA - 7 assessed: 02/04/25 Feeling nervous, anxious, or on edge: 0 = Not at all Not being able to stop or control worryin = Not at all Worrying too much about different things: 0 = Not at all Trouble relaxin = Not at all Being so restless that it is hard to sit still: 0 = Not at all Becoming easily annoyed or irritable: 0 = Not at all Feeling afraid as if something awful might happen: 0 = Not at all Total KIYA-7 score (0-4 normal; 5-9 mild; 10-14 moderate; 15-21 severe): 0 Source: Developed by Drs. Nasir Gilmore, Ana Laura Harley, José Miguel Garvin and colleagues, with an educational arnaud from [employer]. KIYA-7 Assessment Billing KIYA-7 Assessment Tool: KIYA-7 Assessment 94362 Physical exam (Primary Care) Vital Signs: Last Vital Signs Temp 98.2 F 02/04/25 10:43 Pulse 70 02/04/25 10:43 Resp 16 02/04/25 10:43 BP 140/94 H 02/04/25 10:43 Pulse Ox 96 02/04/25 10:43 BMI result Body Mass Index 20.8 Tobacco/Smoking Status: Tobacco use Status Tobacco use date assessed 02/04/25 02/04/25 10:50 Patient Tobacco Use Status Current everyday Tobacco 02/04/25 10:50 e-Cigarette/Vaping Use Never Used 02/04/25 10:50 PHQ-9: PHQ-9 Score PHQ-9: Total score 0 02/04/25 11:31 Depression Screening Interpretation: Negative Thrive Assessment: Date of Thrive Assessment Date Thrive assessed 10/30/24 02/04/25 10:50 Results AMB Hemoglobin A1c AMB Hemoglobin A1c 6.6 % Last Edit by Breonna Morales MA on 02/04/25 11:02 Results Reviewed Results Reviewed: Laboratory Last Values Hgb A1c (Clinic) 6.6 % (4.0-6.0) H 02/04/25 10:51 Coding Level of Care Code Est Pt Level 3 (82371) Est Pt Prev Care >65y(25946) Diagnoses Encounter for routine adult physical exam with abnormal findings Z00. Diabetes E11.9 Screening PSA (prostate specific antigen) Z12.5 Carotid bruit R09.89 Carotid stenosis I65.29 Vitamin D deficiency E55.9 Additional Codes KIYA-7 Assessment Billing - KIYA-7 Assessment Tool: KIYA-7 Assessment 66473 ([id number]) PHQ-9 - 95289 - PHQ-9 Billing: Yes ([id number]) Assessment & Plan Assessment & Plan (1) Encounter for routine adult physical exam with abnormal findings: Code(s): Z00.01 - Encounter for general adult medical examination with abnormal findings Category: Medical (2) Diabetes: Code(s): E11.9 - Type 2 diabetes mellitus without complications Category: Medical (3) Screening PSA (prostate specific antigen): Code(s): Z12.5 - Encounter for screening for malignant neoplasm of prostate Category: Medical (4) Carotid bruit: Code(s): R09.89 - Other specified symptoms and signs involving the circulatory and respiratory systems Category: Medical (5) Carotid stenosis: Comment: recommended CTA (see carotid US report) Code(s): I65.29 - Occlusion and stenosis of unspecified carotid artery Category: Medical (6) Vitamin D deficiency: Code(s): E55.9 - Vitamin D deficiency, unspecified Category: Medical Plan . Orders: Orders Comprehensive [place]. Panel Fast Today Z00.01 - Encounter for general adult medical examination with abnormal findings Lipid Panel Today Z00.01 - Encounter for general adult medical examination with abnormal findings Prostate Specific Antigen Scr Today Z12.5 - Encounter for screening for malignant neoplasm of prostate CT angio head neck Today I65.29 - Occlusion and stenosis of unspecified carotid artery, R09.89 - Other specified symptoms and signs involving the circulatory and respiratory systems Vitamin D 25-OH Total Today E55.9 - Vitamin D deficiency, unspecified AMB Hemoglobin A1c Today Z13.9 - Encounter for screening, unspecified Complete Blood Count Auto Diff Today Z00.01 - Encounter for general adult medical examination with abnormal findings TSH reflex Free T4 Today Z00. - Encounter for general adult medical examination with abnormal findings UA CC w/rflx Micro + Cult Today Z00. - Encounter for general adult medical e xamination with abnormal findings Medications: Changed From lisinopril 10 mg PO DAILY To lisinopril 20 mg PO DAILY 30 tabs 2RF 30 days Refilled blood sugar diagnostic (FreeStyle Lite Strips) Test blood sugar 3 times per day 100 ea 5RF E11.621 - Type 2 diabetes mellitus with foot ulcer, L97.509 - Non- pressure chronic ulcer of other part of unspecified foot with unspecified severity
--- OUTSIDE RECORDS SUMMARY | 2025-02-04 11:35 | XMS_ITS | Clinical Summary ---
Author Organization [facility] Facility Address [address] [address] Care Team Providers Care Newspaper Managing Editor Name Role Phone Clint Vivar NP Primary Care Provider [phone] Social History Tobacco Use Types Packs/Day Years [...] complete [place] [id number] Medicare [facility] Medicare [facility] Care Teams Newspaper Managing Editor Relationship Specialty Start Date End Date Clint Vivar NP 1961 [facility] [place] [address] PCP - General Nurse Practitioner 07/21/22
[2025-02-04 11:46] VITALS: BP 170/80
== END 2025-02-04 12:28 | disposition home or self-care (01) ==
LOC: HO.HMCC 10:27
PROVIDERS: PCP Nurse Practitioner Family; Visit Provider Nurse Practitioner Family
DX: Z00.01 Encounter for general adult medical examination with abnormal findings (principal); E11.9 Type 2 diabetes mellitus without complications; R09.89 Other specified symptoms and signs involving the circulatory and respiratory systems; I65.29 Occlusion and stenosis of unspecified carotid artery; E55.9 Vitamin D deficiency, unspecified; Z12.5 Encounter for screening for malignant neoplasm of prostate

== ENCOUNTER → 2025-02-04 10:26 | Outpatient (BNVA) | payer MEDICARE, OTHER, SELFPAY | PROVIDERS: PCP Nurse Practitioner Family; Visit Provider Nurse Practitioner Family | DX: Z00.01 Encounter for general adult medical examination with abnormal findings (principal); E11.9 Type 2 diabetes mellitus without complications; R09.89 Other specified symptoms and signs involving the circulatory and respiratory systems; I65.29 Occlusion and stenosis of unspecified carotid artery; E55.9 Vitamin D deficiency, unspecified; N18.9 Chronic kidney disease, unspecified; F17.200 Nicotine dependence, unspecified, uncomplicated; Z71.6 Tobacco abuse counseling | CPT/HCPCS: 83036; 96127; 99212; 99397 ==

== ENCOUNTER 2025-03-13 07:30 | Outpatient (REF) | payer MEDICARE, OTHER, SELFPAY ==
[2025-03-14 12:55] LABS: Creatinine POC 1.7 mg/dL (0.5-1.4); GFR POC 43
== END 2025-03-13 07:31 | disposition home or self-care (01) ==
LOC: HO.CT 07:30
PROVIDERS: PCP Nurse Practitioner Family; Visit Provider Nurse Practitioner Family
DX: R09.89 Other specified symptoms and signs involving the circulatory and respiratory systems (principal); I65.29 Occlusion and stenosis of unspecified carotid artery
CPT/HCPCS: 82565

== ENCOUNTER 2025-03-22 07:30 | Outpatient (REF) | payer MEDICARE, OTHER, SELFPAY ==
[2025-03-22 10:48] LABS: Hematocrit 33.4 % (42.0-52.0); Hemoglobin 10.7 g/dl (14.0-18.0); Imm Gran Abs Auto 0.02 X10*3/uL (0.00-0.03); Imm Gran Pct Auto 0.3 % (0.0-0.4); Lymphocytes Absolute Auto 1.5 X10*3/uL (1.2-4.9); MANUAL DIFF FLAG NO; Mean Corpuscular HGB Conc 32.0 g/dl (31.0-36.0); Mean Corpuscular Hemoglobin 29.2 pg (27.0-33.0); Mean Corpuscular Volume 91.3 fL (80.0-98.0); NRBC Abs Auto 0.000 X10*3/uL (0.0-0.012); NRBC Pct Auto 0.0 /100WBC (0.0-0.2); Platelet Count 190 X10*3/uL (160-400); Red Blood Count 3.66 X10*6/uL (4.60-5.80); White Blood Count 6.2 X10*3/uL (4.8-10.8)
[2025-03-22 11:22] LABS: Alanine Aminotransferase 14 U/L (0-40); Albumin Level 3.5 g/dL (3.5-5.0); Alkaline Phosphatase 68 U/L (39-117); Anion Gap 12 (12-20); Aspartate Amino Transferase 26 U/L (5-37); Blood Urea Nitrogen 40 mg/dL (9-16); Calcium 9.0 mg/dL (8.4-10.2); Carbon Dioxide 25 mmol/L (22-29); Chloride 113 mmol/L (96-108); Cholesterol 148 mg/dL (<200); Estimated Glomerular Filt Rate 50; HDL Cholesterol 46 mg/dL (>40); Potassium 5.4 mmol/L (3.3-5.1); Sodium 145 mmol/L (135-145); Total Protein 6.2 g/dL (6.5-8.0); Triglycerides 79 mg/dL (<150)
== END 2025-03-22 07:31 | disposition home or self-care (01) ==
LOC: HO.HMGCLDS 07:30
PROVIDERS: PCP Nurse Practitioner Family; Visit Provider Nurse Practitioner Family
DX: Z00.01 Encounter for general adult medical examination with abnormal findings (principal); Z12.5 Encounter for screening for malignant neoplasm of prostate; Z13.6 Encounter for screening for cardiovascular disorders; E55.9 Vitamin D deficiency, unspecified
CPT/HCPCS: 36415; 80053; 80061; 82306; 84153; 84443; 85025

== ENCOUNTER 2025-03-26 07:03 | Outpatient (REF) | payer MEDICARE, OTHER, SELFPAY ==
--- OUTSIDE RECORDS SUMMARY | 2025-03-26 07:06 | XMS_ITS | Clinical Summary ---
Author Organization [facility] Facility Address [address] [place] [address] Care Team Providers Care Galley Hand Name Role Phone Clint Vivar NP Primary Care Provider [phone] Social History Tobacco Use Types Packs/Day Years [...] complete [place] [id number] Medicare [facility] Medicare [facility] Care Teams Galley Hand Relationship Specialty Start Date End Date Clint Vivar NP 1961 [place] [address] PCP - General Nurse Practitioner 07/21/22
[2025-03-26 10:14] LABS: MANUAL DIFF FLAG NO
[2025-03-26 10:26] LABS: Hematocrit 32.2 % (42.0-52.0); Hemoglobin 10.4 g/dl (14.0-18.0); Imm Gran Abs Auto 0.04 X10*3/uL (0.00-0.03); Imm Gran Pct Auto 0.5 % (0.0-0.4); Lymphocytes Absolute Auto 1.8 X10*3/uL (1.2-4.9); Mean Corpuscular HGB Conc 32.3 g/dl (31.0-36.0); Mean Corpuscular Hemoglobin 29.6 pg (27.0-33.0); Mean Corpuscular Volume 91.7 fL (80.0-98.0); NRBC Abs Auto 0.000 X10*3/uL (0.0-0.012); NRBC Pct Auto 0.0 /100WBC (0.0-0.2); Platelet Count 226 X10*3/uL (160-400); Red Blood Count 3.51 X10*6/uL (4.60-5.80); White Blood Count 7.3 X10*3/uL (4.8-10.8)
[2025-03-26 10:35] LABS: Appearance Urine Clear; Glucose Urine UA Negative (Negative); PH 5.5 (5.0-9.0); Specific Gravity - Urine 1.020 (1.005-1.025); UMIC TRIGGER UACC YES
[2025-03-26 11:12] LABS: Alanine Aminotransferase 15 U/L (0-40); Albumin Level 3.6 g/dL (3.5-5.0); Alkaline Phosphatase 67 U/L (39-117); Anion Gap 12 (12-20); Aspartate Amino Transferase 23 U/L (5-37); Blood Urea Nitrogen 41 mg/dL (9-16); Calcium 8.7 mg/dL (8.4-10.2); Carbon Dioxide 22 mmol/L (22-29); Chloride 115 mmol/L (96-108); Estimated Glomerular Filt Rate 51; Iron 58 mcg/dL (45-160); Percent Iron Saturation 23 % (15-50); Potassium 4.7 mmol/L (3.3-5.1); Sodium 144 mmol/L (135-145); Total Iron Binding Capacity 255 mcg/dL (228-428); Total Protein 6.2 g/dL (6.5-8.0); Unsaturated Iron Binding 197 ug/dL
[2025-03-26 11:29] LABS: Ferritin 44 ng/mL (20-250)
== END 2025-03-26 07:04 | disposition home or self-care (01) ==
LOC: HO.HMGCLDS 07:03
PROVIDERS: PCP Nurse Practitioner Family; Visit Provider Nurse Practitioner Family
DX: Z00.01 Encounter for general adult medical examination with abnormal findings (principal); R09.89 Other specified symptoms and signs involving the circulatory and respiratory systems; D64.9 Anemia, unspecified
CPT/HCPCS: 36415; 80053; 81001; 82728; 83540; 85025

== ENCOUNTER 2025-03-28 13:46 | Outpatient (REF) | payer MEDICARE, OTHER, SELFPAY ==
--- NOTE | ~2025-03-28 | CT_ITS ---
EXAMINATION: CT ANGIOGRAM HEAD AND NECK CLINICAL INFORMATION: Other specified symptoms and signs involving the circulatory anatomy. Abnormal carotid Doppler 01/02/2025. COMPARISON: No prior CTA. Carotid Doppler examination 01/02/2025. TECHNIQUE: Noncontrast axial imaging of the head was performed. This was followed by test bolus sequences and head and neck intravenous bolus administration 70 mL of Omnipaque 350. Helical imaging was performed in the axial plane from the aortic arch to the skull vertex. The data was processed at the polysomnographic technologist's workstation for generation of MIP sequences. Angled MIPs and volume rendered reformatted images were also generated at an offline 3D workstation. Stenoses are assessed in accordance with NASCET criteria unless otherwise indicated. This CT examination was performed using dose optimization techniques as appropriate, variously including the following: *Automated exposure control *Adjustment of mA and/or kV according to patient size (this includes techniques or standardized protocols for targeted exams where dose is matched to indication/reason for exam; i.e. extremities or head) *Use of iterative reconstruction technique FINDINGS: NONCONTRAST HEAD CT: There is no evidence of intracranial hemorrhage or extra-axial fluid collection. There is no mass effect, or edema. No CT evidence of acute territorial infarct. Ventricles, sulci, and cisterns are normal in size and configuration for patient age. No hydrocephalus. No midline shift. Mild patchy and confluent supratentorial white matter hypoattenuation, in keeping with mild small vessel ischemic changes. Normal pituitary. Globes and orbital contents image normally. No extracranial soft tissue abnormalities. The paranasal sinuses, mastoid air cells, and tympanic cavities are normally aerated. No suspicious bony abnormalities. NECK CTA: -AORTIC ARCH: Normal in caliber. Mild atheromatous calcification. Three-vessel branching pattern. -GREAT VESSEL ORIGINS: Widely patent. No stenosis. -RIGHT COMMON CAROTID ARTERY: Normal in course and caliber to the level of the bifurcation. -CERVICAL RIGHT INTERNAL CAROTID ARTERY: Mild calcific and soft atherosclerotic disease of the carotid bulb and proximal internal carotid artery without flow-limiting stenosis. -LEFT COMMON CAROTID ARTERY: Normal in course and caliber to the level of the bifurcation. -CERVICAL LEFT INTERNAL CAROTID ARTERY: Mild calcific and soft atherosclerotic disease of the carotid bulb and proximal internal carotid artery without flow-limiting stenosis. -CERVICAL RIGHT VERTEBRAL ARTERY: Codominant. Mild stenosis at the origin secondary to calcified plaque. Otherwise normal in course and caliber into the skull base. -CERVICAL LEFT VERTEBRAL ARTERY: Codominant. Normal origin. Normal in course and caliber into the skull base. OTHER, SOFT TISSUES: -There is fullness in the right glossotonsillar sulcus. Underlying mass cannot be entirely excluded. Recommend direct visualization. -Thyroid demonstrates an 8 mm right lobe nodule. No follow-up recommended given small size. -Mildly patulous superior esophagus. -Imaged superior mediastinal structures demonstrate an oval fluid attenuating cyst just cephalad to the aortic arch, left lateral to the esophagus and posteromedial to the left subclavian artery measuring 2.1 x 2.4 x 3.1 cm. 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 -Imaged lung apices demonstrate mild to moderate centrilobular emphysema, and mild thickening of the small airways suggesting chronic bronchitis. There are a few scattered groundglass and solid pulmonary nodules noted measuring up to 4 mm, nonspecific. CTA OF THE BRAIN: -INTRACRANIAL INTERNAL CAROTID ARTERIES: Moderate Calcific atherosclerotic disease of the intracranial internal carotid arteries without occlusion or flow-limiting stenosis. -RIGHT ANTERIOR CEREBRAL ARTERY: Normal A1 segment. Normal arborization of the distal segments. -LEFT ANTERIOR CEREBRAL ARTERY: Normal A1 segment. Normal arborization of the distal segments. -ANTERIOR COMMUNICATING ARTERY: Normal. -RIGHT MIDDLE CEREBRAL ARTERY: Normal M1 segment of the MCA without focal stenosis or occlusion. Normal arborization of the distal segments. -LEFT MIDDLE CEREBRAL ARTERY: Normal M1 segment of the MCA without focal stenosis or occlusion. Normal arborization of the distal segments. -RIGHT VERTEBRAL ARTERY V4: Normal in course and caliber. Normal PICA branch with extradural origin. -LEFT VERTEBRAL ARTERY V4: Normal in course and caliber. There is a left AICA/PICA. -BASILAR ARTERY: Normal without focal stenosis or occlusion. Normal appearance of the proximal superior cerebellar arteries. Normal basilar tip. -RIGHT POSTERIOR CEREBRAL ARTERY: The P1 segment is diminutive. origin of the DIRECTOR HAIR with robust opacification of the posterior communicating artery. Normal opacification of the distal DIRECTOR HAIR segments. -LEFT POSTERIOR CEREBRAL ARTERY: Normal P1 segment. Normal opacification of the distal DIRECTOR HAIR segments. -POSTERIOR COMMUNICATING ARTERIES: The right as above. The left is diminutive. Normal opacification of the superior sagittal, straight, transverse, and sigmoid sinuses. No venous thrombosis. No space-occupying hemorrhage or definite evolving infarct. CT/CT angio head neck IMPRESSION: NON-CONTRAST HEAD CT: 1. No intracranial hemorrhage or mass effect. No CT evidence of acute territorial infarct. 2. Mild small vessel ischemic changes. CTA NECK: 1. No significant stenosis, occlusion, dissection, or aneurysm involving the major cervical arterial vasculature. 2. There is a mild stenosis of the right vertebral artery origin due to calcific plaque. 3. There is fullness in the right glossotonsillar sulcus region. Underlying mass cannot be excluded. Recommend direct visualization. 4. Numerous ancillary findings as discussed in the body of the report. See above. CTA HEAD: 1. No significant stenosis, occlusion, dissection, or aneurysm involving the major intracranial arterial vasculature. 2. Major cortical and dural venous sinuses are patent. Electronically signed by: Marino Carrillo MD 03/28/2025 03:16 PM EDT
[2025-03-28] MEDS: iohexoL 350 MG/ML 100 ML INFUS..BTL IV (14:37)
--- OUTSIDE RECORDS SUMMARY | 2025-03-28 17:32 | XMS_ITS | Clinical Summary ---
Author Organization [facility] Facility Address [address] [place] [address] Care Team Providers Care Fabric Inspector Name Role Phone Clint Vivar NP Primary Care Provider [phone] Social History Tobacco Use Types Packs/Day Years [...] complete [place] [address] Medicare [facility] Medicare [facility] Care Teams Fabric Inspector Relationship Specialty Start Date End Date Clint Vivar NP 1961 [place] [address] PCP - General Nurse Practitioner 07/21/22
== END 2025-03-28 13:47 | disposition home or self-care (01) ==
LOC: HO.CT 13:46
PROVIDERS: PCP Nurse Practitioner Family; Visit Provider Nurse Practitioner Family
DX: R09.89 Other specified symptoms and signs involving the circulatory and respiratory systems (principal); I65.29 Occlusion and stenosis of unspecified carotid artery
CPT/HCPCS: 70496; 70498; Q9967

== ENCOUNTER → 2025-03-28 13:48 | Outpatient (BNV) | payer MEDICARE, OTHER, SELFPAY | PROVIDERS: PCP Nurse Practitioner Family; Visit Provider Radiology Diagnostic Radiology | DX: I67.82 Cerebral ischemia (principal); I65.01 Occlusion and stenosis of right vertebral artery | CPT/HCPCS: 70496; 70498 ==

== ENCOUNTER 2025-04-04 14:12 | Outpatient (AMB) | payer MEDICARE, OTHER, SELFPAY ==
--- NOTE | 2025-04-04 14:34 | MHC.PC.OV ---
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 Director Required: No Allergies No Known Allergies (No Known Allergies*) Allergy (Verified 04/04/25 15:07) Medication List - Last Reconciled 04/04/25 by SARI Ruiz- amlodipine 5 mg PO DAILY aspirin (Adult Low Dose Aspirin) 81 mg PO DAILY Bifidobacterium infantis (Align (B.infantis)) 10.5 mg PO DAILY 30 days blood sugar diagnostic (FreeStyle Lite Strips) Test blood sugar 3 times per day blood-glucose meter (FreeStyle Lite Meter kit) test 4 times QD clopidogrel 75 mg PO DAILY insulin aspart (niacinamide) 100 unit/mL (3 mL) (Fiasp FlexTouch U-100 Insulin) See Protocol sliding scale doses subcut TID PRN lancets (FreeStyle Lancets) Test blood sugar 3 times a day lisinopril 20 mg PO DAILY 30 days loperamide (Anti-Diarrheal (loperamide)) 2 mg PO Q6H PRN 30 days metformin 500 mg PO DAILY 90 days pen needle, diabetic tid Tobacco use date assessed: 02/04/25 Dental Screening Dental Screen Date: 02/04/25 HPI 4m f/u HPI Details Chief Complaint The patient presents for a follow-up regarding diabetes management. History of Present Illness The patient is a 74-year-old male presenting with a follow-up for diabetes management. His diabetes is currently well-controlled with an A1c of 6.5, and he reports feeling great overall. He denies any neuropathy initially but later confirms decreased sensation. Healed open region on the distal plantar aspect, inferior to the 3rd and 4th toes, as detected with monofilament testing. vaccinations pt is due for, getting at his pharmacy The patient has a history of an amputated left fifth toe and presents with calluses on the bilateral big toes. There are no open ulcerations, and a healed lesion is noted on the plantar aspect. HTN: will increase amlodpine from 5mg to 10mg, follow up with NN for BP checks Social History Health Maintenance - Eye exams are up to date. Review of Systems - Neurological: Denies neuropathy initially, later confirms decreased sensation on the distal plantar aspect. denies any ellis, blurred vision, cp, sob, dizziness Physical Exam General: Cooperative, healthy appearing, comfortable, no acute distress and well developed Orientation: Patient oriented x3 Limitations: No limitations Head: Normal to inspection Ears: Hearing grossly normal bilaterally Nose: Normal external nose present Face and sinus: Normal facial exam Eyes: Appearance normal, both eyes and all related structures Neck: Normal visual inspection and Yes full ROM Respiratory: Normal respiratory effort and able to speak in complete sentences. Lungs were diminished though clear to auscultation bilaterally Cardiovascular: Regular rate and rhythm. Normal S1 and S2 GI: Normal to inspection. Soft to palpation and nontender Skin: No rashes or lesions noted. There is a healed lesion. No open ulcerations otherwise. Calluses present bilaterally on big toes Neuro: Patient oriented x3. Neuropathy present. Diminished sensation with use of monofilament. old ulceration on the plantar aspect, more distal plantar, just inferior to 3rd and 4th toe (right) Extremities: Normal to inspection. Left foot has an amputated fifth toe Results - Labs: Hemoglobin A1c is 6.5%. Plan 1. Diabetes Mellitus The patient's diabetes is well-controlled with an A1c of 6.5%. Continue current management and monitor regularly. 2. Diabetic Neuropathy The patient reports decreased sensation on the distal plantar aspect, detected with monofilament testing. Monitor symptoms and consider further evaluation if symptoms progress. 3. Amputation Of Left Fifth Toe The patient has a history of left fifth toe amputation. No current issues reported related to the amputation. 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 PVD (peripheral vascular disease) Hypercholesteremia Surgical History S/P angiogram of extremity (08/13/20) Amputated toe of left foot (08/18/20) S/P angiogram of extremity (10/08/19) S/P PICC central line placement Social History Household Members Other:: lives alone Housing: Apartment Alcohol intake: current Alcohol intake frequency: does not drink Patient Tobacco Use Status: Current everyday Tobacco user Years Smoked: 39 e-Cigarette/Vaping Use: Never Used Second Hand Smoke Exposure: No service: No Current occupational status: retired Cognitive needs: No Hearing needs: No Vision needs: No Questionnaire Thrive Questionnaire Date Thrive assessed: 10/30/24 KIYA-7 AMB Questionnaire KIYA-7 Date KIYA - 7 assessed: 02/04/25 Source: Developed by Drs. Nasir Gilmore, Ana Laura Harley, José Miguel Garvin and colleagues, with an educational arnaud from [employer]. Physical exam (Primary Care) Vital Signs: Last Vital Signs Pulse 57 04/04/25 14:38 Resp 16 04/04/25 14:38 BP 160/64 H 04/04/25 14:38 Pulse Ox 98 04/04/25 14:38 Oxygen Delivery Method Room Air 04/04/25 14:38 BMI result Body Mass Index 21.3 Tobacco/Smoking Status: Tobacco use Status Tobacco use date assessed 02/04/25 04/04/25 14:35 Patient Tobacco Use Status Current everyday Tobacco 04/04/25 14:35 e-Cigarette/Vaping Use Never Used 04/04/25 14:35 Thrive Assessment: Date of Thrive Assessment Date Thrive assessed 10/30/24 04/04/25 14:35 Results AMB Hemoglobin A1c AMB Hemoglobin A1c 6.5 % Last Edit by Breonna Morales MA on 04/04/25 15:29 Coding Level of Care Code Est Pt Level 3 (26089) Diagnoses Diabetes E11.9 Assessment & Plan Assessment & Plan (1) Diabetes: Code(s): E11.9 - Type 2 diabetes mellitus without complications Category: Medical Plan . Orders: Orders AMB Hemoglobin A1c Today Z13.9 - Encounter for screening, unspecified Medications: Changed From amlodipine 5 mg PO DAILY 90 tabs 1RF To amlodipine 10 mg PO DAILY 90 tabs 1RF
[2025-04-04 14:38] VITALS: BP 160/64; PULSE 57; RESP 16; O2SAT 98; BMI 21.3
[2025-04-04 15:26] VITALS: BP 174/74
--- OUTSIDE RECORDS SUMMARY | 2025-04-04 18:04 | XMS_ITS | Clinical Summary ---
Author Organization [facility] Facility Address [address] [place] [address] Care Team Providers Care [employer] Superintendent Name Role Phone Clint Vivar NP Primary Care Provider [phone] Social History Tobacco Use Types Packs/Day Years [...] complete this [place] [id number] Medicare [facility] Medicare [facility] Care Teams [employer] Superintendent Relationship Specialty Start Date End Date Clint Vivar NP 1961 [facility] [address] PCP - General Nurse Practitioner 07/21/22
== END 2025-04-04 15:51 | disposition home or self-care (01) ==
LOC: HO.HMCC 14:13
PROVIDERS: PCP Nurse Practitioner Family; Visit Provider Nurse Practitioner Family
DX: Z13.9 Encounter for screening, unspecified (principal); E11.9 Type 2 diabetes mellitus without complications

== ENCOUNTER → 2025-04-04 14:12 | Outpatient (BNVA) | payer MEDICARE, OTHER, SELFPAY | PROVIDERS: PCP Nurse Practitioner Family; Visit Provider Nurse Practitioner Family | DX: E11.9 Type 2 diabetes mellitus without complications (principal) | CPT/HCPCS: 83036; 99212 ==

== ENCOUNTER → 2025-04-18 13:41 | Outpatient (BNVA) | payer MEDICARE, OTHER, SELFPAY | PROVIDERS: PCP Nurse Practitioner Family | DX: Z01.30 Encounter for examination of blood pressure without abnormal findings (principal) | CPT/HCPCS: 99211 ==

== ENCOUNTER → 2025-05-02 08:31 | Outpatient (BNVA) | payer MEDICARE, OTHER, SELFPAY | PROVIDERS: PCP Nurse Practitioner Family | DX: Z01.30 Encounter for examination of blood pressure without abnormal findings (principal); F17.210 Nicotine dependence, cigarettes, uncomplicated | CPT/HCPCS: 99211 ==

== ENCOUNTER 2025-05-15 08:36 | Outpatient (REF) | payer MEDICARE, OTHER, SELFPAY ==
--- OUTSIDE RECORDS SUMMARY | 2025-05-15 08:48 | XMS_ITS | Clinical Summary ---
Author Organization [facility] Facility Address [address] [place] [address] Care Team Providers Care Licensed Psychiatric Technician Name Role Phone Clint Vivar NP Primary Care Provider [phone] Social History Tobacco Use Types Packs/Day Years [...] complete this [place] [id number] Medicare [facility] Medicare [facility] Care Teams Licensed Psychiatric Technician Relationship Specialty Start Date End Date Clint Vivar NP 1961 [place] [address] PCP - General Nurse Practitioner 07/21/22
[2025-05-15 10:45] LABS: Anion Gap 14 (12-20); Blood Urea Nitrogen 36 mg/dL (9-16); Calcium 9.2 mg/dL (8.4-10.2); Carbon Dioxide 22 mmol/L (22-29); Chloride 112 mmol/L (96-108); Estimated Glomerular Filt Rate 44; Potassium 4.7 mmol/L (3.3-5.1); Sodium 143 mmol/L (135-145)
== END 2025-05-15 08:37 | disposition home or self-care (01) ==
LOC: HO.HMGCLDS 08:36
PROVIDERS: PCP Nurse Practitioner Family; Visit Provider Internal Medicine Hypertension Specialist
DX: N18.30 Chronic kidney disease, stage 3 unspecified (principal)
CPT/HCPCS: 36415; 80048

== ENCOUNTER → 2025-05-16 10:29 | Outpatient (BNVA) | payer MEDICARE, OTHER, SELFPAY | PROVIDERS: PCP Nurse Practitioner Family | DX: I10 Essential (primary) hypertension (principal) | CPT/HCPCS: 99211 ==

== ENCOUNTER 2025-05-20 09:35 | Outpatient (AMB) | payer MEDICARE, OTHER, SELFPAY ==
[2025-05-20 09:44] VITALS: BP 144/52; PULSE 70; O2SAT 97; BMI 21.3
--- NOTE | 2025-05-20 09:44 | HO.NEPHOV ---
Vital Signs 05/20/25 09:44 05/20/25 09:56 Height 5 ft 8 in Weight 140 lb BMI 21.3 BP 144/52 H 134/56 L Blood Pressure Location Rt brachial Rt radial Position Sitting Sitting Pulse 70 Pulse Source Pulse Oximeter Pulse Oximetry (%) 97 Oxygen Delivery Method Room Air Intake Visit Reasons: 4mon f/u w/labs-Conf Tank Cleaner Required: No Accompanied by: Self / Same As Patient Allergies No Known Allergies (No Known Allergies*) Allergy (Verified 05/20/25 09:47) Medication List - Last Reconciled 05/20/25 by Shane Garcia MD amlodipine 10 mg PO DAILY aspirin (Adult Low Dose Aspirin) 81 mg PO DAILY blood sugar diagnostic (FreeStyle Lite Strips) Test blood sugar 3 times per day blood-glucose meter (FreeStyle Lite Meter kit) test 4 times QD clopidogrel 75 mg PO DAILY hydrochlorothiazide 12.5 mg PO DAILY insulin aspart (niacinamide) 100 unit/mL (3 mL) (Fiasp FlexTouch U-100 Insulin) See Protocol sliding scale doses subcut TID PRN lancets (FreeStyle Lancets) Test blood sugar 3 times a day lisinopril 20 mg PO DAILY 30 days metformin 500 mg PO DAILY 90 days pen needle, diabetic tid HPI Comments Details: Talon is a pleasant 72-year-old man with a history of diabetes mellitus which was diagnosed in 2019. We are not sure how long he had diabetes prior to this. He had a foot infection and underwent amputation of the toe. He was also found to have significant peripheral disease and stents has been inserted by Dr. Almaguer. He had mild fullness on the renal collecting system back in 2021. However repeat CT scan in 2022 did not reveal any evidence of obstruction. He had microhematuria. He was seen by urologist. Was supposed to have a cystoscopy but he had refused. Recently the repeat urinalysis did not reveal any hematuria. He did have proteinuria in the recent urine protein creatinine ratio was 911 and hence this referral. He was on lisinopril 2.5 mg a day. Increased to 5 mg QD in October 2023 Overall blood sugar seems to be well controlled with a recent hemoglobin A1c of 6.5%. Recent creatinine was 1.28 mg with EGFR of 55 mL/minute He is history of smoking. Currently smokes about 5 cigarettes a day. 01/02/24 ;Feels better;BP better;Cr has bumped up 03/01/24 ;No new complinats ; Tolerating Lisinopril ; No urinary symptoms 08/02/24 ;Overall doing OK ;Jardiance has been added since 07/30/24 ;Tolerating well so far 10/22/24: REcently hospitalized for foot infection. Treated with antibiotics Underwent Angiogram Sustained ROSHNI Cr peaked at 1.5 and now down to 1.39 No urinary symptoms 01/21/25 ADmits to consuming hig K diet No urinary issues 05/20/25 The patient is a 74 year old male presenting for a follow-up visit for his chronic kidney disease, hypertension, and history of hyperkalemia. His potassium level was slightly elevated at the last visit but is better now. His current medications include amlodipine, hydrochlorothiazide, and lisinopril. He denies any lightheadedness, headache, nausea, vomiting, or trouble with urination. The patient was seen by his hooker operator, Dr. Clint Neil, who made no medication changes. 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 PVD (peripheral vascular disease) Hypercholesteremia Surgical History S/P angiogram of extremity (08/13/20) Amputated toe of left foot (08/18/20) S/P angiogram of extremity (10/08/19) S/P PICC central line placement Social History Household Members Other:: lives alone Housing: Apartment Alcohol intake: current Alcohol intake frequency: does not drink Patient Tobacco Use Status: Current everyday Tobacco user Years Smoked: 39 e-Cigarette/Vaping Use: Never Used Second Hand Smoke Exposure: No service: No Current occupational status: retired Cognitive needs: No Hearing needs: No Vision needs: No Physical Exam Vital Signs: Last Vital Signs Pulse 70 05/20/25 09:44 BP 134/56 L 05/20/25 09:56 Pulse Ox 97 05/20/25 09:44 Oxygen Delivery Method Room Air 05/20/25 09:44 BMI result Body Mass Index 21.3 Comfortable Neck supple no JVD. Lungs entry equal no rales. Heart S1-S2 heard no gallop or rub. Abdomen soft nontender. Neuro alert awake oriented. No asterixis. Extremities no edema. Results Reviewed Nephrology Results: Hgb, (14.0-18.0) 10.4 g/dl L 03/26/25 WBC, (4.8-10.8) 7.3 X10*3/uL 03/26/25 Plt Count, (160-400) 226 X10*3/uL 03/26/25 Sodium, (135-145) 143 mmol/L 05/15/25 Potassium, (3.3-5.1) 4.7 mmol/L 05/15/25 Chloride, (96-108) 112 mmol/L H 05/15/25 Carbon Dioxide, (22-29) 22 mmol/L 05/15/25 BUN, (9-16) 36 mg/dL H 05/15/25 Creatinine, (0.5-1.4) 1.54 mg/dL H 05/15/25 Calcium, (8.4-10.2) 9.2 mg/dL 05/15/25 Urine Protein, (Neg-Trace) 300 (3+) mg/dL H 03/26/25 Assessment & Plan Assessment & Plan (1) Microalbuminuria: Code(s): R80.9 - Proteinuria, unspecified Category: Medical (2) CKD (chronic kidney disease) stage 3, GFR 30-59 ml/min: Code(s): N18.30 - Chronic kidney disease, stage 3 unspecified Category: Medical (3) Proteinuria: Code(s): R80.9 - Proteinuria, unspecified Category: Medical Plan . Plesant spetaugenerian with diabetes mellitus and peripheral artery disease with mild CKD and proteinuria. Proteinuria is most likely due to underlying diabetic kidney disease. Urine Pro: Cr is 2.66! Nondiabetic causes should be considered but unlikely at this point. All serologies have been negative thus far ROSHNI - Cr has improved Goal is to slow the progression of kidney disease. He was on lisinopril 10 mg. Currently on hold due to recent ROSHNI Shall recheck renal panel and start an ACEi HTN_ BP is better controlled Serologies ordered for non diabetic causes - essentially normal Hold off on kidney biopsy. He would benefit from SGLT2 inhibitor. - started on 07/30/24 !! Continue to avoid nephrotoxic agents including NSAIDs and Hdz 2 inhibitors. Maintain blood pressure less than 130/80. stay on low-sodium diet. Discussed smoking cessation 05/20/25 BP well controlled Potassium under control- Stay on low K diet CKD Renal function close to baseline Continue to avoid nephrotoxins Orders: Orders Basic Metabolic Panel 4 Months I10 - Essential (primary) hypertension, N18.30 - Chronic kidney disease, stage 3 unspecified Coding Level of Care Code Est Pt Level 4 (60940) Diagnoses Microalbuminuria R80.9 CKD (chronic kidney disease) stage 3, GFR 30-59 ml/min N18.30 Proteinuria R80.9
[2025-05-20 09:56] VITALS: BP 134/56
== END 2025-05-20 09:59 | disposition home or self-care (01) ==
LOC: HO.HKA 09:36
PROVIDERS: PCP Nurse Practitioner Family; Visit Provider Internal Medicine Hypertension Specialist
DX: R80.9 Proteinuria, unspecified (principal); N18.30 Chronic kidney disease, stage 3 unspecified
CPT/HCPCS: 99214

== ENCOUNTER → 2025-05-20 09:35 | Outpatient (BNVA) | payer MEDICARE, OTHER, SELFPAY | PROVIDERS: PCP Nurse Practitioner Family; Visit Provider Internal Medicine Hypertension Specialist | DX: I10 Essential (primary) hypertension (principal); N18.30 Chronic kidney disease, stage 3 unspecified; R80.9 Proteinuria, unspecified | CPT/HCPCS: 99212 ==

== ENCOUNTER 2025-05-29 07:43 | Outpatient (REF) | payer MEDICARE, OTHER, SELFPAY ==
--- NOTE | ~2025-05-29 | US_ITS ---
EXAMINATION: Noninvasive assessment of the bilateral lower extremities with ARTERIAL DUPLEX, ANKLE BRACHIAL INDICES (ABIs), and PULSE VOLUME RECORDINGS (PVRs). CLINICAL INFORMATION: I 73.9. TECHNIQUE: Duplex Doppler techniques with waveform analysis and measurement of velocities in the bilateral common femoral, profunda femoris, superficial femoral, popliteal and tibial arteries were performed. Additionally, ankle pulse volume recordings, ankle pressure measurements and ankle brachial indices were obtained of the lower extremity arterial system bilaterally. The study was performed only at rest. COMPARISON: September 21, 2024. FINDINGS: DIRECT DUPLEX DOPPLER FINDINGS: RIGHT LEG: Common femoral artery: 154 cm/s, phasicity: Biphasic. Spectral broadening. Profunda femoris artery: 186 cm/s, phasicity: Biphasic. Spectral broadening. Superficial femoral artery (proximal): 98 cm/s, phasicity: Biphasic. Spectral broadening. Superficial femoral artery (mid): No flow on color Doppler interrogation. Collateral flow. Superficial femoral artery (distal): 59 cm/s, phasicity: Biphasic. Spectral broadening. Popliteal artery: 47 cm/s, phasicity: Biphasic. Posterior tibial artery: 40 cm/s, phasicity: Biphasic waveform. Peroneal artery: 29 cm/s, phasicity: Biphasic. Spectral broadening. Anterior tibial artery: 35 cm/s, phasicity: Biphasic. Spectral broadening. Dorsalis pedis artery: 37 cm/s, phasicity:Biphasic. Spectral broadening. LEFT LEG: Common femoral artery: 152 cm/s, phasicity: Biphasic. Spectral broadening. Profunda femoris artery: 285 cm/s, phasicity: Biphasic. Spectral broadening. Superficial femoral artery (proximal): Stent. Superficial femoral artery (mid): Stent. Superficial femoral artery (distal): Stent. Popliteal artery: 78 cm/s, phasicity: Biphasic. Posterior tibial artery: 112 cm/s, phasicity: Biphasic. Spectral broadening. Peroneal artery: 73 cm/s, phasicity: Biphasic. Spectral broadening. Anterior tibial artery: 12 cm/s, phasicity: Monophasic. Reversal. Dorsalis pedis artery: 19 cm/s, phasicity: Biphasic. Spectral broadening. Left superficial femoral artery stent is patent with peak systolic velocities as follow: [place] artery proximal to the stent: 191 cm/s. Biphasic waveform. Proximal stent: 155 cm/s, biphasic waveform. Mid stent: 104 cm/s, biphasic waveform. Distal stent: 116 cm/s, biphasic waveform. [place] artery distal to stent: 16 cm/s, triphasic waveform. BRACHIAL PRESSURES: Right: 173 Left: 167 ANKLE PRESSURES: Right: PT 129, DP 128 Left: PT 173, DP 166 ANKLE-BRACHIAL INDEX: Right: 0.75. Left: 1.0 ANKLE PVR WAVEFORMS: Right: Abnormal Left: Abnormal US/US arterial duplex BI w/ CATRACHO IMPRESSION: Right leg: Moderate to severe inflow disease with likely occluded mid segment of the superficial femoral artery and collateral flow distal patency of the vessels. Left leg: Moderate to severe inflow disease. Normal patency of the stent. CATRACHO Reference: - >1.4 = calcified vessels - 0.9 - 1.4 = normal - no significant arterial disease - 0.7 - 0.89 = mild peripheral arterial disease - 0.51 - 0.69 = moderate peripheral arterial disease - 0.50 = severe peripheral arterial disease - < .30 = critical arterial disease Electronically signed by: Cordell Butler MD 05/29/2025 10:22 AM [facility]
== END 2025-05-29 07:44 | disposition home or self-care (01) ==
LOC: HO.US 07:43
PROVIDERS: PCP Nurse Practitioner Family; Visit Provider Surgery Vascular Surgery
DX: I73.9 Peripheral vascular disease, unspecified (principal)
CPT/HCPCS: 93922; 93925

== ENCOUNTER → 2025-05-29 07:45 | Outpatient (BNV) | payer MEDICARE, OTHER, SELFPAY | PROVIDERS: PCP Nurse Practitioner Family; Visit Provider Radiology Diagnostic Radiology | DX: I70.211 Atherosclerosis of native arteries of extremities with intermittent claudication, right leg (principal); I70.202 Unspecified atherosclerosis of native arteries of extremities, left leg; Z95.820 Peripheral vascular angioplasty status with implants and grafts | CPT/HCPCS: 93922; 93925 ==